=== PATIENT | female | born 1940 | race Caucasian/White ===

== ENCOUNTER 2021-01-21 08:25 | Outpatient (REF) | payer MEDICARE, OTHER, SELFPAY ==
[2021-01-21 09:18] LABS: Glucose Urine UA NEG (NEG); Leukocyte Esterase Urine NEG (NEG); Nitrite Urine NEG (NEG); PH 6.5 (5.0-8.0); Urine Blood NEG (NEG); Urine Ketones NEG (NEG); Urine Protein NEG (NEG-TRACE)
[2021-01-21 09:20] LABS: Appearance Urine CLEAR; Color Urine YELLOW
[2021-01-21 09:22] LABS: Basophils Percent Auto 0.6 % (0-2); Eosinophils Percent Auto 0.9 % (0-4); Hematocrit 41.3 % (37-47); Hemoglobin 13.6 g/dl (12.0-16.0); Imm Gran Abs Auto 0.04 X10*3/uL (0.00-0.03); Imm Gran Pct Auto 1.1 % (0.0-0.4); Lymphocytes Percent Auto 57.9 % (20-40); MANUAL DIFF FLAG SCAN; Mean Corpuscular HGB Conc 32.9 g/dl (31.0-35.0); Mean Corpuscular Hemoglobin 30.4 pg (27.0-33.0); Mean Corpuscular Volume 92.4 fL (80-98); Mean Platelet Volume 10.7 fL (9.4-12.3); Monocytes Absolute Auto 0.5 X10*3/uL (0.1-1.2); Monocytes Percent Auto 13.5 % (2-11); Neutrophils Absolute Auto 0.9 X10*3/uL (2.0-8.3); Platelet Count 128 X10*3/uL (160-400); Red Blood Count 4.47 X10*6/uL (4.20-5.50); Red Cell Distribution Width 13.7 % (11.0-16.0); SCAN SMEAR FLAG 1; White Blood Count 3.5 X10*3/uL (4.8-10.8)
[2021-01-21 09:46] LABS: Alanine Aminotransferase 12 U/L (0-31); Albumin Level 4.3 g/dL (3.5-5.0); Alkaline Phosphatase 41 U/L (39-117); Anion Gap 10 (12-20); Aspartate Amino Transferase 18 U/L (5-31); Bilirubin Total 0.5 mg/dL (0.0-1.0); Blood Urea Nitrogen 18 mg/dL (9-16); Calcium 9.7 mg/dL (8.4-10.2); Carbon Dioxide 29 mmol/L (22-29); Chloride 104 mmol/L (96-108); Cholesterol 165 mg/dL; Estimated Glomerular Filt Rate > 60; Glucose Fasting 79 mg/dL (60-99); HDL Cholesterol 68 mg/dL; LDL Cholesterol Calculated 88 mg/dl; Potassium 4.1 mmol/L (3.3-5.1); Sodium 139 mmol/L (135-145); Total Protein 6.6 g/dL (6.5-8.0); Triglycerides 45 mg/dL
[2021-01-21 10:08] LABS: Thyroid Stimulating Hormone 5.05 uIU/mL (0.32-4.0); Vitamin D 25-OH Total 39.5 ng/mL (>30)
[2021-01-21 10:25] LABS: SLIDE REVIEW VERIFIED
== END 2021-01-21 08:26 | disposition home or self-care (01) ==
LOC: HO.LAB 08:25
PROVIDERS: PCP Internal Medicine; Visit Provider Internal Medicine
DX: E03.9 Hypothyroidism, unspecified (principal); E78.00 Pure hypercholesterolemia, unspecified; K21.9 Gastro-esophageal reflux disease without esophagitis; E55.9 Vitamin D deficiency, unspecified; I10 Essential (primary) hypertension; R35.0 Frequency of micturition
CPT/HCPCS: 36415; 80053; 80061; 81003; 82306; 84443; 85025

== ENCOUNTER 2021-07-16 09:35 | Outpatient (REF) | payer MEDICARE, OTHER, SELFPAY ==
[2021-07-16 10:40] LABS: Basophils Percent Auto 0.6 % (0-2); Eosinophils Percent Auto 0.9 % (0-4); Hematocrit 42.9 % (37.0-47.0); Hemoglobin 13.8 g/dl (12.0-16.0); Imm Gran Abs Auto 0.03 X10*3/uL (0.00-0.03); Imm Gran Pct Auto 0.9 % (0.0-0.4); Lymphocytes Percent Auto 57.7 % (20-40); MANUAL DIFF FLAG SCAN; Mean Corpuscular HGB Conc 32.2 g/dl (31.0-35.0); Mean Corpuscular Hemoglobin 30.1 pg (27.0-33.0); Mean Corpuscular Volume 93.7 fL (80.0-98.0); Mean Platelet Volume 10.6 fL (9.4-12.3); Monocytes Absolute Auto 0.5 X10*3/uL (0.1-1.2); Monocytes Percent Auto 13.4 % (2-11); Neutrophils Absolute Auto 0.9 x10*3/uL (2.0-8.3); Neutrophils Percent Auto 26.5 % (45-73); Platelet Count 149 X10*3/uL (160-400); Red Blood Count 4.58 X10*6/uL (4.20-5.50); Red Cell Distribution Width 13.6 % (11.0-16.0); SCAN SMEAR FLAG 1; White Blood Count 3.4 X10*3/uL (4.8-10.8)
[2021-07-16 11:13] LABS: SLIDE REVIEW VERIFIED
[2021-07-16 12:02] LABS: Alanine Aminotransferase 9 U/L (0-31); Albumin Level 4.3 g/dL (3.5-5.0); Alkaline Phosphatase 41 U/L (39-117); Anion Gap 14 (12-20); Aspartate Amino Transferase 19 U/L (5-31); Bilirubin Total 0.7 mg/dL (0.0-1.0); Blood Urea Nitrogen 25 mg/dL (9-16); Calcium 10.2 mg/dL (8.4-10.2); Carbon Dioxide 30 mmol/L (22-29); Chloride 103 mmol/L (96-108); Cholesterol 195 mg/dL; Estimated Glomerular Filt Rate > 60; Glucose Fasting 81 mg/dL (60-99); HDL Cholesterol 70 mg/dL; LDL Cholesterol Calculated 111 mg/dl; Potassium 4.4 mmol/L (3.3-5.1); Sodium 143 mmol/L (135-145); Total Protein 6.9 g/dL (6.5-8.0); Triglycerides 73 mg/dL
[2021-07-16 12:11] LABS: Thyroid Stimulating Hormone 4.65 uIU/mL (0.32-4.0)
== END 2021-07-16 09:36 | disposition home or self-care (01) ==
LOC: HO.LAB 09:35
PROVIDERS: PCP Internal Medicine; Visit Provider Internal Medicine
DX: E03.9 Hypothyroidism, unspecified (principal); E78.00 Pure hypercholesterolemia, unspecified
CPT/HCPCS: 36415; 80053; 80061; 84443; 85025

== ENCOUNTER 2021-08-18 10:42 | Outpatient (REF) | payer MEDICARE, OTHER, SELFPAY ==
[2021-08-18 11:14] LABS: MANUAL DIFF FLAG NO
[2021-08-18 12:21] LABS: Basophils Percent Auto 0.3 % (0-2); Eosinophils Percent Auto 0.5 % (0-4); Hematocrit 40.6 % (37.0-47.0); Hemoglobin 13.7 g/dl (12.0-16.0); Imm Gran Abs Auto 0.04 X10*3/uL (0.00-0.03); Imm Gran Pct Auto 1.1 % (0.0-0.4); Lymphocytes Absolute Auto 1.9 X10*3/uL (1.2-4.9); Lymphocytes Percent Auto 51.5 % (20-40); Mean Corpuscular HGB Conc 33.7 g/dl (31.0-35.0); Mean Corpuscular Hemoglobin 31.8 pg (27.0-33.0); Mean Corpuscular Volume 94.2 fL (80.0-98.0); Mean Platelet Volume 10.8 fL (9.4-12.3); Monocytes Absolute Auto 0.7 X10*3/uL (0.1-1.2); Monocytes Percent Auto 18.3 % (2-11); Neutrophils Absolute Auto 1.1 x10*3/uL (2.0-8.3); Neutrophils Percent Auto 28.3 % (45-73); Platelet Count 137 X10*3/uL (160-400); Red Blood Count 4.31 X10*6/uL (4.20-5.50); Red Cell Distribution Width 13.6 % (11.0-16.0); White Blood Count 3.7 X10*3/uL (4.8-10.8)
[2021-08-18 12:45] LABS: Valproate 76.5 mcg/mL (50.0-100.0)
[2021-08-18 13:15] LABS: Folate > 20.0 ng/mL (> or = 4.0); Vitamin B12 252 pg/mL (200-900)
== END 2021-08-18 10:43 | disposition home or self-care (01) ==
LOC: HO.LAB 10:42
PROVIDERS: PCP Internal Medicine; Visit Provider Psychiatry & Neurology Psychiatry
DX: F31.9 Bipolar disorder, unspecified (principal); Z79.899 Other long term (current) drug therapy
CPT/HCPCS: 36415; 80164; 82607; 82746; 85025

== ENCOUNTER 2021-10-24 08:11 | Outpatient (REF) | payer MEDICARE, OTHER, SELFPAY ==
[2021-10-24 08:42] LABS: MANUAL DIFF FLAG NO
[2021-10-24 09:12] LABS: Basophils Percent Auto 0.3 % (0-2); Eosinophils Percent Auto 0.5 % (0-4); Hematocrit 40.4 % (37.0-47.0); Hemoglobin 13.2 g/dl (12.0-16.0); Imm Gran Abs Auto 0.02 X10*3/uL (0.00-0.03); Imm Gran Pct Auto 0.5 % (0.0-0.4); Lymphocytes Percent Auto 52.2 % (20-40); Mean Corpuscular HGB Conc 32.7 g/dl (31.0-35.0); Mean Corpuscular Volume 91.8 fL (80.0-98.0); Mean Platelet Volume 11.1 fL (9.4-12.3); Monocytes Absolute Auto 0.7 X10*3/uL (0.1-1.2); Monocytes Percent Auto 17.1 % (2-11); Neutrophils Absolute Auto 1.1 x10*3/uL (2.0-8.3); Neutrophils Percent Auto 29.4 % (45-73); Platelet Count 128 X10*3/uL (160-400); Red Cell Distribution Width 13.2 % (11.0-16.0); White Blood Count 3.8 X10*3/uL (4.8-10.8)
[2021-10-24 09:54] LABS: Thyroid Stimulating Hormone 0.33 uIU/mL (0.32-4.0); Vitamin D 25-OH Total 42.4 ng/mL (>30)
== END 2021-10-24 08:12 | disposition home or self-care (01) ==
LOC: HO.LAB 08:11
PROVIDERS: PCP Internal Medicine; Visit Provider Internal Medicine
DX: E03.9 Hypothyroidism, unspecified (principal); E78.00 Pure hypercholesterolemia, unspecified; E55.9 Vitamin D deficiency, unspecified; E66.09 Other obesity due to excess calories; F31.70 Bipolar disorder, currently in remission, most recent episode unspecified
CPT/HCPCS: 36415; 82306; 84443; 85025

== ENCOUNTER 2021-12-02 08:22 | Outpatient (REF) | payer MEDICARE, OTHER, SELFPAY ==
[2021-12-02 08:56] LABS: MANUAL DIFF FLAG NO
[2021-12-02 09:19] LABS: Basophils Percent Auto 0.2 % (0-2); Eosinophils Percent Auto 0.7 % (0-4); Hematocrit 41.5 % (37.0-47.0); Hemoglobin 13.9 g/dl (12.0-16.0); Imm Gran Abs Auto 0.02 X10*3/uL (0.00-0.03); Imm Gran Pct Auto 0.5 % (0.0-0.4); Lymphocytes Percent Auto 46.3 % (20-40); Mean Corpuscular HGB Conc 33.5 g/dl (31.0-35.0); Mean Corpuscular Hemoglobin 29.8 pg (27.0-33.0); Mean Corpuscular Volume 89.1 fL (80.0-98.0); Monocytes Absolute Auto 0.8 X10*3/uL (0.1-1.2); Monocytes Percent Auto 18.5 % (2-11); Neutrophils Absolute Auto 1.5 x10*3/uL (2.0-8.3); Neutrophils Percent Auto 33.8 % (45-73); Platelet Count 126 X10*3/uL (160-400); Red Blood Count 4.66 X10*6/uL (4.20-5.50); Red Cell Distribution Width 13.3 % (11.0-16.0); White Blood Count 4.4 X10*3/uL (4.8-10.8)
[2021-12-02 09:48] LABS: Valproate 76.5 mcg/mL (50.0-100.0)
[2021-12-02 10:15] LABS: Folate > 20.0 ng/mL (> or = 4.0); Vitamin B12 273 pg/mL (200-900)
== END 2021-12-02 08:23 | disposition home or self-care (01) ==
LOC: HO.LAB 08:22
PROVIDERS: PCP Internal Medicine; Visit Provider Psychiatry & Neurology Psychiatry
DX: F31.9 Bipolar disorder, unspecified (principal); Z79.899 Other long term (current) drug therapy
CPT/HCPCS: 36415; 80164; 82607; 82746; 85025

== ENCOUNTER 2021-12-22 09:56 | Outpatient (REF) | payer MEDICARE, OTHER, SELFPAY ==
--- NOTE | ~2021-12-22 | XR_ITS ---
EXAMINATION: XR CHEST CLINICAL INFORMATION: Rhinorrhea. COMPARISON: None TECHNIQUE: 2 views of the chest were obtained. FINDINGS: Normal appearance of the cardiomediastinal silhouette. Nonspecific interstitial thickening in the lower lobes. Mild blunting of the right costophrenic angle. No pneumothorax. No acute osseous abnormalities. XR/XR chest 2V IMPRESSION: Nonspecific interstitial thickening in the lower lungs, which could be associated with asthma, bronchitis, reactive airways disease or less likely atypical infections. Correlate clinically. Mild blunting of the right costophrenic angle could be associated with trace amount of pleural fluid or pleural thickening.
== END 2021-12-22 09:57 | disposition home or self-care (01) ==
LOC: HO.XRAY 09:56
PROVIDERS: PCP Internal Medicine; Visit Provider Internal Medicine
DX: J34.89 Other specified disorders of nose and nasal sinuses (principal)
CPT/HCPCS: 71046

== ENCOUNTER 2022-03-09 10:26 | Outpatient (REF) | payer MEDICARE, OTHER, SELFPAY ==
[2022-03-09 10:48] LABS: MANUAL DIFF FLAG NO
[2022-03-09 12:01] LABS: Basophils Percent Auto 0.3 % (0-2); Eosinophils Percent Auto 0.6 % (0-4); Hematocrit 40.4 % (37.0-47.0); Imm Gran Abs Auto 0.01 X10*3/uL (0.00-0.03); Imm Gran Pct Auto 0.3 % (0.0-0.4); Lymphocytes Absolute Auto 1.7 X10*3/uL (1.2-4.9); Lymphocytes Percent Auto 47.2 % (20-40); Mean Corpuscular HGB Conc 32.2 g/dl (31.0-35.0); Mean Corpuscular Volume 90.2 fL (80.0-98.0); Monocytes Absolute Auto 0.7 X10*3/uL (0.1-1.2); Monocytes Percent Auto 19.2 % (2-11); Neutrophils Absolute Auto 1.2 x10*3/uL (2.0-8.3); Neutrophils Percent Auto 32.4 % (45-73); Platelet Count 136 X10*3/uL (160-400); Red Blood Count 4.48 X10*6/uL (4.20-5.50); Red Cell Distribution Width 13.8 % (11.0-16.0); White Blood Count 3.5 X10*3/uL (4.8-10.8)
[2022-03-09 12:42] LABS: Alanine Aminotransferase 8 U/L (0-31); Albumin Level 4.2 g/dL (3.5-5.0); Alkaline Phosphatase 43 U/L (39-117); Anion Gap 15 (12-20); Aspartate Amino Transferase 18 U/L (5-31); Bilirubin Total 0.6 mg/dL (0.0-1.0); Blood Urea Nitrogen 21 mg/dL (9-16); Calcium 9.9 mg/dL (8.4-10.2); Carbon Dioxide 28 mmol/L (22-29); Chloride 104 mmol/L (96-108); Estimated Glomerular Filt Rate > 60; Glucose Fasting 82 mg/dL (60-99); Potassium 4.2 mmol/L (3.3-5.1); Sodium 143 mmol/L (135-145); Total Protein 6.6 g/dL (6.5-8.0)
[2022-03-09 12:47] LABS: Thyroid Stimulating Hormone 0.17 uIU/mL (0.32-4.0)
== END 2022-03-09 10:27 | disposition home or self-care (01) ==
LOC: HO.LAB 10:26
PROVIDERS: PCP Internal Medicine; Visit Provider Internal Medicine
DX: E03.9 Hypothyroidism, unspecified (principal); E78.00 Pure hypercholesterolemia, unspecified; F31.70 Bipolar disorder, currently in remission, most recent episode unspecified; E55.9 Vitamin D deficiency, unspecified
CPT/HCPCS: 36415; 80053; 84443; 85025

== ENCOUNTER → 2022-06-26 15:04 | Outpatient (BNVA) | payer MEDICARE, OTHER, SELFPAY | PROVIDERS: PCP Internal Medicine; Visit Provider Psychiatry & Neurology Psychiatry | DX: F31.70 Bipolar disorder, currently in remission, most recent episode unspecified (principal); G62.9 Polyneuropathy, unspecified; D72.819 Decreased white blood cell count, unspecified; E03.9 Hypothyroidism, unspecified; Z79.899 Other long term (current) drug therapy | CPT/HCPCS: 90833; 99212 ==

== ENCOUNTER 2022-11-30 10:20 | Outpatient (AMB) | payer MEDICARE, OTHER, SELFPAY ==
--- NOTE | 2022-11-30 10:51 | AM.OFFWIN_ITS ---
Intake Vital Signs 11/30/22 10:55 11/30/22 11:12 Height 5 ft 5 in BP 118/72 Blood Pressure Location Lt brachial Position Sitting Pulse 47 L 60 Pulse Source Pulse Oximeter Temp 96.5 F L Temp Source Temporal Artery Scan Pulse Oximetry (%) 97 Oxygen Delivery Method Room Air Intake Visit Reasons: EST/ear cleaning/rt arm pain Intake Note: Pt is here c/o having wax in her ears. Pt is suppose to wear hearing aids. Pt also states she has pain in her right arm. No falls or injuries noted. Patient Tobacco Use Status: Never used Tobacco Allergies gabapentin Allergy (Unknown, Verified 11/30/22 10:53) lumps on arms No Known Allergies Allergy (Unverified 11/30/22 10:53) Do you need a note to return to daycare/school/sports/work: No HPI HPI Comments History of Present Illness Details 1112 82 year old female presents w/ b/l muffled hearing was told to come in by her it network administrator due to cerrumen in her ear cannal, normally wears hearing aids however not in now. Patient also has been having right shoulder pain for the past few months, constant, atraumatic, worse w/ movment, lifting and overhead movments. Patient states progressivly worsening. Deneis CP, SOB,N/V, abd pain, COLEMAN, vision changes, dizziness, fevers, chills, numbeness, tingling Physical exam with limited range of motion secondary to pain to right shoulder. 2+ radial pulses equal bilateral. No wrist drop bilaterally. Capillary refill less than 2 seconds to bilateral upper extremity digits. Normal sensation distally. Discomfort with palpation to distal clavicle over insertion site For ligaments and tendons. Bilateral ears with cerumen impaction. Ears likely muscle tearing secondary to cerumen impaction. Unlikely sens orineural hearing loss, tumor. Right shoulder likely painful secondary to inflammatory arthritis versus tendinitis. Unlikely fracture, dislocation. Unlikely atypical presentation of ACS. Plan ear lavage, x-ray of right shoulder. Will give her an orthopedic For. Educated patient on diagnosis and treatment plan, answered all question, patient verbalizes understanding. At this time patient will be discharged home, advised to return with new or worsening symptoms. Educated on worrisome signs and symptoms and when to return. At this time I feel comfortable discharge home. 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 Hypothyroidism Peripheral neuropathy Social History Patient Tobacco Use Status: Never used Tobacco Review of Systems Const Details: Constitutional : No Weight loss, No Fever, No Chills, No Fatigue, No Malaise ENT/Mouth : No sore throat, No Rhinorrhea Eyes: No Eye Pain, No Swelling, No Redness, + muffled hearing Cardiovascular : No Chest Pain, No SOB, No Dyspnea on Exertion, No Orthopnea, No Edema, No Palpitations Respiratory : No Cough, No Sputum, No Wheezing Gastrointestinal : No Nausea, No Vomiting, No Diarrhea, No Constipation, No abdominal Pain, No Hematochezia, No Melena Genitourinary : No Dysuria, No Urinary Frequency, No Hematuria, Musculoskeletal : + joint pain, No Myalgias, No Joint Swelling Skin : No Skin Lesions, No rash Neuro : No Weakness, No Numbness, No Dizziness, No Headache Psych : No Anxiety/Panic, No Depression All other systems reviewed and are negative All systems reviewed & are unremarkable except as noted in HPI and below Physical Exam Vital Signs: Last Vital Signs Temp 6.5 F L 11/30/22 10:55 Pulse 47 L 11/30/22 10:55 BP 118/72 11/30/22 10:55 Pulse Ox 97 11/30/22 10:55 Oxygen Delivery Method Room Air 11/30/22 10:55 vss Appearance: Alert.? Oriented X3.? No acute distress.? Head: Normocephalic, atraumatic, no step-offs or deformities Eyes: Pupils equal, round and reactive to light.? ENT: Pharynx normal.?b/l ears w/ cerrumen impaction Neck: Normal inspection.? Neck supple.? CVS: Normal heart rate and rhythm.? Pulses normal.? Respiratory: No respiratory distress.? Breath sounds normal.? Abdomen: Soft and nontender.? Skin: Skin warm and dry.? Normal skin color.? Normal skin turgor.? Extremities: No lower extremity edema.? No calf ttp. 5/5 strength to bilateral upper and lower extremities + limited range of motion secondary to pain to right shoulder. 2+ radial pulses equal bilateral. No wrist drop bilaterally. Capillary refill less than 2 seconds to bilateral upper extremity digits. Normal sensation distally. Discomfort with palpation to distal clavicle over insertion site For ligaments and tendons. Neuro: Oriented X 3.? No motor deficit.? No sensory deficit. CN 2-12 intact Assessment & Plan Assessment & Plan (1) Cerumen impaction: Code(s): H61.20 - Impacted cerumen, unspecified ear (2) Right shoulder tendinitis: Code(s): M77.8 - Other enthesopathies, not elsewhere classified Plan Take your medications as prescribed. If you were prescribed antibiotics today, it is important that you take your medication to their entirety, do not skip any doses, do not finish them early. Follow-up with your primary care provider this week. Return to the emergency department with new or worsening symptoms. Such as fevers, chills, chest pain, shortness of breath, nausea, vomiting, dizziness, headache, vision changes, lethargy In case of emergency call 911 Coding Level of Care Code Est Pt Level 3 (86762) Diagnoses Cerumen impaction H61.20 Right shoulder tendinitis M77.8
[2022-11-30 10:55] VITALS: BP 118/72; PULSE 47; TEMP 35.8; O2SAT 97
[2022-11-30 11:12] VITALS: PULSE 60
== END 2022-11-30 11:52 | disposition home or self-care (01) ==
PROVIDERS: PCP Internal Medicine; Visit Provider Physician Assistant
DX: H61.23 Impacted cerumen, bilateral (principal); M77.8 Other enthesopathies, not elsewhere classified
CPT/HCPCS: 99213

== ENCOUNTER 2022-11-30 12:01 | Outpatient (REF) | payer MEDICARE, OTHER, SELFPAY ==
--- NOTE | ~2022-11-30 | XR_ITS ---
EXAMINATION: XR SHOULDER, RIGHT CLINICAL INFORMATION: Right shoulder pain. COMPARISON: None available. TECHNIQUE: Three views of the right shoulder. FINDINGS: There is no acute fracture or dislocation. Moderate right acromioclavicular degenerative joint changes are seen. The right glenohumeral joint is intact with the visualized right ribs are intact with the soft tissues are unremarkable. XR/XR shoulder RT min 2V IMPRESSION: Moderate right acromioclavicular degenerative joint changes. No overt acute abnormality.
== END 2022-11-30 12:02 | disposition home or self-care (01) ==
LOC: HO.HMGCX 12:01
PROVIDERS: PCP Internal Medicine; Visit Provider Physician Assistant
DX: M77.8 Other enthesopathies, not elsewhere classified (principal)
CPT/HCPCS: 73030

== ENCOUNTER 2022-12-18 08:36 | Outpatient (REF) | payer MEDICARE, OTHER, SELFPAY ==
[2022-12-18 09:01] LABS: MANUAL DIFF FLAG NO
[2022-12-18 10:16] LABS: Basophils Percent Auto 0.4 % (0-2); Eosinophils Percent Auto 0.4 % (0-4); Hematocrit 41.3 % (37.0-47.0); Hemoglobin 13.4 g/dl (12.0-16.0); Imm Gran Abs Auto 0.02 X10*3/uL (0.00-0.03); Imm Gran Pct Auto 0.4 % (0.0-0.4); Lymphocytes Absolute Auto 2.7 X10*3/uL (1.2-4.9); Lymphocytes Percent Auto 57.3 % (20-40); Mean Corpuscular HGB Conc 32.4 g/dl (31.0-35.0); Mean Corpuscular Hemoglobin 29.4 pg (27.0-33.0); Mean Corpuscular Volume 90.6 fL (80.0-98.0); Mean Platelet Volume 11.1 fL (9.4-12.3); Monocytes Absolute Auto 0.8 X10*3/uL (0.1-1.2); Monocytes Percent Auto 16.5 % (2-11); Neutrophils Absolute Auto 1.2 x10*3/uL (2.0-8.3); Platelet Count 142 X10*3/uL (160-400); Red Blood Count 4.56 X10*6/uL (4.20-5.50); Red Cell Distribution Width 13.6 % (11.0-16.0); White Blood Count 4.7 X10*3/uL (4.8-10.8)
[2022-12-18 11:00] LABS: Alanine Aminotransferase 10 U/L (0-31); Albumin Level 4.3 g/dL (3.5-5.0); Alkaline Phosphatase 40 U/L (39-117); Anion Gap 17 (12-20); Aspartate Amino Transferase 19 U/L (5-31); Bilirubin Total 0.6 mg/dL (0.0-1.0); Blood Urea Nitrogen 25 mg/dL (9-16); Calcium 10.1 mg/dL (8.4-10.2); Carbon Dioxide 24 mmol/L (22-29); Chloride 107 mmol/L (96-108); Cholesterol 169 mg/dL; Estimated Glomerular Filt Rate > 60; Glucose Fasting 77 mg/dL (60-99); HDL Cholesterol 62 mg/dL; LDL Cholesterol Calculated 92 mg/dl; Sodium 144 mmol/L (135-145); Total Protein 7.1 g/dL (6.5-8.0); Triglycerides 77 mg/dL
[2022-12-18 11:05] LABS: Thyroid Stimulating Hormone 3.78 uIU/mL (0.32-4.0); Vitamin D 25-OH Total 50.7 ng/mL (>30)
== END 2022-12-18 08:37 | disposition home or self-care (01) ==
LOC: HO.LAB 08:36
PROVIDERS: Absent Provider Internal Medicine; PCP Internal Medicine; Visit Provider Psychiatry & Neurology Psychiatry
DX: E78.00 Pure hypercholesterolemia, unspecified (principal); E03.9 Hypothyroidism, unspecified; E55.9 Vitamin D deficiency, unspecified; F31.70 Bipolar disorder, currently in remission, most recent episode unspecified; G62.9 Polyneuropathy, unspecified; Z79.899 Other long term (current) drug therapy
CPT/HCPCS: 36415; 80053; 80061; 82306; 84443; 85025; 90833; 99212

== ENCOUNTER 2022-12-18 20:59 | Outpatient (AMB) | payer MEDICARE, OTHER, SELFPAY ==
--- NOTE | 2022-12-18 11:53 | A.OFFPSYCH_ITS ---
Intake Intake Visit Reasons: Depression Allergies gabapentin Allergy (Unknown, Verified 11/30/22 10:53) lumps on arms No Known Allergies Allergy (Unverified 11/30/22 10:53) Medication List - Last Reconciled 12/18/22 by Marquise Eaton MD clonazepam 0.5 - 1 mg (0.5 - 1 x 1 mg) PO BEDTIME PRN divalproex 500 mg PO DAILY divalproex (Depakote) 250 mg PO DAILY levomefolate calcium 15 mg PO DAILY levothyroxine 0 mcg PO rosuvastatin 5 mg PO DAILY HPI- Psychiatric Chief Complaint: Depression HPI Narrative: Pts mood has been anxious dysphoric at times has had difficult time with shoulder and arm pain pt still driving ambulation with some difficulty sec to neuropathy goes out with gf niece does grocery shopping shoulder is getting better neuropathy clearly gradually worsening patient aware of fall risk but does not want to use any assisted devices Past Psychiatric History: History of bipolar disorder with past hospitalizations for [facility] Mental Status Exam Mental Status Exam Narrative: Mental Status Exam Narrative: Appearance: Casually dressed Behavior: Cooperative appropriate psychomotor: Balance difficulty and gait disturb Speech: Normal volume and prosody Thought proccess logical and goal-directed Thought content: Future oriented no self-harming thoughts some rumination regarding the future and issues related to dying And decrease in functioning with her Mood: Some melancholy Affect: Appropriate to mood full affect SI:denies HI:denies VH/AH:none Delusions: None Insight/judgment: Good insight and judgment except in regards to fall risk with neuropathy Memory/cog: Intact Assessment and Plan Assessment & Plan (1) Bipolar disorder in remission: Status: Acute Code(s): F31.70 - Bipolar disorder, currently in remission, most recent episode unspecified (2) Peripheral neuropathy: Status: Acute Code(s): G62.9 - Polyneuropathy, unspecified Plan Patient seen psychiatric follow-up. Depakote level ordered unfortunately was not completed by laboratory reordered continued Depakote had done well previously on clonazepam there is a risk of balance and fall problems which we did review Will use transitionally Medications: Refilled clonazepam administer 30 minutes before bedtime 0.5 - 1 mg (0.5 - 1 x 1 mg) PO BEDTIME PRN 30 tabs 2RF insomnia Orders: Orders Valproate 07/31/23 F31.70 - Bipolar disorder, currently in remission, most recent episode unspecified Counseling and coordination of Care Pt. Self Management counseling: Sleep hygiene and Cognitive restructuring Medication management counseling: Effectiveness, Side effects and Adherence Diagnosis and Prognosis Counseling: Accuracy of diagnosis and Adequacy of current interventions Details-Diagnosis/Prognosis counseling: Monitor for overmedication gait disturbance check Depakote level labs Details: I spent [35] minutes reviewing the record, seeing the patient and documenting in the medical record. Counseling provided to the patient/caregiver as outlined below. Addressed patient/caregiver concerns regarding current medication regime including effective adherence. Addressed patient/caregiver concerns regarding diagnosis and prognosis including accuracy of diagnosis, prognosis over time, impact of diagnosis. Addressed patient/caregiver concerns regarding impact of recent stressors. [facility] Medical History Bipolar disorder in remission Chronic leukopenia Hypothyroidism Peripheral neuropathy Social History Patient Tobacco Use Status: Never used Tobacco Social History: The patient is she is retired no children she is close with her does have friends and family Substance History: None Trauma History: None noted Coding Level of Care Code Est Pt Level 3 (24320) Therapy 30m w/E&M (71763) Diagnoses Bipolar disorder in remission F31.70 Peripheral neuropathy G62.9
== END 2022-12-18 21:00 | disposition home or self-care (01) ==
LOC: HO.HOP 20:59
PROVIDERS: PCP Internal Medicine; Visit Provider Psychiatry & Neurology Psychiatry
DX: F31.70 Bipolar disorder, currently in remission, most recent episode unspecified (principal); G62.9 Polyneuropathy, unspecified
CPT/HCPCS: 90833; 99213

== ENCOUNTER 2023-02-07 07:56 | Outpatient (AMB) | payer MEDICARE, OTHER, SELFPAY ==
--- NOTE | 2023-02-07 08:06 | MHC.OFFVIS ---
Intake Vital Signs 02/07/23 08:14 Height 5 ft 5 in Weight 200 lb BMI 33.3 Intake Visit Reasons: [employer]-Right shoulder pain Intake Note: Evie an 82 year old right hand dominant female who presents today as a new patient with complaints of right shoulder pain. Patient reports bilateral shoulder pain with her right arm being the worse. She presented to [facility] walk in clinic due to discomfort and pain, xrays were taken. Her pain has improved since her visit to walk in. States numbness and tingling left arm/hand, as well as right arm down to her 5th&4th digit. Finds some relief with voltarin gel. Denies injury. Hx of neuropathy in legs and feet. Allergies gabapentin Allergy (Unknown, Verified 02/07/23 08:21) lumps on arms No Known Allergies Allergy (Unverified 02/07/23 08:21) HPI [employer]-Right shoulder pain HPI Details 82-year-old right hand dominant female who presents to the office today for evaluation of right shoulder pain. She was seen at walk-in clinic for her pain and discomfort where x-rays were performed. She states she has bilateral shoulder pain which is worse in her right shoulder. Her pain is currently improved but she does c/o pain, numbness and tingling in her bilateral arms which radiates down to the 4th and 5th digits of right hand. Her pain is aggravated with cooking and cleaning activities. She also experiences wrist pain with reaching back. She denies any pain at night. She finds mild relief with voltaren gel. She denies sustaining any recent injury. She has a history of neuropathy in her legs and feet. [facility] Medical History (Updated 02/07/23 @ 08:38 by Milo Liu PA-C) Bipolar disorder in remission Peripheral neuropathy Hypothyroidism Chronic leukopenia Surgical History (Updated 02/07/23 @ 08:14 by JUAN Wooten) History of bilateral knee replacement Social History (Updated 02/07/23 @ 08:14 by JUAN Wooten) Patient Tobacco Use Status: Never used Tobacco Current occupational status: retired Review of Systems Const All systems reviewed & are unremarkable except as noted in HPI and below Physical Exam Vital Signs: BMI result Body Mass Index 33.3 Const General: cooperative, healthy appearing, comfortable, no acute distress, well developed and alert Orientation/consciousness: patient oriented x3 HEENT Head: Yes normal to inspection, Yes normocephalic and Yes atraumatic Eyes General: appearance normal, both eyes and all related structures Resp Effort & Inspection: normal respiratory effort and able to speak in complete sentences Cardio Rate: regular rate Peripheral pulses: Peripheral pulses 2+ throughout GI Palpation (GI): Soft to palpation Skin Lesions: no lesions Rashes: no rashes Neuro General: patient oriented x3 Extrem Other: Right shoulder normal to inspection. Tenderness over the bicipital groove and along the deltoid region of the shoulder. Forward flexion to 95, external rotation to 90, internal rotation to S1. 5/5 RTC strength. Positive Reyes. NVI. Results Reviewed Results Reviewed: xrays of the right shoulder obtained on 11/30/22 show ac joint oa Assessment & Plan Assessment & Plan (1) Osteoarthritis of acromioclavicular joint: Code(s): M19.019 - Primary osteoarthritis, unspecified shoulder Plan We discussed options which include PT, NSAIDs and injections. She will defer on physical therapy at this time therefore, she was given a handout of home exercises program in the office today. If symptoms persist, the patient will contact me for an injection, otherwise, PRN. Patient Instructions: Scribed for Milo Liu PA-C, by Marquis Cason electromedical service engineer, on 02/07/2023 at 8:00 AM EST. I, Milo Liu PA-C, have personally reviewed and agree with the information entered by the scribe. Coding Level of Care Code New Pt Level 3 (59433) Diagnoses Osteoarthritis of acromioclavicular joint M19.019
[2023-02-07 08:14] VITALS: BMI 33.3
== END 2023-02-07 09:00 | disposition home or self-care (01) ==
PROVIDERS: PCP Internal Medicine; Visit Provider Physician Assistant
DX: M19.019 Primary osteoarthritis, unspecified shoulder (principal)
CPT/HCPCS: 99203

== ENCOUNTER → 2023-02-07 07:56 | Outpatient (BNVA) | payer MEDICARE, OTHER, SELFPAY | PROVIDERS: PCP Internal Medicine; Visit Provider Physician Assistant ==

== ENCOUNTER 2023-03-26 13:38 | Outpatient (AMB) | payer MEDICARE, OTHER, SELFPAY ==
--- NOTE | 2023-03-26 14:06 | MHC.OFFVISPS ---
Intake Intake Visit Reasons: depression Allergies gabapentin Allergy (Unknown, Verified 04/10/23 14:00) lumps on arms Medication List - Last Reconciled 03/26/23 by Marquise Eaton MD cetirizine 10 mg PO DAILY clonazepam 0.5 - 1 mg (0.5 - 1 x 1 mg) PO BEDTIME PRN divalproex 500 mg PO DAILY divalproex (Depakote) 250 mg PO DAILY ergocalciferol (vitamin D2) 1,250 mcg PO QWEEK levomefolate calcium 15 mg PO DAILY levothyroxine 0 mcg PO pantoprazole 40 mg PO DAILY ramelteon (Rozerem) 8 mg PO BEDTIME rosuvastatin 5 mg PO DAILY HPI- Psychiatric Chief Complaint: depression HPI Narrative: Pt has generally been doing ok mood generally stable future oriented chronic stress due to neuropathy . Denies feelig overmedicated no manic or depressive sx stable on depakote depakote level ordered in november but not obtained to this pt Past Psychiatric History: History of bipolar disorder with past hospitalizations for [facility] Mental Status Exam Mental Status Exam Patient Appearance: Well Grooomed Patient Orientation: Person and Situation Level of Consciousness: Awake and Appropriate Patient Behavior: Appropriate Mood Description: Calm Affect Description: Calm and Constricted Ability to Follow Directions: Good Speech Pattern: Clear Hallucinations: None Delusions: Not Present Thought Process: Linear and Slowed Thinking Thought Content: positive for [place] and positive for Circumstantial Judgement: Good Judgement and Insight: some balance problems with neuropathy Assessment and Plan Assessment & Plan (1) Bipolar disorder in full remission: Status: Acute Code(s): F31.70 - Bipolar disorder, currently in remission, most recent episode unspecified (2) Peripheral neuropathy: Status: Acute Code(s): G62.9 - Polyneuropathy, unspecified Plan try rozerem for insomnia cont dep ck level also gets seen by pcp Medications: New ramelteon (Rozerem) 8 mg PO BEDTIME 30 tabs 2RF Counseling and coordination of Care Medication management counseling: Effectiveness and Side effects Diagnosis and Prognosis Counseling: Adequacy of current interventions Details: I spent [] minutes reviewing the record, seeing the patient and documenting in the medical record. Counseling provided to the patient/caregiver as outlined below. Addressed patient/caregiver concerns regarding current medication regime including effective adherence. Addressed patient/caregiver concerns regarding diagnosis and prognosis including accuracy of diagnosis, prognosis over time, impact of diagnosis. Addressed patient/caregiver concerns regarding impact of recent stressors. PFSH Medical History Bipolar disorder in full remission Thrombocytopenia Pancytopenia Bipolar disorder in remission Peripheral neuropathy Hypothyroidism Chronic leukopenia Surgical History History of bilateral knee replacement Family History Brother Stomach cancer Mother Stomach cancer Maternal Aunt Brain cancer Maternal Aunt Stomach cancer Esophageal cancer Maternal Grandfather Colon cancer Social History Household Members: Spouse Housing: Apartment Do you presently have visiting nurse or other home services: No Alcohol intake: former Comment: pt refuses alarms Patient Tobacco Use Status: Never used Tobacco Smoked in Last 30 Days: No Use of substances other than those prescribed or required for medical reasons: No Currently Displaying Signs/Symptoms of Drug Intoxication Withdrawal: No Advance Directives: Yes Advance Directives Information Provided: No Advance Directives on File: Yes (Updated advance directives with proxy) Advance Directives Date on File: 04/26/23 service: No Current occupational status: retired Social History: The patient is she is retired no children she is close with her does have friends and family Substance History: None Trauma History: None noted Coding Level of Care Code Est Pt Level 3 (32402) Diagnoses Bipolar disorder in full remission F31.70 Peripheral neuropathy G62.9
== END 2023-03-26 14:37 | disposition home or self-care (01) ==
LOC: HO.HOP 13:38
PROVIDERS: PCP Internal Medicine; Visit Provider Psychiatry & Neurology Psychiatry
DX: F31.70 Bipolar disorder, currently in remission, most recent episode unspecified (principal); G62.9 Polyneuropathy, unspecified
CPT/HCPCS: 99213

== ENCOUNTER → 2023-03-26 13:38 | Outpatient (BNVA) | payer MEDICARE, OTHER, SELFPAY | PROVIDERS: PCP Internal Medicine; Visit Provider Psychiatry & Neurology Psychiatry | DX: F31.70 Bipolar disorder, currently in remission, most recent episode unspecified (principal); G62.9 Polyneuropathy, unspecified | CPT/HCPCS: 99212 ==

== ENCOUNTER 2023-04-06 16:32 | Emergency (ER) | payer MEDICARE, OTHER, SELFPAY ==
[2023-04-06 16:46] VITALS: BP 123/60; PULSE 76; RESP 17; TEMP 36; O2SAT 99; BMI 33.4
--- NOTE | 2023-04-06 16:46 | ED_ITS ---
HPI - General Adult General Chief complaint: Upper Respiratory Symptoms Stated complaint: sent by , strep test was +, meds no improv. Time Seen by Provider: 04/06/23 18:45 Related Data Home Medications Medication Instructions Recorded Confirmed levothyroxine 112 mcg tablet 0 mcg PO 06/30/21 12/18/22 rosuvastatin 5 mg tablet 5 mg PO DAILY 06/30/21 12/18/22 cetirizine 10 mg tablet 10 mg PO DAILY 02/07/23 ergocalciferol (vitamin D2) 1,250 1,250 mcg PO QWEEK 02/07/23 mcg (50,000 unit) capsule pantoprazole 40 mg tablet,delayed 40 mg PO DAILY 02/07/23 release Previous Rx's Medication Instructions Recorded divalproex 500 mg tablet,delayed 500 mg PO DAILY #90 tabs 10/06/22 release levomefolate calcium 15 mg tablet 15 mg PO DAILY #90 tabs 10/06/22 divalproex 250 mg tablet,delayed 250 mg PO DAILY #90 tabs 11/14/22 release (Depakote) clonazepam 1 mg tablet 0.5 - 1 mg (0.5 - 1 x 1 mg) PO 02/16/23 BEDTIME PRN insomnia #30 tabs ramelteon 8 mg tablet (Rozerem) 8 mg PO BEDTIME #30 tabs 03/26/23 Allergies Allergy/AdvReac Type Severity Reaction Status Date / Time gabapentin Allergy Unknown lumps on Verified 04/06/23 19:22 arms No Known Allergies Allergy Verified 04/06/23 19:22 [facility] Past Medical History Medical History (Updated 02/07/23 @ 08:38 by Milo Liu PA-C) Bipolar disorder in remission Peripheral neuropathy Hypothyroidism Chronic leukopenia Surgical History (Updated 02/07/23 @ 08:14 by JUAN Wooten) History of bilateral knee replacement Social History Social History (Updated 02/07/23 @ 08:14 by JUAN Wooten) Patient Tobacco Use Status: Never used Tobacco Smoked in Last 30 Days: No Use of substances other than those prescribed or required for medical reasons: No Advance Directives: No Advance Directives Information Provided: No Current occupational status: retired Physical Exam ED Vital Signs: Vital Signs - 24 hr 04/06/23 16:46 04/06/23 19:04 04/06/23 19:05 Temperature 96.8 F 98.5 F Pulse Rate 76 68 Respiratory Rate 17 16 Blood Pressure 123/60 168/80 H Pulse Oximetry 99 93 93 Oxygen Delivery Method Room Air Room Air Room Air 04/06/23 19:26 Temperature 98.1 F Pulse Rate 62 Respiratory Rate 16 Blood Pressure 150/48 H Pulse Oximetry 97 Oxygen Delivery Method Room Air BMI result Body Mass Index 33.4 Course Course Course Narrative: This is an RME: Additional HPI, ROS, PE not included below will be deferred to primary provider. This is a [id number]-female presenting to the emergency department with complaints of ongoing sore throat x 1 month. Patient was started on azithromycin which she completed. She was then seen on March 31 where she was switched to amoxicillin 500 mg 3 times a day as she tested positive for strep throat. She has been taking this however symptoms have not improved. Posterior oropharynx is erythematous, with petechiae noted to the soft palate. Unable to visualize tonsils. No fevers or chills. Plan: labs, viral swabs, strep Medications Administered Generic Name Dose Route Start Last Admin Trade Name Freq PRN Reason Stop Dose Admin Sodium Chloride 1,000 mls @ 999 mls/hr 04/06/23 19:15 04/06/23 19:27 Ns IV 04/06/23 20:15 999 mls/hr .Q1H1M SALLY Administration Discontinued Medications Generic Name Dose Route Start Last Admin Trade Name Freq PRN Reason Stop Dose Admin Acetaminophen 975 mg 04/06/23 19:05 04/06/23 19:30 Acetaminophen 325 Mg Tablet PO 04/06/23 19:06 Not Given ONCE ONE Ketorolac Tromethamine 10 mg 04/06/23 19:05 04/06/23 19:30 Ketorolac Tromethamine 15 Mg/Ml Vial IVPUSH 04/06/23 19:06 10 mg ONCE ONE Administration Medical Decision Making Lab Data 04/06/23 17:01 04/06/23 17:01 Labs: Lab Results 04/06/23 Range/Units 17:01 WBC 2.3 L (4.8-10.8) X10*3/uL RBC 3.29 L D (4.20-5.50) X10*6/uL Hgb 10.7 L D (12.0-16.0) g/dl Hct 31.9 L D (37.0-47.0) % MCV 97.0 (80.0-98.0) fL MCH 32.5 (27.0-33.0) pg MCHC 33.5 (31.0-35.0) g/dl RDW 22.3 H (11.0-16.0) % Plt Count 41 L D (160-400) X10*3/uL MPV 12.2 (9.4-12.3) fL Immature Gran % (Auto) 0.4 (0.0-0.4) % Neut % (Auto) 55.6 (45-73) % Lymph % (Auto) 41.4 H (20-40) % [place] % (Auto) 1.7 L (2-11) % Eos % (Auto) 0.9 (0-4) % Baso % (Auto) 0.0 (0-2) % Lymph # (Auto) 1.0 L (1.2-4.9) X10*3/uL [place] # (Auto) 0.0 L (0.1-1.2) X10*3/uL Eos # (Auto) 0.0 (0.0-0.4) X10*3/uL Baso # (Auto) 0.0 (0.0-0.2) X10*3/uL Abs Immat Gran (auto) 0.01 (0.00-0.03) X10*3/uL Absolute Neuts (auto) 1.3 L (2.0-8.3) x10*3/uL Absolute Nucleated RBC 0.000 (0.0-0.012) X10*3/uL Nucleated RBC % (auto) 0.0 (0.0-0.2) /100WBC Smear Tech's Comments VERIFIED Sodium 142 (135-145) mmol/L Potassium 3.4 (3.3-5.1) mmol/L Chloride 105 (96-108) mmol/L Carbon Dioxide 29 (22-29) mmol/L Anion Gap 11 L (12-20) BUN 22 H (9-16) mg/dL Creatinine 0.75 (0.5-1.4) mg/dL Estim Creat Clear Calc 64.5 Estimated GFR > 60 Random Glucose 100 (60-115) mg/dL Calcium 9.5 (8.4-10.2) mg/dL Total Bilirubin 0.9 (0.0-1.0) mg/dL Direct Bilirubin 0.4 (0.0-0.5) mg/dL AST 45 H (5-31) U/L ALT 53 H (0-31) U/L Alkaline Phosphatase 53 (39-117) U/L C-Reactive Protein 1.25 H (< or = 0.50) mg/dL Total Protein 6.8 (6.5-8.0) g/dL Albumin 4.2 (3.5-5.0) g/dL Influenza Type A (PCR) NEGATIVE (Negative) Influenza Type B (PCR) NEGATIVE (Negative) RSV RNA Qual (PCR) NEGATIVE (Negative) SARS-CoV-2 RNA (RT-PCR) NEGATIVE (Negative) S. pyogenes GrpA ERIK Negative (Negative) Discharge Plan Discharge Prescriptions: No Action levomefolate calcium 15 mg tablet 15 mg PO DAILY Qty: 90 1RF divalproex 500 mg tablet,delayed release (DR/EC) 500 mg PO DAILY Qty: 90 1RF divalproex [Depakote] 250 mg tablet,delayed release (DR/EC) 250 mg PO DAILY Qty: 90 1RF clonazepam 1 mg tablet 0.5 - 1 mg PO BEDTIME PRN (Reason: insomnia) Qty: 30 2RF Rx Instructions: administer 30 minutes before bedtime levothyroxine 112 mcg tablet 0 mcg PO rosuvastatin 5 mg tablet 5 mg PO DAILY ergocalciferol (vitamin D2) 1,250 mcg (50,000 unit) capsule 1,250 mcg PO QWEEK pantoprazole 40 mg tablet,delayed release (DR/EC) 40 mg PO DAILY cetirizine 10 mg tablet 10 mg PO DAILY ramelteon [Rozerem] 8 mg tablet 8 mg PO BEDTIME Qty: 30 2RF
--- NOTE | 2023-04-06 16:54 | ECG_ITS ---
Test Reason : DIZZINESS Blood Pressure : / mmHG Vent. Rate : 071 BPM Atrial Rate : 071 BPM P-R Int : 136 ms QRS Dur : 084 ms QT Int : 402 ms P-R-T Axes : 044 001 -22 degrees QTc Int : 436 ms Sinus rhythm with Premature atrial complexes Nonspecific ST and T wave abnormality Low voltage QRS Abnormal ECG When compared with ECG of 11-APR-2005 08:22, Nonspecific T wave abnormality now evident in Lateral leads Referred By: Cortney Guzman Electronically Signed By:ELVER VICTOR MD
[2023-04-06 17:23] LABS: Eosinophils Percent Auto 0.9 % (0-4); Hematocrit 31.9 % (37.0-47.0); Hemoglobin 10.7 g/dl (12.0-16.0); Imm Gran Abs Auto 0.01 X10*3/uL (0.00-0.03); Imm Gran Pct Auto 0.4 % (0.0-0.4); Lymphocytes Percent Auto 41.4 % (20-40); MANUAL DIFF FLAG SCAN; Mean Corpuscular HGB Conc 33.5 g/dl (31.0-35.0); Mean Corpuscular Hemoglobin 32.5 pg (27.0-33.0); Mean Platelet Volume 12.2 fL (9.4-12.3); Monocytes Percent Auto 1.7 % (2-11); Neutrophils Absolute Auto 1.3 x10*3/uL (2.0-8.3); Neutrophils Percent Auto 55.6 % (45-73); Red Blood Count 3.29 X10*6/uL (4.20-5.50); Red Cell Distribution Width 22.3 % (11.0-16.0); SCAN SMEAR FLAG 1
[2023-04-06 17:30] LABS: IDNOW Serial# 08D9AD1C
[2023-04-06 17:31] LABS: Strep A Nucleic Acid Negative (Negative)
[2023-04-06 17:34] LABS: Platelet Count 41 X10*3/uL (160-400); White Blood Count 2.3 X10*3/uL (4.8-10.8)
[2023-04-06 17:42] LABS: Alanine Aminotransferase 53 U/L (0-31); Albumin Level 4.2 g/dL (3.5-5.0); Alkaline Phosphatase 53 U/L (39-117); Anion Gap 11 (12-20); Aspartate Amino Transferase 45 U/L (5-31); Bilirubin Direct 0.4 mg/dL (0.0-0.5); Bilirubin Total 0.9 mg/dL (0.0-1.0); Blood Urea Nitrogen 22 mg/dL (9-16); Calcium 9.5 mg/dL (8.4-10.2); Carbon Dioxide 29 mmol/L (22-29); Chloride 105 mmol/L (96-108); Creatinine Clr Calc Pharmacy 64.5; Estimated Glomerular Filt Rate > 60; Glucose Random 100 mg/dL (60-115); Potassium 3.4 mmol/L (3.3-5.1); Sodium 142 mmol/L (135-145); Total Protein 6.8 g/dL (6.5-8.0)
[2023-04-06 17:43] LABS: SLIDE REVIEW VERIFIED
[2023-04-06 18:16] LABS: Influenza A PCR NEGATIVE (Negative); Influenza B PCR NEGATIVE (Negative); Resp Syncy Virus RNA Qual PCR NEGATIVE (Negative); SARS COV2 PCR INHOUSE NEGATIVE (Negative)
[2023-04-06 19:04] VITALS: BP 168/80; PULSE 68; RESP 16; TEMP 36.9; O2SAT 93
[2023-04-06 19:05] VITALS: O2SAT 93
--- NOTE | 2023-04-06 19:07 | ED.GENADULT ---
HPI - General Adult General Chief complaint: Upper Respiratory Symptoms Stated complaint: sent by , strep test was +, meds no improv. Time Seen by Provider: 04/06/23 18:45 History of Present Illness HPI narrative: Patient is an 82-year-old woman who lives at home. She has had a sore throat for about 2 weeks. She says that she recently contacted her primary care doctor, Dr. Brandon, about 2 weeks ago. She was prescribed a course of azithromycin which she finished but did not feel better afterwards. Four days ago she went to an urgent care and says that she had new onset of rapid strep test. She was prescribed amoxicillin. She has been taking the amoxicillin for the last 4 days but does not feel she is getting any better. She has not had a fever. She has a lot of pain when she swallows. She feels the pain is slightly more on the left side and on the roof of her mouth. She says it is too painful to swallow anything other than Cream of Wheat and other soft things such as ice cream. She came to the emergency department because she feels she is taking so little by mouth and is still having such pain. He is not really have pain opening her mouth. No shortness of breath. No significant cough. Related Data Home Medications Medication Instructions Recorded Confirmed levothyroxine 112 mcg tablet 0 mcg PO 06/30/21 12/18/22 rosuvastatin 5 mg tablet 5 mg PO DAILY 06/30/21 12/18/22 cetirizine 10 mg tablet 10 mg PO DAILY 02/07/23 ergocalciferol (vitamin D2) 1,250 1,250 mcg PO QWEEK 02/07/23 mcg (50,000 unit) capsule pantoprazole 40 mg tablet,delayed 40 mg PO DAILY 02/07/23 release Previous Rx's Medication Instructions Recorded divalproex 500 mg tablet,delayed 500 mg PO DAILY #90 tabs 10/06/22 release levomefolate calcium 15 mg tablet 15 mg PO DAILY #90 tabs 10/06/22 divalproex 250 mg tablet,delayed 250 mg PO DAILY #90 tabs 11/14/22 release (Depakote) clonazepam 1 mg tablet 0.5 - 1 mg (0.5 - 1 x 1 mg) PO 02/16/23 BEDTIME PRN insomnia #30 tabs ramelteon 8 mg tablet (Rozerem) 8 mg PO BEDTIME #30 tabs 03/26/23 Allergies Allergy/AdvReac Type Severity Reaction Status Date / Time gabapentin Allergy Unknown lumps on Verified 04/06/23 19:22 arms No Known Allergies Allergy Verified 04/06/23 19:22 Review of Systems Review of Systems: Yes all other systems are reviewed and are negative [facility] Past Medical History Medical History (Updated 04/06/23 @ 21:18 by Melvin Montes MD) Bipolar disorder in remission Peripheral neuropathy Hypothyroidism Chronic leukopenia Surgical History (Updated 02/07/23 @ 08:14 by JUAN Wooten) History of bilateral knee replacement Social History Social History (Updated 02/07/23 @ 08:14 by JUAN Wooten) Patient Tobacco Use Status: Never used Tobacco Smoked in Last 30 Days: No Use of substances other than those prescribed or required for medical reasons: No Advance Directives: No Advance Directives Information Provided: No Current occupational status: retired Physical Exam ED Vital Signs: Vital Signs - 24 hr 04/06/23 16:46 04/06/23 19:04 04/06/23 19:05 Temperature 96.8 F 98.5 F Pulse Rate 76 68 Respiratory Rate 17 16 Blood Pressure 123/60 168/80 H Pulse Oximetry 99 93 93 Oxygen Delivery Method Room Air Room Air Room Air 04/06/23 19:26 04/06/23 21:20 Temperature 98.1 F 97.2 F Pulse Rate 62 99 Respiratory Rate 16 16 Blood Pressure 150/48 H 165/61 H Pulse Oximetry 97 98 Oxygen Delivery Method Room Air Room Air BMI result Body Mass Index 33.4 Const Other: The patient is awake and alert. She speaks quietly but clearly. No hot potato voice. She is handling her secretions. She does not seem short of breath. HENMT Other: The patient's oral exam is significant for significant erythematous injection of the left soft palate. This is not associated with any illness in the soft palate . This is an unusual erythema on the left soft palate which almost looks petechial. She does not seem to have any trismus. Eyes Other: Pupils are round equal, conjunctivae are clear Neck Other: No significant cervical adenopathy. No jugular digastric lymph node swelling. She is moving her neck easily. Resp Other: Lungs clear bilaterally. Cardio Other: Regular rate and rhythm no murmur Skin Other: No rash. Neuro Other: The patient is awake and alert. Speech is quiet but clear. Mental status is normal. Cranial nerves are grossly intact. She moves all 4 extremities symmetrically and has a nonfocal exam. Extrem Other: No peripheral edema. Medications Administered Discontinued Medications Generic Name Dose Route Start Last Admin Trade Name Nicolle PRN Reason Stop Dose Admin Acetaminophen 975 mg 04/06/23 19:05 04/06/23 19:30 Acetaminophen 325 Mg Tablet PO 04/06/23 19:06 Not Given ONCE ONE Dexamethasone Sodium Phosphate 8 mg 04/06/23 21:18 04/06/23 21:23 Dexamethasone Sod Phosphate 4 Mg/Ml Vial IVPUSH 04/06/23 21:19 8 mg ONCE ONE Administration Sodium Chloride 1,000 mls @ 999 mls/hr 04/06/23 19:15 04/06/23 20:45 Ns IV 04/06/23 20:15 Infused .Q1H1M SALLY Infusion Ketorolac Tromethamine 10 mg 04/06/23 19:05 04/06/23 19:30 Ketorolac Tromethamine 15 Mg/Ml Vial IVPUSH 04/06/23 19:06 10 mg ONCE ONE Administration Medical Decision Making Medical Decision Making [facility] Narrative: This with a sore throat of several days or possibly a couple of weeks duration. She was treated initially with a course of azithromycin without improvement and she is now on day 4 of amoxicillin. Reportedly she had a positive rapid strep at an urgent care 4 days ago but her rapid strep today is negative. On physical exam there is a lot of injection on the left soft palate. Unusual an almost looks petechial. However there is no fullness or swelling of the soft palate that I feel would be indicative of a peritonsillar abscess. She also has no trismus and she also does not have any significant cervical adenopathy, particularly she has no significant left jugulodigastric node swelling. She is tolerating her secretions well, she does not have a hot potato voice, and she is not short of breath . The patient's labs show a leukopenia, anemia, and thrombocytopenia. The differential on her white count shows a lymphocytosis with 41% lymphs. She is 55.6% neutrophils. The patient's CBC therefore suggested possible viral process. A Monospot is negative. Her viral swabs today are negative for influenza, COVID, and RSV. Her rapid strep today is negative. Patient was treated with a L of normal saline and a dose of ketorolac with some improvement in her symptoms. I do not see any indication for imaging of the neck. Suspect that this is largely a viral process at this point. She was given a dose of dexamethasone as a single dose here in the emergency room today. She apparently had a positive rapid strep at the urgent care 4 days ago she will be advised to continue her amoxicillin. Otherwise she should treat herself symptomatically with ibuprofen and acetaminophen and take a lot of fluids. Given her abnormal CBC she should follow-up with her PCP in the next week or 2. If her sore throat is significantly worse she should return to the emergency room. Lab Data 04/06/23 17:01 04/06/23 17:01 Labs: Lab Results 04/06/23 04/06/23 Range/Units 17:01 20:15 WBC 2.3 L (4.8-10.8) X10*3/uL RBC 3.29 L D (4.20-5.50) X10*6/uL Hgb 10.7 L D (12.0-16.0) g/dl Hct 31.9 L D (37.0-47.0) % MCV 97.0 (80.0-98.0) fL MCH 32.5 (27.0-33.0) pg MCHC 33.5 (31.0-35.0) g/dl RDW 22.3 H (11.0-16.0) % Plt Count 41 L D (160-400) X10*3/uL MPV 12.2 (9.4-12.3) fL Immature Gran % (Auto) 0.4 (0.0-0.4) % Neut % (Auto) 55.6 (45-73) % Lymph % (Auto) 41.4 H (20-40) % [place] % (Auto) 1.7 L (2-11) % Eos % (Auto) 0.9 (0-4) % Baso % (Auto) 0.0 (0-2) % Lymph # (Auto) 1.0 L (1.2-4.9) X10*3/uL [place] # (Auto) 0.0 L (0.1-1.2) X10*3/uL Eos # (Auto) 0.0 (0.0-0.4) X10*3/uL Baso # (Auto) 0.0 (0.0-0.2) X10*3/uL Abs Immat Gran (auto) 0.01 (0.00-0.03) X10*3/uL Absolute Neuts (auto) 1.3 L (2.0-8.3) x10*3/uL Absolute Nucleated RBC 0.000 (0.0-0.012) X10*3/uL Nucleated RBC % (auto) 0.0 (0.0-0.2) /100WBC Smear Tech's Comments VERIFIED Sodium 142 (135-145) mmol/L Potassium 3.4 (3.3-5.1) mmol/L Chloride 105 (96-108) mmol/L Carbon Dioxide 29 (22-29) mmol/L Anion Gap 11 L (12-20) BUN 22 H (9-16) mg/dL Creatinine 0.75 (0.5-1.4) mg/dL Estim Creat Clear Calc 64.5 Estimated GFR > 60 Random Glucose 100 (60-115) mg/dL Calcium 9.5 (8.4-10.2) mg/dL Total Bilirubin 0.9 (0.0-1.0) mg/dL Direct Bilirubin 0.4 (0.0-0.5) mg/dL AST 45 H (5-31) U/L ALT 53 H (0-31) U/L Alkaline Phosphatase 53 (39-117) U/L C-Reactive Protein 1.25 H (< or = 0.50) mg/dL Total Protein 6.8 (6.5-8.0) g/dL Albumin 4.2 (3.5-5.0) g/dL Monoscreen Negative (Negative) Influenza Type A (PCR) NEGATIVE (Negative) Influenza Type B (PCR) NEGATIVE (Negative) RSV RNA Qual (PCR) NEGATIVE (Negative) SARS-CoV-2 RNA (RT-PCR) NEGATIVE (Negative) S. pyogenes GrpA ERIK Negative (Negative) Discharge Plan Discharge Clinical Impression: Pharyngitis Patient Disposition: Home, Self-Care Additional Instructions: Your testing in the emergency room today is largely reassuring. Since who apparently tested positive for strep throat 4 days ago I would recommend finishing amoxicillin. However I think part of your sore throat problem might be some kind of a viral infection. You may use 400 mg of ibuprofen every 6 hours as needed for discomfort. I think it would also be reasonable for you to try using acetaminophen (Tylenol) again. I would try using this medication for discomfort and see if you develop any adverse effects but I think that would be very unlikely. Therefore continue your amoxicillin as prescribed and use ibuprofen and acetaminophen (Tylenol) as needed for discomfort. Do your best to drink lot of fluids. Some of your blood tests are abnormal today, particularly with regard to your complete blood count (CBC). I think this will need to be recheck by your regular doctor in the next week or two. Therefore please call Dr. Brandon on Sunday to arrange follow-up appointment for re-evaluation. If any point you are significantly worse please return to the emergency department. Prescriptions: No Action levomefolate calcium 15 mg tablet 15 mg PO DAILY Qty: 90 1RF divalproex 500 mg tablet,delayed release (DR/EC) 500 mg PO DAILY Qty: 90 1RF divalproex [Depakote] 250 mg tablet,delayed release (DR/EC) 250 mg PO DAILY Qty: 90 1RF clonazepam 1 mg tablet 0.5 - 1 mg PO BEDTIME PRN (Reason: insomnia) Qty: 30 2RF Rx Instructions: administer 30 minutes before bedtime levothyroxine 112 mcg tablet 0 mcg PO rosuvastatin 5 mg tablet 5 mg PO DAILY ergocalciferol (vitamin D2) 1,250 mcg (50,000 unit) capsule 1,250 mcg PO QWEEK pantoprazole 40 mg tablet,delayed release (DR/EC) 40 mg PO DAILY cetirizine 10 mg tablet 10 mg PO DAILY ramelteon [Rozerem] 8 mg tablet 8 mg PO BEDTIME Qty: 30 2RF Referrals: Gary Brandon DO [Primary Care Provider] - (Please call on Sunday)
[2023-04-06 19:18] LABS: C Reactive Protein 1.25 mg/dL (< or = 0.50)
[2023-04-06 19:26] VITALS: BP 150/48; PULSE 62; RESP 16; TEMP 36.7; O2SAT 97
[2023-04-06] MEDS: 0.9 % Sodium Chloride 1,000 ML 999 ML IV (19:27)
[2023-04-06] MEDS: Ketorolac Tromethamine 15 MG/ML VIAL 10 MG IVPUSH (19:30)
--- NOTE | 2023-04-06 19:35 | PC.NURSE ---
20gIV placed in the right AC w/o difficulty - medication administered per provider order. pt refused tylenol - states that it makes her feel jittery. provider aware.
--- NOTE | 2023-04-06 20:17 | PC.NURSE ---
tech bedside obtaining labs at this time.
--- NOTE | 2023-04-06 20:25 | PC.NURSE ---
pt verbalizing pain level decreased slightly to a 9/10 post medication administration. IV fluids still administering at this time. resting comfortably in no apparent distress w/ the lights dimmed at this time. pt awaiting lab results. respirations remain even and unlabored. call saldaña placed within reach.
[2023-04-06 20:42] LABS: Monotest Negative (Negative)
[2023-04-06 21:20] VITALS: BP 165/61; PULSE 99; RESP 16; TEMP 36.2; O2SAT 98
[2023-04-06] MEDS: dexAMETHasone sod phosphate 4 MG/ML VIAL 8 MG IVPUSH (21:23)
[2023-04-06 22:00] VITALS: BP 160/63; PULSE 56; RESP 16; TEMP 36.7; O2SAT 97
== END 2023-04-06 22:02 | disposition home or self-care (01) ==
PROVIDERS: Physician Assistant Medical; Emergency Provider Emergency Medicine; PCP Internal Medicine
DX: J02.9 Acute pharyngitis, unspecified (principal); R94.31 Abnormal electrocardiogram [ECG] [EKG]; Z20.822 Contact with and (suspected) exposure to COVID-19; Z20.828 Contact with and (suspected) exposure to other viral communicable diseases; Z79.899 Other long term (current) drug therapy
CPT/HCPCS: 0241U; 36415; 80048; 80076; 85025; 86140; 86308; 87651; 93005; 96361; 96374; 96375; 99284; 99285; J1100; J1885

== ENCOUNTER 2023-04-10 08:32 | Outpatient (REF) | payer MEDICARE, OTHER, SELFPAY ==
[2023-04-10 09:37] LABS: Basophils Percent Auto 0.5 % (0-2); Eosinophils Absolute Auto 0.1 X10*3/uL (0.0-0.4); Eosinophils Percent Auto 2.4 % (0-4); Hematocrit 28.3 % (37.0-47.0); Hemoglobin 9.7 g/dl (12.0-16.0); Imm Gran Abs Auto 0.01 X10*3/uL (0.00-0.03); Imm Gran Pct Auto 0.5 % (0.0-0.4); Lymphocytes Absolute Auto 1.1 X10*3/uL (1.2-4.9); Lymphocytes Percent Auto 53.3 % (20-40); MANUAL DIFF FLAG SCAN; Mean Corpuscular HGB Conc 34.3 g/dl (31.0-35.0); Mean Corpuscular Hemoglobin 33.3 pg (27.0-33.0); Mean Corpuscular Volume 97.3 fL (80.0-98.0); Mean Platelet Volume 12.3 fL (9.4-12.3); Monocytes Percent Auto 0.5 % (2-11); Neutrophils Absolute Auto 0.9 x10*3/uL (2.0-8.3); Neutrophils Percent Auto 42.8 % (45-73); Red Blood Count 2.91 X10*6/uL (4.20-5.50); Red Cell Distribution Width 22.2 % (11.0-16.0); SCAN SMEAR FLAG 1
[2023-04-10 09:38] LABS: Platelet Count 36 X10*3/uL (160-400); White Blood Count 2.1 X10*3/uL (4.8-10.8)
[2023-04-10 10:02] LABS: SLIDE REVIEW VERIFIED
[2023-04-10 10:04] LABS: Alanine Aminotransferase 92 U/L (0-31); Albumin Level 3.9 g/dL (3.5-5.0); Alkaline Phosphatase 46 U/L (39-117); Anion Gap 9 (12-20); Aspartate Amino Transferase 80 U/L (5-31); Bilirubin Total 1.1 mg/dL (0.0-1.0); Blood Urea Nitrogen 20 mg/dL (9-16); C Reactive Protein 1.68 mg/dL (< or = 0.50); Calcium 9.4 mg/dL (8.4-10.2); Carbon Dioxide 30 mmol/L (22-29); Chloride 106 mmol/L (96-108); Estimated Glomerular Filt Rate > 60; Glucose Random 87 mg/dL (60-115); Potassium 3.7 mmol/L (3.3-5.1); Sodium 141 mmol/L (135-145); Total Protein 6.1 g/dL (6.5-8.0)
[2023-04-10 10:26] LABS: Erythrocyte Sedimentation Rate 5 MM/HR (0-20)
== END 2023-04-10 08:33 | disposition home or self-care (01) ==
LOC: HO.LAB 08:32
PROVIDERS: PCP Internal Medicine; Visit Provider Internal Medicine
DX: Z13.89 Encounter for screening for other disorder (principal)
CPT/HCPCS: 36415; 80053; 85025; 85652; 86140

== ENCOUNTER 2023-04-10 13:18 | Inpatient (IN) | payer MEDICARE, OTHER, SELFPAY ==
--- NOTE | ~2023-04-10 | CT_ITS ---
EXAMINATION: CT ABDOMEN AND PELVIS WITH CONTRAST CLINICAL INFORMATION: Pancytopenia COMPARISON: None available. TECHNIQUE: Multidetector volumetric images were obtained from the superior aspect of the liver through the pubic symphysis following administration 85 mL of Omnipaque 350 intravenous contrast. Sagittal and coronal reformatted images were obtained on the technologist's workstation. Oral contrast: No This CT examination was performed using dose optimization techniques as appropriate, variously including the following: *Automated exposure control *Adjustment of mA and/or kV according to patient size (this includes techniques or standardized protocols for targeted exams where dose is matched to indication/reason for exam; i.e. extremities or head) *Use of iterative reconstruction technique DLP: 788 mGy-cm FINDINGS: LUNG BASES: Dependent bibasilar atelectasis. LIVER, GALLBLADDER, AND BILIARY TREE: The liver is normal in size, shape, and attenuation. A small focal region of hypoattenuation adjacent to the falciform ligament could be due to focal fatty infiltration or alterations in hepatic perfusion. No biliary ductal dilatation is present. The gallbladder is unremarkable. PANCREAS: Unremarkable. SPLEEN: Unremarkable. ADRENAL GLANDS: Unremarkable. KIDNEYS AND URETERS: Bilateral nephrograms are symmetric. No hydronephrosis or obstructing calculus identified. BLADDER: Unremarkable. GASTROINTESTINAL TRACT: Sigmoid colon diverticulosis. No evidence of bowel obstruction. There is mural prominence of the ascending and much of the transverse colon, though this is suboptimally assessed due to luminal collapse. The appendix is unremarkable. No free fluid or free air is seen. ABDOMINAL WALL: No significant hernia is appreciated. LYMPH NODES: Normal. VASCULAR: Scattered calcification along the aorta. Prominent veins in the left pelvis. PELVIC VISCERA: Small calcified fibroids are suspected. OSSEOUS STRUCTURES: Degenerative changes are noted in the spine. CT/CT abdomen pelvis w IV con IMPRESSION: 1. Though suboptimally assessed due to luminal collapse, there is mural prominence of the ascending and much of the transverse colon, concerning for colitis in the proper clinical setting. 2. Prominent veins in the left pelvis, which can be seen with pelvic venous insufficiency.
--- NOTE | 2023-04-10 13:59 | ED_ITS ---
HPI - General Adult General Chief complaint: General Medical Stated complaint: Abnormal labs sent by dr watkins Time Seen by Provider: 04/10/23 20:43 Source: patient Mode of arrival: ambulatory Limitations: no limitations History of Present Illness HPI narrative: Patient has history of bipolar disorder on Depakote for more than 20 years complaining of sore throat for last 10 days had outpatient strep test which was negative positive started on amoxicillin was seen here on 04/06 at that time strep was negative lab workup showed pancytopenia with drop in WBC gone from 4.7->>2.3 and platelet count decreased from 142 >>41 petechial elmore noticed on the soft palate of the patient at that time patient advised to continue amoxicillin repeat strep was negative patient did have black stool yesterday none today the abdominal pain comes here as patient is still having the throat pain feels like burning sensation no bruising patient non alcoholic Related Data Home Medications Medication Instructions Recorded Confirmed levothyroxine 112 mcg tablet 112 mcg PO 06/30/21 12/18/22 rosuvastatin 5 mg tablet 5 mg PO DAILY 06/30/21 04/11/23 cetirizine 10 mg tablet 10 mg PO DAILY 02/07/23 04/11/23 ergocalciferol (vitamin D2) 1,250 1,250 mcg PO QWEEK 02/07/23 04/11/23 mcg (50,000 unit) capsule pantoprazole 40 mg tablet,delayed 40 mg PO DAILY 02/07/23 04/11/23 release Previous Rx's Medication Instructions Recorded divalproex 500 mg tablet,delayed 500 mg PO DAILY #90 tabs 10/06/22 release levomefolate calcium 15 mg tablet 15 mg PO DAILY #90 tabs 10/06/22 divalproex 250 mg tablet,delayed 250 mg PO DAILY #90 tabs 11/14/22 release (Depakote) clonazepam 1 mg tablet 0.5 - 1 mg (0.5 - 1 x 1 mg) PO 02/16/23 BEDTIME PRN insomnia #30 tabs ramelteon 8 mg tablet (Rozerem) 8 mg PO BEDTIME #30 tabs 03/26/23 Allergies Allergy/AdvReac Type Severity Reaction Status Date / Time gabapentin Allergy Unknown lumps on Verified 04/10/23 14:00 arms Review of Systems 2 Review of Systems: Yes all other systems are reviewed and are negative PMFSH Past Medical History Medical History Bipolar disorder in remission Peripheral neuropathy Hypothyroidism Chronic leukopenia Surgical History History of bilateral knee replacement Social History Alcohol intake: never Patient Tobacco Use Status: Never used Tobacco Use of substances other than those prescribed or required for medical reasons: No Advance Directives: No Advance Directives Information Provided: No Current occupational status: retired Physical Exam ED Vital Signs: Vital Signs - 24 hr 04/10/23 14:00 04/10/23 20:19 04/10/23 23:42 Temperature 98 F 97.6 F 98.3 F Pulse Rate 68 62 56 Respiratory Rate 19 18 16 Blood Pressure 142/63 H 173/61 H 174/61 H Pulse Oximetry 98 98 97 Oxygen Delivery Method Room Air Room Air Room Air BMI result Body Mass Index 33.6 Appearance: Alert. Oriented X3. No acute distress. Eyes: PERRLA, No Nystagmus ENT: Pharynx normal. Oral Mucosa moist petechial elmore the soft palate no signs of infection tonsils not enlarged Neck: Normal inspection. Neck supple. CVS: Normal heart rate and rhythm. Pulses normal. Respiratory: No respiratory distress. Equal air entry bilateral, no wheezing/rales/rhonchi Abdomen: Soft and nontender. Bowel sounds are present, no mass palpable, no CVA tenderness no hepatosplenomegaly rectal; brown stool no fresh blood Skin: Skin warm and dry. Normal skin color. Normal skin turgor. Extremities: No lower extremity edema. No calf tenderness Neuro: Oriented X 3. No motor deficit. Course Course Course Narrative: This is an RME: Additional HPI, ROS, PE not included below will be deferred to primary provider. This is a [id number], with a history of hypothyroidism, presenting to the emergency department for evaluation of abnormal labs. Patient was seen here on April 06 for sore throat. She was advised to continue taking Tylenol and amoxicillin. Reports worsening sore throat, only able to eat cream of wheat. No vomiting. Patient does endorse dark colored stool this morning. Labs were performed this morning, leukopenia at 2.1, with a drop in H&H to 9.7/28.3. Medications Administered Discontinued Medications Generic Name Dose Route Start Last Admin Trade Name Nicolle PRN Reason Stop Dose Admin Sodium Chloride 1,000 mls @ 999 mls/hr 04/11/23 00:04 04/11/23 02:10 Ns IV 04/11/23 01:04 Infused .Q1H1M ONE Infusion Iohexol 85 ml 04/11/23 00:33 04/11/23 00:33 Iohexol 350 Mg/Ml 100 Ml Infus..Btl IV 04/11/23 00:34 85 ml ONCE ONE Administration Pantoprazole Sodium 80 mg 04/11/23 00:03 04/11/23 01:03 Pantoprazole Sodium 40 Mg/10 Ml Vial IVPUSH 04/11/23 00:04 80 mg ONCE ONE Administration Medical Decision Making Medical Decision Making [facility] Narrative: Patient with pancytopenia etiology not very patient also take Depakote which could be the cause for bone marrow suppression CT scan abdomen negative firs hepatosplenomegaly or any lymph node case discussed with Dr. Porter advised to follow with on hematology as patient has dramatic decrease in platelet count need inpatient investigation. Including bone marrow biopsy will stop Depakote for now patient does have guaiac test positive but stool was brown in color hemodynamically stable Differential Diagnosis Differential Diagnoses: The differential diagnosis associated with the presentation includes Admission/Observation Consideration of admission/observation: Escalation of care including admission/observation considered Consult Healthcare Provider Management of the patient was discussed with: Hospitalist Lab Data [facility] Lab Attestation statement: I reviewed the patient's lab results. 04/10/23 15:22 04/10/23 15:22 Labs: Lab Results 04/10/23 04/10/23 04/10/23 Range/Units 15:22 22:02 22:35 WBC 2.1 L (4.8-10.8) X10*3/uL RBC 2.95 L (4.20-5.50) X10*6/uL Hgb 9.6 L (12.0-16.0) g/dl Hct 28.7 L (37.0-47.0) % MCV 97.3 (80.0-98.0) fL MCH 32.5 (27.0-33.0) pg MCHC 33.4 (31.0-35.0) g/dl RDW 22.6 H (11.0-16.0) % Plt Count 33 L (160-400) X10*3/uL MPV 11.3 (9.4-12.3) fL Immature Gran % (Auto) 0.9 H (0.0-0.4) % Neut % (Auto) 53.7 (45-73) % Lymph % (Auto) 43.1 H (20-40) % [place] % (Auto) 0.9 L (2-11) % Eos % (Auto) 1.4 (0-4) % Baso % (Auto) 0.0 (0-2) % Lymph # (Auto) 0.9 L (1.2-4.9) X10*3/uL [place] # (Auto) 0.0 L (0.1-1.2) X10*3/uL Eos # (Auto) 0.0 (0.0-0.4) X10*3/uL Baso # (Auto) 0.0 (0.0-0.2) X10*3/uL Abs Immat Gran (auto) 0.02 (0.00-0.03) X10*3/uL Absolute Neuts (auto) 1.1 L (2.0-8.3) x10*3/uL Absolute Nucleated RBC 0.000 (0.0-0.012) X10*3/uL Nucleated RBC % (auto) 0.0 (0.0-0.2) /100WBC ESR 3 (0-20) MM/HR PT 12.0 (11.1-13.3) SEC INR 1.0 (0.9-1.1) APTT 31.2 (26.0-36.4) SEC Sodium 140 (135-145) mmol/L Potassium 3.8 (3.3-5.1) mmol/L Chloride 106 (96-108) mmol/L Carbon Dioxide 29 (22-29) mmol/L Anion Gap 9 L (12-20) BUN 22 H (9-16) mg/dL Creatinine 0.64 (0.5-1.4) mg/dL Estim Creat Clear Calc 75.7 Estimated GFR > 60 Random Glucose 95 (60-115) mg/dL Calcium 9.4 (8.4-10.2) mg/dL Total Bilirubin 1.0 (0.0-1.0) mg/dL Direct Bilirubin 0.5 (0.0-0.5) mg/dL AST 82 H (5-31) U/L ALT 92 H (0-31) U/L Alkaline Phosphatase 47 (39-117) U/L C-Reactive Protein 1.95 H (< or = 0.50) mg/dL Total Protein 6.2 L (6.5-8.0) g/dL Albumin 3.9 (3.5-5.0) g/dL Stool Occult Blood POSITIVE (NEGATIVE) Blood Type O Negative Antibody Screen NEGATIVE Independent Interpretation I performed an independent interpretation of an: CT Scan Radiology Impression Discussion of test interpretation with radiology: I have reviewed the radiologist's reading. Radiologist Impression: [place] [id number] CT Scan Report Signed Patient: Evie Garces MR#: [id number] : 1940 Acct:[id number] Age/Sex: 82 / F ADM Date: 04/11/23 Loc: [facility] [address]: Ann Mcmanus MD Ordering Physician: Thierry Medina MD Date of Service: 04/11/23 Procedure(s): CT abdomen pelvis w IV con Accession Number(s): [id number] cc: Gary Watkins DO; Thierry Medina MD~ EXAMINATION: CT ABDOMEN AND PELVIS WITH CONTRAST CLINICAL INFORMATION: Pancytopenia COMPARISON: None available. TECHNIQUE: Multidetector volumetric images were obtained from the superior aspect of the liver through the pubic symphysis following administration 85 mL of Omnipaque 350 intravenous contrast. Sagittal and coronal reformatted images were obtained on the technologist's workstation. Oral contrast: No This CT examination was performed using dose optimization techniques as appropriate, variously including the following: *Automated exposure control *Adjustment of mA and/or kV according to patient size (this includes techniques or standardized protocols for targeted exams where dose is matched to indication/reason for exam; i.e. extremities or head) *Use of iterative reconstruction technique DLP: 788 mGy-cm FINDINGS: LUNG BASES: Dependent bibasilar atelectasis. LIVER, GALLBLADDER, AND BILIARY TREE: The liver is normal in size, shape, and attenuation. A small focal region of hypoattenuation adjacent to the falciform ligament could be due to focal fatty infiltration or alterations in hepatic perfusion. No biliary ductal dilatation is present. The gallbladder is unremarkable. PANCREAS: Unremarkable. SPLEEN: Unremarkable. ADRENAL GLANDS: Unremarkable. KIDNEYS AND URETERS: Bilateral nephrograms are symmetric. No hydronephrosis or obstructing calculus identified. BLADDER: Unremarkable. GASTROINTESTINAL TRACT: Sigmoid colon diverticulosis. No evidence of bowel obstruction. There is mural prominence of the ascending and much of the transverse colon, though this is suboptimally assessed due to luminal collapse. The appendix is unremarkable. No free fluid or free air is seen. ABDOMINAL WALL: No significant hernia is appreciated. LYMPH NODES: Normal. VASCULAR: Scattered calcification along the aorta. Prominent veins in the left pelvis. PELVIC VISCERA: Small calcified fibroids are suspected. OSSEOUS STRUCTURES: Degenerative changes are noted in the spine. CT/CT abdomen pelvis w IV con IMPRESSION: 1. Though suboptimally assessed due to luminal collapse, there is mural prominence of the ascending and much of the transverse colon, concerning for colitis in the proper clinical setting. 2. Prominent veins in the left pelvis, which can be seen with pelvic venous insufficiency. Discharge Plan Discharge Clinical Impression: Pancytopenia, Thrombocytopenia Patient Disposition: Admitted As Inpatient
[2023-04-10 14:00] VITALS: BP 142/63; PULSE 68; RESP 19; TEMP 36.6; O2SAT 98; BMI 33.6
[2023-04-10 15:43] LABS: Eosinophils Percent Auto 1.4 % (0-4); Hematocrit 28.7 % (37.0-47.0); Hemoglobin 9.6 g/dl (12.0-16.0); Imm Gran Abs Auto 0.02 X10*3/uL (0.00-0.03); Imm Gran Pct Auto 0.9 % (0.0-0.4); Lymphocytes Absolute Auto 0.9 X10*3/uL (1.2-4.9); Lymphocytes Percent Auto 43.1 % (20-40); MANUAL DIFF FLAG SCAN; Mean Corpuscular HGB Conc 33.4 g/dl (31.0-35.0); Mean Corpuscular Hemoglobin 32.5 pg (27.0-33.0); Mean Corpuscular Volume 97.3 fL (80.0-98.0); Mean Platelet Volume 11.3 fL (9.4-12.3); Monocytes Percent Auto 0.9 % (2-11); Neutrophils Absolute Auto 1.1 x10*3/uL (2.0-8.3); Neutrophils Percent Auto 53.7 % (45-73); Platelet Count 33 X10*3/uL (160-400); Red Blood Count 2.95 X10*6/uL (4.20-5.50); Red Cell Distribution Width 22.6 % (11.0-16.0); SCAN SMEAR FLAG 1; White Blood Count 2.1 X10*3/uL (4.8-10.8)
[2023-04-10 15:44] LABS: Alanine Aminotransferase 92 U/L (0-31); Albumin Level 3.9 g/dL (3.5-5.0); Alkaline Phosphatase 47 U/L (39-117); Anion Gap 9 (12-20); Aspartate Amino Transferase 82 U/L (5-31); Bilirubin Direct 0.5 mg/dL (0.0-0.5); Blood Urea Nitrogen 22 mg/dL (9-16); C Reactive Protein 1.95 mg/dL (< or = 0.50); Calcium 9.4 mg/dL (8.4-10.2); Carbon Dioxide 29 mmol/L (22-29); Chloride 106 mmol/L (96-108); Creatinine Clr Calc Pharmacy 75.7; Estimated Glomerular Filt Rate > 60; Glucose Random 95 mg/dL (60-115); Potassium 3.8 mmol/L (3.3-5.1); Sodium 140 mmol/L (135-145); Total Protein 6.2 g/dL (6.5-8.0)
[2023-04-10 15:55] LABS: Partial Thromboplastin Time 31.2 SEC (26.0-36.4)
[2023-04-10 16:31] LABS: Erythrocyte Sedimentation Rate 3 MM/HR (0-20)
[2023-04-10 20:19] VITALS: BP 173/61; PULSE 62; RESP 18; TEMP 36.4; O2SAT 98
--- NOTE | 2023-04-10 20:30 | PC.NURSE ---
Pt ambulated with cane to room from W/R. Pt A&Ox3, reports 10/10 throat pain with no relief of Tylenol. Pt also reports decrease PO intake r/t pain and reports one episode of black stool today.
--- NOTE | 2023-04-10 20:53 | ED.GENADULT ---
HPI - General Adult General Chief complaint: General Medical Stated complaint: Abnormal labs sent by dr watkins Time Seen by Provider: 04/10/23 20:43 Related Data Home Medications Medication Instructions Recorded Confirmed levothyroxine 112 mcg tablet 112 mcg PO 06/30/21 12/18/22 rosuvastatin 5 mg tablet 5 mg PO DAILY 06/30/21 04/11/23 cetirizine 10 mg tablet 10 mg PO DAILY 02/07/23 04/11/23 ergocalciferol (vitamin D2) 1,250 1,250 mcg PO QWEEK 02/07/23 04/11/23 mcg (50,000 unit) capsule pantoprazole 40 mg tablet,delayed 40 mg PO DAILY 02/07/23 04/11/23 release Previous Rx's Medication Instructions Recorded divalproex 500 mg tablet,delayed 500 mg PO DAILY #90 tabs 10/06/22 release levomefolate calcium 15 mg tablet 15 mg PO DAILY #90 tabs 10/06/22 divalproex 250 mg tablet,delayed 250 mg PO DAILY #90 tabs 11/14/22 release (Depakote) clonazepam 1 mg tablet 0.5 - 1 mg (0.5 - 1 x 1 mg) PO 02/16/23 BEDTIME PRN insomnia #30 tabs ramelteon 8 mg tablet (Rozerem) 8 mg PO BEDTIME #30 tabs 03/26/23 Allergies Allergy/AdvReac Type Severity Reaction Status Date / Time gabapentin Allergy Unknown lumps on Verified 04/10/23 14:00 arms [facility] Past Medical History Medical History Bipolar disorder in remission Peripheral neuropathy Hypothyroidism Chronic leukopenia Surgical History History of bilateral knee replacement Social History Alcohol intake: never Patient Tobacco Use Status: Never used Tobacco Use of substances other than those prescribed or required for medical reasons: No Advance Directives: No Advance Directives Information Provided: No Current occupational status: retired Physical Exam ED Vital Signs: Vital Signs - 24 hr 04/10/23 14:00 04/10/23 20:19 04/10/23 23:42 Temperature 98 F 97.6 F 98.3 F Pulse Rate 68 62 56 Respiratory Rate 19 18 16 Blood Pressure 142/63 H 173/61 H 174/61 H Pulse Oximetry 98 98 97 Oxygen Delivery Method Room Air Room Air Room Air BMI result Body Mass Index 33.6 Medications Administered Discontinued Medications Generic Name Dose Route Start Last Admin Trade Name Freq PRN Reason Stop Dose Admin Sodium Chloride 1,000 mls @ 999 mls/hr 04/11/23 00:04 04/11/23 01:07 Ns IV 04/11/23 01:04 999 mls/hr .Q1H1M ONE Administration Iohexol 85 ml 04/11/23 00:33 04/11/23 00:33 Iohexol 350 Mg/Ml 100 Ml Infus..Btl IV 04/11/23 00:34 85 ml ONCE ONE Administration Pantoprazole Sodium 80 mg 04/11/23 00:03 04/11/23 01:03 Pantoprazole Sodium 40 Mg/10 Ml Vial IVPUSH 04/11/23 00:04 80 mg ONCE ONE Administration Medical Decision Making Lab Data 04/10/23 15:22 04/10/23 15:22 Labs: Lab Results 04/10/23 04/10/23 04/10/23 Range/Units 15:22 22:02 22:35 WBC 2.1 L (4.8-10.8) X10*3/uL RBC 2.95 L (4.20-5.50) X10*6/uL Hgb 9.6 L (12.0-16.0) g/dl Hct 28.7 L (37.0-47.0) % MCV 97.3 (80.0-98.0) fL MCH 32.5 (27.0-33.0) pg MCHC 33.4 (31.0-35.0) g/dl RDW 22.6 H (11.0-16.0) % Plt Count 33 L (160-400) X10*3/uL MPV 11.3 (9.4-12.3) fL Immature Gran % (Auto) 0.9 H (0.0-0.4) % Neut % (Auto) 53.7 (45-73) % Lymph % (Auto) 43.1 H (20-40) % [place] % (Auto) 0.9 L (2-11) % Eos % (Auto) 1.4 (0-4) % Baso % (Auto) 0.0 (0-2) % Lymph # (Auto) 0.9 L (1.2-4.9) X10*3/uL [place] # (Auto) 0.0 L (0.1-1.2) X10*3/uL Eos # (Auto) 0.0 (0.0-0.4) X10*3/uL Baso # (Auto) 0.0 (0.0-0.2) X10*3/uL Abs Immat Gran (auto) 0.02 (0.00-0.03) X10*3/uL Absolute Neuts (auto) 1.1 L (2.0-8.3) x10*3/uL Absolute Nucleated RBC 0.000 (0.0-0.012) X10*3/uL Nucleated RBC % (auto) 0.0 (0.0-0.2) /100WBC ESR 3 (0-20) MM/HR PT 12.0 (11.1-13.3) SEC INR 1.0 (0.9-1.1) APTT 31.2 (26.0-36.4) SEC Sodium 140 (135-145) mmol/L Potassium 3.8 (3.3-5.1) mmol/L Chloride 106 (96-108) mmol/L Carbon Dioxide 29 (22-29) mmol/L Anion Gap 9 L (12-20) BUN 22 H (9-16) mg/dL Creatinine 0.64 (0.5-1.4) mg/dL Estim Creat Clear Calc 75.7 Estimated GFR > 60 Random Glucose 95 (60-115) mg/dL Calcium 9.4 (8.4-10.2) mg/dL Total Bilirubin 1.0 (0.0-1.0) mg/dL Direct Bilirubin 0.5 (0.0-0.5) mg/dL AST 82 H (5-31) U/L ALT 92 H (0-31) U/L Alkaline Phosphatase 47 (39-117) U/L C-Reactive Protein 1.95 H (< or = 0.50) mg/dL Total Protein 6.2 L (6.5-8.0) g/dL Albumin 3.9 (3.5-5.0) g/dL Stool Occult Blood POSITIVE (NEGATIVE) Blood Type O Negative Antibody Screen NEGATIVE Discharge Plan Discharge Clinical Impression: Pancytopenia, Thrombocytopenia Patient Disposition: Admitted As Inpatient
[2023-04-10 22:46] LABS: OBS Int Ctl Valid YES; OBS1 POSITIVE (NEGATIVE)
[2023-04-10 23:42] VITALS: BP 174/61; PULSE 56; RESP 16; TEMP 36.8; O2SAT 97
--- NOTE | 2023-04-11 00:04 | P.HPHOSP_ITS ---
History of Present Illness Date of Service: 04/11/23 Chief Complaint: Dark colored stool This is a is a 82-year-old female with pertinent history of hypothyroidism, mood disorder, mixed hyperlipidemia who was sent to the emergency department for evaluation of abnormal labs. Patient states she got a call from her PCP saying that her blood counts were low and she was sent to the ER. Patient states she had 1 episode of dark stool on the day of presentation. No history of similar symptoms in the past. No abdominal pain, fever, chills. Pancytopenia was noted on blood work as per PCP and she was sent for further evaluation. No fever, chills, chest discomfort, palpitations, shortness of breath, abdominal pain, changes in urinary or bowel habits. In the emergency department, pancytopenia noted and stool occult blood positive. Oncology was consulted from the ER who requested admission. Review of Systems 2 Constitutional: Constitutional: Reports fatigue and Reports lethargy Cardiovascular: Cardiovascular: Reports no additional cardiovascular complaints Respiratory: Respiratory: Reports no additional respiratory complaints Gastrointestinal: Gastrointestinal: Reports melena Genitourinary: Genitourinary: Reports no additional female genitourinary complaints Endocrine: Endocrine: Reports fatigue [facility] Medical History Bipolar disorder in remission Peripheral neuropathy Hypothyroidism Chronic leukopenia Pertinent family history: No family history of early CAD Surgical History History of bilateral knee replacement Alcohol intake: never Patient Tobacco Use Status: Never used Tobacco Use of substances other than those prescribed or required for medical reasons: No Advance Directives: No Advance Directives Information Provided: No Current occupational status: retired Meds Allergies Allergy/AdvReac Type Severity Reaction Status Date / Time gabapentin Allergy Unknown lumps on Verified 04/10/23 14:00 arms Home Medications Medication Instructions Recorded Confirmed Last Taken Type levothyroxine 112 mcg tablet 112 mcg PO 06/30/21 12/18/22 Unknown History rosuvastatin 5 mg tablet 5 mg PO DAILY 06/30/21 04/11/23 Unknown History cetirizine 10 mg tablet 10 mg PO DAILY 02/07/23 04/11/23 Unknown History ergocalciferol (vitamin D2) 1,250 1,250 mcg PO QWEEK 02/07/23 04/11/23 Unknown History mcg (50,000 unit) capsule pantoprazole 40 mg tablet,delayed 40 mg PO DAILY 02/07/23 04/11/23 Unknown History release Physical Exam 2 Vital Signs and Narrative: Vital Signs: Last Vital Signs Temp 98.3 F 04/10/23 23:42 Pulse 56 04/10/23 23:42 Resp 16 04/10/23 23:42 BP 174/61 H 04/10/23 23:42 Pulse Ox 97 04/10/23 23:42 O2 Del Method Room Air 04/10/23 23:42 BMI result Body Mass Index 33.6 Results Labs 04/10/23 15:22 04/10/23 15:22 Labs: Laboratory Results - last 24 hr 04/10/23 04/10/23 04/10/23 15:22 22:02 22:35 MCV 97.3 MCH 32.5 MCHC 33.4 RDW 22.6 H Plt Count 33 L MPV 11.3 Immature Gran % (Auto) 0.9 H Neut % (Auto) 53.7 Lymph % (Auto) 43.1 H [place] % (Auto) 0.9 L Eos % (Auto) 1.4 Baso % (Auto) 0.0 Lymph # (Auto) 0.9 L [place] # (Auto) 0.0 L Eos # (Auto) 0.0 Baso # (Auto) 0.0 Abs Immat Gran (auto) 0.02 Absolute Neuts (auto) 1.1 L Absolute Nucleated RBC 0.000 Nucleated RBC % (auto) 0.0 ESR 3 PT 12.0 INR 1.0 APTT 31.2 Anion Gap 9 L Estim Creat Clear Calc 75.7 Estimated GFR > 60 Random Glucose 95 Calcium 9.4 Total Bilirubin 1.0 Direct Bilirubin 0.5 AST 82 H ALT 92 H Alkaline Phosphatase 47 C-Reactive Protein 1.95 H Total Protein 6.2 L Albumin 3.9 Stool Occult Blood POSITIVE Blood Type O Negative Antibody Screen NEGATIVE Assessment and Plan (1) Pancytopenia: Status: Acute (2) Positive occult stool blood test: Status: Acute Plan This is a is a 82-year-old female with pertinent history of hypothyroidism, mood disorder, mixed hyperlipidemia who was sent to the emergency department for evaluation of abnormal labs. #. Pancytopenia: Oncology was consulted from the ER, appreciate assistance. Hold Depakote. Obtaining B12, folate. No indication for platelet or PRBC transfusion, continue to monitor #. Dark stool: Stool occult positive in the ER. Administering IV Protonix and consulting Gastroenterology, appreciate assistance. Resuscitating with IV crystalloids #. Bipolar disorder: Holding Depakote as above. Consulting psych to optimize #. Hypothyroidism: On Synthroid. Obtaining TSH #. Mixed hyperlipidemia: On statin Med rec pending DVT prophylaxis: Mechanical Full code Quality Stroke Does the patient have a stroke diagnosis?: No VTE Prior VTE?: No VTE Risk Level:: Medical - moderate - high VTE Device Contraindication: Treatment Not Indicated VTE Drug Contraindication: N/A - Med Ordered
[2023-04-11] MEDS: iohexoL 350 MG/ML 100 ML INFUS..BTL 85 ML IV (00:33)
[2023-04-11] MEDS: Pantoprazole Sodium 40 MG/10 ML VIAL 80 MG IVPUSH (01:03)
[2023-04-11] MEDS: 0.9 % Sodium Chloride 1,000 ML 999 ML IV (01:07)
[2023-04-11 02:39] LABS: Thyroid Stimulating Hormone 1.96 uIU/mL (0.32-4.0)
--- NOTE | 2023-04-11 03:42 | PC.NURSE ---
Rn to Rn report given, Pt will be transported to room 487, pt aware of plan.
[2023-04-11 03:56] VITALS: BP 132/73; PULSE 68; RESP 20; TEMP 36.6; O2SAT 99
[2023-04-11 04:10] VITALS: BMI 34.2
[2023-04-11] MEDS: LORazepam 2 MG/ML VIAL 1 MG IVPUSH (04:36)
[2023-04-11 07:35] LABS: Hematocrit 25.7 % (37.0-47.0); Mean Corpuscular Hemoglobin 33.7 pg (27.0-33.0); Mean Corpuscular Volume 96.3 fL (80.0-98.0); Mean Platelet Volume 12.7 fL (9.4-12.3); Red Blood Count 2.67 X10*6/uL (4.20-5.50); Red Cell Distribution Width 22.4 % (11.0-16.0)
[2023-04-11 07:37] LABS: Platelet Count 30 X10*3/uL (160-400)
[2023-04-11 07:41] LABS: Anion Gap 9 (12-20); Blood Urea Nitrogen 17 mg/dL (9-16); Calcium 8.7 mg/dL (8.4-10.2); Carbon Dioxide 29 mmol/L (22-29); Chloride 108 mmol/L (96-108); Creatinine Clr Calc Pharmacy 81.5; Estimated Glomerular Filt Rate > 60; Glucose Random 91 mg/dL (60-115); Potassium 3.9 mmol/L (3.3-5.1); Sodium 142 mmol/L (135-145)
[2023-04-11 08:00] VITALS: BP 151/75; PULSE 67; RESP 19; TEMP 36.6; O2SAT 99
[2023-04-11 08:18] LABS: Folate 5.2 ng/mL (> or = 4.0); Vitamin B12 451 pg/mL (200-900)
--- NOTE | 2023-04-11 08:55 | PHA.MEDREC ---
Pharmacy Consult ? Medication Reconciliation Pharmacy has completed the medication reconciliation. Spoke to patient at bedside, she had a list of medications in wallet. Says she takes her depakote at bedtime and everything else in the morning. Stated she had an rx for ramelteon but had not picked it up yet, as she was advised not to use clonazepam and ramelteon together.
--- NOTE | 2023-04-11 09:19 | P.CNHO_ITS ---
Subjective - Subjective Chief complaint: Low blood counts Patient: new to practice Consult date: 04/11/23 Primary Care Provider: Gary Brandon DO Medical Summary: Diagnosis: Pancytopenia HPI - Consult Narrative Reason for consult: Pancytopenia Narrative: Evie Garces is a 82 year old female who has been admitted for worsening pancytopenia. The symptoms started a few weeks ago when she developed a sore throat. She was initially treated with azithromycin but when she did not get better she went to a walk-in which she was diagnosed with strep throat. She was started on amoxicillin which she took for a few days. She then called her PCP because she was still feeling weak, he did blood work and call back asking her to go to the emergency department for low counts. She also complained of dark colored stools recently, she was heme-positive. She says she has had a few upper endoscopies and colonoscopies. Her mother and brother of stomach cancer. Colon cancer also runs in her family. Before her symptoms of sore throat, she was doing well. No complaints such as progressive fatigue, loss of appetite or weight loss. She lives at home with her , she has active and independent of all ADLs/IADLs. Other than antibiotics, she did not use any new medications. She has been on Depakote for over 30 years. She thinks it may be because of bipolar disease. 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 How often do you have a drink containing alcohol?: a. Never AUDIT-C Alcohol total score: 0 Tobacco History: Patient Tobacco Use Status: Never used Tobacco Substance Use History: Use of substances other than those prescribed or required for medical reasons : No Domestic Abuse History: Have you been hit, kicked, punched, or otherwise hurt by someone within the past year? If so, by whom?: No Do you feel safe in your current relationship?: Yes Is there a partner from a previous relationship who is making you feel unsafe now?: No Are you made to feel afraid or neglected: No Advance Directives: Advance Directives: No Advance Directives Information Provided: No Homicidal Assessment: Do you have thoughts of harming others: None Do you have a plan to hurt others: No Plan Nutrition Assessment: Recently lost weight without trying: Yes How much weight loss: 2-13 pounds Eating poorly because of decreased appetite: Yes Nutrition screen score: 4 Nutrition Risks: Poor intake 0-25% >4 days Patient : No Occupation Assessmet: service: No Current occupational status: retired Home Medications and Allergies Current Medications: Current Medications Acetaminophen (Acetaminophen 325 Mg Tablet) 650 mg PO Q6H PRN PRN Reason: Pain, Mild (Pain Scale 1-3) Melatonin (Melatonin 3 Mg Tablet) 6 mg PO BEDTIME PRN PRN Reason: Insomnia Ondansetron HCl (Ondansetron Hcl 4 Mg/2 Ml Vial) 4 mg IVPUSH Q8H PRN PRN Reason: Nausea and Vomiting Sodium Chloride (0.9 % Sodium Chloride Flush 3 Ml Syringe) 3 ml IVFLUSH [facility] Medications Medication Instructions Recorded Confirmed Type levothyroxine 112 mcg tablet 112 mcg PO DAILY@0600 06/30/21 04/11/23 History rosuvastatin 5 mg tablet 5 mg PO DAILY 06/30/21 04/11/23 History cetirizine 10 mg tablet 10 mg PO DAILY 02/07/23 04/11/23 History ergocalciferol (vitamin D2) 1,250 1,250 mcg PO MO 02/07/23 04/11/23 History mcg (50,000 unit) capsule pantoprazole 40 mg tablet,delayed 40 mg PO DAILY 02/07/23 04/11/23 History release divalproex 250 mg tablet,delayed 250 mg PO BEDTIME 04/11/23 04/11/23 History release (Depakote) divalproex 500 mg tablet,delayed 500 mg PO BEDTIME 04/11/23 04/11/23 History release magnesium oxide 400 mg PO DAILY 04/11/23 04/11/23 History Allergies Allergy/AdvReac Type Severity Reaction Status Date / Time gabapentin Allergy Unknown lumps on Verified 04/10/23 14:00 arms Physical Exam Vital signs: Vital Signs Temp 97.8 F 04/11/23 08:00 Pulse 67 04/11/23 08:00 Resp 19 04/11/23 08:00 BP 151/75 H 04/11/23 08:00 Pulse Ox 99 04/11/23 08:00 O2 Del Method Room Air 04/11/23 08:00 Intake & Output 04/10/23 04/11/23 04/11/23 18:59 06:59 18:59 Intake Total 1000 / 1000 Balance 1000 / 1000 Intake: Intake, IV Amount 1000 / 1000 0.9 % Sodium Chloride 1,000 ml 1000 / 1000 @ 999 mls/hr IV .Q1H1M ONE Rx#: [id number] Other: Last Bowel Movement 04/10/23 Weight 91.626 kg 93.1 kg [place] Weight in Grams 84073 Weight 93.1 kg - Constitutional Present: no acute distress, average body habitus - Routine HEENT Exam Head: Present: normal inspection Eye: Present: conjunctivae pale, PERRL - Routine Neck Exam Present: supple. Absent: lymphadenopathy - Routine Respiratory Exam Present: CTAB. Absent: accessory muscle use - Routine Cardiovascular Exam Cardiovascular: Present: RRR, S1, S2 - Routine Abdominal Exam Present: soft - Routine Skin Exam Present: intact - Routine Neurological Exam Present: alert, oriented X3 Hem/Onc Consult Result - Labs CBC & Chem 7: 04/11/23 07:17 04/11/23 07:17 Labs: Short CBC 04/10/23 04/11/23 Range/Units 15:22 07:17 WBC 2.1 L 2.0 L (4.8-10.8) X10*3/uL Hgb 9.6 L 9.0 L (12.0-16.0) g/dl Hct 28.7 L 25.7 L (37.0-47.0) % Plt Count 33 L 30 L (160-400) X10*3/uL BMP 04/10/23 04/11/23 15:22 07:17 Sodium 140 142 Potassium 3.8 3.9 Chloride 106 108 Carbon Dioxide 29 29 BUN 22 H 17 H Creatinine 0.64 0.60 Calcium 9.4 8.7 D Liver Function 04/10/23 Range/Units 15:22 Total Bilirubin 1.0 (0.0-1.0) mg/dL Direct Bilirubin 0.5 (0.0-0.5) mg/dL AST 82 H (5-31) U/L ALT 92 H (0-31) U/L Alkaline Phosphatase 47 (39-117) U/L Albumin 3.9 (3.5-5.0) g/dL Assessment and Plan Patient Active problem list reviewed?: Yes (1) Pancytopenia Status: Acute Assessment and plan: This is a 82-year-old woman with acute worsening of chronic pancytopenia. She has had decreasing counts since 2020. Recently she was diagnosed with strep throat and received 2 courses of antibiotics. Azithromycin followed by amoxicillin after which she continued to feel tired although sore throat has resolved. Blood work shows pancytopenia with significant drop in platelet counts. No symptoms to suggest acute gastrointestinal blood losses. She was Hemoccult positive, her patient GI workup is being planned. She has normal vitamin B12 and folate levels, normal kidney functions. Her transaminases are mildly elevated, she has no coagulopathy. Further hematological workup, retic count, LDH and iron studies have been submitted. Depakote can cause thrombocytopenia/pancytopenia, however she has been on this for many years. This can also be associated with hepatotoxicity. If possible, continue to hold Depakote. Recent use of amoxicillin could also cause anemia and immune mediated thrombocytopenia. Post infectious pancytopenia is also possibility. She will need close follow-up upon discharge. I also discussed performing bone marrow aspiration/biopsy if necessary her counts do not improve. I thank you for this consultation. - Time Spent With Patient Time Spent with Patient (in minutes): 20
[2023-04-11] MEDS: 0.9 % Sodium Chloride Flush 3 ML SYRINGE IVFLUSH ×2 (09:45→16:26)
--- NOTE | 2023-04-11 09:55 | MHC.CM.PN ---
Milena 04/11/23 Pt lives with spouse, she does not have any home health services, she has not used [facility] or been to [facility] before. Her car is here, she drove herself to [facility]. to follow and assist with DC planning.
--- NOTE | 2023-04-11 09:59 | PM.EVENT ---
Event Note Date of Service: 04/11/23 Event Note: Seen and evaluated this morning Feels comfortable with no headache or bleeding PEnding Hematology , Psych and GI evaluation Restart Valproic acid follow CBC Time Spent With Patient Time: Total time managing care of this patient today ____ minutes.
[2023-04-11] MEDS: Levothyroxine Sodium 112 MCG TABLET PO (11:21)
[2023-04-11 11:41] VITALS: BP 149/59; PULSE 57; RESP 19; TEMP 36.6; O2SAT 99
--- NOTE | 2023-04-11 11:47 | CONS_ITS ---
DATE OF SERVICE: 04/11/2023 REFERRING PHYSICIAN: Ann Mcmanus MD REASON FOR CONSULTATION: Anemia and Hemoccult-positive stools. HISTORY OF PRESENT ILLNESS: The patient is a pleasant 82-year-old woman who was admitted to the hospital after presenting to the emergency room on the advice of her primary care provider because of pancytopenia. She has a history of having dark stools and in the emergency department, had rectal examination done, which is reviewed and is reported to show brown stool, but no fresh blood or melena. Hematocrit on admission was 28.7 and decreased slightly overnight to 25.7 this morning. Platelet count has been noted to be significantly low at 30, and she is currently being evaluated by Hematology. The patient denies any bright red blood per rectum. She has undergone previous endoscopy and colonoscopy. Her last colonoscopy was in 2015, showing sigmoid diverticulosis and internal hemorrhoids. She does have a prior history of colon polyps, upper endoscopy in 2009, showed a hiatal hernia and reflux. We reviewed this today. PAST MEDICAL HISTORY: 1. Bipolar disorder. 2. Peripheral neuropathy. 3. Hypothyroidism. 4. Leukopenia. 5. Colon polyps as above. CURRENT MEDICATIONS: Her current medications reviewed in the chart. ALLERGIES: GABAPENTIN. FAMILY HISTORY: This is reviewed with the patient and is noncontributory. SOCIAL HISTORY: There is no current substance abuse. REVIEW OF SYSTEMS: SKIN: No pruritus. HEENT: Negative. CARDIOPULMONARY: No shortness of breath or chest pain. GASTROINTESTINAL: As above. GENITOURINARY: Negative. NEUROPSYCHIATRIC: Negative. PHYSICAL EXAMINATION: GENERAL: Shows a pleasant female, lying comfortably in bed. VITAL SIGNS: Reviewed in the electronic medical record and are stable. SKIN: Anicteric. HEENT: Shows no scleral icterus. NECK: Without lymphadenopathy or thyromegaly. LUNGS: Clear. HEART: Shows a regular rate and rhythm. S1, S2. No murmur. ABDOMEN: Soft without focal masses or tenderness. Bowel sounds are present. No organomegaly is noted. EXTREMITIES: Without edema. LABORATORY DATA AND IMAGING STUDIES: Reviewed. IMPRESSION: Anemia with Hemoccult-positive stools. At this time, she appears stable with no active GI bleeding. Hematology evaluation is pending for her pancytopenia. I recommended she follow up as an outpatient for consideration of further evaluation of her anemia and Hemoccult-positive stools. Thanks for asking me to see her. I will follow her in the hospital as needed. MD GABRIELLA Griffin/CANDIDO / [phone]
[2023-04-11 13:41] LABS: Immature Retic Fraction 6.5 % (3.0-15.9); Reticulocytes Absolute 0.044 X10*6/uL (0.026-0.095)
[2023-04-11 13:42] LABS: Retic HGB Equivalent 42.9 pg (30.0-35.0); Reticulocyte Percent 1.6 % (0.5-1.8)
[2023-04-11 13:46] LABS: Iron 94 mcg/dL (30-160); Lactate Dehydrogenase 438 U/L (122-220); Percent Iron Saturation 52 % (15-50); Total Iron Binding Capacity 182 mcg/dL (228-428); Unsaturated Iron Binding 88 ug/dL
--- NOTE | 2023-04-11 13:48 | MHC.CM.PN ---
CM informed pt now inpatient status, IMM 04/11/23.
[2023-04-11 14:06] LABS: Ferritin 606 ng/mL (10-250)
[2023-04-11 15:48] VITALS: BP 139/71; PULSE 67; RESP 18; TEMP 36.3; O2SAT 95
[2023-04-11] MEDS: Mag&Al/Sim/Diphenhyd/Lidocaine 10 ML ORAL.SUSP PO ×2 (17:46→20:53)
[2023-04-11 19:39] VITALS: BP 158/83; PULSE 51; RESP 18; TEMP 36.3; O2SAT 98
[2023-04-11] MEDS: Acetaminophen 325 MG TABLET 650 MG PO (20:49)
[2023-04-12] VITALS (7 sets, daily range): BP systolic 134–178; BP diastolic 64–76; PULSE 47–69; RESP 18–20; TEMP 35.9–36.8; O2SAT 92–97
[2023-04-12] MEDS: 0.9 % Sodium Chloride Flush 3 ML SYRINGE IVFLUSH ×3 (00:04→16:27)
[2023-04-12] MEDS: Mag&Al/Sim/Diphenhyd/Lidocaine 10 ML ORAL.SUSP PO ×5 (00:52→21:12)
[2023-04-12] MEDS: clonazePAM 1 MG TABLET PO (00:52)
[2023-04-12] MEDS: Levothyroxine Sodium 112 MCG TABLET PO (05:59)
[2023-04-12 07:14] LABS: Anion Gap 10 (12-20); Blood Urea Nitrogen 10 mg/dL (9-16); Calcium 9.3 mg/dL (8.4-10.2); Carbon Dioxide 28 mmol/L (22-29); Chloride 107 mmol/L (96-108); Creatinine Clr Calc Pharmacy 78.9; Estimated Glomerular Filt Rate > 60; Glucose Random 80 mg/dL (60-115); Potassium 3.5 mmol/L (3.3-5.1); Sodium 141 mmol/L (135-145)
[2023-04-12 07:15] LABS: Hemoglobin 9.3 g/dl (12.0-16.0); Mean Corpuscular HGB Conc 34.4 g/dl (31.0-35.0); Mean Corpuscular Hemoglobin 33.1 pg (27.0-33.0); Mean Corpuscular Volume 96.1 fL (80.0-98.0); Mean Platelet Volume 12.2 fL (9.4-12.3); Red Blood Count 2.81 X10*6/uL (4.20-5.50); Red Cell Distribution Width 22.3 % (11.0-16.0)
[2023-04-12 07:19] LABS: Platelet Count 33 X10*3/uL (160-400); White Blood Count 2.2 X10*3/uL (4.8-10.8)
[2023-04-12] MEDS: Magnesium Oxide 400 MG TABLET PO (08:57)
[2023-04-12] MEDS: methylPREDNISolone Sod Succ 40 MG/ML VIAL IVPUSH (09:43)
--- NOTE | 2023-04-12 09:47 | HO.PM.IMPN ---
Subjective Subjective Date of Service: 04/12/23 Interval History: seen and evaluated feels weak and complains of sore mouth and throat no fever or chills no bleeding reported Review of Systems Review of Systems: Yes all other systems are reviewed and are negative Physical Exam Vital Signs: Vital Signs: Last Vital Signs Temp 97.3 F 04/12/23 07:30 Pulse 64 04/12/23 07:30 Resp 20 04/12/23 07:30 BP 150/70 H 04/12/23 07:30 Pulse Ox 97 04/12/23 07:30 O2 Del Method Room Air 04/12/23 07:30 BMI result Body Mass Index 34.2 Const: Other: Constitutional : Awake, interactive, not in distress Mouth: erythema on the mouth roof with no bleeding Neck : Normal inspection, Supple Cardiovascular : RRR, no JVP, no lower extremity edema Respiratory : good bilateral air entry, no crackles, wheezes or rhonchi Gastrointestinal: soft, lax, Normal bowel sounds, Non tender Skin : Warm, Dry Neurological : Alert & oriented x3, No focal deficit Objective Data Active Medications Acetaminophen (Acetaminophen 325 Mg Tablet) 650 mg PO Q6H PRN PRN Reason: Pain, Mild (Pain Scale 1-3) Last Admin: 04/11/23 20:49 Dose: 650 mg Documented By: DEMARCUS Clonazepam (Clonazepam 1 Mg Tablet) 1 mg PO BEDTIME [facility] Last Admin: 04/12/23 00:52 Dose: 1 mg Documented By: JOANIE Levothyroxine Sodium (Levothyroxine Sodium 112 Mcg Tablet) 112 mcg PO DAILY@0600 [facility] Last Admin: 04/12/23 05:59 Dose: 112 mcg Documented By: JOANIE Lidocaine/Diphenhydr/Alum/Mg/Simeth (Mag&Al/Sim/Diphenhyd/Lidocaine 10 Ml Oral.Susp) 10 ml PO Q4H PRN; Protocol PRN Reason: Mouth pain Last Admin: 04/12/23 06:01 Dose: 10 ml Documented By: JOANIE Magnesium Oxide (Magnesium Oxide 400 Mg Tablet) 400 mg PO DAILY [facility] Last Admin: 04/12/23 08:57 Dose: 400 mg Documented By: RAMEZ Melatonin (Melatonin 3 Mg Tablet) 6 mg PO BEDTIME PRN PRN Reason: Insomnia Ondansetron HCl (Ondansetron Hcl 4 Mg/2 Ml Vial) 4 mg IVPUSH Q8H PRN PRN Reason: Nausea and Vomiting Sodium Chloride (0.9 % Sodium Chloride Flush 3 Ml Syringe) 3 ml IVFLUSH QSHIFT [facility] Last Admin: 04/12/23 08:58 Dose: 3 ml Documented By: RAMEZ Labs 04/12/23 05:51 04/12/23 05:51 Labs: Laboratory Results - last 24 hr 04/11/23 04/12/23 07:17 05:51 MCV 96.1 MCH 33.1 H MCHC 34.4 RDW 22.3 H Plt Count 33 L MPV 12.2 Absolute Nucleated RBC 0.000 Nucleated RBC % (auto) 0.0 Absolute Retic 0.044 Percent Retic 1.6 Immature Retic Fraction 6.5 Retic Hgb Equivalent 42.9 H Anion Gap 10 L Estim Creat Clear Calc 78.9 Estimated GFR > 60 Random Glucose 80 Calcium 9.3 D Iron 94 TIBC 182 L % Saturation 52 H Unsat Iron Binding 88 Ferritin 606 H Lactate Dehydrogenase 438 H Assessment and Plan (1) Thrombocytopenia: Status: Acute (2) Positive occult stool blood test: Status: Acute (3) Pancytopenia: Status: Acute (4) Sore throat: Status: Acute Plan This is a is a 82-year-old female with pertinent history of hypothyroidism, mood disorder, mixed hyperlipidemia who was sent to the emergency department for evaluation of abnormal labs. # Pancytopenia Could be 2/2 infection or medications Hold Depakote. normal B12, folate. No indication for platelet or PRBC transfusion Hematology input appreciated # Sore throat reported Strep throat treated w Abx pending Parvo and CMV Magic mouthwash # Dark stool Stool occult positive in the ER Protonix Gastroenterology recommended outpatient follow up # Bipolar disorder Holding Depakote as above Consulting psych for alternatives # Hypothyroidism On Synthroid. Normal TSH # Mixed hyperlipidemia On statin DVT prophylaxis: Mechanical Full code The patient will need overnight stay pending repeat labs and clinical improvement with [employer] workflow consultant opinion Quality Stroke Does the patient have a stroke diagnosis?: No VTE Prior VTE?: No VTE Risk Level:: Medical - moderate - high VTE Device Contraindication: Treatment Not Indicated VTE Drug Contraindication: N/A - Med Ordered
[2023-04-12] MEDS: Acetaminophen 325 MG TABLET 650 MG PO (12:54)
--- NOTE | 2023-04-12 14:19 | P.CNPS_ITS ---
History of Present Illness Date of Service: t Chief Complaint: Dark colored stool Reason for Consult: Assessment of alternative to Depakote Requesting physician: Aubrey Leonardo Discussed with referring provider: Yes Sources of Information: patient interviewed, chart reviewed and crisis/core team assessment reviewed HPI Narrative: The patient is an 82-year-old female, , with a past history of bipolar disorder and other several medical comorbidities such as osteoarthrosis, hypothyroidism, chronic leukopenia, admitted from the emergency room due to thrombocytopenia. Apparently, the patient had been stable for several years on Depakote and according to the Hematology Service, most likely he has hematological problems or due to Chronic use of Depakote.. As per suggestion of Hematology Depakote has been stopped. The present consult is to discuss the possibility of other alternatives besides Depakote as a mood stabilizer. I review the chart and apparently in 2000 the patient had some manic symptoms and she was started on Zyprexa and Depakote. The interview the patient and apparently she had being fairly stable more than 30 years on Depakote. She cannot remember that she use I prepped in the past. During the interview, the patient denies manic symptoms such as racing thoughts, elated mood or increased energy. She looks mostly tired and dysphoric due to her medical problems. She adamantly denies psychotic symptoms and she was able to contract for safety in the facility. We discussed risks, benefits, side- effects and alternatives and she agreed to start a low dose of olanzapine as a mood stabilizer Past Psychiatric History: History of bipolar disorder with past hospitalizations for [facility] Medical Evaluation Reviewed: Yes [facility] Medical History Bipolar disorder in remission Peripheral neuropathy Hypothyroidism Chronic leukopenia Surgical History History of bilateral knee replacement Social History: The patient is she is retired no children she is close with her does have friends and family Trauma History: None noted Diagnostics Vital Signs (24Hr): Vital Signs - 24 hr 04/11/23 15:48 04/11/23 19:39 04/12/23 00:00 Temperature 97.4 F 97.3 F 97.7 F Pulse Rate 67 51 47 L Respiratory Rate 18 18 18 Blood Pressure 139/71 158/83 H 178/76 H Pulse Oximetry 95 98 97 Oxygen Delivery Method Room Air Room Air Room Air 04/12/23 03:51 04/12/23 07:30 04/12/23 11:15 Temperature 97.0 F 97.3 F 98.2 F Pulse Rate 50 64 68 Respiratory Rate 18 20 18 Blood Pressure 138/65 150/70 H 137/64 Pulse Oximetry 97 97 92 Oxygen Delivery Method Room Air Room Air Room Air BMI result Body Mass Index 34.2 Labs 04/12/23 05:51 04/12/23 05:51 Labs: Laboratory Results - last 48 hr 04/10/23 04/10/23 04/10/23 15:22 22:02 22:35 WBC 2.1 L RBC 2.95 L Hgb 9.6 L Hct 28.7 L MCV 97.3 MCH 32.5 MCHC 33.4 RDW 22.6 H Plt Count 33 L MPV 11.3 Immature Gran % (Auto) 0.9 H Neut % (Auto) 53.7 Lymph % (Auto) 43.1 H [place] % (Auto) 0.9 L Eos % (Auto) 1.4 Baso % (Auto) 0.0 Lymph # (Auto) 0.9 L [place] # (Auto) 0.0 L Eos # (Auto) 0.0 Baso # (Auto) 0.0 Abs Immat Gran (auto) 0.02 Absolute Neuts (auto) 1.1 L Absolute Nucleated RBC 0.000 Nucleated RBC % (auto) 0.0 ESR 3 Absolute Retic Percent Retic Immature Retic Fraction Retic Hgb Equivalent PT 12.0 INR 1.0 APTT 31.2 Sodium 140 Potassium 3.8 Chloride 106 Carbon Dioxide 29 Anion Gap 9 L BUN 22 H Creatinine 0.64 Estim Creat Clear Calc 75.7 Estimated GFR > 60 Random Glucose 95 Calcium 9.4 Iron TIBC % Saturation Unsat Iron Binding Ferritin Total Bilirubin 1.0 Direct Bilirubin 0.5 AST 82 H ALT 92 H Alkaline Phosphatase 47 Lactate Dehydrogenase C-Reactive Protein 1.95 H Total Protein 6.2 L Albumin 3.9 Vitamin B12 Folate TSH 1.96 Stool Occult Blood POSITIVE Blood Type O Negative Antibody Screen NEGATIVE 04/11/23 04/12/23 07:17 05:51 WBC 2.0 L 2.2 L RBC 2.67 L 2.81 L Hgb 9.0 L 9.3 L Hct 25.7 L 27.0 L MCV 96.3 96.1 MCH 33.7 H 33.1 H MCHC 35.0 34.4 RDW 22.4 H 22.3 H Plt Count 30 L 33 L MPV 12.7 H 12.2 Immature Gran % (Auto) Neut % (Auto) Lymph % (Auto) [place] % (Auto) Eos % (Auto) Baso % (Auto) Lymph # (Auto) [place] # (Auto) Eos # (Auto) Baso # (Auto) Abs Immat Gran (auto) Absolute Neuts (auto) Absolute Nucleated RBC 0.000 0.000 Nucleated RBC % (auto) 0.0 0.0 ESR Absolute Retic 0.044 Percent Retic 1.6 Immature Retic Fraction 6.5 Retic Hgb Equivalent 42.9 H PT INR APTT Sodium 142 141 Potassium 3.9 3.5 Chloride 108 107 Carbon Dioxide 29 28 Anion Gap 9 L 10 L BUN 17 H 10 Creatinine 0.60 0.62 Estim Creat Clear Calc 81.5 78.9 Estimated GFR > 60 > 60 Random Glucose 91 80 Calcium 8.7 D 9.3 D Iron 94 TIBC 182 L % Saturation 52 H Unsat Iron Binding 88 Ferritin 606 H Total Bilirubin Direct Bilirubin AST ALT Alkaline Phosphatase Lactate Dehydrogenase 438 H C-Reactive Protein Total Protein Albumin Vitamin B12 451 Folate 5.2 TSH Stool Occult Blood Blood Type Antibody Screen Imaging Radiology Impressions: ITS Impressions Abdomen/Pelvis CT 04/11/23 00:37 IMPRESSION: 1. Though suboptimally assessed due to luminal collapse, there is mural prominence of the ascending and much of the transverse colon, concerning for colitis in the proper clinical setting. 2. Prominent veins in the left pelvis, which can be seen with pelvic venous insufficiency. Mental Status Exam Mental Status Exam Patient Appearance: Well Grooomed Patient Orientation: Person and Situation Level of Consciousness: Awake and Appropriate Patient Behavior: Appropriate Mood Description: Calm Affect Description: Calm and Constricted Ability to Follow Directions: Good Speech Pattern: Clear Hallucinations: None Delusions: Not Present Thought Process: Linear and Slowed Thinking Thought Content: positive for Loco and positive for Circumstantial Judgement: Fair Medications Medications Current Medications Acetaminophen (Acetaminophen 325 Mg Tablet) 650 mg PO Q6H PRN PRN Reason: Pain, Mild (Pain Scale 1-3) Last Admin: 04/12/23 12:54 Dose: 650 mg Atorvastatin Calcium (Atorvastatin Calcium 20 Mg Tablet) 20 mg PO DAILY [facility] Clonazepam (Clonazepam 1 Mg Tablet) 1 mg PO BEDTIME [facility] Last Admin: 04/12/23 00:52 Dose: 1 mg Levothyroxine Sodium (Levothyroxine Sodium 112 Mcg Tablet) 112 mcg PO DAILY@0600 [facility] Last Admin: 04/12/23 05:59 Dose: 112 mcg Lidocaine/Diphenhydr/Alum/Mg/Simeth (Mag&Al/Sim/Diphenhyd/Lidocaine 10 Ml Oral.Susp) 10 ml PO Q4H PRN; Protocol PRN Reason: Mouth pain Last Admin: 04/12/23 12:38 Dose: 10 ml Magnesium Oxide (Magnesium Oxide 400 Mg Tablet) 400 mg PO DAILY [facility] Last Admin: 04/12/23 08:57 Dose: 400 mg Melatonin (Melatonin 3 Mg Tablet) 6 mg PO BEDTIME PRN PRN Reason: Insomnia Olanzapine (Olanzapine 2.5 Mg Tablet) 2.5 mg PO BEDTIME [facility] Omeprazole (Omeprazole 20 Mg Capsule.Dr) 20 mg PO BID@0630,1630 [facility] Ondansetron HCl (Ondansetron Hcl 4 Mg/2 Ml Vial) 4 mg IVPUSH Q8H PRN PRN Reason: Nausea and Vomiting Sodium Chloride (0.9 % Sodium Chloride Flush 3 Ml Syringe) 3 ml IVFLUSH QSHIFT [facility] Last Admin: 04/12/23 08:58 Dose: 3 ml Allergies Allergies Allergy/AdvReac Type Severity Reaction Status Date / Time gabapentin Allergy Unknown lumps on Verified 04/10/23 14:00 arms Assessment & Plan Assessment & Plan (1) Pancytopenia: Status: Acute Code(s): D61.818 - Other pancytopenia (2) Bipolar disorder in remission: Status: Acute Code(s): F31.70 - Bipolar disorder, currently in remission, most recent episode unspecified Plan the patient is an elderly female who was admitted for pancytopenia most likely used by Depakote. The patient carries a diagnosis of bipolar disorder and she had been stable for several years only on this medication. The present consult was asked from the medical team to discuss other alternatives for treatment of bipolar disorder. Plan 1. Discontinue Depakote. 2. We discussed at length risks, benefits, side-effects and alternatives and she agreed to start a low dose of Zyprexa as a mood stabilizer. Start Zyprexa 2.5 mg p.o. q.h.s. 3. At this moment the patient does not have manic symptoms she looks mostly dysphoric due to her several medical conditions within not recommend at this moment to start any antidepressants since it can trigger a manic episode. 4. Reassessment as demand Total time managing care of this patient today _30___ minutes. Patient educated on: diagnosis and therapeutic strategies Informed Consent: further education needed
[2023-04-12] MEDS: Omeprazole 20 MG CAPSULE.DR PO (16:27)
[2023-04-12] MEDS: OLANZapine 2.5 MG TABLET PO (21:07)
[2023-04-12] MEDS: Throat Lozenge, Medicated LOZENGE 1 LOZENGE MUCOUS MEM (21:07)
[2023-04-13] MEDS: clonazePAM 1 MG TABLET PO (00:13)
[2023-04-13 03:37] VITALS: BP 145/65; PULSE 55; RESP 20; TEMP 36.3; O2SAT 94
[2023-04-13] MEDS: Throat Lozenge, Medicated LOZENGE 1 LOZENGE MUCOUS MEM (05:59)
[2023-04-13] MEDS: Mag&Al/Sim/Diphenhyd/Lidocaine 10 ML ORAL.SUSP PO ×2 (05:59→12:09)
[2023-04-13] MEDS: Omeprazole 20 MG CAPSULE.DR PO (05:59)
[2023-04-13] MEDS: Levothyroxine Sodium 112 MCG TABLET PO (05:59)
[2023-04-13 07:34] LABS: Hematocrit 26.8 % (37.0-47.0); Mean Corpuscular HGB Conc 33.6 g/dl (31.0-35.0); Mean Corpuscular Hemoglobin 32.1 pg (27.0-33.0); Mean Corpuscular Volume 95.7 fL (80.0-98.0); Mean Platelet Volume 12.5 fL (9.4-12.3); Red Cell Distribution Width 22.1 % (11.0-16.0)
[2023-04-13 07:35] LABS: Platelet Count 47 X10*3/uL (160-400)
[2023-04-13 07:39] VITALS: BP 141/64; PULSE 55; RESP 20; TEMP 36.2; O2SAT 96
[2023-04-13] MEDS: Magnesium Oxide 400 MG TABLET PO (08:39)
[2023-04-13] MEDS: Atorvastatin Calcium 20 MG TABLET PO (08:39)
[2023-04-13] MEDS: 0.9 % Sodium Chloride Flush 3 ML SYRINGE IVFLUSH (08:40)
[2023-04-13] MEDS: Acetaminophen 325 MG TABLET 650 MG PO (08:44)
[2023-04-13 11:08] VITALS: BP 126/60; PULSE 61; RESP 20; TEMP 36.7; O2SAT 95
[2023-04-13 12:08] LABS: CMV DNA PCR Qn Source BLOOD; CMV DNA Qn PCR NOT DETECTED Log IU/mL (NOT DETECTED); CMV DNA Qn Real Time PCR NOT DETECTED (NOT DETECTED)
--- NOTE | 2023-04-13 13:13 | PM.DS ---
DS: Providers Provider Date of Service: 04/13/23 Date of admission: 04/11/23 11:56 Date of discharge: 04/13/23 Primary care physician: Gary Brandon DO Consults: 04/11/23 00:04 Consult to Gastroenterology Routine Consulting Provider: Huan Medina Reason for consultation: GI bleed 04/11/23 02:00 Consult to Hematology / Oncology Routine Consulting Provider: Lashon Alarcon Reason for consultation: Pancytopenia 04/11/23 02:02 Consult to Psychiatry Routine Consulting Provider: Psych Covering Reason for consultation: Bipolar disorder DS: Diagnosis Discharge Diagnosis (1) Pancytopenia: Status: Acute (2) Bipolar disorder in remission: Status: Acute DS: Summary Hospital Course Hospital Course: 82-year-old female with pertinent history of hypothyroidism, mood disorder, mixed hyperlipidemia who was sent to the emergency department for evaluation of abnormal labs. Patient states she got a call from her PCP saying that her blood counts were low and she was sent to the ER. Patient states she had 1 episode of dark stool on the day of presentation. No history of similar symptoms in the past. No abdominal pain, fever, chills. Pancytopenia was noted on blood work as per PCP and she was sent for further evaluation. No fever, chills, chest discomfort, palpitations, shortness of breath, abdominal pain, changes in urinary or bowel habits. Hospital [facility] Patient was admitted to telemetry and seen in consultation by Hematology who recommended outpatient follow-up along with psychiatric consultation for alternate days to Depakote as Hematology felt this was a chronic condition related to valproic acid use. She was seen in consultation by Psychiatry and Zyprexa was recommended. Depakote was DC at psychiatrist request and Zyprexa was started. Patient was given oral dosing and tolerated without issue. At this time she is wishing to be DC and is medically acceptable for same. She will be discharged on Zyprexa 2.5 mg at and can follow-up with PCP. She will need outpatient follow-up with Hematology and ongoing follow-up with Psychiatry. Time Attestation Discharge coordination time: Greater than 30 minutes Quality: Safe Use of Opioids Does Pt have an Active Cancer Diagnosis on the Problem List?: No Quality: Stroke Does the patient have a stroke diagnosis?: No Physical Exam Vital Signs: Vital Signs: Last Vital Signs Temp 98.0 F 04/13/23 11:08 Pulse 61 04/13/23 11:08 Resp 20 04/13/23 11:08 BP 126/60 04/13/23 11:08 Pulse Ox 95 04/13/23 11:08 O2 Del Method Room Air 04/13/23 11:08 BMI result Body Mass Index 34.2 Const: Other: Awake alert no acute distress Resp: Other: Clear to auscultation bilaterally no rales rhonchi or wheezes Cardio: Other: No S4; positive S1-S2; no S3 murmurs rubs or gallops GI: Other: Soft nontender nondistended normoactive bowel sounds Neuro: Other: Cranial nerves 2-12 grossly intact as tested. Motor is 5/5 all extremities. Sensation is intact. Cognition is appropriate. Gait is steady Extrem: Other: No edema bilaterally DS: Data Data Completed and Pending Labs on day of discharge: Laboratory Results - last 24 hr 04/11/23 04/13/23 10:32 07:15 WBC 4.0 L RBC 2.80 L Hgb 9.0 L Hct 26.8 L MCV 95.7 MCH 32.1 MCHC 33.6 RDW 22.1 H Plt Count 47 L D MPV 12.5 H Absolute Nucleated RBC 0.040 H Nucleated RBC % (auto) 1.0 H CMV Specimen Source BLOOD CMV Qnt PCR IU/mL NOT DETECTED CMV Qnt PCR log IU/mL NOT DETECTED Discharge Plan Discharge Anticipated Discharge Date/Time: 04/13/23 13:05 Patient Disposition: Home, Self-Care Discharge Diagnosis: Pancytopenia Referrals: Gary Brandon DO [Primary Care Provider] - 1 Week Discharge Medications: New olanzapine 2.5 mg Tablet 2.5 mg PO BEDTIME Qty: 30 0RF Mag&Al/Sim/Diphenhyd/Lidocaine [Magic Mouthwash] 10 ml PO Q4H PRN (Reason: Oral burning) Qty: 180 0RF Continued levomefolate calcium 15 mg tablet 15 mg PO DAILY Qty: 90 1RF clonazepam 1 mg tablet 0.5 - 1 mg PO BEDTIME PRN (Reason: insomnia) Qty: 30 2RF Rx Instructions: administer 30 minutes before bedtime magnesium oxide 400 mg magnesium Tablet 400 mg PO DAILY levothyroxine 112 mcg tablet 112 mcg PO DAILY@0600 rosuvastatin 5 mg tablet 5 mg PO DAILY ergocalciferol (vitamin D2) 1,250 mcg (50,000 unit) capsule 1,250 mcg PO MO pantoprazole 40 mg tablet,delayed release (DR/EC) 40 mg PO DAILY cetirizine 10 mg tablet 10 mg PO DAILY Discontinued divalproex [Depakote] 250 mg tablet,delayed release (DR/EC) 250 mg PO BEDTIME divalproex 500 mg tablet,delayed release (DR/EC) 500 mg PO BEDTIME Discharge Orders: Discharge Order (Routine); Ordered 04/13/23 Ordered By: Sky Nuno Diet: Advance to usual diet Activity on Discharge: As tolerated Stand Alone Forms: Patient Portal Discharge page Care Plan Goals: Your Depakote has been stopped. You had been seen by Psychiatry who has recommended Zyprexa 2.5 mg at bedtime. Health Concerns: You have also been seen in consultation by Hematology. They recommend outpatient follow-up at [facility]. Clear PCPs office and they will arrange follow-up visit Plan of Treatment: Resume all your pre-hospital medications except for changes as above Assessment: See discharge summary Patient Instructions: Strep Throat (DC), Pancytopenia (DC)
--- NOTE | 2023-04-13 13:26 | MHC.CM.PN ---
Pt has been medically cleared for DC, she will go home via private tranport, no services needed.
--- NOTE | 2023-04-15 18:57 | P.CNPS_ITS ---
History of Present Illness Date of Service: 04/11/2023 Chief Complaint: Dark colored stool Reason for Consult: 82-year-old female admitted status post upper respiratory symptoms times weeks with noted pancytopenia Requesting physician: Aubrey Leonardo Discussed with referring provider: Yes Sources of Information: patient interviewed and chart reviewed Additional Sources of Information: Case reviewed with hospitalist service and with Hematology Dr. Alarcon HPI Narrative: The patient is an 82-year-old the 5th female with a long history of bipolar disorder stable on Depakote 7 drip 50 mg and clonazepam generally a 0.5 mg at bedtime. Patient had recently had a couple of months of sinus and upper respiratory symptoms and had been treated with 2 different courses of antibiotics was recently diagnosed with strep throat. CBC completed was noted to have marked thrombocytopenia 30,000 leukopenia 2.1 1000 and anemia. Last labs did not show any significant abnormality. The patient has not had any significant cycling for extended period of time she has been dealing with her who is 89 patient herself is dealing with chronic peripheral neuropathy of on certain etiology that has caused significant balance gait difficulty. The patient has had manic episodes in the past has not been psychiatrically hospitalized for number of years. She has been stable on Depakote for 25-30 years without difficulty Patient now presents with pancytopenia of uncertain etiology. Could be related to recent infection or response to 1 of the 2 antibiotics she just took. Obviously bone marrow suppression can be a side effect of Depakote why it should be presenting after 2530 years would not be clear.. Past Psychiatric History: History of bipolar disorder with past hospitalizations for river Medical Evaluation Reviewed: Yes Personal & Social History: Patient retired this with her good relationship. Both have become somewhat limited in their functioning and travel abilities. Patient does not have children [facility] Medical History (Updated 04/15/23 @ 19:18 by Marquise Eaton MD) Bipolar disorder in full remission Thrombocytopenia Pancytopenia Bipolar disorder in remission Peripheral neuropathy Hypothyroidism Chronic leukopenia Surgical History (Updated 04/11/23 @ 09:20 by Lashon Alarcon MD) History of bilateral knee replacement Social History: The patient is she is retired no children she is close with her does have friends and family Trauma History: None noted Diagnostics Vital Signs (24Hr): BMI result Body Mass Index 34.2 Labs 04/13/23 07:15 04/12/23 05:51 Imaging Radiology Impressions: ITS Impressions Abdomen/Pelvis CT 04/11/23 00:37 IMPRESSION: 1. Though suboptimally assessed due to luminal collapse, there is mural prominence of the ascending and much of the transverse colon, concerning for colitis in the proper clinical setting. 2. Prominent veins in the left pelvis, which can be seen with pelvic venous insufficiency. Mental Status Exam Mental Status Exam Patient Appearance: Well Grooomed Patient Orientation: Person and Situation Level of Consciousness: Awake and Appropriate Patient Behavior: Appropriate Mood Description: Calm Affect Description: Calm and Constricted Ability to Follow Directions: Good Speech Pattern: Clear Hallucinations: None Delusions: Not Present Thought Process: Linear and Slowed Thinking Thought Content: positive for [place] and positive for Circumstantial Judgement: Good Medications Allergies Allergies Allergy/AdvReac Type Severity Reaction Status Date / Time gabapentin Allergy Unknown lumps on Verified 04/10/23 14:00 arms Assessment & Plan Assessment & Plan (1) Peripheral neuropathy: Status: Acute Code(s): G62.9 - Polyneuropathy, unspecified (2) Bipolar disorder in full remission: Status: Acute Code(s): F31.70 - Bipolar disorder, currently in remission, most recent episode unspecified Plan The the patient has a history of bipolar disorder type 1 last episode manic not for many years. The patient has been quite stable patient currently with Depakote on hold would use Klonopin at bedtime will start Risperdal or olanzapine if needed on a temporary basis. 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 Patient educated on: medication risk/benefits and medical condition Informed Consent: understands
[2023-04-16 15:33] LABS: Parvovirus B19 IgG 7.03; Parvovirus B19 IgM <0.9
== END 2023-04-13 14:23 | disposition home or self-care (01) | DRG 810 ==
LOC: HO.ED 20:43 → HO.EDOVER 04-11 00:09 → HO.IMC 04-11 01:57
PROVIDERS: Internal Medicine; Physician Assistant Medical; Student in an Organized Health Care Education/Training Program; Admitting Provider Student in an Organized Health Care Education/Training Program; Emergency Provider Internal Medicine; PCP Internal Medicine; Visit Provider Hospitalist
DX: D61.818 Other pancytopenia (principal); F31.9 Bipolar disorder, unspecified; E03.9 Hypothyroidism, unspecified; E78.2 Mixed hyperlipidemia; Z79.899 Other long term (current) drug therapy
CPT/HCPCS: 36415; 74177; 80048; 80053; 80076; 82272; 82607; 82728; 82746; 83540; 83615; 84443; 85025; 85027; 85045; 85610; 85652; 85730; 86140; 86747; 86850; 86900; 86901; 87497; 99222; 99285; C9113; J2060; J2920; Q9967

== ENCOUNTER → 2023-04-11 00:03 | Outpatient (BNV) | payer MEDICARE, OTHER, SELFPAY | PROVIDERS: Admitting Provider Student in an Organized Health Care Education/Training Program; Emergency Provider Internal Medicine; PCP Internal Medicine; Visit Provider Student in an Organized Health Care Education/Training Program | DX: D61.818 Other pancytopenia (principal); D69.6 Thrombocytopenia, unspecified; R19.5 Other fecal abnormalities; J02.9 Acute pharyngitis, unspecified; F31.70 Bipolar disorder, currently in remission, most recent episode unspecified | CPT/HCPCS: 99222; 99232; 99239; 99499 ==

== ENCOUNTER → 2023-04-11 11:56 | Outpatient (BNV) | payer MEDICARE, OTHER, SELFPAY | PROVIDERS: Admitting Provider Student in an Organized Health Care Education/Training Program; Emergency Provider Internal Medicine; PCP Internal Medicine; Visit Provider Psychiatry & Neurology Psychiatry | DX: F31.70 Bipolar disorder, currently in remission, most recent episode unspecified (principal); G62.9 Polyneuropathy, unspecified | CPT/HCPCS: 99232 ==

== ENCOUNTER → 2023-04-11 11:56 | Outpatient (BNV) | payer MEDICARE, OTHER, SELFPAY | PROVIDERS: Admitting Provider Student in an Organized Health Care Education/Training Program; Emergency Provider Internal Medicine; PCP Internal Medicine; Visit Provider Internal Medicine | DX: D61.818 Other pancytopenia (principal) | CPT/HCPCS: 99222 ==

== ENCOUNTER → 2023-04-11 11:56 | Outpatient (BNV) | payer MEDICARE, OTHER, SELFPAY | PROVIDERS: Admitting Provider Student in an Organized Health Care Education/Training Program; Emergency Provider Internal Medicine; PCP Internal Medicine; Visit Provider Psychiatry & Neurology Psychiatry | DX: F31.70 Bipolar disorder, currently in remission, most recent episode unspecified (principal); D61.818 Other pancytopenia | CPT/HCPCS: 99222 ==

== ENCOUNTER → 2023-04-18 15:09 | Outpatient (BNV) | payer MEDICARE, OTHER, SELFPAY | PROVIDERS: PCP Internal Medicine; Visit Provider Internal Medicine | DX: D72.819 Decreased white blood cell count, unspecified (principal) | CPT/HCPCS: 99213; 99214 ==

== ENCOUNTER 2023-04-26 06:02 | Inpatient (IN) | payer MEDICARE, OTHER, SELFPAY ==
[2023-04-26] VITALS (12 sets, daily range): BP systolic 117–154; BP diastolic 46–90; PULSE 68–98; RESP 15–20; TEMP 36.1–37.1; O2SAT 93–99; BMI 39.3; BMI 36.9
--- NOTE | ~2023-04-26 | CT_ITS ---
EXAMINATION: CT HEAD WITHOUT CONTRAST CLINICAL INFORMATION: Status post fall. COMPARISON: MRI brain 06/04/2017 TECHNIQUE: Contiguous axial imaging was performed from the skull base to vertex without intravenous administration of contrast. This CT examination was performed using dose optimization techniques as appropriate, variously including the following: *Automated exposure control *Adjustment of mA and/or kV according to patient size (this includes techniques or standardized protocols for targeted exams where dose is matched to indication/reason for exam; i.e. extremities or head) *Use of iterative reconstruction technique DLP: 675 mGy-cm FINDINGS: There is no evidence of acute intracranial hemorrhage or large territorial infarction. No mass effect or midline shift is seen. No extra-axial fluid collections are identified. No hydrocephalus. Proportional prominence of the ventricles and sulcal spaces is consistent with moderate volume loss. Patchy periventricular and deep white matter hypoattenuation is consistent with mild small vessel ischemic changes. The calvarium is intact. The mastoid air cells and visualized portions of the paranasal sinuses are well aerated. CT/CT head/brain wo IV con IMPRESSION: No acute intracranial pathology.
--- NOTE | ~2023-04-26 | CT_ITS ---
Pancytopenia PROCEDURES: 1. Limited preprocedure CT of the pelvis. Permanent images saved in PACS. 2. 11 g bone marrow core biopsy of the right posterior iliac spine 3. 11 g bone marrow aspirate of the right posterior iliac spine CLINICIANS: Angelito Haque PA-C Preprocedural imaging reviewed with Dr. Bellamy MEDICATIONS: -Versed 1 mg, Fentanyl 50 mcg, and lidocaine 1% 10 mL SQ -Antibiotics: None -For additional details, please see nursing flowsheet. COMPLICATIONS: None ESTIMATED BLOOD LOSS: < 5 ml CONTRAST: None SPECIMENS: 11 g core placed in formalin. Bone marrow aspirate placed in EDTA and sodium heparin tubes MODERATE SEDATION TIME: 21 min PROCEDURE NOTE: The procedure, risks, benefits, and alternatives were carefully explained to the patient and written informed consent was obtained. The patient was placed prone on the CT table. A timeout was performed. A limited CT of the pelvis was performed to localize posterior iliac spine and choose appropriate needle entry and trajectory. The patient was prepped and draped in usual sterile fashion. The skin, subcutaneous tissues, and periosteum were anesthetized with lidocaine. Under CT guidance, an 11-gauge bone marrow biopsy needle was advanced into the posterior iliac spine, with the tip positioned slightly cephalad. An 11-gauge core biopsy of the bone marrow was performed and was placed in formalin. Next, the 11-gauge bone marrow biopsy needle was then advanced into the posterior iliac spine, or CT guidance, with the tip positioned slightly caudal. A bone marrow aspirate was performed. The specimen was placed in the provided EDTA and sodium heparin tubes. The needle was removed. A dry dressing was applied and secured with Tegaderm. There were no immediate complications. The patient was stable after the procedure and was transferred to the post anesthesia care unit. The procedure was done under moderate sedation with a dedicated nurse for monitoring of vital signs. CT/CT biopsy aspirate bone marrow Impression: CT-guided bone marrow biopsy and aspirate This procedure was performed by Angelito Haque PA-C and supervised by Dr. Bellamy.
--- NOTE | ~2023-04-26 | XR_ITS ---
EXAMINATION: XR CHEST CLINICAL INFORMATION: Lower extremity edema. COMPARISON: 12/22/2021 TECHNIQUE: Frontal view of the chest was obtained. FINDINGS: The lungs are moderately expanded. There is left basilar atelectasis. No focal consolidation. No significant pleural effusion. Cardiac silhouette is unchanged. XR/XR chest 1V IMPRESSION: Left basilar atelectasis.
--- NOTE | ~2023-04-26 | US_ITS ---
EXAMINATION: US VENOUS ULTRASOUND WITH DOPPLER LOWER EXTREMITY, LEFT CLINICAL INFORMATION: Left lower extremity pain. COMPARISON: None available. TECHNIQUE: Ultrasound of the deep veins is performed from the hip to the calf with compression sonography and color and pulse Doppler assessment. Spectral analysis with color-flow imaging is performed. FINDINGS: There is normal venous compression and respiratory variation and augmented flow. The visualized common femoral vein, superficial femoral vein, profunda femoral vein, popliteal vein, and the trifurcation region shows no evidence of deep venous thrombosis. If the patient's symptoms persist, followup ultrasound in 5 days 7 days might be of value to exclude proximal propagation from a non-visualized calf vein. Incidental note is made of a fluid collection seen anterior to the right hip measuring 4.7 x 2.4 x 4.1 cm possibly related to the joint. US/US venous duplex LE IMPRESSION: No DVT demonstrated in the left lower extremity. Possible right hip joint effusion.
--- NOTE | 2023-04-26 06:28 | ECG_ITS ---
Test Reason : FALL Blood Pressure : / mmHG Vent. Rate : 082 BPM Atrial Rate : 082 BPM P-R Int : 146 ms QRS Dur : 088 ms QT Int : 380 ms P-R-T Axes : 013 006 015 degrees QTc Int : 443 ms Normal sinus rhythm Nonspecific T wave abnormality Abnormal ECG When compared with ECG of 06-APR-2023 16:54, Premature atrial complexes are no longer Present Referred By: Generic ED Physician Electronically Signed By:GITA GODDARD
--- NOTE | 2023-04-26 06:41 | ED_ITS ---
HPI - Fall General Chief Complaint: Fall Stated Complaint: fall Time Seen by Provider: 04/26/23 06:40 Source: patient Mode of arrival: ambulatory Limitations: no limitations History of Present Illness HPI Narrative: This is an 82-year-old female history of pancytopenia bipolar disorder, hypothyroidism, presenting to the emergency department status post fall out of bed this morning, patient reports she went to get out of bed lost her footing due to some left lower extremity discomfort she has been having, fell to the ground without head strike, loss of consciousness, not on blood thinners. She reports that her left lower extremity has had some blistering and she has been wrapping it got was therefore she feels as though the gauze may have contributed to the fall, denies preceding symptoms to fall such as chest pain, shortness of breath, nausea, vomiting, dizziness, headache, vision changes. Denies those symptoms at present. Patient does mention that her left lower extremity has been much more swollen than her right worsening over the past few days. Not on blood thinners Related Data Home Medications Medication Instructions Recorded Confirmed levothyroxine 112 mcg tablet 112 mcg PO DAILY@0600 06/30/21 04/18/23 rosuvastatin 5 mg tablet 5 mg PO DAILY 06/30/21 04/18/23 cetirizine 10 mg tablet 10 mg PO DAILY 02/07/23 04/18/23 ergocalciferol (vitamin D2) 1,250 1,250 mcg PO MO 02/07/23 04/18/23 mcg (50,000 unit) capsule pantoprazole 40 mg tablet,delayed 40 mg PO DAILY 02/07/23 04/18/23 release magnesium oxide 400 mg PO DAILY 04/11/23 04/18/23 Previous Rx's Medication Instructions Recorded levomefolate calcium 15 mg tablet 15 mg PO DAILY #90 tabs 10/06/22 clonazepam 1 mg tablet 0.5 - 1 mg (0.5 - 1 x 1 mg) PO 02/16/23 BEDTIME PRN insomnia #30 tabs Mag&Al/Sim/Diphenhyd/Lidocaine 10 ml PO Q4H PRN Oral burning #180 04/13/23 [Magic Mouthwash] mL olanzapine 2.5 mg tablet 2.5 mg PO BEDTIME #30 tabs 04/13/23 Allergies Allergy/AdvReac Type Severity Reaction Status Date / Time gabapentin Allergy Unknown lumps on Verified 04/10/23 14:00 arms Review of Systems 2 Review of Systems: Constitutional : No Weight loss, No Fever, No Chills, No Fatigue, No Malaise ENT/Mouth : No sore throat, No Rhinorrhea Eyes: No Eye Pain, No Swelling, No Redness Cardiovascular : No Chest Pain, No SOB, No Dyspnea on Exertion, No Orthopnea, + Edema, No Palpitations Respiratory : No Cough, No Sputum, No Wheezing Gastrointestinal : No Nausea, No Vomiting, No Diarrhea, No Constipation, No abdominal Pain, No Hematochezia, No Melena Genitourinary : No Dysuria, No Urinary Frequency, No Hematuria, Musculoskeletal : No joint pain, No Myalgias, No Joint Swelling Skin : No Skin Lesions, No rash Neuro : No Weakness, No Numbness, No Dizziness, No Headache Psych : No Anxiety/Panic, No Depression All other systems reviewed and are negative Yes all other systems are reviewed and are negative PMFSH Past Medical History Attestation statement: The following information was validated with the patient. Source: old records reviewed and nursing notes reviewed Medical History Bipolar disorder in full remission Thrombocytopenia Pancytopenia Bipolar disorder in remission Peripheral neuropathy Hypothyroidism Chronic leukopenia Surgical History History of bilateral knee replacement Family History Family History Brother Stomach cancer Mother Stomach cancer Maternal Aunt Brain cancer Maternal Aunt Stomach cancer Esophageal cancer Maternal Grandfather Colon cancer Social History Social History Household Members: Spouse Housing: Apartment Do you presently have visiting nurse or other home services: No Alcohol intake: former Comment: pt refuses alarms Patient Tobacco Use Status: Never used Tobacco Smoked in Last 30 Days: No Use of substances other than those prescribed or required for medical reasons: No Advance Directives: Yes Advance Directives Information Provided: No Advance Directives on File: No service: No Current occupational status: retired Physical Exam 2 Vital Signs: Vital Signs: Last Vital Signs Temp 98.0 F 12/07/23 06:21 Pulse 90 04/26/23 06:21 Resp 16 04/26/23 06:21 BP 127/58 L 04/26/23 06:21 Pulse Ox 96 04/26/23 06:21 O2 Del Method Room Air 04/26/23 06:21 BMI result Body Mass Index 39.3 vss Appearance: Alert.? Oriented X3.? No acute distress.? Head: Normocephalic, atraumatic, no step-offs or deformities Eyes: Pupils equal, round and reactive to light.? ENT: Pharynx normal.? Neck: Normal inspection.? Neck supple.? CVS: Normal heart rate and rhythm.? Pulses normal.? Respiratory: No respiratory distress.? Breath sounds normal.? Abdomen: Soft and nontender.? Skin: Skin warm and dry.? Normal skin color.? Normal skin turgor.? Extremities: + 2+ LLE edema non pitting on left and RLE w/ 1+ non pitting edema.? No calf ttp. + large blister to right heel. Global weakness. Neuro: Oriented X 3.? No motor deficit.? No sensory deficit. CN 2-12 intact Course Reevaluation(s) Reevaluation #1: Patient is noted to have anemia at baseline however worsening will obtain an OBS to rule out lower GI bleed. Chronic thrombocytopenia noted/ pancytopenia ? myloproliferative d/o ? bone marrow issue. Potassium 3.2 will give oral repletion. NO other electrolyte abnormalities requiring intervention. Patient's total bilirubin elevated at 1.7 however no abdominal pain or tenderness to palpation will have her follow-up with her PCP for this. UA, obs, chest x-ray, CT pending Time: 08:12 Reevaluation #2: OBS negative. UA without infection. X-ray of chest with left basilar atelectasis. Ultrasound venous duplex with no DVT in the left lower extremity possible right hip joint effusion. Head CT no acute intracranial pathology. Time: 09:26 Reevaluation #3: Troponin negative, EKG nonischemic, normal BNP. Time: 09:30 Additional Reevaluation(s): Discuss this case with hematology/oncology Dr. Acosta who recommends hospital admission for observation, 1 unit of packed red blood cells and repeat labs. At this time will order 1 unit of packed red blood cells I did obtain written and verbal consent from this patient. [id number] Hospitalist aware of admission at this time. Medications Administered Discontinued Medications Generic Name Dose Route Start Last Admin Trade Name Donnellq PRN Reason Stop Dose Admin Potassium Chloride 20 meq 04/26/23 08:00 04/26/23 08:49 Potassium Chloride Er 20 Meq Tab.Er.Prt PO 04/26/23 08:01 20 meq ONCE ONE Administration Medical Decision Making Medical Decision Making [facility] Narrative: 702 82 yo f presents w/ fall this am no head strike or loc. Fell because her L foot doesnt feel right + 2+ LLE edema non pitting on left and RLE w/ 1+ non pitting edema.? No calf ttp. + large blister to right heel. Global weakness. History and physical exam concerning for likely slip and fall all/mechanical fall. Unlikely ACS, pulmonary embolism, vertigo, syncope causing small. Will look into lower extremity swelling as this appears to be the reason as to why patient fell will rule out CHF, DVT as left lower extremity is much more swollen than right palpable pulses present unlikely arterial occlusion, neurovascular compromise. Plan labs, imaging. Differential Diagnosis Differential Diagnoses: The differential diagnosis associated with the presentation includes History and physical exam concerning for likely slip and fall all/mechanical fall. Unlikely ACS, pulmonary embolism, vertigo, syncope causing small. Will look into lower extremity swelling as this appears to be the reason as to why patient fell will rule out CHF, DVT as left lower extremity is much more swollen than right palpable pulses present unlikely arterial occlusion, neurovascular compromise. Admission/Observation Consideration of admission/observation: Escalation of care including admission/observation considered Consult Healthcare Provider Management of the patient was discussed with: [employer] Distribution System Operator (Dave ) Lab Data [facility] Lab Attestation statement: I reviewed the patient's lab results. 04/26/23 06:43 04/26/23 07:25 Labs: Lab Results 04/26/23 04/26/23 04/26/23 Range/Units 06:43 07:25 09:03 WBC 1.7 L (4.8-10.8) X10*3/uL RBC 2.16 L D (4.20-5.50) X10*6/uL Hgb 7.5 L D (12.0-16.0) g/dl Hct 21.7 L D (37.0-47.0) % MCV 100.5 H (80.0-98.0) fL MCH 34.7 H (27.0-33.0) pg MCHC 34.6 (31.0-35.0) g/dl RDW 21.6 H (11.0-16.0) % Plt Count 58 L D (160-400) X10*3/uL MPV 11.0 (9.4-12.3) fL Immature Gran % (Auto) 1.1 H (0.0-0.4) % Neut % (Auto) 66.8 (45-73) % Lymph % (Auto) 29.3 (20-40) % [place] % (Auto) 1.7 L (2-11) % Eos % (Auto) 1.1 (0-4) % Baso % (Auto) 0.0 (0-2) % Lymph # (Auto) 0.5 L (1.2-4.9) X10*3/uL [place] # (Auto) 0.0 L (0.1-1.2) X10*3/uL Eos # (Auto) 0.0 (0.0-0.4) X10*3/uL Baso # (Auto) 0.0 (0.0-0.2) X10*3/uL Abs Immat Gran (auto) 0.02 (0.00-0.03) X10*3/uL Absolute Neuts (auto) 1.2 L (2.0-8.3) x10*3/uL Absolute Nucleated RBC 0.000 (0.0-0.012) X10*3/uL Nucleated RBC % (auto) 0.0 (0.0-0.2) /100WBC Smear Tech's Comments VERIFIED PT 14.2 H (11.1-13.3) SEC INR 1.2 H (0.9-1.1) Sodium 139 140 (135-145) mmol/L Potassium 3.2 L 3.2 L (3.3-5.1) mmol/L Chloride 107 106 (96-108) mmol/L Carbon Dioxide 24 26 (22-29) mmol/L Anion Gap 11 L 11 L (12-20) BUN 23 H 24 H (9-16) mg/dL Creatinine 0.70 0.69 (0.5-1.4) mg/dL Estim Creat Clear Calc 64.9 65.9 Estimated GFR > 60 > 60 Random Glucose 128 H 124 H (60-115) mg/dL Calcium 9.1 9.0 (8.4-10.2) mg/dL Magnesium 2.2 (1.6-2.6) mg/dL Total Bilirubin 1.7 H (0.0-1.0) mg/dL AST 26 (5-31) U/L ALT 22 (0-31) U/L Alkaline Phosphatase 54 (39-117) U/L Troponin I High Sens 4.0 (<3.5-17.0) ng/L B-Natriuretic Peptide 33 (<100) pg/mL Total Protein 5.8 L (6.5-8.0) g/dL Albumin 3.4 L (3.5-5.0) g/dL Urine Color Urine Appearance Urine pH (5.0-9.0) Ur Specific [place] (1.005-1.025) Urine Protein (Neg-Trace) mg/dL Urine Glucose (UA) (Negative) mg/dL Urine Ketones (Negative) mg/dL Urine Blood (Negative) Urine Nitrite (Negative) Ur Leukocyte Esterase (Negative) Urine RBC (0-2) /HPF Urine WBC (0-5) /HPF Ur Squamous Epith Cells (0-2) /HPF Urine Bacteria (None Seen) Hyaline Casts (0-2) /LPF Stool Occult Blood NEGATIVE (NEGATIVE) 04/26/23 Range/Units 09:06 WBC (4.8-10.8) X10*3/uL RBC (4.20-5.50) X10*6/uL Hgb (12.0-16.0) g/dl Hct (37.0-47.0) % MCV (80.0-98.0) fL MCH (27.0-33.0) pg MCHC (31.0-35.0) g/dl RDW (11.0-16.0) % Plt Count (160-400) X10*3/uL MPV (9.4-12.3) fL Immature Gran % (Auto) (0.0-0.4) % Neut % (Auto) (45-73) % Lymph % (Auto) (20-40) % [place] % (Auto) (2-11) % Eos % (Auto) (0-4) % Baso % (Auto) (0-2) % Lymph # (Auto) (1.2-4.9) X10*3/uL [place] # (Auto) (0.1-1.2) X10*3/uL Eos # (Auto) (0.0-0.4) X10*3/uL Baso # (Auto) (0.0-0.2) X10*3/uL Abs Immat Gran (auto) (0.00-0.03) X10*3/uL Absolute Neuts (auto) (2.0-8.3) x10*3/uL Absolute Nucleated RBC (0.0-0.012) X10*3/uL Nucleated RBC % (auto) (0.0-0.2) /100WBC Smear Tech's Comments PT (11.1-13.3) SEC INR (0.9-1.1) Sodium (135-145) mmol/L Potassium (3.3-5.1) mmol/L Chloride (96-108) mmol/L Carbon Dioxide (22-29) mmol/L Anion Gap (12-20) BUN (9-16) mg/dL Creatinine (0.5-1.4) mg/dL Estim Creat Clear Calc Estimated GFR Random Glucose (60-115) mg/dL Calcium (8.4-10.2) mg/dL Magnesium (1.6-2.6) mg/dL Total Bilirubin (0.0-1.0) mg/dL AST (5-31) U/L ALT (0-31) U/L Alkaline Phosphatase (39-117) U/L Troponin I High Sens (<3.5-17.0) ng/L B-Natriuretic Peptide (<100) pg/mL Total Protein (6.5-8.0) g/dL Albumin (3.5-5.0) g/dL Urine Color Dark Yellow Urine Appearance Clear Urine pH 6.0 (5.0-9.0) Ur Specific [place] 1.020 (1.005-1.025) Urine Protein Negative (Neg-Trace) mg/dL Urine Glucose (UA) Negative (Negative) mg/dL Urine Ketones Negative (Negative) mg/dL Urine Blood Negative (Negative) Urine Nitrite Negative (Negative) Ur Leukocyte Esterase Small (1+) H (Negative) Urine RBC 0-2 (0-2) /HPF Urine WBC 0-5 (0-5) /HPF Ur Squamous Epith Cells 0-2 (0-2) /HPF Urine Bacteria None Seen (None Seen) Hyaline Casts 0-2 (0-2) /LPF Stool Occult Blood (NEGATIVE) Independent Interpretation I performed an independent interpretation of an: EKG (non ischemic ), Plain X- Ray ( XR/XR chest 1V IMPRESSION: Left basilar atelectasis.), Ultrasound (US/US venous duplex LE LT IMPRESSION: No DVT demonstrated in the left lower extremity. Possible right hip joint effusion.) and CT Scan (CT/CT head/brain wo IV con IMPRESSION: No acute intracranial pathology.) Radiology Impression Discussion of test interpretation with radiology: I have reviewed the radiologist's reading. Critical Care Time Critical Care Time Critical Care Time: Yes Total Critical Care Time: 45 Attestation: I attest to this time spent taking care of the patient, obtaining history, physical, reviewing labs, imaging, speaking to my attending, speaking to specialist. Discharge Plan Discharge Clinical Impression: Fall, Anemia, macrocytic, Hyperbilirubinemia, Hypokalemia, Lymphedema of leg Patient Disposition: Admitted As Inpatient Prescriptions: No Action levomefolate calcium 15 mg tablet 15 mg PO DAILY Qty: 90 1RF clonazepam 1 mg tablet 0.5 - 1 mg PO BEDTIME PRN (Reason: insomnia) Qty: 30 2RF Rx Instructions: administer 30 minutes before bedtime magnesium oxide 400 mg magnesium Tablet 400 mg PO DAILY olanzapine 2.5 mg Tablet 2.5 mg PO BEDTIME Qty: 30 0RF Mag&Al/Sim/Diphenhyd/Lidocaine [Magic Mouthwash] 10 ml PO Q4H PRN (Reason: Oral burning) Qty: 180 0RF levothyroxine 112 mcg tablet 112 mcg PO DAILY@0600 rosuvastatin 5 mg tablet 5 mg PO DAILY ergocalciferol (vitamin D2) 1,250 mcg (50,000 unit) capsule 1,250 mcg PO MO pantoprazole 40 mg tablet,delayed release (DR/EC) 40 mg PO DAILY cetirizine 10 mg tablet 10 mg PO DAILY
[2023-04-26 06:55] LABS: Eosinophils Percent Auto 1.1 % (0-4); Hematocrit 21.7 % (37.0-47.0); Hemoglobin 7.5 g/dl (12.0-16.0); Imm Gran Abs Auto 0.02 X10*3/uL (0.00-0.03); Imm Gran Pct Auto 1.1 % (0.0-0.4); Lymphocytes Absolute Auto 0.5 X10*3/uL (1.2-4.9); Lymphocytes Percent Auto 29.3 % (20-40); MANUAL DIFF FLAG SCAN; Mean Corpuscular HGB Conc 34.6 g/dl (31.0-35.0); Mean Corpuscular Hemoglobin 34.7 pg (27.0-33.0); Mean Corpuscular Volume 100.5 fL (80.0-98.0); Monocytes Percent Auto 1.7 % (2-11); Neutrophils Absolute Auto 1.2 x10*3/uL (2.0-8.3); Neutrophils Percent Auto 66.8 % (45-73); Red Blood Count 2.16 X10*6/uL (4.20-5.50); Red Cell Distribution Width 21.6 % (11.0-16.0); SCAN SMEAR FLAG 1
[2023-04-26 07:00] LABS: Anion Gap 11 (12-20); Blood Urea Nitrogen 23 mg/dL (9-16); Calcium 9.1 mg/dL (8.4-10.2); Carbon Dioxide 24 mmol/L (22-29); Chloride 107 mmol/L (96-108); Creatinine Clr Calc Pharmacy 64.9; Estimated Glomerular Filt Rate > 60; Glucose Random 128 mg/dL (60-115); Potassium 3.2 mmol/L (3.3-5.1); Sodium 139 mmol/L (135-145)
[2023-04-26 07:19] LABS: Platelet Count 58 X10*3/uL (160-400); White Blood Count 1.7 X10*3/uL (4.8-10.8)
[2023-04-26 07:44] LABS: INTERNATIONAL NORM RATIO 1.2 (0.9-1.1); Prothrombin Time 14.2 SEC (11.1-13.3)
[2023-04-26 07:47] LABS: Alanine Aminotransferase 22 U/L (0-31); Albumin Level 3.4 g/dL (3.5-5.0); Alkaline Phosphatase 54 U/L (39-117); Anion Gap 11 (12-20); Aspartate Amino Transferase 26 U/L (5-31); Bilirubin Total 1.7 mg/dL (0.0-1.0); Blood Urea Nitrogen 24 mg/dL (9-16); Carbon Dioxide 26 mmol/L (22-29); Chloride 106 mmol/L (96-108); Creatinine Clr Calc Pharmacy 65.9; Estimated Glomerular Filt Rate > 60; Glucose Random 124 mg/dL (60-115); Magnesium 2.2 mg/dL (1.6-2.6); Potassium 3.2 mmol/L (3.3-5.1); Sodium 140 mmol/L (135-145); Total Protein 5.8 g/dL (6.5-8.0)
[2023-04-26 07:56] LABS: SLIDE REVIEW VERIFIED
[2023-04-26 07:57] LABS: B Type Natriuretic Peptide 33 pg/mL (<100)
--- NOTE | 2023-04-26 08:43 | PC.NURSE ---
updated on current condition
[2023-04-26] MEDS: Potassium Chloride ER 20 MEQ TAB.ER.PRT PO (08:49)
[2023-04-26 09:13] LABS: Appearance Urine Clear; Color Urine Dark Yellow; Glucose Urine UA Negative (Negative); Leukocyte Esterase Urine Small (1+) (Negative); Nitrite Urine Negative (Negative); UMIC TRIGGER UACC YES; Urine Blood Negative (Negative); Urine Ketones Negative (Negative); Urine Protein Negative (Neg-Trace)
[2023-04-26 09:14] LABS: OBS Int Ctl Valid YES; OBS1 NEGATIVE (NEGATIVE)
[2023-04-26 09:19] LABS: Bacteria Urine None Seen (None Seen); Hyaline Casts Urine 0-2 /LPF (0-2); RBC Urine 0-2 /HPF (0-2); Squamous Epithelial Cell Urine 0-2 /HPF (0-2); UACC Culture Trigger YES; WBC Urine 0-5 /HPF (0-5)
--- NOTE | 2023-04-26 12:43 | P.HPHOSP_ITS ---
History of Present Illness Date of Service: 04/26/23 Attending physician on admission: Carrington Sawyer Chief Complaint: Fatigue, fall at home Pt is an 82-year-old female with a PMH significant for? hypothyroidism, mood disorder, mixed hyperlipidemia, and hx of pancytopenia who presents to the ED after fall out of bed earlier this morning. Patient was recently admitted to the hospital on 04/10-04/13 for pancytopenia, Patient's stool was positive for occult blood during that admission and patient was seen by GI, however no active GI bleed was found. Pancytopenia ultimately was thought to be chronic and attributed to valproic acid use. Patient was switched from Depakote to Zyprexa. Since discharge patient states she has continued to feel fatigued, increase the past few days. Patient also notes she developed large blisters on her left heel and foot. Spoke to her PCP who suggested soaking them in warm water. Patient states they burst yesterday, draining clear fluid. Patient states she has not been able to ambulate very well due to fatigue and left foot pain secondary to her blisters. This morning when patient woke she attempted to get out of bed but could not stand and slid off the side of bed landing on her buttocks. Denies LOC, head strike, lightheadedness, or dizziness. Patient call to her who also was unsuccessful in being able to get her up off the floor so EMS was called. Patient also notes that while on the stretcher her neighbor commented that her legs looked much more swollen the past few days. Denies melena, hematochezia. No fever, chills, nausea, vomiting, diarrhea. Denies chest pain/pressure, palpitations. No shortness of breath. In the ED pt with slightly soft BP of 127/58, otherwise with stable vitals. Labs were significant for pancytopenia of WBC 1.7, H&H 7.5/21.7, platelets 58, slightly low potassium 3.2, BUN 24, bilirubin 1.7. BNP 33. UA negative for UTI. Stool negative for occult blood. CXR showed left basilar atelectasis without focal consolidation or pleural effusion. CT?of head negative for acute intracranial pathology. Venous Doppler of left lower extremity negative for DVT but did show possible right hip joint effusion. EKG demonstrated normal sinus rhythm without evidence of significant ST elevations or depressions. ED contacted Dr. Acosta in hematology/oncology, who recommended hospital observation, transfusion of 1 unit PRBCs, and repeat labs. Pt was treated with potassium chloride, IVF, and transfused 1 unit of PRBCs. Pt will be admitted to the hospital under observation for treatment further evaluation of pancytopenia. Review of Systems 2 Review of Systems: Increased fatigue Slip/fall out of bed Large blisters on left foot/ankle Denies LOC, head strike Denies hematochezia, melena No increased shortness of breath No chest pain/pressure, palpitations [facility] Medical History Bipolar disorder in full remission Thrombocytopenia Pancytopenia Bipolar disorder in remission Peripheral neuropathy Hypothyroidism Chronic leukopenia Family History Brother Stomach cancer Mother Stomach cancer Maternal Aunt Brain cancer Maternal Aunt Stomach cancer Esophageal cancer Maternal Grandfather Colon cancer Surgical History History of bilateral knee replacement Social History Household Members: Spouse Housing: Apartment Do you presently have visiting nurse or other home services: No Alcohol intake: former Comment: pt refuses alarms Patient Tobacco Use Status: Never used Tobacco Smoked in Last 30 Days: No Use of substances other than those prescribed or required for medical reasons: No Advance Directives: Yes Advance Directives Information Provided: No Advance Directives on File: No service: No Current occupational status: retired Meds Allergies Allergy/AdvReac Type Severity Reaction Status Date / Time gabapentin Allergy Unknown lumps on Verified 04/10/23 14:00 arms Active Medications: Current Medications Sodium Chloride (Ns) 100 mls @ 100 mls/hr IV ONCE ONE Stop: 04/26/23 13:07 Home Medications Medication Instructions Recorded Confirmed Last Taken Type levothyroxine 112 mcg tablet 112 mcg PO DAILY@0600 06/30/21 04/26/23 Unknown History rosuvastatin 5 mg tablet 5 mg PO DAILY 06/30/21 04/26/23 Unknown History cetirizine 10 mg tablet 10 mg PO DAILY 02/07/23 04/26/23 Unknown History ergocalciferol (vitamin D2) 1,250 1,250 mcg PO MO 02/07/23 04/26/23 Unknown History mcg (50,000 unit) capsule pantoprazole 40 mg tablet,delayed 40 mg PO DAILY 02/07/23 04/26/23 Unknown History release Mag&Al/Sim/Diphenhyd/Lidocaine 10 ml PO Q4H Oral burning 04/26/23 04/26/23 Unknown History [Magic Mouthwash] Methylfolate 15 mg PO DAILY 04/26/23 04/26/23 Unknown History clonazepam 1 mg tablet 1 mg PO BEDTIME PRN insomnia 04/26/23 04/26/23 Unknown History Physical Exam 2 Vital Signs and Narrative: Vital Signs: Last Vital Signs Temp 98.0 F 04/26/23 06:21 Pulse 90 04/26/23 06:21 Resp 16 04/26/23 06:21 BP 127/58 L 04/26/23 06:21 Pulse Ox 96 04/26/23 06:21 O2 Del Method Room Air 04/26/23 06:21 BMI result Body Mass Index 39.3 Constitutional: Alert, in no acute distress. Mental Status: Oriented to person, place and time. Eyes: Pupils are equal, round, and reactive to light. Ear, Nose, and Throat: Oropharynx clear, mucous membranes moist. Ears and nose without deformities. Trachea midline. Respiratory: Clear to auscultation bilaterally. No wheezing, rales, or rhonchi. Cardiovascular: S1, S2 regular. No murmurs, rubs, or gallops. Gastrointestinal: Abdomen soft, non-tender, non-distended. Normal bowel sounds. Neurologic: Cranial nerves II-XII are grossly intact bilaterally. No focal neurological deficits. Moves all extremities spontaneously. Skin: Warm, dry. Musculoskeletal: No cyanosis or clubbing. Extremities: 1+ pitting right leg edema, 2+ left leg pitting edema. Bullae on left heel and ankle as pictured below. Psychiatric: Normal mood and affect. Results Labs 04/26/23 06:43 04/26/23 07:25 Labs: Laboratory Results - last 24 hr 04/26/23 04/26/23 04/26/23 06:43 07:25 09:03 MCV 100.5 H MCH 34.7 H MCHC 34.6 RDW 21.6 H Plt Count 58 L D MPV 11.0 Immature Gran % (Auto) 1.1 H Neut % (Auto) 66.8 Lymph % (Auto) 29.3 [place] % (Auto) 1.7 L Eos % (Auto) 1.1 Baso % (Auto) 0.0 Lymph # (Auto) 0.5 L [place] # (Auto) 0.0 L Eos # (Auto) 0.0 Baso # (Auto) 0.0 Abs Immat Gran (auto) 0.02 Absolute Neuts (auto) 1.2 L Absolute Nucleated RBC 0.000 Nucleated RBC % (auto) 0.0 Smear Tech's Comments VERIFIED PT 14.2 H INR 1.2 H Anion Gap 11 L 11 L Estim Creat Clear Calc 64.9 65.9 Estimated GFR > 60 > 60 Random Glucose 128 H 124 H Calcium 9.1 9.0 Magnesium 2.2 Total Bilirubin 1.7 H AST 26 ALT 22 Alkaline Phosphatase 54 B-Natriuretic Peptide 33 Total Protein 5.8 L Albumin 3.4 L Urine Color Urine Appearance Urine pH Ur Specific [place] Urine Protein Urine Glucose (UA) Urine Ketones Urine Blood Urine Nitrite Ur Leukocyte Esterase Urine RBC Urine WBC Ur Squamous Epith Cells Urine Bacteria Hyaline Casts Stool Occult Blood NEGATIVE 04/26/23 09:06 MCV MCH MCHC RDW Plt Count MPV Immature Gran % (Auto) Neut % (Auto) Lymph % (Auto) [place] % (Auto) Eos % (Auto) Baso % (Auto) Lymph # (Auto) [place] # (Auto) Eos # (Auto) Baso # (Auto) Abs Immat Gran (auto) Absolute Neuts (auto) Absolute Nucleated RBC Nucleated RBC % (auto) Smear Tech's Comments PT INR Anion Gap Estim Creat Clear Calc Estimated GFR Random Glucose Calcium Magnesium Total Bilirubin AST ALT Alkaline Phosphatase B-Natriuretic Peptide Total Protein Albumin Urine Color Dark Yellow Urine Appearance Clear Urine pH 6.0 Ur Specific [place] 1.020 Urine Protein Negative Urine Glucose (UA) Negative Urine Ketones Negative Urine Blood Negative Urine Nitrite Negative Ur Leukocyte Esterase Small (1+) H Urine RBC 0-2 Urine WBC 0-5 Ur Squamous Epith Cells 0-2 Urine Bacteria None Seen Hyaline Casts 0-2 Stool Occult Blood Imaging Radiologist's Impressions: Impressions Head CT 04/26/23 08:00 IMPRESSION: No acute intracranial pathology. Venous Duplex 04/26/23 08:00 IMPRESSION: No DVT demonstrated in the left lower extremity. Possible right hip joint effusion. Chest X-Ray 04/26/23 08:28 IMPRESSION: Left basilar atelectasis. Assessment and Plan (1) Pancytopenia: Status: Acute Plan Pt is an 82-year-old female with a PMH significant for? hypothyroidism, mood disorder, mixed hyperlipidemia, and hx of pancytopenia who presents to the ED after fall out of bed earlier this morning. Patient was recently admitted to the hospital on 04/10-04/13 for pancytopenia, Patient's stool was positive for occult blood during that admission and patient was seen by GI, however no active GI bleed was found. Pancytopenia ultimately was thought to be chronic and attributed to valproic acid use. Pt will be admitted to the hospital under observation for treatment further evaluation of pancytopenia. Pancytopenia Wbc's 1.7, H&H 7.5/21.7, platelets 58 Unclear etiology: Myeloproliferative disorder vs continued bone marrow disorder from valproic acid Patient transfused 1 unit PRBCs in ED Heme Onc consult Follow CBC Fall out of bed/difficulty ambulating Imaging negative for acute intracranial abnormality PT consult Left foot and ankle bulae No indication of infection at this time Wound care consult Hypokalemia Potassium 3.2 Pt given potassium chloride in ED Follow BMP Sore throat Magic mouthwash Lower leg edema Patient states she has always had large legs, but neighbor states they had increased in the past few days Doppler negative for DVT BNP WNL at 33 Encourage ambulation, elevate feet while in bed Bipolar disorder Continue olanzapine Hypothyroidism Continue levothyroxine HLD Continue statin Full Code Attending:?Dr. Sawyer DVT Prophylaxis: Pneumatic boots d/t anemia, recent hx of melena Patient will be admitted to the hospital under observation for treatment and further evaluation of pancytopenia. Quality Stroke Does the patient have a stroke diagnosis?: No VTE Prior VTE?: No VTE Risk Level:: Medical - moderate - high VTE Device Contraindication: N/A - Device Ordered VTE Drug Contraindication: Treatment Not Indicated
--- NOTE | 2023-04-26 13:32 | PHA.MEDREC ---
Pharmacy Consult ? Medication Reconciliation Pharmacy has completed the medication reconciliation. Patient has list of medications. Reports last admission depakote was change to zyprexa 2.5 mg. Patient also reports her levothyroxine was change to 1 tablet every day (no long 2 tabs on sunday). Bella Gastelum, PharmD
[2023-04-26] MEDS: Mag&Al/Sim/Diphenhyd/Lidocaine 10 ML ORAL.SUSP PO ×2 (16:47→23:19)
[2023-04-26] MEDS: Acetaminophen 325 MG TABLET 650 MG PO (16:47)
[2023-04-26] MEDS: Melatonin 3 MG TABLET 6 MG PO (23:19)
[2023-04-26] MEDS: 0.9 % Sodium Chloride Flush 3 ML SYRINGE IVFLUSH (23:20)
[2023-04-26] MEDS: oxyCODONE HCl Immed Release 5 MG TABLET PO (23:52)
[2023-04-27] VITALS (7 sets, daily range): BP systolic 114–146; BP diastolic 56–65; PULSE 81–91; RESP 16–18; TEMP 36.2–37.6; O2SAT 95–98
[2023-04-27] MEDS: oxyCODONE HCl Immed Release 5 MG TABLET PO ×2 (01:42→06:22)
[2023-04-27] MEDS: Mag&Al/Sim/Diphenhyd/Lidocaine 10 ML ORAL.SUSP PO ×5 (06:23→23:26)
[2023-04-27 07:38] LABS: Hematocrit 25.5 % (37.0-47.0); Hemoglobin 8.6 g/dl (12.0-16.0); Mean Corpuscular HGB Conc 33.7 g/dl (31.0-35.0); Mean Corpuscular Hemoglobin 33.5 pg (27.0-33.0); Mean Corpuscular Volume 99.2 fL (80.0-98.0); Mean Platelet Volume 11.9 fL (9.4-12.3); Red Blood Count 2.57 X10*6/uL (4.20-5.50); Red Cell Distribution Width 20.4 % (11.0-16.0)
[2023-04-27 07:39] LABS: Platelet Count 39 X10*3/uL (160-400); White Blood Count 1.7 X10*3/uL (4.8-10.8)
[2023-04-27 07:54] LABS: Anion Gap 11 (12-20); Blood Urea Nitrogen 25 mg/dL (9-16); Calcium 8.7 mg/dL (8.4-10.2); Carbon Dioxide 26 mmol/L (22-29); Chloride 108 mmol/L (96-108); Creatinine Clr Calc Pharmacy 82.8; Estimated Glomerular Filt Rate > 60; Glucose Random 107 mg/dL (60-115); Potassium 3.6 mmol/L (3.3-5.1); Sodium 141 mmol/L (135-145)
[2023-04-27] MEDS: 0.9 % Sodium Chloride Flush 3 ML SYRINGE IVFLUSH ×3 (08:23→20:53)
--- NOTE | 2023-04-27 09:04 | P.CNHO_ITS ---
Subjective - Subjective Chief complaint: left heel and hand ulcers Patient: new to practice Consult date: 04/27/23 Primary Care Provider: Gary Brandon DO Medical Summary: Diagnosis: Pancytopenia/anemia HPI - Consult Narrative Reason for consult: Pancytopenia Narrative: Evie Garces is a 82 year old female with past medical history significant for hypothyroidism, mood disorder and recent admission for pancytopenia who is now readmitted for fatigue and her recent fall at home. She also complains of swelling in both legs with ulceration over the left heel/ankle as well as left hand. She continues to have burning sensation in her throat and is difficult to swallow. She has had decreasing counts since 2020. Recently she was diagnosed with strep throat and received 2 courses of antibiotics. Azithromycin followed by amoxicillin after which she continued to feel tired although sore throat has resolved. Possible etiologies for worsening cytopenia was felt to be infection, antibiotic use and possible ongoing use of Depakote. She was taken off Depakote during hospitalization. Blood work showed pancytopenia with significant drop in platelet counts. No symptoms to suggest acute gastrointestinal blood losses. She was Hemoccult positive, her patient GI workup is being planned. She has normal vitamin B12 and folate levels, normal kidney functions. Her transaminases are mildly elevated, no coagulopathy. LDH was mildly elevated at 438 U/L, but was coming down. She states that she developed two small sores over her left ankle a few days ago and now it has increased significantly in size. She denies fever or chills but is very tired and not able to move around. She was started on Zyprexa a few days ago. She was seen as follow-up in Hematology Clinic week ago, that time blood counts were better with improvement in platelets to above 100 K and hemoglobin above 9 gram/dL. Review of Systems - Constitutional Reports as per HPI, Reports fatigue, Reports lack of energy, Reports malaise, Reports poor appetite - Cardiovascular Reports no additional cardiovascular complaints - Respiratory Reports no additional respiratory complaints - Gastrointestinal Reports no additional gastrointestinal complaints [facility] Medical History: Medical History (Last Reviewed 04/27/23 @ 07:45 by Myesha Lewis, AMY) Bipolar disorder in full remission Bipolar disorder in remission Chronic leukopenia Hypothyroidism Pancytopenia Peripheral neuropathy Thrombocytopenia Family History: Family History (Last Reviewed 04/26/23 @ 14:44 by NUBIA Gardner) Brother Stomach cancer Mother Stomach cancer Maternal Aunt Brain cancer Maternal Aunt Stomach cancer Esophageal cancer Maternal Grandfather Colon cancer Surgical History: Surgical History (Last Reviewed 04/27/23 @ 07:45 by Myesha Lewis PT) History of bilateral knee replacement Social History: Social History (Last Reviewed 04/26/23 @ 14:44 by NUBIA Gardner) Living Situation History: Household Members: Spouse Housing: Apartment Do you presently have visiting nurse or other home services: No Alcohol History Details: Currently Displaying Signs/Symptoms of Alcohol Withdrawal: No Tobacco History: Patient Tobacco Use Status: Never used Tobacco Smoked in Last 30 Days: No Substance Use History: Use of substances other than those prescribed or required for medical reasons : No Currently Displaying Signs/Symptoms of Drug Intoxication Withdrawal: No Advance Directives: Advance Directives: Yes Advance Directives Information Provided: No Advance Directives on File: Yes Advance Directives on File comment: Updated advance directives with proxy Advance Directives Date on File: 04/26/23 Occupation Assessmet: service: No Current occupational status: retired Home Medications and Allergies Current Medications: Current Medications Acetaminophen (Acetaminophen 325 Mg Tablet) 650 mg PO Q6H PRN PRN Reason: Pain, Mild (Pain Scale 1-3) Last Admin: 04/26/23 16:47 Dose: 650 mg Benzonatate (Benzonatate 100 Mg Capsule) 100 mg PO TID PRN PRN Reason: Cough Docusate Sodium (Docusate Sodium 100 Mg Capsule) 100 mg PO DAILY PRN PRN Reason: Constipation Lidocaine/Diphenhydr/Alum/Mg/Simeth (Mag&Al/Sim/Diphenhyd/Lidocaine 10 Ml Oral.Susp) 10 ml PO Q6H PRN; Protocol PRN Reason: Sore Throat Last Admin: 04/27/23 06:23 Dose: 10 ml Melatonin (Melatonin 3 Mg Tablet) 6 mg PO BEDTIME PRN PRN Reason: Insomnia Last Admin: 04/26/23 23:19 Dose: 6 mg Ondansetron HCl (Ondansetron Hcl 4 Mg/2 Ml Vial) 4 mg IVPUSH Q8H PRN PRN Reason: Nausea and Vomiting Oxycodone HCl (Oxycodone Hcl Immed Release 5 Mg Tablet) 5 mg PO Q4H PRN PRN Reason: Pain, Severe (Pain Scale 7-10) Last Admin: 04/27/23 06:22 Dose: 5 mg Sodium Chloride (0.9 % Sodium Chloride Flush 3 Ml Syringe) 3 ml [facility]USH [facility] Last Admin: 04/27/23 08:23 Dose: 3 ml Home Medications Medication Instructions Recorded Confirmed Type levothyroxine 112 mcg tablet 112 mcg PO DAILY@0600 06/30/21 04/26/23 History rosuvastatin 5 mg tablet 5 mg PO DAILY 06/30/21 04/26/23 History cetirizine 10 mg tablet 10 mg PO DAILY 02/07/23 04/26/23 History ergocalciferol (vitamin D2) 1,250 1,250 mcg PO MO 02/07/23 04/26/23 History mcg (50,000 unit) capsule pantoprazole 40 mg tablet,delayed 40 mg PO DAILY 02/07/23 04/26/23 History release Mag&Al/Sim/Diphenhyd/Lidocaine 10 ml PO Q4H Oral burning 04/26/23 04/26/23 History [Magic Mouthwash] Methylfolate 15 mg PO DAILY 04/26/23 04/26/23 History clonazepam 1 mg tablet 1 mg PO BEDTIME PRN insomnia 04/26/23 04/26/23 History Allergies Allergy/AdvReac Type Severity Reaction Status Date / Time gabapentin Allergy Unknown lumps on Verified 04/10/23 14:00 arms Physical Exam Vital signs: Vital Signs Temp 99.6 F 04/27/23 07:16 Pulse 91 04/27/23 07:44 Resp 18 04/27/23 07:16 BP 114/56 L 04/27/23 07:44 Pulse Ox 97 04/27/23 07:44 O2 Del Method Room Air 04/27/23 07:16 Intake & Output 04/26/23 04/27/23 04/27/23 18:59 06:59 18:59 Intake Total 500 / 1420 920 / 1420 Balance 500 / 1420 920 / 1420 Intake: Intake, Oral Amount 920 / 920 Intake (Blood Product) Amount 350 / 350 Red Blood Cells (E0382) Unit 350 / 350 [id number] Intake, Other Amount 50 / 50 Red Blood Cells (E0382) Unit 50 / 50 [id number] Intake, IV Amount 100 / 100 0.9 % Sodium Chloride 100 ml @ 100 / 100 100 mls/hr IV ONCE ONE Rx#: [id number] Other: Number of Unmeasured Voids 1 Number of Bowel Movements 0 Urine Bedside Commode Urine Color Yellow Weight 88.6 kg [place] Weight in Grams 00424 Weight 88.6 kg - Constitutional Present: mild distress, obese - Routine HEENT Exam Eye: Present: EOMI, conjunctivae pale - Routine Neck Exam Absent: lymphadenopathy - Routine Respiratory Exam Present: CTAB. Absent: accessory muscle use - Routine Cardiovascular Exam Cardiovascular: Present: S1, S2 - Routine Extremities Exam Comments: Area of erythema over the left ankle with open wound, similar involvement over her left wrist and dorsum of thumb. - Routine Skin Exam Present: erythema, lesions - Routine Neurological Exam Present: alert, oriented X3 - Routine Psychiatric Exam Present: anxious Hem/Onc Consult Result - Labs CBC & Chem 7: 04/27/23 06:02 04/27/23 06:02 Labs: Short CBC 04/27/23 Range/Units 06:02 WBC 1.7 L (4.8-10.8) X10*3/uL Hgb 8.6 L (12.0-16.0) g/dl Hct 25.5 L (37.0-47.0) % Plt Count 39 L D (160-400) X10*3/uL BMP 04/27/23 06:02 Sodium 141 Potassium 3.6 Chloride 108 Carbon Dioxide 26 BUN 25 H Creatinine 0.53 Calcium 8.7 Urine 04/26/23 Range/Units 09:06 Urine Color Dark Yellow Urine Appearance Clear Urine pH 6.0 (5.0-9.0) Ur Specific [place] 1.020 (1.005-1.025) Urine Protein Negative (Neg-Trace) mg/dL Urine Glucose (UA) Negative (Negative) mg/dL Assessment and Plan Patient Active problem list reviewed?: Yes (1) Pancytopenia Status: Acute Assessment and plan: 1. This is a 82-year-old woman with acute worsening of chronic pancytopenia. Hematological workup showed mild reticulocytopenia without hematinic deficiencies. Serum immunofixation showed no monoclonal protein. No renal or liver dysfunction, no evidence of hemolysis. She has persistent erythema of posterior pharynx, did not respond to multiple rounds of antibiotics. She has now developed redness and ulceration over her left ankle and wrist, unclear etiology. She has also worsening pancytopenia. Recently performed CT abdomen/pelvis does not show hepatosplenomegaly. There is no lymphadenopathy. Further evaluation with bone marrow aspiration/biopsy has been recommended. Underlying primary bone marrow disorder such as myelodysplastic syndrome, leukemia is a possibility. Id input regarding persistent erythema of pharynx. She may have to be started on antifungal therapy. Monitor daily CBC. Transfuse if hemoglobin drops below 8 gram/dL. I will follow, thank you for the consultation. - Time Spent With Patient Time Spent with Patient (in minutes): 20
[2023-04-27 09:19] LABS: Lactate Dehydrogenase 301 U/L (122-220)
[2023-04-27] MEDS: Levothyroxine Sodium 112 MCG TABLET PO (11:26)
--- NOTE | 2023-04-27 12:35 | MHC.CM.PN ---
pt lives w/ has own ride home she is independent and drives does not expect to need services when dcd
--- NOTE | 2023-04-27 14:12 | HO.WOUND ---
Wound Consult: Initial 82yr old female admitted to [facility] on 04/27/23 11:28? - See progress notes and H&P for detailed history. Current work up for Etiology and diagnosis by providers. Wound consult placed for Left ankle wound - multiple similar lesions in various stages of wound bed - See photo. Wounds are not consistent with pressure not moisture. Given there presentation they are suggestive of systemic problem - I will make topical recommendations for Alginate to the open wounds for moisture management but etiology workup should continue and or follow up with dermatology outpt if findings do not explain wound development. Mouth sores notes to bilateral mucosa inside of cheeks. Mouth Right hand Right Wrist Right Foot Left hand Left medial ankle Left Lateral ankle Left posterior ankle Left Hand, Left ankle, Right wrist, thumb, and foot Etiology: Unknown Etiology Wound Bed: various stages or wound appearance - some are moist, dry and serous filled bulla to left ankle Drainage / Odor: dried and serous Edges: ? irregular Francheska wound: ? red tender to touch erythema around each wound, no fluctance aside from bulla no induration Pain: painful to touch and assessment Goals of Treatment: ? Defer to providers - topical treatment can consisit of Alginate to control drainage and antimicrobial properties. Recommendations: 1. Turn and Reposition every 2 hours and as needed for patient comfort. 2. Off Load all bony prominences with use of pillows and heel boots if needed.? Apply Preventative foams where needed. ? 3. Monitor for incontinence and moisture control, use barrier creams when needed for prevention and treatment. 4. Provide adequate and supplemental nutrition. 5. Left ankle, Right Thumb and Left hand - Gently cleanse wound beds with NS moist gauze, pat dry. Apply skin prep t o periwound, cover wound bed with Aliginate AG, cover with dry pad and wrap. Change daily. 6. Right arm, Right wrist, right foot - Gently cleanse wound beds with NS moist gauze, pat dry. Apply skin prep t o periwound, cover wound bed with dry pad and wrap. Change everyother day. Re-consult wound care Nurse for wound deterioration or wound changes.
[2023-04-27 14:18] LABS: C Reactive Protein 17.74 mg/dL (< or = 0.50)
[2023-04-27 14:33] LABS: Erythrocyte Sedimentation Rate 18 MM/HR (0-20)
--- NOTE | 2023-04-27 15:24 | HO.PM.IMPN ---
Subjective Subjective Date of Service: 04/27/23 Interval History: seen and examined this morning follow up for pancytopenia, sore through, skin wounds still reporting sore throat, generalized weakness no fever, chills, abdominal pain Review of Systems Review of Systems: Yes all other systems are reviewed and are negative Constitutional Constitutional: Denies chills and Denies fever(s) Cardiovascular Cardiovascular: Denies chest pain and Denies dyspnea Respiratory Respiratory: Denies dyspnea Gastrointestinal Gastrointestinal: Denies abdominal pain Physical Exam Vital Signs: Vital Signs: Last Vital Signs Temp 98.9 F 04/27/23 11:39 Pulse 82 04/27/23 11:39 Resp 18 04/27/23 11:39 BP 131/61 04/27/23 11:39 Pulse Ox 98 04/27/23 11:39 O2 Del Method Room Air 04/27/23 11:39 BMI result Body Mass Index 36.9 Const: General: cooperative, comfortable, alert and awake Nutritional Appearance: overweight Orientation/consciousness: patient oriented x3 Resp: Effort & Inspection: normal respiratory effort, able to speak in complete sentences, no respiratory distress and no use of accessory muscles Cardio: Rate: regular rate GI: Inspection: No distended Palpation (GI): Soft to palpation and nontender Skin: Other: multiple skin lesions right hand, wrist, and foot; left ankle with clear fluid filled bullae; hafd hand - see wound care nursing documentation for pictures Neuro: General: patient oriented x3, moves all extremities and CN's II-XI intact bilaterally Extrem: Other: b/l nonpitting leg edema Objective Data Active Medications Acetaminophen (Acetaminophen 325 Mg Tablet) 650 mg PO Q6H PRN PRN Reason: Pain, Mild (Pain Scale 1-3) Last Admin: 04/26/23 16:47 Dose: 650 mg Documented By: CARLY Benzonatate (Benzonatate 100 Mg Capsule) 100 mg PO TID PRN PRN Reason: Cough Clonazepam (Clonazepam 1 Mg Tablet) 1 mg PO BEDTIME PRN PRN Reason: insomnia Docusate Sodium (Docusate Sodium 100 Mg Capsule) 100 mg PO DAILY PRN PRN Reason: Constipation Levothyroxine Sodium (Levothyroxine Sodium 112 Mcg Tablet) 112 mcg PO DAILY@0600 SALLY Last Admin: 04/27/23 11:26 Dose: 112 mcg Documented By: CARLY Lidocaine/Diphenhydr/Alum/Mg/Simeth (Mag&Al/Sim/Diphenhyd/Lidocaine 10 Ml Oral.Susp) 10 ml PO Q2H PRN; Protocol PRN Reason: Sore Throat Last Admin: 04/27/23 14:15 Dose: 10 ml Documented By: CARLY Melatonin (Melatonin 3 Mg Tablet) 6 mg PO BEDTIME PRN PRN Reason: Insomnia Last Admin: 04/26/23 23:19 Dose: 6 mg Documented By: CATRINA Olanzapine (Olanzapine 2.5 Mg Tablet) 2.5 mg PO BEDTIME SALLY Omeprazole (Omeprazole 20 Mg Capsule.Dr) 20 mg PO DAILY@0630 [facility] Ondansetron HCl (Ondansetron Hcl 4 Mg/2 Ml Vial) 4 mg IVPUSH Q8H PRN PRN Reason: Nausea and Vomiting Oxycodone HCl (Oxycodone Hcl Immed Release 5 Mg Tablet) 5 mg PO Q4H PRN PRN Reason: Pain, Severe (Pain Scale 7-10) Last Admin: 04/27/23 06:22 Dose: 5 mg Documented By: CATRINA Sodium Chloride (0.9 % Sodium Chloride Flush 3 Ml Syringe) [facility] Last Admin: 04/27/23 08:23 Dose: 3 ml Documented By: CARLY Labs 04/27/23 06:02 04/27/23 06:02 Labs: Laboratory Results - last 24 hr 04/26/23 04/27/23 04/27/23 12:28 06:02 13:48 MCV 99.2 H MCH 33.5 H MCHC 33.7 RDW 20.4 H Plt Count 39 L D MPV 11.9 Absolute Nucleated RBC 0.000 Nucleated RBC % (auto) 0.0 ESR 18 Anion Gap 11 L Estim Creat Clear Calc 82.8 Estimated GFR > 60 Random Glucose 107 Calcium 8.7 Lactate Dehydrogenase 301 H C-Reactive Protein 17.74 H Crossmatch See Detail Microbiology Microbiology Results: Microbiology 04/26/23 Unknown Urine Culture - Final Urine clean catch - Urine raines top Assessment and Plan (1) Pancytopenia: Status: Acute Plan Pt is an 82-year-old female with a PMH significant for? hypothyroidism, mood disorder, mixed hyperlipidemia, and hx of pancytopenia who presents to the ED after fall out of bed earlier this morning. Patient was recently admitted to the hospital on 04/10-04/13 for pancytopenia, Patient's stool was positive for occult blood during that admission and patient was seen by GI, however no active GI bleed was found. Pancytopenia ultimately was thought to be chronic and attributed to valproic acid use. Pt will be admitted to the hospital under observation for treatment further evaluation of pancytopenia. Pancytopenia, acute on chronic thought to be med related on last admit but after stopping depakote, levels have decreased further seen by hematology - plan for bone marrow biopsy on Sunday to for MDS, leukemia etc; NPO Sunday night s/p 1 unit PRBCs in ED with improvement in H/H Follow CBC Skin wounds No indication of infection at this time unclear cause, work up in progress ID consult pending vaculitis work up pending Wound care consult Hypokalemia resolved with replacement Sore throat Magic mouthwash Lower leg edema Doppler negative for DVT BNP WNL at 33 Encourage ambulation, elevate feet while in bed Fall out of bed/difficulty ambulating PT rec STR Bipolar disorder Continue olanzapine Hypothyroidism Continue levothyroxine HLD hold statin statin Full Code Attending:?Dr. Sawyer DVT Prophylaxis: Pneumatic boots d/t anemia Patient will be admitted to the hospital under observation for treatment and further evaluation of pancytopenia. Quality Stroke Does the patient have a stroke diagnosis?: No VTE Prior VTE?: No VTE Risk Level:: Medical - moderate - high VTE Device Contraindication: N/A - Device Ordered VTE Drug Contraindication: Treatment Not Indicated
--- NOTE | 2023-04-27 15:48 | W.PM.IDCN ---
History of Present Illness Data of Consult Service Date: 04/27/23 Requesting physician: Tahira Montgomery Primary Care Provider: DO LAURA Galindo Reason for consult: pancytopenia,skin lesions She presents with sore throat and blistering skin lesions over body for last month. She felt weak as well. She had sore throat two months ago and found to have strep throat. She was give Amoxicillin for five days. She has had bright red throat since. She has odynophagia. She was also found to have thrombocytopenia and her Depakote was switched to ?Olanzapine. After this she developed sores on legs and hands with burning. CXR shows left base atelectasis. Review of Systems Review of Systems: Yes all other systems are reviewed and are negative Constitutional: Constitutional: Reports lethargy PMFSH Past Medical History Medical History Bipolar disorder in full remission Thrombocytopenia Pancytopenia Bipolar disorder in remission Peripheral neuropathy Hypothyroidism Chronic leukopenia Family History Family History Brother Stomach cancer Mother Stomach cancer Maternal Aunt Brain cancer Maternal Aunt Stomach cancer Esophageal cancer Maternal Grandfather Colon cancer Family history: reviewed and not pertinent Surgical History Surgical History History of bilateral knee replacement Social History Social History Household Members: Spouse Housing: Apartment Do you presently have visiting nurse or other home services: No Alcohol intake: former Comment: pt refuses alarms Patient Tobacco Use Status: Never used Tobacco Smoked in Last 30 Days: No Use of substances other than those prescribed or required for medical reasons: No Currently Displaying Signs/Symptoms of Drug Intoxication Withdrawal: No Advance Directives: Yes Advance Directives Information Provided: No Advance Directives on File: Yes (Updated advance directives with proxy) Advance Directives Date on File: 04/26/23 service: No Current occupational status: retired Meds Allergies Allergy/AdvReac Type Severity Reaction Status Date / Time gabapentin Allergy Unknown lumps on Verified 04/10/23 14:00 arms Active Medications: Current Medications Acetaminophen (Acetaminophen 325 Mg Tablet) 650 mg PO Q6H PRN PRN Reason: Pain, Mild (Pain Scale 1-3) Last Admin: 04/26/23 16:47 Dose: 650 mg Benzonatate (Benzonatate 100 Mg Capsule) 100 mg PO TID PRN PRN Reason: Cough Clonazepam (Clonazepam 1 Mg Tablet) 1 mg PO BEDTIME PRN PRN Reason: insomnia Docusate Sodium (Docusate Sodium 100 Mg Capsule) 100 mg PO DAILY PRN PRN Reason: Constipation Levothyroxine Sodium (Levothyroxine Sodium 112 Mcg Tablet) 112 mcg PO DAILY@0600 [facility] Last Admin: 04/27/23 11:26 Dose: 112 mcg Lidocaine/Diphenhydr/Alum/Mg/Simeth (Mag&Al/Sim/Diphenhyd/Lidocaine 10 Ml Oral.Susp) 10 ml PO Q2H PRN; Protocol PRN Reason: Sore Throat Last Admin: 04/27/23 14:15 Dose: 10 ml Melatonin (Melatonin 3 Mg Tablet) 6 mg PO BEDTIME PRN PRN Reason: Insomnia Last Admin: 04/26/23 23:19 Dose: 6 mg Olanzapine (Olanzapine 2.5 Mg Tablet) 2.5 mg PO BEDTIME SALLY Omeprazole (Omeprazole 20 Mg Capsule.Dr) 20 mg PO DAILY@0630 [facility] Ondansetron HCl (Ondansetron Hcl 4 Mg/2 Ml Vial) 4 mg IVPUSH Q8H PRN PRN Reason: Nausea and Vomiting Oxycodone HCl (Oxycodone Hcl Immed Release 5 Mg Tablet) 5 mg PO Q4H PRN PRN Reason: Pain, Severe (Pain Scale 7-10) Last Admin: 04/27/23 06:22 Dose: 5 mg Sodium Chloride (0.9 % Sodium Chloride Flush 3 Ml Syringe) [facility] Last Admin: 04/27/23 08:23 Dose: 3 ml Home Medications Medication Instructions Recorded Confirmed Last Taken Type levothyroxine 112 mcg tablet 112 mcg PO DAILY@0600 06/30/21 04/26/23 Unknown History rosuvastatin 5 mg tablet 5 mg PO DAILY 06/30/21 04/26/23 Unknown History cetirizine 10 mg tablet 10 mg PO DAILY 02/07/23 04/26/23 Unknown History ergocalciferol (vitamin D2) 1,250 1,250 mcg PO MO 02/07/23 04/26/23 Unknown History mcg (50,000 unit) capsule pantoprazole 40 mg tablet,delayed 40 mg PO DAILY 02/07/23 04/26/23 Unknown History release Mag&Al/Sim/Diphenhyd/Lidocaine 10 ml PO Q4H Oral burning 04/26/23 04/26/23 Unknown History [Magic Mouthwash] Methylfolate 15 mg PO DAILY 04/26/23 04/26/23 Unknown History clonazepam 1 mg tablet 1 mg PO BEDTIME PRN insomnia 04/26/23 04/26/23 Unknown History Physical Exam Vital Signs: Vital Signs: Last Vital Signs Temp 98.9 F 04/27/23 11:39 Pulse 82 04/27/23 11:39 Resp 18 04/27/23 11:39 BP 131/61 04/27/23 11:39 Pulse Ox 98 04/27/23 11:39 O2 Del Method Room Air 04/27/23 11:39 BMI result Body Mass Index 36.9 Const: General: cooperative HEENT: Head: Yes normal to inspection Face and sinus: Yes normal facial exam Mouth: Normal oral and palatal mucosa present (bright red oral mucosa) Teeth and gingiva: dentition normal Eyes: General: appearance normal, both eyes and all related structures Pupils: Equal, round and reactive pupils present Resp: Effort & Inspection: normal respiratory effort Cardio: Rate: regular rate Rhythm: regular rhythm GI: Palpation (GI): Soft to palpation and nontender : General: Yes no CVA tenderness Back/Spine/Pelvis: Back: no CVA tenderness Skin: Other: blistering bilateral wrists and left leg,with redness Neuro: General: moves all extremities Cranial nerves: Yes Equal, round and reactive pupils present Extrem: General: Yes normal to inspection Psych: Appearance: grossly normal Results Labs 04/27/23 06:02 04/27/23 06:02 Labs: Short CBC 04/27/23 Range/Units 06:02 WBC 1.7 L (4.8-10.8) X10*3/uL Hgb 8.6 L (12.0-16.0) g/dl Hct 25.5 L (37.0-47.0) % Plt Count 39 L D (160-400) X10*3/uL BMP 04/27/23 06:02 Sodium 141 Potassium 3.6 Chloride 108 Carbon Dioxide 26 BUN 25 H Creatinine 0.53 Calcium 8.7 Microbiology Microbiology Results: Microbiology 04/26/23 Unknown Urine clean catch - Urine raines top Urine Culture - Final Assessment and Plan (1) Pancytopenia: Status: Acute She may have medication related pancytopenia with Depakote or a viral induced syndrome or vasculitis. She doesnt seem to have cellulitis or pneumonia (2) Bipolar disorder in full remission: Status: Acute Plan Would hold antibiotics Diflucan 100 mg daily possible esophagitis for 14 days Hematology evaluation cytopenias Hold new mood stabilizer and switch to new one. Symptomatic measures for rash Blood cultures if not done.
[2023-04-27] MEDS: Fluconazole 100 MG TABLET PO (17:15)
[2023-04-27] MEDS: OLANZapine 2.5 MG TABLET PO (20:53)
[2023-04-27] MEDS: Melatonin 3 MG TABLET 6 MG PO (22:09)
[2023-04-28 04:00] VITALS: BP 129/60; PULSE 86; RESP 18; TEMP 36.5; O2SAT 96
[2023-04-28 04:31] LABS: HIV AB/AG Nonreactive (Nonreactive); HIV Num 1 0.04 S/CO (0.00-0.99)
--- NOTE | 2023-04-28 05:44 | PC.NURSE ---
0400 wound dressing to left heel was loose, wound care done. Wound dressing applied. wound care to left hand also done.
[2023-04-28 05:49] LABS: Eosinophils Absolute Auto 0.1 X10*3/uL (0.0-0.4); Eosinophils Percent Auto 2.7 % (0-4); Hematocrit 25.4 % (37.0-47.0); Hemoglobin 8.9 g/dl (12.0-16.0); Imm Gran Abs Auto 0.02 X10*3/uL (0.00-0.03); Imm Gran Pct Auto 1.1 % (0.0-0.4); Lymphocytes Percent Auto 52.5 % (20-40); MANUAL DIFF FLAG SCAN; Mean Corpuscular Hemoglobin 34.2 pg (27.0-33.0); Mean Corpuscular Volume 97.7 fL (80.0-98.0); Monocytes Absolute Auto 0.1 X10*3/uL (0.1-1.2); Monocytes Percent Auto 2.7 % (2-11); Neutrophils Absolute Auto 0.8 x10*3/uL (2.0-8.3); Platelet Count 24 X10*3/uL (160-400); Red Cell Distribution Width 19.9 % (11.0-16.0); SCAN SMEAR FLAG 1; White Blood Count 1.8 X10*3/uL (4.8-10.8)
[2023-04-28] MEDS: Omeprazole 20 MG CAPSULE.DR PO (06:04)
[2023-04-28] MEDS: Levothyroxine Sodium 112 MCG TABLET PO (06:04)
[2023-04-28 07:39] LABS: SLIDE REVIEW VERIFIED
[2023-04-28 08:00] VITALS: BP 121/56; PULSE 90; RESP 14; TEMP 37.2; O2SAT 96
[2023-04-28] MEDS: 0.9 % Sodium Chloride Flush 3 ML SYRINGE IVFLUSH ×3 (08:16→20:02)
[2023-04-28] MEDS: Fluconazole 100 MG TABLET PO (08:16)
[2023-04-28] MEDS: Mag&Al/Sim/Diphenhyd/Lidocaine 10 ML ORAL.SUSP PO ×5 (08:16→23:51)
--- NOTE | 2023-04-28 09:33 | P.PNIM_ITS ---
Subjective Subjective Date of Service: 04/28/23 Interval History: seen and examined this morning follow up for pancytopenia, sore through, skin wounds still reporting sore throat, generalized weakness no fever, chills, abdominal pain Review of Systems Review of Systems: Yes all other systems are reviewed and are negative Constitutional Constitutional: Denies chills and Denies fever(s) Cardiovascular Cardiovascular: Denies chest pain and Denies dyspnea Respiratory Respiratory: Denies dyspnea Gastrointestinal Gastrointestinal: Denies abdominal pain Physical Exam 2 Vital Signs: Vital Signs: Last Vital Signs Temp 98.9 F 04/28/23 08:00 Pulse 90 04/28/23 08:00 Resp 14 04/28/23 08:00 BP 121/56 L 04/28/23 08:00 Pulse Ox 96 04/28/23 08:00 O2 Del Method Room Air 04/28/23 08:00 BMI result Body Mass Index 36.9 Appearing in no acute distress lung sounds are clear to auscultation heart regular rate rhythm, clear S1, S2 positive bowel sounds, abdomen is soft, nontender neuro patient is alert x3, no focal deficits Objective Data Active Medications Acetaminophen (Acetaminophen 325 Mg Tablet) 650 mg PO Q6H PRN PRN Reason: Pain, Mild (Pain Scale 1-3) Last Admin: 04/26/23 16:47 Dose: 650 mg Documented By: CARLY Benzonatate (Benzonatate 100 Mg Capsule) 100 mg PO TID PRN PRN Reason: Cough Clonazepam (Clonazepam 1 Mg Tablet) 1 mg PO BEDTIME PRN PRN Reason: insomnia Docusate Sodium (Docusate Sodium 100 Mg Capsule) 100 mg PO DAILY PRN PRN Reason: Constipation Fluconazole (Fluconazole 100 Mg Tablet) 100 mg PO DAILY [facility] Stop: 05/06/23 09:01 Last Admin: 04/28/23 08:16 Dose: 100 mg Documented By: JOSEF Levothyroxine Sodium (Levothyroxine Sodium 112 Mcg Tablet) 112 mcg PO DAILY@0600 [facility] Last Admin: 04/28/23 06:04 Dose: 112 mcg Documented By: JOSE Lidocaine/Diphenhydr/Alum/Mg/Simeth (Mag&Al/Sim/Diphenhyd/Lidocaine 10 Ml Oral.Susp) 10 ml PO Q2H PRN; Protocol PRN Reason: Sore Throat Last Admin: 04/28/23 08:16 Dose: 10 ml Documented By: JOSEF Melatonin (Melatonin 3 Mg Tablet) 6 mg PO BEDTIME PRN PRN Reason: Insomnia Last Admin: 04/27/23 22:09 Dose: 6 mg Documented By: JOSE Olanzapine (Olanzapine 2.5 Mg Tablet) 2.5 mg PO BEDTIME [facility] Last Admin: 04/27/23 20:53 Dose: 2.5 mg Documented By: JOSE Omeprazole (Omeprazole 20 Mg Capsule.Dr) 20 mg PO DAILY@0630 [facility] Last Admin: 04/28/23 06:04 Dose: 20 mg Documented By: JOSE Ondansetron HCl (Ondansetron Hcl 4 Mg/2 Ml Vial) 4 mg IVPUSH Q8H PRN PRN Reason: Nausea and Vomiting Oxycodone HCl (Oxycodone Hcl Immed Release 5 Mg Tablet) 5 mg PO Q4H PRN PRN Reason: Pain, Severe (Pain Scale 7-10) Last Admin: 04/27/23 06:22 Dose: 5 mg Documented By: CATRINA Sodium Chloride (0.9 % Sodium Chloride Flush 3 Ml Syringe) [facility] Last Admin: 04/28/23 08:16 Dose: 3 ml Documented By: JOSEF Labs 04/28/23 05:10 04/27/23 06:02 Labs: Laboratory Results - last 24 hr 04/27/23 04/27/23 04/28/23 13:48 20:20 05:10 MCV 97.7 MCH 34.2 H MCHC 35.0 RDW 19.9 H Plt Count 24 L D MPV TNP Immature Gran % (Auto) 1.1 H Neut % (Auto) 41.0 L Lymph % (Auto) 52.5 H [place] % (Auto) 2.7 Eos % (Auto) 2.7 Baso % (Auto) 0.0 Lymph # (Auto) 1.0 L [place] # (Auto) 0.1 Eos # (Auto) 0.1 Baso # (Auto) 0.0 Abs Immat Gran (auto) 0.02 Absolute Neuts (auto) 0.8 L Absolute Nucleated RBC 0.000 Nucleated RBC % (auto) 0.0 Smear Tech's Comments VERIFIED ESR 18 C-Reactive Protein 17.74 H HIV 1&2 Ab/P24 Ag 4thGn Nonreactive Microbiology Microbiology Results: Microbiology 04/26/23 Unknown Urine Culture - Final Urine clean catch - Urine raines top Assessment and Plan (1) Pancytopenia: Status: Acute Plan Pt is an 82-year-old female with a PMH significant for? hypothyroidism, mood disorder, mixed hyperlipidemia, and hx of pancytopenia who presents to the ED after fall out of bed earlier this morning. Patient was recently admitted to the hospital on 04/10-04/13 for pancytopenia, Patient's stool was positive for occult blood during that admission and patient was seen by GI, however no active GI bleed was found. Pancytopenia ultimately was thought to be chronic and attributed to valproic acid use. Pt will be admitted to the hospital under observation for treatment further evaluation of pancytopenia. Pancytopenia, acute on chronic thought to be med related on last admit but after stopping depakote, levels have decreased further seen by hematology - plan for bone marrow biopsy on Sunday to for MDS, leukemia etc; NPO Sunday night s/p 1 unit PRBCs in ED with improvement in H/H Follow CBC Skin wounds No indication of infection at this time unclear cause, work up in progress ID consult pending vaculitis work up pending Wound care consult Hypokalemia resolved with replacement Sore throat Magic mouthwash Lower leg edema Doppler negative for DVT BNP WNL at 33 Encourage ambulation, elevate feet while in bed Fall out of bed/difficulty ambulating PT rec STR Bipolar disorder Continue olanzapine Hypothyroidism Continue levothyroxine HLD hold statin statin Full Code Attending:?Dr. Sung DVT Prophylaxis: Pneumatic boots d/t anemia The complexity of the patient's conditions, the need for multiple investigations, ongoing monitoring, and specialized care from various consultants make the hospital the appropriate setting for managing these issues effectively.The bone marrow biopsy will likely provide more clarity regarding the pancytopenia, and the consults should help in addressing the other ongoing concerns. Quality Stroke Does the patient have a stroke diagnosis?: No VTE Prior VTE?: No VTE Risk Level:: Medical - moderate - high VTE Device Contraindication: N/A - Device Ordered VTE Drug Contraindication: Treatment Not Indicated
[2023-04-28 16:00] VITALS: BP 118/63; PULSE 87; RESP 16; TEMP 36.4; O2SAT 95
--- NOTE | 2023-04-28 19:31 | PC.NURSE ---
Assumed care of patient 19:15. On reviewing ID consult note from yesterday 04/27, recs were made to hold new mood stabilizer and switch to new. Patient scheduled to receive zyprexa this evening. These findings were discussed with covering Dr. Good. Written orders were received to hold zyprexa and instead give prn klonopin and melatonin this evening. 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
[2023-04-28 19:43] VITALS: BP 109/51; PULSE 89; RESP 18; TEMP 36.3; O2SAT 97
[2023-04-28] MEDS: Acetaminophen 325 MG TABLET 650 MG PO (20:02)
[2023-04-28] MEDS: clonazePAM 1 MG TABLET PO (20:02)
[2023-04-28 21:02] VITALS: RESP 18
[2023-04-28 23:46] VITALS: BP 109/52; PULSE 77; RESP 18; TEMP 36.9; O2SAT 96
[2023-04-28] MEDS: Melatonin 3 MG TABLET 6 MG PO (23:51)
--- NOTE | 2023-04-28 23:56 | PC.NURSE ---
Patient refused offered melatonin in the evening, states she likes to take it later. See shift assessment and emar for full details. Handoff report given 23:15 to oncoming RN.
[2023-04-29] VITALS (7 sets, daily range): BP systolic 113–133; BP diastolic 54–62; PULSE 50–83; RESP 12–16; TEMP 36.2–36.8; O2SAT 93–96
[2023-04-29 05:43] LABS: Basophils Percent Auto 0.5 % (0-2); Eosinophils Absolute Auto 0.1 X10*3/uL (0.0-0.4); Hematocrit 23.5 % (37.0-47.0); Imm Gran Abs Auto 0.02 X10*3/uL (0.00-0.03); Lymphocytes Absolute Auto 1.1 X10*3/uL (1.2-4.9); Lymphocytes Percent Auto 53.8 % (20-40); MANUAL DIFF FLAG SCAN; Mean Corpuscular Hemoglobin 33.9 pg (27.0-33.0); Mean Corpuscular Volume 99.6 fL (80.0-98.0); Mean Platelet Volume 12.5 fL (9.4-12.3); Monocytes Absolute Auto 0.1 X10*3/uL (0.1-1.2); Monocytes Percent Auto 6.1 % (2-11); Neutrophils Absolute Auto 0.7 x10*3/uL (2.0-8.3); Neutrophils Percent Auto 35.6 % (45-73); Red Blood Count 2.36 X10*6/uL (4.20-5.50); Red Cell Distribution Width 19.9 % (11.0-16.0); SCAN SMEAR FLAG 1
[2023-04-29 05:47] LABS: Platelet Count 15 X10*3/uL (160-400)
[2023-04-29 05:58] LABS: Anion Gap 14 (12-20); Blood Urea Nitrogen 14 mg/dL (9-16); Calcium 8.8 mg/dL (8.4-10.2); Carbon Dioxide 26 mmol/L (22-29); Chloride 103 mmol/L (96-108); Estimated Glomerular Filt Rate > 60; Glucose Random 92 mg/dL (60-115); Potassium 3.2 mmol/L (3.3-5.1); Sodium 140 mmol/L (135-145)
[2023-04-29 06:02] LABS: SLIDE REVIEW VERIFIED
[2023-04-29] MEDS: Omeprazole 20 MG CAPSULE.DR PO (06:06)
[2023-04-29] MEDS: Levothyroxine Sodium 112 MCG TABLET PO (06:06)
[2023-04-29 07:55] LABS: Fibrinogen 612 MG/DL (259-690); INTERNATIONAL NORM RATIO 1.1 (0.9-1.1); Prothrombin Time 12.8 SEC (11.1-13.3)
[2023-04-29 07:57] LABS: D Dimer High Sensitivity 865 NG/ML
[2023-04-29] MEDS: Mag&Al/Sim/Diphenhyd/Lidocaine 10 ML ORAL.SUSP PO (07:59)
[2023-04-29] MEDS: Fluconazole 100 MG TABLET PO (07:59)
[2023-04-29] MEDS: 0.9 % Sodium Chloride Flush 3 ML SYRINGE IVFLUSH ×3 (07:59→21:16)
[2023-04-29] MEDS: Potassium Chloride ER 20 MEQ TAB.ER.PRT 40 MEQ PO (07:59)
--- NOTE | 2023-04-29 08:56 | P.PNHO-ONC_ITS ---
Medical Summary - Medical Summary Date of Service: 04/29/23 Chief complaint: Throat pain, weakness Primary Care Provider: Gary Brandon DO Medical Summary: Diagnosis: Pancytopenia/anemia Past medical history significant for hypothyroidism, mood disorder and recurrent admission for pancytopenia, ulceration over the left heel/ankle as well as left hand. She has had decreasing counts since 2020. Recently she was diagnosed with strep throat and received 2 courses of antibiotics. Azithromycin followed by amoxicillin after which she continued to feel tired although sore throat has resolved. Possible etiologies for worsening cytopenia was felt to be infection, antibiotic use and possible ongoing use of Depakote. She was taken off Depakote during hospitalization. Blood work showed pancytopenia with significant drop in platelet counts. No symptoms to suggest acute gastrointestinal blood losses. She was Hemoccult positive, her patient GI workup is being planned. She has normal vitamin B12 and folate levels, normal kidney functions. Her transaminases are mildly elevated, no coagulopathy. LDH was mildly elevated at 438 U/L. Interval History Interval history: She continues to feel pain in her throat. No fever or chills. Headache, chest pain, cough or shortness of breath. She reports generalized weakness. 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 Bipolar disorder in remission Chronic leukopenia Hypothyroidism Pancytopenia Peripheral neuropathy Thrombocytopenia Family History: Family History (Last Reviewed 04/27/23 @ 15:53 by Oneyda Shafer MD) Brother Stomach cancer Mother Stomach cancer Maternal Aunt Brain cancer Maternal Aunt Stomach cancer Esophageal cancer Maternal Grandfather Colon cancer Family history: reviewed and not pertinent Surgical History: Surgical History (Last Reviewed 04/27/23 @ 15:53 by Oneyda Shafer MD) History of bilateral knee replacement Social History: Social History (Last Reviewed 04/27/23 @ 15:53 by Oneyda Shafer MD) Living Situation History: Household Members: Spouse Housing: Apartment Do you presently have visiting nurse or other home services: No Alcohol History Details: Currently Displaying Signs/Symptoms of Alcohol Withdrawal: No Tobacco History: Patient Tobacco Use Status: Never used Tobacco Smoked in Last 30 Days: No Substance Use History: Use of substances other than those prescribed or required for medical reasons : No Currently Displaying Signs/Symptoms of Drug Intoxication Withdrawal: No Advance Directives: Advance Directives: Yes Advance Directives Information Provided: No Advance Directives on File: Yes Advance Directives on File comment: Updated advance directives with proxy Advance Directives Date on File: 04/26/23 Occupation Assessmet: service: No Current occupational status: retired Home Medications and Allergies Current Medications: Current Medications Acetaminophen (Acetaminophen 325 Mg Tablet) 650 mg PO Q6H PRN PRN Reason: Pain, Mild (Pain Scale 1-3) Last Admin: 04/28/23 20:02 Dose: 650 mg Benzocaine (Throat Lozenge, Medicated Lozenge) 1 lozenge MUCOUS MEM Q2H PRN PRN Reason: Sore Throat Benzocaine (Benzocaine 20 % Oral Gel 9 Gm Tube) 1 appl MUCOUS MEM QID [facility]; Protocol Benzonatate (Benzonatate 100 Mg Capsule) 100 mg PO TID PRN PRN Reason: Cough Clonazepam (Clonazepam 1 Mg Tablet) 1 mg PO BEDTIME PRN PRN Reason: insomnia Last Admin: 04/28/23 20:02 Dose: 1 mg Docusate Sodium (Docusate Sodium 100 Mg Capsule) 100 mg PO DAILY PRN PRN Reason: Constipation Fluconazole (Fluconazole 100 Mg Tablet) 100 mg PO DAILY [facility] Stop: 05/06/23 09:01 Last Admin: 04/29/23 07:59 Dose: 100 mg Levothyroxine Sodium (Levothyroxine Sodium 112 Mcg Tablet) 112 mcg PO DAILY@0600 [facility] Last Admin: 04/29/23 06:06 Dose: 112 mcg Lidocaine/Diphenhydr/Alum/Mg/Simeth (Mag&Al/Sim/Diphenhyd/Lidocaine 10 Ml Oral.Susp) 10 ml PO Q2H PRN; Protocol PRN Reason: Sore Throat Last Admin: 04/29/23 07:59 Dose: 10 ml Melatonin (Melatonin 3 Mg Tablet) 6 mg PO BEDTIME PRN PRN Reason: Insomnia Last Admin: 04/28/23 23:51 Dose: 6 mg Olanzapine (Olanzapine 2.5 Mg Tablet) 2.5 mg PO BEDTIME [facility] Last Admin: 04/28/23 19:31 Dose: Not Given Omeprazole (Omeprazole 20 Mg Capsule.Dr) 20 mg PO DAILY@0630 [facility] Last Admin: 04/29/23 06:06 Dose: 20 mg Ondansetron HCl (Ondansetron Hcl 4 Mg/2 Ml Vial) 4 mg IVPUSH Q8H PRN PRN Reason: Nausea and Vomiting Oxycodone HCl (Oxycodone Hcl Immed Release 5 Mg Tablet) 5 mg PO Q4H PRN PRN Reason: Pain, Severe (Pain Scale 7-10) Last Admin: 04/27/23 06:22 Dose: 5 mg Sodium Chloride (0.9 % Sodium Chloride Flush 3 Ml Syringe) 3 ml IVFLUSH [facility] Last Admin: 04/29/23 07:59 Dose: 3 ml Home Medications Medication Instructions Recorded Confirmed Type levothyroxine 112 mcg tablet 112 mcg PO DAILY@0600 06/30/21 04/26/23 History rosuvastatin 5 mg tablet 5 mg PO DAILY 06/30/21 04/26/23 History cetirizine 10 mg tablet 10 mg PO DAILY 02/07/23 04/26/23 History ergocalciferol (vitamin D2) 1,250 1,250 mcg PO MO 02/07/23 04/26/23 History mcg (50,000 unit) capsule pantoprazole 40 mg tablet,delayed 40 mg PO DAILY 02/07/23 04/26/23 History release Mag&Al/Sim/Diphenhyd/Lidocaine 10 ml PO Q4H Oral burning 04/26/23 04/26/23 History [Magic Mouthwash] Methylfolate 15 mg PO DAILY 04/26/23 04/26/23 History clonazepam 1 mg tablet 1 mg PO BEDTIME PRN insomnia 04/26/23 04/26/23 History Allergies Allergy/AdvReac Type Severity Reaction Status Date / Time gabapentin Allergy Unknown lumps on Verified 04/10/23 14:00 arms Exam Vital signs: Vital Signs Temp 97.3 F 04/29/23 07:53 Pulse 77 04/29/23 07:53 Resp 16 04/29/23 07:53 BP 127/62 04/29/23 07:53 Pulse Ox 93 04/29/23 07:53 O2 Del Method Room Air 04/29/23 07:53 Intake & Output 04/28/23 04/29/23 04/29/23 18:59 06:59 18:59 Intake Total 400 / 940 540 / 940 Output Total 400 / 400 Balance 400 / 540 140 / 540 Urine Output (Average ml/kg/hr) 0.38 Intake: Intake, Oral Amount 400 / 940 540 / 940 Output: Output, Urine Amount 400 / 400 Other: Breakfast % Eaten 25% Lunch % Eaten 25% Number of Incontinent Voids 2 Number of Bowel Movements 1 Urine purewick Urine Color Skylar Yellow Last Bowel Movement 04/28/23 Stool Bathroom Stool Amount Large Stool Color Brown Stool Consistency Formed Weight 88.6 kg BMI result Body Mass Index 36.9 - Constitutional Present: mild distress, obese - Routine Respiratory Exam Present: CTAB. Absent: accessory muscle use - Routine Cardiovascular Exam Cardiovascular: Present: S1, S2 - Routine Skin Exam Present: erythema, lesions - Routine Neurological Exam Present: alert, oriented X3 Data - Labs CBC & Chem 7: 04/29/23 16:02 04/30/23 05:47 Labs: Laboratory Last Values WBC 2.0 X10*3/uL (4.8-10.8) L 04/29/23 05:20 RBC 2.36 X10*6/uL (4.20-5.50) L 04/29/23 05:20 Hgb 8.0 g/dl (12.0-16.0) L 04/29/23 05:20 Hct 23.5 % (37.0-47.0) L 04/29/23 05:20 MCV 99.6 fL (80.0-98.0) H 04/29/23 05:20 MCH 33.9 pg (27.0-33.0) H 04/29/23 05:20 MCHC 34.0 g/dl (31.0-35.0) 04/29/23 05:20 RDW 19.9 % (11.0-16.0) H 04/29/23 05:20 Plt Count 15 X10*3/uL (160-400) L* 04/29/23 05:20 MPV 12.5 fL (9.4-12.3) H 04/29/23 05:20 Immature Gran % (Auto) 1.0 % (0.0-0.4) H 04/29/23 05:20 Neut % (Auto) 35.6 % (45-73) L 04/29/23 05:20 Lymph % (Auto) 53.8 % (20-40) H 04/29/23 05:20 [place] % (Auto) 6.1 % (2-11) 04/29/23 05:20 Eos % (Auto) 3.0 % (0-4) 04/29/23 05:20 Baso % (Auto) 0.5 % (0-2) 04/29/23 05:20 Lymph # (Auto) 1.1 X10*3/uL (1.2-4.9) L 04/29/23 05:20 [place] # (Auto) 0.1 X10*3/uL (0.1-1.2) 04/29/23 05:20 Eos # (Auto) 0.1 X10*3/uL (0.0-0.4) 04/29/23 05:20 Baso # (Auto) 0.0 X10*3/uL (0.0-0.2) 04/29/23 05:20 Abs Immat Gran (auto) 0.02 X10*3/uL (0.00-0.03) 04/29/23 05:20 Absolute Neuts (auto) 0.7 x10*3/uL (2.0-8.3) L 04/29/23 05:20 Absolute Nucleated RBC 0.000 X10*3/uL (0.0-0.012) 04/29/23 05:20 Nucleated RBC % (auto) 0.0 /100WBC (0.0-0.2) 04/29/23 05:20 Smear Tech's Comments VERIFIED 04/29/23 05:20 ESR 18 MM/HR (0-20) 04/27/23 13:48 PT 12.8 SEC (11.1-13.3) 04/29/23 07:29 INR 1.1 (0.9-1.1) 04/29/23 07:29 Fibrinogen 612 MG/DL (259-690) 04/29/23 07:29 D-Dimer High Sensitivty 865 NG/ML 04/29/23 07:29 Sodium 140 mmol/L (135-145) 04/29/23 05:20 Potassium 3.2 mmol/L (3.3-5.1) L 04/29/23 05:20 Chloride 103 mmol/L (96-108) 04/29/23 05:20 Carbon Dioxide 26 mmol/L (22-29) 04/29/23 05:20 Anion Gap 14 (12-20) 04/29/23 05:20 BUN 14 mg/dL (9-16) 04/29/23 05:20 Creatinine 0.51 mg/dL (0.5-1.4) 04/29/23 05:20 Estim Creat Clear Calc 86.0 04/29/23 05:20 Estimated GFR > 60 04/29/23 05:20 Random Glucose 92 mg/dL (60-115) 04/29/23 05:20 Calcium 8.8 mg/dL (8.4-10.2) 04/29/23 05:20 Magnesium 2.2 mg/dL (1.6-2.6) 04/26/23 07:25 Total Bilirubin 1.7 mg/dL (0.0-1.0) H 04/26/23 07:25 AST 26 U/L (5-31) 04/26/23 07:25 ALT 22 U/L (0-31) 04/26/23 07:25 Alkaline Phosphatase 54 U/L (39-117) 04/26/23 07:25 Lactate Dehydrogenase 301 U/L (122-220) H 04/27/23 06:02 Troponin I High Sens 4.0 ng/L (<3.5-17.0) 04/26/23 07:25 C-Reactive Protein 17.74 mg/dL (< or = 0.50) H 04/27/23 13:48 B-Natriuretic Peptide 33 pg/mL (<100) 04/26/23 07:25 Total Protein 5.8 g/dL (6.5-8.0) L 04/26/23 07:25 Albumin 3.4 g/dL (3.5-5.0) L 04/26/23 07:25 Urine Color Dark Yellow 04/26/23 09:06 Urine Appearance Clear 04/26/23 09:06 Urine pH 6.0 (5.0-9.0) 04/26/23 09:06 Ur Specific [place] 1.020 (1.005-1.025) 04/26/23 09:06 Urine Protein Negative mg/dL (Neg-Trace) 04/26/23 09:06 Urine Glucose (UA) Negative mg/dL (Negative) 04/26/23 09:06 Urine Ketones Negative mg/dL (Negative) 04/26/23 09:06 Urine Blood Negative (Negative) 04/26/23 09:06 Urine Nitrite Negative (Negative) 04/26/23 09:06 Ur Leukocyte Esterase Small (1+) (Negative) H 04/26/23 09:06 Urine RBC 0-2 /HPF (0-2) 04/26/23 09:06 Urine WBC 0-5 /HPF (0-5) 04/26/23 09:06 Ur Squamous Epith Cells 0-2 /HPF (0-2) 04/26/23 09:06 Urine Bacteria None Seen (None Seen) 04/26/23 09:06 Hyaline Casts 0-2 /LPF (0-2) 04/26/23 09:06 Stool Occult Blood NEGATIVE (NEGATIVE) 04/26/23 09:03 HIV 1&2 Ab/P24 Ag 4thGn Nonreactive (Nonreactive) 04/27/23 20:20 Blood Type O Negative 04/26/23 12:28 Antibody Screen NEGATIVE 04/26/23 12:28 Crossmatch See Detail 04/26/23 12:28 - Imaging Radiologist's impression: ITS Impressions Head CT 04/26/23 08:00 IMPRESSION: No acute intracranial pathology. Venous Duplex 04/26/23 08:00 IMPRESSION: No DVT demonstrated in the left lower extremity. Possible right hip joint effusion. Chest X-Ray 04/26/23 08:28 IMPRESSION: Left basilar atelectasis. Assessment and Plan Patient Active problem list reviewed?: Yes (1) Pancytopenia Status: Acute Assessment and plan: 1. This is a 82-year-old woman with acute worsening of chronic pancytopenia. Hematological workup showed mild reticulocytopenia without hematinic deficiencies. Serum immunofixation showed no monoclonal protein. No renal or liver dysfunction, no evidence of hemolysis. She has persistent erythema of posterior pharynx, did not respond to multiple rounds of antibiotics. She has now developed redness and ulceration over her left ankle and wrist, unclear etiology. She has also worsening pancytopenia. Recently performed CT abdomen/pelvis does not show hepatosplenomegaly. There is no lymphadenopathy. Further evaluation with bone marrow aspiration/biopsy has been recommended. Underlying primary bone marrow disorder such as myelodysplastic syndrome, leukemia is a possibility. Recommend platelet transfusion for counts below 20 K. Bone marrow biopsy has been scheduled for 04/30/2023. - Time Spent With Patient Time Spent with Patient (in minutes): 10
--- NOTE | 2023-04-29 09:32 | P.PNIM_ITS ---
Subjective Subjective Date of Service: 04/29/23 Interval History: follow up for pancytopenia, sore through, skin wounds still reporting sore throat, generalized weakness no fever, chills, abdominal pain Review of Systems Review of Systems: Yes all other systems are reviewed and are negative Constitutional Constitutional: Denies chills and Denies fever(s) Cardiovascular Cardiovascular: Denies chest pain and Denies dyspnea Respiratory Respiratory: Denies dyspnea Gastrointestinal Gastrointestinal: Denies abdominal pain Physical Exam 2 Vital Signs: Vital Signs: Last Vital Signs Temp 97.3 F 04/29/23 07:53 Pulse 77 04/29/23 07:53 Resp 16 04/29/23 07:53 BP 127/62 04/29/23 07:53 Pulse Ox 93 04/29/23 07:53 O2 Del Method Room Air 04/29/23 07:53 BMI result Body Mass Index 36.9 Appearing in no acute distress lung sounds are clear to auscultation heart regular rate rhythm, clear S1, S2 positive bowel sounds, abdomen is soft, nontender neuro patient is alert x3, no focal deficits Objective Data Active Medications Acetaminophen (Acetaminophen 325 Mg Tablet) 650 mg PO Q6H PRN PRN Reason: Pain, Mild (Pain Scale 1-3) Last Admin: 04/28/23 20:02 Dose: 650 mg Documented By: MALGORZATA Benzocaine (Throat Lozenge, Medicated Lozenge) 1 lozenge MUCOUS MEM Q2H PRN PRN Reason: Sore Throat Benzocaine (Benzocaine 20 % Oral Gel 9 Gm Tube) 1 appl MUCOUS MEM QID [facility]; Protocol Benzonatate (Benzonatate 100 Mg Capsule) 100 mg PO TID PRN PRN Reason: Cough Clonazepam (Clonazepam 1 Mg Tablet) 1 mg PO BEDTIME PRN PRN Reason: insomnia Last Admin: 04/28/23 20:02 Dose: 1 mg Documented By: MALGORZATA Docusate Sodium (Docusate Sodium 100 Mg Capsule) 100 mg PO DAILY PRN PRN Reason: Constipation Fluconazole (Fluconazole 100 Mg Tablet) 100 mg PO DAILY COUNT INCLUDES [facility] Stop: 05/06/23 09:01 Last Admin: 04/29/23 07:59 Dose: 100 mg Documented By: JOSEF Sodium Chloride (Ns) 100 mls @ 100 mls/hr IV ONCE ONE Stop: 04/29/23 10:15 Levothyroxine Sodium (Levothyroxine Sodium 112 Mcg Tablet) 112 mcg PO DAILY@0600 [facility]CLUD[facility] Last Admin: 04/29/23 06:06 Dose: 112 mcg Documented By: LUIS Lidocaine/Diphenhydr/Alum/Mg/Simeth (Mag&Al/Sim/Diphenhyd/Lidocaine 10 Ml Oral.Susp) 10 ml PO Q2H PRN; Protocol PRN Reason: Sore Throat Last Admin: 04/29/23 07:59 Dose: 10 ml Documented By: JOSEF Melatonin (Melatonin 3 Mg Tablet) 6 mg PO BEDTIME PRN PRN Reason: Insomnia Last Admin: 04/28/23 23:51 Dose: 6 mg Documented By: LUIS Olanzapine (Olanzapine 2.5 Mg Tablet) 2.5 mg PO BEDTIME COUNT [facility]CLUDES [facility] Last Admin: 04/28/23 19:31 Dose: Not Given Documented By: MALGORZATA Non-Admin Reason: Physician Held Med Omeprazole (Omeprazole 20 Mg Capsule.Dr) 20 mg PO DAILY@0630 [facility]CLUD[facility] Last Admin: 04/29/23 06:06 Dose: 20 mg Documented By: LUIS Ondansetron HCl (Ondansetron Hcl 4 Mg/2 Ml Vial) 4 mg IVPUSH Q8H PRN PRN Reason: Nausea and Vomiting Oxycodone HCl (Oxycodone Hcl Immed Release 5 Mg Tablet) 5 mg PO Q4H PRN PRN Reason: Pain, Severe (Pain Scale 7-10) Last Admin: 04/27/23 06:22 Dose: 5 mg Documented By: CATRINA Sodium Chloride (0.9 % Sodium Chloride Flush 3 Ml Syringe) 3 ml IVFLUSH QSHIFT COUNT INCLUDES THE [facility] Last Admin: 04/29/23 07:59 Dose: 3 ml Documented By: JOSEF Labs 04/29/23 05:20 04/29/23 05:20 Labs: Laboratory Results - last 24 hr 04/29/23 04/29/23 05:20 07:29 MCV 99.6 H MCH 33.9 H MCHC 34.0 RDW 19.9 H Plt Count 15 L* MPV 12.5 H Immature Gran % (Auto) 1.0 H Neut % (Auto) 35.6 L Lymph % (Auto) 53.8 H [place] % (Auto) 6.1 Eos % (Auto) 3.0 Baso % (Auto) 0.5 Lymph # (Auto) 1.1 L [place] # (Auto) 0.1 Eos # (Auto) 0.1 Baso # (Auto) 0.0 Abs Immat Gran (auto) 0.02 Absolute Neuts (auto) 0.7 L Absolute Nucleated RBC 0.000 Nucleated RBC % (auto) 0.0 Smear Tech's Comments VERIFIED PT 12.8 INR 1.1 Fibrinogen 612 D-Dimer High Sensitivty 865 Anion Gap 14 Estim Creat Clear Calc 86.0 Estimated GFR > 60 Random Glucose 92 Calcium 8.8 Assessment and Plan (1) Pancytopenia: Status: Acute Plan Pt is an 82-year-old female with a PMH significant for? hypothyroidism, mood disorder, mixed hyperlipidemia, and hx of pancytopenia who presents to the ED after fall out of bed earlier this morning. Patient was recently admitted to the hospital on 04/10-04/13 for pancytopenia, Patient's stool was positive for occult blood during that admission and patient was seen by GI, however no active GI bleed was found. Pancytopenia ultimately was thought to be chronic and attributed to valproic acid use. Pt will be admitted to the hospital under observation for treatment further evaluation of pancytopenia. Pancytopenia, acute on chronic thought to be med related on last admit but after stopping depakote, levels have decreased further seen by hematology - plan for bone marrow biopsy on Sunday to for MDS, leukemia etc; NPO Sunday night s/p 1 unit PRBCs in ED with improvement in H/H Hx of parovirus, IGG pos, IGM neg PLT down to 15 today, will tx one unit PLT Sore throat check throat cx, monospot Magic mouthwash Q2h prn, cepacol, anbusol for mouth sores Skin wounds No indication of infection at this time unclear cause, work up in progress ID consult pending vaculitis work up pending Wound care consult Hypokalemia resolved with replacement Lower leg edema Doppler negative for DVT BNP WNL at 33 Encourage ambulation, elevate feet while in bed Fall out of bed/difficulty ambulating PT rec STR Bipolar disorder Continue olanzapine Hypothyroidism Continue levothyroxine HLD hold statin statin Full Code Attending:?Dr. Sung DVT Prophylaxis: Pneumatic boots d/t anemia The complexity of the patient's conditions, the need for multiple investigations, ongoing monitoring, and specialized care from various consultants make the hospital the appropriate setting for managing these issues effectively.The bone marrow biopsy will likely provide more clarity regarding the pancytopenia, and the consults should help in addressing the other ongoing concerns. Quality Stroke Does the patient have a stroke diagnosis?: No VTE Prior VTE?: No VTE Risk Level:: Medical - moderate - high VTE Device Contraindication: N/A - Device Ordered VTE Drug Contraindication: Treatment Not Indicated
[2023-04-29 09:43] LABS: Vitamin B12 735 pg/mL (200-900)
[2023-04-29 10:06] LABS: Monotest Negative (Negative)
[2023-04-29] MEDS: Benzocaine 20 % Oral Gel 9 GM TUBE 1 APPL MUCOUS MEM ×4 (11:07→21:48)
[2023-04-29 16:10] LABS: Hematocrit 24.3 % (37.0-47.0); Hemoglobin 8.3 g/dl (12.0-16.0); Imm Gran Abs Auto 0.03 X10*3/uL (0.00-0.03); Imm Gran Pct Auto 1.1 % (0.0-0.4); MANUAL DIFF FLAG SCAN; Mean Corpuscular HGB Conc 34.2 g/dl (31.0-35.0); Mean Corpuscular Hemoglobin 34.2 pg (27.0-33.0); Monocytes Absolute Auto 0.2 X10*3/uL (0.1-1.2); PLT CLUMP 1; Red Blood Count 2.43 X10*6/uL (4.20-5.50); SCAN SMEAR FLAG 1
[2023-04-29 16:11] LABS: Eosinophils Absolute Auto 0.1 X10*3/uL (0.0-0.4); Eosinophils Percent Auto 2.9 % (0-4); Lymphocytes Absolute Auto 0.9 X10*3/uL (1.2-4.9); Lymphocytes Percent Auto 33.1 % (20-40); Monocytes Percent Auto 8.8 % (2-11); NRBC Pct Auto 0.7 /100WBC (0.0-0.2); Neutrophils Absolute Auto 1.5 x10*3/uL (2.0-8.3); Neutrophils Percent Auto 54.1 % (45-73); Red Cell Distribution Width 20.1 % (11.0-16.0)
[2023-04-29 16:27] LABS: White Blood Count 2.7 X10*3/uL (4.8-10.8)
[2023-04-29 16:28] LABS: Platelet Count 21 X10*3/uL (160-400); SLIDE REVIEW VERIFIED
[2023-04-29] MEDS: Docusate Sodium 100 MG CAPSULE PO (21:14)
[2023-04-29] MEDS: oxyCODONE HCl Immed Release 5 MG TABLET PO (21:15)
[2023-04-29] MEDS: Throat Lozenge, Medicated LOZENGE 1 LOZENGE MUCOUS MEM (21:15)
[2023-04-29] MEDS: Melatonin 3 MG TABLET 6 MG PO (21:49)
[2023-04-29] MEDS: clonazePAM 1 MG TABLET PO (21:49)
[2023-04-30] VITALS (9 sets, daily range): BP systolic 107–155; BP diastolic 46–70; PULSE 69–89; RESP 13–20; TEMP 36.3–37.2; O2SAT 96–100
[2023-04-30 07:03] LABS: Hematocrit 24.7 % (37.0-47.0); Hemoglobin 8.4 g/dl (12.0-16.0); Mean Corpuscular Hemoglobin 34.3 pg (27.0-33.0); Mean Corpuscular Volume 100.8 fL (80.0-98.0); Mean Platelet Volume 11.8 fL (9.4-12.3); Red Blood Count 2.45 X10*6/uL (4.20-5.50); Red Cell Distribution Width 20.1 % (11.0-16.0)
[2023-04-30 07:22] LABS: Anion Gap 11 (12-20); Blood Urea Nitrogen 14 mg/dL (9-16); Carbon Dioxide 27 mmol/L (22-29); Chloride 104 mmol/L (96-108); Creatinine Clr Calc Pharmacy 79.8; Estimated Glomerular Filt Rate > 60; Glucose Random 88 mg/dL (60-115); Potassium 3.9 mmol/L (3.3-5.1); Sodium 138 mmol/L (135-145)
[2023-04-30] MEDS: 0.9 % Sodium Chloride Flush 3 ML SYRINGE IVFLUSH ×2 (07:45→17:29)
[2023-04-30] MEDS: Benzocaine 20 % Oral Gel 9 GM TUBE 1 APPL MUCOUS MEM ×2 (07:47→21:56)
[2023-04-30 08:08] LABS: Platelet Count 18 X10*3/uL (160-400)
--- NOTE | 2023-04-30 08:38 | P.PNIM_ITS ---
Subjective Subjective Date of Service: 04/30/23 Interval History: follow up for pancytopenia, sore through, skin wounds still reporting sore throat, generalized weakness no fever, chills, abdominal pain Review of Systems Review of Systems: Yes all other systems are reviewed and are negative Constitutional Constitutional: Denies chills and Denies fever(s) Cardiovascular Cardiovascular: Denies chest pain and Denies dyspnea Respiratory Respiratory: Denies dyspnea Gastrointestinal Gastrointestinal: Denies abdominal pain Physical Exam 2 Vital Signs: Vital Signs: Last Vital Signs Temp 98.8 F 04/30/23 07:17 Pulse 71 04/30/23 07:17 Resp 18 04/30/23 07:17 BP 115/58 L 04/30/23 07:17 Pulse Ox 96 04/30/23 07:17 O2 Del Method Room Air 04/30/23 07:17 BMI result Body Mass Index 36.9 Appearing in no acute distress lung sounds are clear to auscultation heart regular rate rhythm, clear S1, S2 positive bowel sounds, abdomen is soft, nontender neuro patient is alert x3, no focal deficits Objective Data Active Medications Acetaminophen (Acetaminophen 325 Mg Tablet) 650 mg PO Q6H PRN PRN Reason: Pain, Mild (Pain Scale 1-3) Last Admin: 04/28/23 20:02 Dose: 650 mg Documented By: MALGORZATA Benzocaine (Throat Lozenge, Medicated Lozenge) 1 lozenge MUCOUS MEM Q2H PRN PRN Reason: Sore Throat Last Admin: 04/29/23 21:15 Dose: 1 lozenge Documented By: GET Benzocaine (Benzocaine 20 % Oral Gel 9 Gm Tube) 1 appl MUCOUS MEM QID SALLY; Protocol Last Admin: 04/30/23 07:47 Dose: 1 appl Documented By: CLAIRE Benzonatate (Benzonatate 100 Mg Capsule) 100 mg PO TID PRN PRN Reason: Cough Clonazepam (Clonazepam 1 Mg Tablet) 1 mg PO BEDTIME PRN PRN Reason: insomnia Last Admin: 04/29/23 21:49 Dose: 1 mg Documented By: GET Docusate Sodium (Docusate Sodium 100 Mg Capsule) 100 mg PO DAILY PRN PRN Reason: Constipation Last Admin: 04/29/23 21:14 Dose: 100 mg Documented By: GET Fluconazole (Fluconazole 100 Mg Tablet) 100 mg PO DAILY [facility] Stop: 05/06/23 09:01 Last Admin: 04/29/23 07:59 Dose: 100 mg Documented By: JOSEF Levothyroxine Sodium (Levothyroxine Sodium 112 Mcg Tablet) 112 mcg PO DAILY@0600 [facility] Last Admin: 04/30/23 05:51 Dose: Not Given Documented By: MOLLY Non-Admin Reason: Patient Refused Lidocaine/Diphenhydr/Alum/Mg/Simeth (Mag&Al/Sim/Diphenhyd/Lidocaine 10 Ml Oral.Susp) 10 ml PO Q2H PRN; Protocol PRN Reason: Sore Throat Last Admin: 04/29/23 07:59 Dose: 10 ml Documented By: JOSEF Melatonin (Melatonin 3 Mg Tablet) 6 mg PO BEDTIME PRN PRN Reason: Insomnia Last Admin: 04/29/23 21:49 Dose: 6 mg Documented By: GET Olanzapine (Olanzapine 2.5 Mg Tablet) 2.5 mg PO BEDTIME [facility] Last Admin: 04/29/23 21:14 Dose: Not Given Documented By: GET Non-Admin Reason: Physician Held Med Omeprazole (Omeprazole 20 Mg Capsule.Dr) 20 mg PO DAILY@0630 [facility] Last Admin: 04/30/23 05:51 Dose: Not Given Documented By: MOLLY Non-Admin Reason: Patient Refused Ondansetron HCl (Ondansetron Hcl 4 Mg/2 Ml Vial) 4 mg IVPUSH Q8H PRN PRN Reason: Nausea and Vomiting Oxycodone HCl (Oxycodone Hcl Immed Release 5 Mg Tablet) 5 mg PO Q4H PRN PRN Reason: Pain, Severe (Pain Scale 7-10) Last Admin: 04/29/23 21:15 Dose: 5 mg Documented By: GET Sodium Chloride (0.9 % Sodium Chloride Flush 3 Ml Syringe) 3 ml IVFLUSH QSHIFT [facility] Last Admin: 04/30/23 07:45 Dose: 3 ml Documented By: CLAIRE Labs 04/30/23 05:47 04/30/23 05:47 Labs: Laboratory Results - last 24 hr 04/26/23 04/29/23 04/29/23 12:28 08:39 16:02 MCV 100.0 H MCH 34.2 H MCHC 34.2 RDW 20.1 H Plt Count 21 L D MPV 13.0 H Immature Gran % (Auto) 1.1 H Neut % (Auto) 54.1 Lymph % (Auto) 33.1 [place] % (Auto) 8.8 Eos % (Auto) 2.9 Baso % (Auto) 0.0 Lymph # (Auto) 0.9 L [place] # (Auto) 0.2 Eos # (Auto) 0.1 Baso # (Auto) 0.0 Abs Immat Gran (auto) 0.03 Absolute Neuts (auto) 1.5 L Absolute Nucleated RBC 0.020 H Nucleated RBC % (auto) 0.7 H Smear Tech's Comments VERIFIED Anion Gap Estim Creat Clear Calc Estimated GFR Random Glucose Calcium Vitamin B12 735 Folate 4.0 Monoscreen Negative Blood Type O Negative Antibody Screen NEGATIVE Crossmatch See Detail 04/30/23 05:47 MCV 100.8 H MCH 34.3 H MCHC 34.0 RDW 20.1 H Plt Count 18 L* MPV 11.8 Immature Gran % (Auto) Neut % (Auto) Lymph % (Auto) [place] % (Auto) Eos % (Auto) Baso % (Auto) Lymph # (Auto) [place] # (Auto) Eos # (Auto) Baso # (Auto) Abs Immat Gran (auto) Absolute Neuts (auto) Absolute Nucleated RBC 0.000 Nucleated RBC % (auto) 0.0 Smear Tech's Comments Anion Gap 11 L Estim Creat Clear Calc 79.8 Estimated GFR > 60 Random Glucose 88 Calcium 9.0 Vitamin B12 Folate Monoscreen Blood Type Antibody Screen Crossmatch Microbiology Microbiology Results: Microbiology 04/28/23 07:46 Blood Culture - Preliminary Blood - Venous No growth after 24 hours. 04/28/23 07:46 Blood Culture - Preliminary Blood - Venous No growth after 24 hours. Assessment and Plan (1) Pancytopenia: Status: Acute Plan Pt is an 82-year-old female with a PMH significant for? hypothyroidism, mood disorder, mixed hyperlipidemia, and hx of pancytopenia who presents to the ED after fall out of bed earlier this morning. Patient was recently admitted to the hospital on 04/10-04/13 for pancytopenia, Patient's stool was positive for occult blood during that admission and patient was seen by GI, however no active GI bleed was found. Pancytopenia ultimately was thought to be chronic and attributed to valproic acid use. Pt will be admitted to the hospital under observation for treatment further evaluation of pancytopenia. Pancytopenia, acute on chronic thought to be med related on last admit but after stopping depakote, levels have decreased further s/p 1 unit PRBCs in ED with improvement in H/H Hx of parovirus, IGG pos, IGM neg s/p plt tx for count of 15, went up to 21 but back down to 18, will order another unit of PLT seen by hematology>plan for bone marrow biopsy today Sore throat with odynophagia throat cx pending monospot negative Magic mouthwash Q2h prn, cepacol, anbusol for mouth sores continue diflucan for 14 days for possible esophagitis blood cx negative Skin wounds No indication of infection at this time unclear cause, work up in progress ID consult pending vaculitis work up pending Wound care consult Hypokalemia resolved with replacement Lower leg edema Doppler negative for DVT BNP WNL at 33 Encourage ambulation, elevate feet while in bed Fall out of bed/difficulty ambulating PT rec STR Bipolar disorder Continue olanzapine Hypothyroidism Continue levothyroxine HLD hold statin statin Full Code Attending:?Dr. Sawyer DVT Prophylaxis: Pneumatic boots d/t anemia The complexity of the patient's conditions, the need for multiple investigations, ongoing monitoring, and specialized care from various consultants make the hospital the appropriate setting for managing these issues effectively.The bone marrow biopsy will likely provide more clarity regarding the pancytopenia, and the consults should help in addressing the other ongoing concerns. Quality Stroke Does the patient have a stroke diagnosis?: No VTE Prior VTE?: No VTE Risk Level:: Medical - moderate - high VTE Device Contraindication: N/A - Device Ordered VTE Drug Contraindication: Treatment Not Indicated
--- NOTE | 2023-04-30 09:09 | P.CDIM_ITS ---
PROVIDER RESPONSE TEXT: To clarify, the appropriate diagnosis supported by the clinical indicators: Obesity Due to excess calories QUERY TEXT: PHYSICIAN'S DOCUMENTATION REQUEST Date of Query: 04/30/2023 08:04 AM EST Patient Name: Evie Garces Admit Date: 04/27/2023 Dear Paola Calloway, A review of the medical record indicates additional documentation may be needed. Please review below and update the documentation accordingly. Clinical Indicators: Nursing notes Height and Weight: BMI 36.9 5ft 1in 88.6kg Class II obese If possible, please provide an associated diagnosis related to the abnormal BMI, such as: Overweight Obesity Due to excess calories Obesity Drug induced Obesity Due to other cause Specify the other cause Severe or Morbid Obesity With alveolar hypoventilation Severe or Morbid Obesity Without alveolar hypoventilation Other (explain) Clinically unable to determine (explain) Thank you, [place], CCS, CDIS Use of terms such as suspected, likely, concern for, or probable (associated with a specific diagnosi s that is being evaluated, monitored, or treated as if it exists) are acceptable and can be coded in the inpatient se tting, when documented at the time of discharge. Please use your independent medical judgment in providing your response. THIS QUERY IS PART OF THE PERMANENT MEDICAL RECORD
--- NOTE | 2023-04-30 13:02 | HO.WOUND ---
Wound Consult: Follow up 82yr old female admitted to [facility] on 04/27/23 11:28? - See progress notes and H&P for detailed history. Current work up for Etiology and diagnosis by providers - pending Biopsy today. Chart review reveals significant lab abnormalities including, Platelets of 39 and WBC 1.7 - see chart for details. Direct message from Provider with request to assess wounds and progression. Wounds assessed - wound beds remain relatively the same - however Periwounds appear to resemble vasculitis - Topical treatment will remain the same - Alginate for moisture management and Etiology workup will aid in topical treatment decisions. Will reach out to Outpatient Wound Care Providers, Karma Pierre and Dr. Kim Moore for topical guidance. No new topical recommendations at this time. From 04/27/23 - Wound consult placed for Left ankle wound - multiple similar lesions in various stages of wound bed. Wounds are not consistent with pressure nor moisture. Given there presentation they are suggestive of systemic problem - I will make topical recommendations for Alginate to the open wounds for moisture management but etiology workup should continue and or follow up with dermatology outpt if findings do not explain wound development. Mouth sores notes to bilateral mucosa inside of cheeks. Right Foot 04/27/23 Right Foot todays assessment 04/30/23 Left hand 04/27/23 Left hand todays assessment 04/30/23 Left medial ankle Left Lateral ankle Left Medial Ankle Todays assessment 04/30/23 Left Foot Todays assessment 04/30/23 Left Hand, Left ankle, Right wrist, thumb, and foot Etiology: Unknown Etiology Wound Bed: various stages or wound appearance - some are moist some remain dry Drainage / Odor: dried and serous Edges: ? irregular Franc[place]ka wound: ? red tender - consider vasculitis - Tender to touch around each wound, no fluctance no induration Pain: painful to touch and assessment Goals of Treatment: ? Defer to providers - topical treatment can consist of Alginate to control drainage and antimicrobial properties. Will ask Outpt Wound Providers to assess. Recommendations: 1. Turn and Reposition every 2 hours and as needed for patient comfort. 2. Off Load all bony prominences with use of pillows and heel boots if needed.? Apply Preventative foams where needed. ? 3. Monitor for incontinence and moisture control, use barrier creams when needed for prevention and treatment. 4. Provide adequate and supplemental nutrition. 5. Left ankle, Right Thumb and Left hand - Gently cleanse wound beds with NS moist gauze, pat dry. Apply skin prep to periwound, cover wound bed with Aliginate AG, cover with dry pad and wrap. Change daily. 6. Right arm, Right wrist, right foot - Gently cleanse wound beds with NS moist gauze, pat dry. Apply skin prep t o periwound, cover wound bed with dry pad and wrap. Change everyother day. Re-consult wound care Nurse for wound deterioration or wound changes.
[2023-04-30 14:44] LABS: Bone Marrow SEE SEPARATE REPORT
--- NOTE | 2023-04-30 15:48 | MHC.CM.PN ---
per rounds no dc date at this time plan remains home no servies
[2023-04-30] MEDS: Mag&Al/Sim/Diphenhyd/Lidocaine 10 ML ORAL.SUSP PO (17:28)
[2023-04-30] MEDS: Acetaminophen 325 MG TABLET 650 MG PO (18:03)
[2023-04-30] MEDS: oxyCODONE HCl Immed Release 5 MG TABLET PO ×2 (18:04→21:56)
[2023-04-30] MEDS: clonazePAM 1 MG TABLET PO (21:56)
[2023-04-30] MEDS: OLANZapine 2.5 MG TABLET PO (21:56)
[2023-04-30 23:53] LABS: A. Phagocytphilium DNA,RT-PCR NOT DETECTED (NOT DETECTED); Babesia Microti DNA, RT-PCR NOT DETECTED (NOT DETECTED); Borrelia Miyamotoi,DNA RT-PCR NOT DETECTED (NOT DETECTED); E.Chaffeensis DNA RT-PCR NOT DETECTED (NOT DETECTED); Lyme(Borrelia ssp)DNA RT-PCR NOT DETECTED (NOT DETECTED)
[2023-05-01] VITALS: BP 132/60; PULSE 82; RESP 18; TEMP 36.4; O2SAT 94
[2023-05-01] MEDS: 0.9 % Sodium Chloride Flush 3 ML SYRINGE IVFLUSH ×4 (00:21→22:14)
[2023-05-01] MEDS: Omeprazole 20 MG CAPSULE.DR PO (06:26)
[2023-05-01] MEDS: Levothyroxine Sodium 112 MCG TABLET PO (06:26)
[2023-05-01 06:47] LABS: Hematocrit 26.1 % (37.0-47.0); Hemoglobin 8.7 g/dl (12.0-16.0); Mean Corpuscular HGB Conc 33.3 g/dl (31.0-35.0); Mean Corpuscular Hemoglobin 33.9 pg (27.0-33.0); Mean Corpuscular Volume 101.6 fL (80.0-98.0); Mean Platelet Volume 9.5 fL (9.4-12.3); Red Blood Count 2.57 X10*6/uL (4.20-5.50); Red Cell Distribution Width 20.4 % (11.0-16.0); White Blood Count 3.6 X10*3/uL (4.8-10.8)
[2023-05-01 06:49] LABS: Platelet Count 35 X10*3/uL (160-400)
[2023-05-01 07:22] VITALS: BP 137/63; PULSE 87; RESP 18; TEMP 36.9; O2SAT 96
[2023-05-01] MEDS: Acetaminophen 325 MG TABLET 650 MG PO (08:33)
[2023-05-01] MEDS: Fluconazole 100 MG TABLET PO (08:33)
[2023-05-01] MEDS: Mag&Al/Sim/Diphenhyd/Lidocaine 10 ML ORAL.SUSP PO ×3 (08:34→23:34)
[2023-05-01] MEDS: Lidocaine 4 % Patch ADH..PATCH 1 PATCH TRANSDERMA (08:34)
[2023-05-01] MEDS: oxyCODONE HCl Immed Release 5 MG TABLET PO ×2 (08:44→20:03)
[2023-05-01 08:58] VITALS: BP 137/63; PULSE 87; O2SAT 96
--- NOTE | 2023-05-01 09:55 | PM.HEMONCPN ---
Medical Summary - Medical Summary Date of Service: 05/01/23 Chief complaint: Throat pain, weakness Primary Care Provider: Gary Brandon DO Medical Summary: Diagnosis: Pancytopenia/anemia Past medical history significant for hypothyroidism, mood disorder and recurrent admission for pancytopenia, ulceration over the left heel/ankle as well as left hand. She has had decreasing counts since 2020. Recently she was diagnosed with strep throat and received 2 courses of antibiotics. Azithromycin followed by amoxicillin after which she continued to feel tired although sore throat has resolved. Possible etiologies for worsening cytopenia was felt to be infection, antibiotic use and possible ongoing use of Depakote. She was taken off Depakote during hospitalization. Blood work showed pancytopenia with significant drop in platelet counts. No symptoms to suggest acute gastrointestinal blood losses. She was Hemoccult positive, her patient GI workup is being planned. She has normal vitamin B12 and folate levels, normal kidney functions. Her transaminases are mildly elevated, no coagulopathy. LDH was mildly elevated at 438 U/L. Interval History Interval history: She continues to feel pain in her throat. No fever or chills. Headache, chest pain, cough or shortness of breath. She reports generalized weakness. She had bone marrow biopsy yesterday, she does not have any pain or swelling at the surgical site. [facility] Medical History: Medical History (Last Reviewed 04/27/23 @ 15:53 by Oneyda Shafer MD) Bipolar disorder in full remission Bipolar disorder in remission Chronic leukopenia Hypothyroidism Pancytopenia Peripheral neuropathy Thrombocytopenia Family History: Family History (Last Reviewed 04/27/23 @ 15:53 by Oneyda Shafer MD) Brother Stomach cancer Mother Stomach cancer Maternal Aunt Brain cancer Maternal Aunt Stomach cancer Esophageal cancer Maternal Grandfather Colon cancer Family history: reviewed and not pertinent Surgical History: Surgical History (Last Reviewed 04/27/23 @ 15:53 by Oneyda Shafer MD) History of bilateral knee replacement Social History: Social History (Last Reviewed 04/27/23 @ 15:53 by Oneyda Shafer MD) Living Situation History: Household Members: Spouse Housing: Apartment Do you presently have visiting nurse or other home services: No Alcohol History Details: Currently Displaying Signs/Symptoms of Alcohol Withdrawal: No Tobacco History: Patient Tobacco Use Status: Never used Tobacco Smoked in Last 30 Days: No Substance Use History: Use of substances other than those prescribed or required for medical reasons: No Currently Displaying Signs/Symptoms of Drug Intoxication Withdrawal: No Advance Directives: Advance Directives: Yes Advance Directives Information Provided: No Advance Directives on File: Yes Advance Directives on File comment: Updated advance directives with proxy Advance Directives Date on File: 04/26/23 Occupation Assessmet: service: No Current occupational status: retired Home Medications and Allergies Current Medications: Current Medications Acetaminophen (Acetaminophen 325 Mg Tablet) 650 mg PO Q6H PRN PRN Reason: Pain, Mild (Pain Scale 1-3) Last Admin: 05/01/23 08:33 Dose: 650 mg Benzocaine (Throat Lozenge, Medicated Lozenge) 1 lozenge MUCOUS MEM Q2H PRN PRN Reason: Sore Throat Last Admin: 04/29/23 21:15 Dose: 1 lozenge Benzocaine (Benzocaine 20 % Oral Gel 9 Gm Tube) 1 appl MUCOUS MEM QID [facility]; Protocol Last Admin: 05/01/23 09:05 Dose: Not Given Benzonatate (Benzonatate 100 Mg Capsule) 100 mg PO TID PRN PRN Reason: Cough Clonazepam (Clonazepam 1 Mg Tablet) 1 mg PO BEDTIME PRN PRN Reason: insomnia Last Admin: 04/30/23 21:56 Dose: 1 mg Docusate Sodium (Docusate Sodium 100 Mg Capsule) 100 mg PO DAILY PRN PRN Reason: Constipation Last Admin: 04/29/23 21:14 Dose: 100 mg Fluconazole (Fluconazole 100 Mg Tablet) 100 mg PO DAILY [facility] Stop: 05/06/23 09:01 Last Admin: 05/01/23 08:33 Dose: 100 mg Doxycycline Hyclate 100 mg/ (Sodium Chloride) 250 mls @ 166.67 mls/hr IV Q12H [facility] Levothyroxine Sodium (Levothyroxine Sodium 112 Mcg Tablet) 112 mcg PO DAILY@0600 [facility] Last Admin: 05/01/23 06:26 Dose: 112 mcg Lidocaine (Lidocaine 4 % Patch Adh..Patch) 1 patch TRANSDERMA DAILY [facility]; Protocol Last Admin: 05/01/23 08:34 Dose: 1 patch Lidocaine/Diphenhydr/Alum/Mg/Simeth (Mag&Al/Sim/Diphenhyd/Lidocaine 10 Ml Oral.Susp) 10 ml PO Q2H PRN; Protocol PRN Reason: Sore Throat Last Admin: 05/01/23 08:34 Dose: 10 ml Melatonin (Melatonin 3 Mg Tablet) 6 mg PO BEDTIME PRN PRN Reason: Insomnia Last Admin: 04/29/23 21:49 Dose: 6 mg Olanzapine (Olanzapine 2.5 Mg Tablet) 2.5 mg PO BEDTIME [facility] Last Admin: 04/30/23 21:56 Dose: 2.5 mg Omeprazole (Omeprazole 20 Mg Capsule.Dr) 20 mg PO DAILY@0630 [facility] Last Admin: 05/01/23 06:26 Dose: 20 mg Ondansetron HCl (Ondansetron Hcl 4 Mg/2 Ml Vial) 4 mg IVPUSH Q8H PRN PRN Reason: Nausea and Vomiting Oxycodone HCl (Oxycodone Hcl Immed Release 5 Mg Tablet) 5 mg PO Q4H PRN PRN Reason: Pain, Severe (Pain Scale 7-10) Last Admin: 05/01/23 08:44 Dose: 5 mg Sodium Chloride (0.9 % Sodium Chloride Flush 3 Ml Syringe) 3 ml IVFLUSH [facility] Last Admin: 05/01/23 08:35 Dose: 3 ml Home Medications Medication Instructions Recorded Confirmed Type levothyroxine 112 mcg tablet 112 mcg PO DAILY@0600 06/30/21 04/26/23 History rosuvastatin 5 mg tablet 5 mg PO DAILY 06/30/21 04/26/23 History cetirizine 10 mg tablet 10 mg PO DAILY 02/07/23 04/26/23 History ergocalciferol (vitamin D2) 1,250 1,250 mcg PO MO 02/07/23 04/26/23 History mcg (50,000 unit) capsule pantoprazole 40 mg tablet,delayed 40 mg PO DAILY 02/07/23 04/26/23 History release Mag&Al/Sim/Diphenhyd/Lidocaine 10 ml PO Q4H Oral burning 04/26/23 04/26/23 History [Magic Mouthwash] Methylfolate 15 mg PO DAILY 04/26/23 04/26/23 History clonazepam 1 mg tablet 1 mg PO BEDTIME PRN insomnia 04/26/23 04/26/23 History Allergies Allergy/AdvReac Type Severity Reaction Status Date / Time gabapentin Allergy Unknown lumps on Verified 04/10/23 14:00 arms Exam Vital signs: Vital Signs Temp 98.5 F 05/01/23 07:22 Pulse 87 05/01/23 08:58 Resp 18 05/01/23 07:22 BP 137/63 05/01/23 08:58 Pulse Ox 96 05/01/23 08:58 O2 Del Method Room Air 05/01/23 07:22 Intake & Output 04/30/23 05/01/23 05/01/23 18:59 06:59 18:59 Intake Total 355 / 355 Output Total 200 / 200 Balance 155 / 155 Urine Output (Average ml/kg/hr) 0.19 Intake: Intake (Blood Product) Amount 255 / 255 Plt Aph Pas Pathreduced(E8342) 255 / 255 Unit [id number] Intake, IV Amount 100 / 100 0.9 % Sodium Chloride 100 ml @ 100 / 100 100 mls/hr IV ONCE ONE Rx#: [id number] Output: Output, Urine Amount (Catheter) 200 / 200 purewick 200 / 200 Other: NPO Yes Number of Incontinent Voids 1 Urine purewic Urine Color Tea Weight 88.6 kg BMI result Body Mass Index 36.9 - Constitutional Present: mild distress, obese - Routine Respiratory Exam Present: CTAB. Absent: accessory muscle use - Routine Cardiovascular Exam Cardiovascular: Present: S1, S2 - Routine Skin Exam Present: erythema, lesions - Routine Neurological Exam Present: alert, oriented X3 Data - Labs CBC & Chem 7: 05/01/23 05:40 04/30/23 05:47 - Imaging Radiologist's impression: ITS Impressions Head CT 04/26/23 08:00 IMPRESSION: No acute intracranial pathology. Venous Duplex 04/26/23 08:00 IMPRESSION: No DVT demonstrated in the left lower extremity. Possible right hip joint effusion. Chest X-Ray 04/26/23 08:28 IMPRESSION: Left basilar atelectasis. Bone Marrow Biopsy w/ CT 04/30/23 14:20 Impression: CT-guided bone marrow biopsy and aspirate This procedure was performed by Angelito Haque PA-C and supervised by Dr. Bellamy. Assessment and Plan Patient Active problem list reviewed?: Yes (1) Pancytopenia Status: Acute Assessment and plan: 1. This is a 82-year-old woman with acute worsening of chronic pancytopenia. Hematological workup showed mild reticulocytopenia without hematinic deficiencies. Serum immunofixation showed no monoclonal protein. No renal or liver dysfunction, no evidence of hemolysis. She has persistent erythema of posterior pharynx, did not respond to multiple rounds of antibiotics. She has now developed redness and ulceration over her left ankle and wrist, unclear etiology. She has also worsening pancytopenia. Recently performed CT abdomen/pelvis does not show hepatosplenomegaly. There is no lymphadenopathy. She has required platelet transfusion for counts below 20,000. She underwent CT guided Bone marrow biopsy on 04/30/2023. Preliminary evaluation of the aspirate shows erythroid hyperplasia but no evidence of acute leukemia or primary bone marrow process. Biopsy and final diagnosis on bone marrow is pending. I recommend further workup for causes of peripheral destruction such as infectious and autoimmune disorders. Thanks, will follow. - Time Spent With Patient Time Spent with Patient (in minutes): 15
[2023-05-01 11:10] LABS: Rheumatoid Factor < 13.0 IU/mL (<15.0)
[2023-05-01] MEDS: Doxycycline Hyclate 100 MG in 0.9 % Sodium Chloride 250 ML 166.67 MG IV (11:30)
--- NOTE | 2023-05-01 12:15 | P.CONWO_ITS ---
History of Present Illness Data of Consult Service Date: 05/01/23 Requesting physician: Paola Calloway Primary Care Provider: DO LAURA Galindo Reason for consult: skin ulcerations of ankles and hands 82-year-old female with pancytopenia, recent pharyngitis and completion of antibiotics, sent to the hospital after PCP discovered abnormal labs. This is superimposed upon bipolar disorder, hypothyroidism, hypercholesterolemia history. Chart review shows recent discontinuation of Depakote though this long-standing medication might not be ultimately responsible for thrombocytopenia, pancytopenia. She was recently switched to Zyprexa. 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 Bone marrow biopsy was carried out yesterday in consideration of MDS. Elevated LDH, low concern for hemolysis per hemonocology notes. Antecedent events include a fall, fatigue and blisters on the ankles. She has required platelet transfusion as part of this hospitalization. 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 She is on Diflucan for esophagitis associated with mouth lesions. Mouth pain is improving. She denies pain in the ankles though reports that these blisters were painful at the onset. No fever today. Unable to eat well due to mouth sores, likes magic mouthwash for this problem. She sees Dr. Nuno for polyneuropathy but is unable to describe details. Has had EMG in the past. No reported history of chronic skin conditions. Review of Systems 2 Constitutional: Constitutional: Reports fatigue, Reports lethargy and Reports poor appetite ENT: Reports dry mouth, Reports mouth lesions and Reports mouth pain Cardiovascular: Comments: no belly rash Gastrointestinal: Comments: nausea Integumentary/Breasts: Skin/Breast: Reports other Comments: blisters Endocrine: Endocrine: Reports fatigue Hematologic/Lymphatic: Hematologic/Lymphatic: Reports easy bruising PMFSH Medical History Bipolar disorder in full remission Thrombocytopenia Pancytopenia Bipolar disorder in remission Peripheral neuropathy Hypothyroidism Chronic leukopenia Family History Brother Stomach cancer Mother Stomach cancer Maternal Aunt Brain cancer Maternal Aunt Stomach cancer Esophageal cancer Maternal Grandfather Colon cancer Surgical History History of bilateral knee replacement Social History Household Members: Spouse Housing: Apartment Do you presently have visiting nurse or other home services: No Alcohol intake: former Comment: pt refuses alarms Patient Tobacco Use Status: Never used Tobacco Smoked in Last 30 Days: No Use of substances other than those prescribed or required for medical reasons: No Currently Displaying Signs/Symptoms of Drug Intoxication Withdrawal: No Advance Directives: Yes Advance Directives Information Provided: No Advance Directives on File: Yes (Updated advance directives with proxy) Advance Directives Date on File: 04/26/23 service: No Current occupational status: retired Meds Allergies Allergy/AdvReac Type Severity Reaction Status Date / Time gabapentin Allergy Unknown lumps on Verified 04/10/23 14:00 arms Active Medications: Current Medications Acetaminophen (Acetaminophen 325 Mg Tablet) 650 mg PO Q6H PRN PRN Reason: Pain, Mild (Pain Scale 1-3) Last Admin: 05/01/23 08:33 Dose: 650 mg Benzocaine (Throat Lozenge, Medicated Lozenge) 1 lozenge MUCOUS MEM Q2H PRN PRN Reason: Sore Throat Last Admin: 04/29/23 21:15 Dose: 1 lozenge Benzocaine (Benzocaine 20 % Oral Gel 9 Gm Tube) 1 appl MUCOUS MEM QID [facility]; Protocol Last Admin: 05/01/23 09:05 Dose: Not Given Benzonatate (Benzonatate 100 Mg Capsule) 100 mg PO TID PRN PRN Reason: Cough Clonazepam (Clonazepam 1 Mg Tablet) 1 mg PO BEDTIME PRN PRN Reason: insomnia Last Admin: 04/30/23 21:56 Dose: 1 mg Docusate Sodium (Docusate Sodium 100 Mg Capsule) 100 mg PO DAILY PRN PRN Reason: Constipation Last Admin: 04/29/23 21:14 Dose: 100 mg Fluconazole (Fluconazole 100 Mg Tablet) 100 mg PO DAILY SALLY Stop: 05/06/23 09:01 Last Admin: 05/01/23 08:33 Dose: 100 mg Doxycycline Hyclate 100 mg/ (Sodium Chloride) 250 mls @ 166.67 mls/hr IV Q12H [facility] Last Admin: 05/01/23 11:30 Dose: 166.67 mls/hr Levothyroxine Sodium (Levothyroxine Sodium 112 Mcg Tablet) 112 mcg PO DAILY@0600 [facility] Last Admin: 05/01/23 06:26 Dose: 112 mcg Lidocaine (Lidocaine 4 % Patch Adh..Patch) 1 patch TRANSDERMA DAILY [facility]; Protocol Last Admin: 05/01/23 08:34 Dose: 1 patch Lidocaine/Diphenhydr/Alum/Mg/Simeth (Mag&Al/Sim/Diphenhyd/Lidocaine 10 Ml Oral.Susp) 10 ml PO Q2H PRN; Protocol PRN Reason: Sore Throat Last Admin: 05/01/23 08:34 Dose: 10 ml Melatonin (Melatonin 3 Mg Tablet) 6 mg PO BEDTIME PRN PRN Reason: Insomnia Last Admin: 04/29/23 21:49 Dose: 6 mg Olanzapine (Olanzapine 2.5 Mg Tablet) 2.5 mg PO BEDTIME [facility] Last Admin: 04/30/23 21:56 Dose: 2.5 mg Omeprazole (Omeprazole 20 Mg Capsule.Dr) 20 mg PO DAILY@0630 [facility] Last Admin: 05/01/23 06:26 Dose: 20 mg Ondansetron HCl (Ondansetron Hcl 4 Mg/2 Ml Vial) 4 mg IVPUSH Q8H PRN PRN Reason: Nausea and Vomiting Oxycodone HCl (Oxycodone Hcl Immed Release 5 Mg Tablet) 5 mg PO Q4H PRN PRN Reason: Pain, Severe (Pain Scale 7-10) Last Admin: 05/01/23 08:44 Dose: 5 mg Sodium Chloride (0.9 % Sodium Chloride Flush 3 Ml Syringe) [facility] Admin: 05/01/23 08:35 Dose: 3 ml Home Medications Medication Instructions Recorded Confirmed Last Taken Type levothyroxine 112 mcg tablet 112 mcg PO DAILY@0600 06/30/21 04/26/23 Unknown History rosuvastatin 5 mg tablet 5 mg PO DAILY 06/30/21 04/26/23 Unknown History cetirizine 10 mg tablet 10 mg PO DAILY 02/07/23 04/26/23 Unknown History ergocalciferol (vitamin D2) 1,250 1,250 mcg PO MO 02/07/23 04/26/23 Unknown History mcg (50,000 unit) capsule pantoprazole 40 mg tablet,delayed 40 mg PO DAILY 02/07/23 04/26/23 Unknown History release Mag&Al/Sim/Diphenhyd/Lidocaine 10 ml PO Q4H Oral burning 04/26/23 04/26/23 Unknown History [Magic Mouthwash] Methylfolate 15 mg PO DAILY 04/26/23 04/26/23 Unknown History clonazepam 1 mg tablet 1 mg PO BEDTIME PRN insomnia 04/26/23 04/26/23 Unknown History Physical Exam 2 Vital Signs and Narrative: Vital Signs: Last Vital Signs Temp 98.5 F 05/01/23 07:22 Pulse 87 05/01/23 08:58 Resp 18 05/01/23 07:22 BP 137/63 05/01/23 08:58 Pulse Ox 96 05/01/23 08:58 O2 Del Method Room Air 05/01/23 07:22 BMI result Body Mass Index 36.9 Photographs are reviewed from [facility] documentation. Comparatively, there is significant improvement in skin integrity particularly of the ankles and feet. The largest blistering bullae are now collapsed in dried out. The alginate a top these draining areas has helped preserve skin integrity. Capillary the damage from thrombocytopenia is also resolving and there is less hyperemia of the periwound on all blistering areas of the feet. The plantar soles are spared. The dorsalis pedis pulses are palpable. The left dorsal hand area is improving, less eschar, less hyperemia. Ulcerations within the buccal mucosa appeared to be improving but erythematous appearance of the posterior pharynx is persisting. Gingival hyperemia might support MDS. No norma xerostomia to support SJS/TEN. Not seeing evidence of classic leukemia cutis on abdomen or extremities nor isolated lesions with violaceous borders of classic vasculitis disease. No hemosiderin staining or circumferential leg edema to suggest chronic venous insufficiency. No telangiectasia or obvious large vessel varicosities. Const: General: cooperative, no acute distress and awake Results Labs 05/01/23 05:40 04/30/23 05:47 Labs: Laboratory Results - last 24 hr 04/27/23 04/30/23 05/01/23 20:20 14:57 05:40 MCV 101.6 H MCH 33.9 H MCHC 33.3 RDW 20.4 H Plt Count 35 L D MPV 9.5 Absolute Nucleated RBC 0.000 Nucleated RBC % (auto) 0.0 Rheumatoid Factor A.phagocytophil DNA PCR NOT DETECTED Babesia microti DNA PCR NOT DETECTED Borrelia sp DNA (PCR) NOT DETECTED Borrelia miyamotoi (PCR) NOT DETECTED E.chaffeensis DNA (PCR) NOT DETECTED Tick-borne Disease PCR SEE NOTE Blood Type O Negative Antibody Screen NEGATIVE 05/01/23 09:10 MCV MCH MCHC RDW Plt Count MPV Absolute Nucleated RBC Nucleated RBC % (auto) Rheumatoid Factor < 13.0 A.phagocytophil DNA PCR Babesia microti DNA PCR Borrelia sp DNA (PCR) Borrelia miyamotoi (PCR) E.chaffeensis DNA (PCR) Tick-borne Disease PCR Blood Type Antibody Screen Imaging Radiologist's Impressions: Impressions Bone Marrow Biopsy w/ CT 04/30/23 14:20 Impression: CT-guided bone marrow biopsy and aspirate This procedure was performed by Angelito Haque PA-C and supervised by Dr. Bellamy. Assessment and Plan (1) Pancytopenia: Status: Acute Plan 82-year-old female with mucosal and dermatologic picture matching nonspecific MDS pattern. Await results of bone marrow biopsy. Adverse reaction to Zyprexa probably less likely but not impossible. Agree with topical approach for wounds to include drainage management of bullae which are now resolving. Consider application of topical zinc oxide to closed dermal areas of resolving capillary destruction with purpuric appearance to reduce epithelial flaking. Application of topical zinc oxide to areas of hyperemia with intact skin may also help with inflammatory appearance. Wounds do not appear to be infected. As blisters progress to full and intact epithelium, a more protective in topical approach with barrier cream might be helpful so long as drainage is scant. Definitive diagnosis and treatment is best plan for long-term management of wounds. 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 Thank you for allowing us to participate in this care plan.
[2023-05-01] MEDS: Lidocaine HCl 1 % 20 ML VIAL SUBCUT (14:20)
--- NOTE | 2023-05-01 14:21 | HO.PM.IMPN ---
Subjective Subjective Date of Service: 05/01/23 Interval History: follow up for pancytopenia, sore through, skin wounds still reporting sore throat, generalized weakness no fever, chills, abdominal pain Review of Systems Review of Systems: Yes all other systems are reviewed and are negative Constitutional Constitutional: Denies chills and Denies fever(s) Cardiovascular Cardiovascular: Denies chest pain and Denies dyspnea Respiratory Respiratory: Denies dyspnea Gastrointestinal Gastrointestinal: Denies abdominal pain Physical Exam Vital Signs: Vital Signs: Last Vital Signs Temp 98.5 F 05/01/23 07:22 Pulse 87 05/01/23 08:58 Resp 18 05/01/23 07:22 BP 137/63 05/01/23 08:58 Pulse Ox 96 05/01/23 08:58 O2 Del Method Room Air 05/01/23 07:22 BMI result Body Mass Index 36.9 Appearing in no acute distress lung sounds are clear to auscultation heart regular rate rhythm, clear S1, S2 positive bowel sounds, abdomen is soft, nontender neuro patient is alert x3, no focal deficits erythema to throat and mucous membranes Objective Data Active Medications Acetaminophen (Acetaminophen 325 Mg Tablet) 650 mg PO Q6H PRN PRN Reason: Pain, Mild (Pain Scale 1-3) Last Admin: 05/01/23 08:33 Dose: 650 mg Documented By: CARLY Benzocaine (Throat Lozenge, Medicated Lozenge) 1 lozenge MUCOUS MEM Q2H PRN PRN Reason: Sore Throat Last Admin: 04/29/23 21:15 Dose: 1 lozenge Documented By: GET Benzocaine (Benzocaine 20 % Oral Gel 9 Gm Tube) 1 appl MUCOUS MEM QID [facility]; Protocol Last Admin: 05/01/23 13:10 Dose: Not Given Documented By: CARLY Non-Admin Reason: Patient Refused Benzonatate (Benzonatate 100 Mg Capsule) 100 mg PO TID PRN PRN Reason: Cough Clonazepam (Clonazepam 1 Mg Tablet) 1 mg PO BEDTIME PRN PRN Reason: insomnia Last Admin: 04/30/23 21:56 Dose: 1 mg Documented By: CATRINA Docusate Sodium (Docusate Sodium 100 Mg Capsule) 100 mg PO DAILY PRN PRN Reason: Constipation Last Admin: 04/29/23 21:14 Dose: 100 mg Documented By: GET Fluconazole (Fluconazole 100 Mg Tablet) 100 mg PO DAILY [facility] Stop: 05/06/23 09:01 Last Admin: 05/01/23 08:33 Dose: 100 mg Documented By: CARLY Doxycycline Hyclate 100 mg/ (Sodium Chloride) 250 mls @ 166.67 mls/hr IV Q12H [facility] Last Infusion: 05/01/23 13:10 Dose: Infused Documented By: CARLY Levothyroxine Sodium (Levothyroxine Sodium 112 Mcg Tablet) 112 mcg PO DAILY@0600 [facility] Last Admin: 05/01/23 06:26 Dose: 112 mcg Documented By: MOLLY Lidocaine (Lidocaine 4 % Patch Adh..Patch) 1 patch TRANSDERMA DAILY [facility]; Protocol Last Admin: 05/01/23 08:34 Dose: 1 patch Documented By: CARLY Lidocaine/Diphenhydr/Alum/Mg/Simeth (Mag&Al/Sim/Diphenhyd/Lidocaine 10 Ml Oral.Susp) 10 ml PO Q2H PRN; Protocol PRN Reason: Sore Throat Last Admin: 05/01/23 08:34 Dose: 10 ml Documented By: CARLY Melatonin (Melatonin 3 Mg Tablet) 6 mg PO BEDTIME PRN PRN Reason: Insomnia Last Admin: 04/29/23 21:49 Dose: 6 mg Documented By: GTE Olanzapine (Olanzapine 2.5 Mg Tablet) 2.5 mg PO BEDTIME [facility] Last Admin: 04/30/23 21:56 Dose: 2.5 mg Documented By: CATRINA Omeprazole (Omeprazole 20 Mg Capsule.) 20 mg PO DAILY@0630 [facility] Last Admin: 05/01/23 06:26 Dose: 20 mg Documented By: MOLLY Ondansetron HCl (Ondansetron Hcl 4 Mg/2 Ml Vial) 4 mg IVPUSH Q8H PRN PRN Reason: Nausea and Vomiting Oxycodone HCl (Oxycodone Hcl Immed Release 5 Mg Tablet) 5 mg PO Q4H PRN PRN Reason: Pain, Severe (Pain Scale 7-10) Last Admin: 05/01/23 08:44 Dose: 5 mg Documented By: CARLY Sodium Chloride (0.9 % Sodium Chloride Flush 3 Ml Syringe) 3 ml IVFLUSH QSHIFT [facility] Last Admin: 05/01/23 08:35 Dose: 3 ml Documented By: CARLY Labs 05/01/23 05:40 04/30/23 05:47 Labs: Laboratory Results - last 24 hr 04/27/23 04/30/23 05/01/23 20:20 14:57 05:40 MCV 101.6 H MCH 33.9 H MCHC 33.3 RDW 20.4 H Plt Count 35 L D MPV 9.5 Absolute Nucleated RBC 0.000 Nucleated RBC % (auto) 0.0 Rheumatoid Factor A.phagocytophil DNA PCR NOT DETECTED Babesia microti DNA PCR NOT DETECTED Borrelia sp DNA (PCR) NOT DETECTED Borrelia miyamotoi (PCR) NOT DETECTED E.chaffeensis DNA (PCR) NOT DETECTED Tick-borne Disease PCR SEE NOTE Blood Type O Negative Antibody Screen NEGATIVE 05/01/23 09:10 MCV MCH MCHC RDW Plt Count MPV Absolute Nucleated RBC Nucleated RBC % (auto) Rheumatoid Factor < 13.0 A.phagocytophil DNA PCR Babesia microti DNA PCR Borrelia sp DNA (PCR) Borrelia miyamotoi (PCR) E.chaffeensis DNA (PCR) Tick-borne Disease PCR Blood Type Antibody Screen Microbiology Microbiology Results: Microbiology 04/29/23 Unknown Throat Culture - Final Throat No Group A Beta-hemolytic Streptococci isolated. 04/28/23 07:46 Blood Culture - Preliminary Blood - Venous No growth after 48 hours. 04/28/23 07:46 Blood Culture - Preliminary Blood - Venous No growth after 48 hours. Assessment and Plan (1) Pancytopenia: Status: Acute Plan Pt is an 82-year-old female with a PMH significant for? hypothyroidism, mood disorder, mixed hyperlipidemia, and hx of pancytopenia who presents to the ED after fall out of bed earlier this morning. Patient was recently admitted to the hospital on 04/10-04/13 for pancytopenia, Patient's stool was positive for occult blood during that admission and patient was seen by GI, however no active GI bleed was found. Pancytopenia ultimately was thought to be chronic and attributed to valproic acid use. Pt will be admitted to the hospital under observation for treatment further evaluation of pancytopenia. Pancytopenia, acute on chronic thought to be med related on last admit but after stopping depakote, levels have decreased further s/p 1 unit PRBCs in ED with improvement in H/H Hx of parovirus, IGG pos, IGM neg s/p plt tx x 2, tx for PLT <20 seen by hematology>Bone marrow biopsy results pending Sore throat with odynophagia throat cx negative monospot negative Magic mouthwash Q2h prn, cepacol continue diflucan for 14 days for possible esophagitis blood cx negative Skin wounds multiple dif dx. drug related: SJS, bullous pemphigoid (started doxycycline 100mg BID empirically) vs vasculitis No indication of infection at this time Wound care consult>may try topic zinc oxide to help with inflammatory appearance, not appearing infected. Gen surg consult for punch biopsy ID> discussed case, stop abx, start steroid prednisone 40mg daily Hypokalemia resolved with replacement Lower leg edema Doppler negative for DVT BNP WNL at 33 Encourage ambulation, elevate feet while in bed Fall out of bed/difficulty ambulating PT rec STR Bipolar disorder Continue olanzapine Hypothyroidism Continue levothyroxine HLD hold statin statin Full Code Attending:?Dr. Sawyer DVT Prophylaxis: Pneumatic boots d/t anemia The complexity of the patient's conditions, the need for multiple investigations, ongoing monitoring, and specialized care from various consultants make the hospital the appropriate setting for managing these issues effectively.The bone marrow biopsy will likely provide more clarity regarding the pancytopenia, and the consults should help in addressing the other ongoing concerns. Quality Stroke Does the patient have a stroke diagnosis?: No VTE Prior VTE?: No VTE Risk Level:: Medical - moderate - high VTE Device Contraindication: N/A - Device Ordered VTE Drug Contraindication: Treatment Not Indicated
--- NOTE | 2023-05-01 14:36 | PM.CNGS ---
History of Present Illness Consult details Consult date: 05/01/23 Narrative: 82F referred for a punch biopsy of the ankle, She was admitted 5 days ago to the hospital after a fall at home. She was noted to be pancytopenic, and this was deemed to be secondary to intake of valproic acid. She did have a macular rash on both ankles, left more than the right, with large blister. In view of this macular rash, she was referred to punch biopsy. She denies any trauma to these areas. She says she has developed blisters on other parts of her body including the hands as well. Review of Systems Constitutional: Constitutional: Denies chills and Denies fever(s) Cardiovascular: Cardiovascular: Denies chest pain, Denies dyspnea and Reports dyspnea on exertion Respiratory: Respiratory: Denies cough, Denies dyspnea and Reports dyspnea on exertion Gastrointestinal: Gastrointestinal: Denies hematochezia and Denies change in bowel habits Genitourinary: Genitourinary: Denies hematuria Musculoskeletal: Musculoskeletal: Denies back pain, Reports myalgias and Denies limited range of motion Neurologic: Denies focal weakness and Denies convulsions Psychiatric: Psychiatric: Reports depression and Reports mood swings PMFSH Past Medical History Medical History (Updated 05/01/23 @ 14:45 by Lul Salgado MD) Macular rash Bipolar disorder in full remission Thrombocytopenia Pancytopenia Bipolar disorder in remission Peripheral neuropathy Hypothyroidism Chronic leukopenia Family History Family History Brother Stomach cancer Mother Stomach cancer Maternal Aunt Brain cancer Maternal Aunt Stomach cancer Esophageal cancer Maternal Grandfather Colon cancer Family history: reviewed and not pertinent Surgical History Surgical History History of bilateral knee replacement Social History Social History Household Members: Spouse Housing: Apartment Do you presently have visiting nurse or other home services: No Alcohol intake: former Comment: pt refuses alarms Patient Tobacco Use Status: Never used Tobacco Smoked in Last 30 Days: No Use of substances other than those prescribed or required for medical reasons: No Currently Displaying Signs/Symptoms of Drug Intoxication Withdrawal: No Advance Directives: Yes Advance Directives Information Provided: No Advance Directives on File: Yes (Updated advance directives with proxy) Advance Directives Date on File: 04/26/23 service: No Current occupational status: retired Meds Allergies Allergy/AdvReac Type Severity Reaction Status Date / Time gabapentin Allergy Unknown lumps on Verified 04/10/23 14:00 arms Active Medications: Current Medications Acetaminophen (Acetaminophen 325 Mg Tablet) 650 mg PO Q6H PRN PRN Reason: Pain, Mild (Pain Scale 1-3) Last Admin: 05/01/23 08:33 Dose: 650 mg Benzocaine (Throat Lozenge, Medicated Lozenge) 1 lozenge MUCOUS MEM Q2H PRN PRN Reason: Sore Throat Last Admin: 04/29/23 21:15 Dose: 1 lozenge Benzocaine (Benzocaine 20 % Oral Gel 9 Gm Tube) 1 appl MUCOUS MEM QID [facility]; Protocol Last Admin: 05/01/23 13:10 Dose: Not Given Benzonatate (Benzonatate 100 Mg Capsule) 100 mg PO TID PRN PRN Reason: Cough Clonazepam (Clonazepam 1 Mg Tablet) 1 mg PO BEDTIME PRN PRN Reason: insomnia Last Admin: 04/30/23 21:56 Dose: 1 mg Docusate Sodium (Docusate Sodium 100 Mg Capsule) 100 mg PO DAILY PRN PRN Reason: Constipation Last Admin: 04/29/23 21:14 Dose: 100 mg Fluconazole (Fluconazole 100 Mg Tablet) 100 mg PO DAILY [facility] Stop: 05/06/23 09:01 Last Admin: 05/01/23 08:33 Dose: 100 mg Doxycycline Hyclate 100 mg/ (Sodium Chloride) 250 mls @ 166.67 mls/hr IV Q12H [facility] Last Infusion: 05/01/23 13:10 Dose: Infused Levothyroxine Sodium (Levothyroxine Sodium 112 Mcg Tablet) 112 mcg PO DAILY@0600 [facility] Last Admin: 05/01/23 06:26 Dose: 112 mcg Lidocaine (Lidocaine 4 % Patch Adh..Patch) 1 patch TRANSDERMA DAILY [facility]; Protocol Last Admin: 05/01/23 08:34 Dose: 1 patch Lidocaine/Diphenhydr/Alum/Mg/Simeth (Mag&Al/Sim/Diphenhyd/Lidocaine 10 Ml Oral.Susp) 10 ml PO Q2H PRN; Protocol PRN Reason: Sore Throat Last Admin: 05/01/23 08:34 Dose: 10 ml Melatonin (Melatonin 3 Mg Tablet) 6 mg PO BEDTIME PRN PRN Reason: Insomnia Last Admin: 04/29/23 21:49 Dose: 6 mg Olanzapine (Olanzapine 2.5 Mg Tablet) 2.5 mg PO BEDTIME [facility] Last Admin: 04/30/23 21:56 Dose: 2.5 mg Omeprazole (Omeprazole 20 Mg Capsule.Dr) 20 mg PO DAILY@0630 [facility] Last Admin: 05/01/23 06:26 Dose: 20 mg Ondansetron HCl (Ondansetron Hcl 4 Mg/2 Ml Vial) 4 mg IVPUSH Q8H PRN PRN Reason: Nausea and Vomiting Oxycodone HCl (Oxycodone Hcl Immed Release 5 Mg Tablet) 5 mg PO Q4H PRN PRN Reason: Pain, Severe (Pain Scale 7-10) Last Admin: 05/01/23 08:44 Dose: 5 mg Sodium Chloride (0.9 % Sodium Chloride Flush 3 Ml Syringe) 3 ml IVFLUSH QSHIFT [facility] Last Admin: 05/01/23 08:35 Dose: 3 ml Home Medications Medication Instructions Recorded Confirmed Last Taken Type levothyroxine 112 mcg tablet 112 mcg PO DAILY@0600 06/30/21 04/26/23 Unknown History rosuvastatin 5 mg tablet 5 mg PO DAILY 06/30/21 04/26/23 Unknown History cetirizine 10 mg tablet 10 mg PO DAILY 02/07/23 04/26/23 Unknown History ergocalciferol (vitamin D2) 1,250 1,250 mcg PO MO 02/07/23 04/26/23 Unknown History mcg (50,000 unit) capsule pantoprazole 40 mg tablet,delayed 40 mg PO DAILY 02/07/23 04/26/23 Unknown History release Mag&Al/Sim/Diphenhyd/Lidocaine 10 ml PO Q4H Oral burning 04/26/23 04/26/23 Unknown History [Magic Mouthwash] Methylfolate 15 mg PO DAILY 04/26/23 04/26/23 Unknown History clonazepam 1 mg tablet 1 mg PO BEDTIME PRN insomnia 04/26/23 04/26/23 Unknown History Physical Exam Vital Signs: Vital Signs: Last Vital Signs Temp 98.5 F 05/01/23 07:22 Pulse 87 05/01/23 08:58 Resp 18 05/01/23 07:22 BP 137/63 05/01/23 08:58 Pulse Ox 96 05/01/23 08:58 O2 Del Method Room Air 05/01/23 07:22 BMI result Body Mass Index 36.9 Const: General: comfortable and no acute distress Orientation/consciousness: patient oriented x3 Resp: Effort & Inspection: normal respiratory effort Cardio: Rhythm: regular rhythm GI: Palpation (GI): Soft to palpation Skin: Other: macular rash on both ankles, more on left, with blistering; similar blisters, much smaller seen on her hands Neuro: General: patient oriented x3 Extrem: Right upper extremity: edema Results Labs 05/03/23 05:17 05/03/23 05:17 Labs: Abnormal lab results 05/01/23 Range/Units 05:40 WBC 3.6 L (4.8-10.8) X10*3/uL RBC 2.57 L (4.20-5.50) X10*6/uL Hgb 8.7 L (12.0-16.0) g/dl Hct 26.1 L (37.0-47.0) % MCV 101.6 H (80.0-98.0) fL MCH 33.9 H (27.0-33.0) pg RDW 20.4 H (11.0-16.0) % Plt Count 35 L D (160-400) X10*3/uL Short CBC 05/01/23 Range/Units 05:40 WBC 3.6 L (4.8-10.8) X10*3/uL Hgb 8.7 L (12.0-16.0) g/dl Hct 26.1 L (37.0-47.0) % Plt Count 35 L D (160-400) X10*3/uL Urine 04/26/23 Range/Units 09:06 Urine Color Dark Yellow Urine Appearance Clear Urine pH 6.0 (5.0-9.0) Ur Specific [place] 1.020 (1.005-1.025) Urine Protein Negative (Neg-Trace) mg/dL Urine Glucose (UA) Negative (Negative) mg/dL All other labs normal. Assessment and Plan (1) Macular rash: Status: Acute 82F with pancytopenia with a macular rash and blister of her ankles. I was consulted to do a skin biopsy. I explained to the patient the technique of this procedure. I reviewed the risks, benefits and alternatives. Punch biopsy was done at bedside of the area of rash on the medial aspect of the left ankle. She tolerated the procedure well. Dressings may be done daily starting tomorrow with dry gauze. I have sent the specimen to pathology. I will see her for a wound check while she is in the hospital. Procedures Date of Service Date of Service: 05/03/23
--- NOTE | 2023-05-01 14:48 | PM.EVENT ---
Event Note Date of Service: 05/01/23 Event Note: PUNCH BIOPSY of skin of left ankle done at bedside The area of the medial aspect of the left ankle with the rash was prepped and draped. Lidocaine 1% was used for local anesthesia. I used the Punch biopsy to excise skin and subcutaneous tissue. This was sent as specimen in formalin. I appled dressings and re-wrapped the ankle and foot with a Kerlx roll. She tolerated the procedure well. Time Spent With Patient Time: Total time managing care of this patient today ____ minutes.
[2023-05-01 16:00] VITALS: BP 118/70; PULSE 73; RESP 18; TEMP 37; O2SAT 98
[2023-05-01] MEDS: predniSONE 20 MG TABLET 40 MG PO (17:13)
[2023-05-01] MEDS: OLANZapine 2.5 MG TABLET PO (20:03)
[2023-05-01] MEDS: Melatonin 3 MG TABLET 6 MG PO (23:34)
[2023-05-01 23:37] VITALS: BP 144/71; PULSE 71; RESP 17; TEMP 36.2; O2SAT 94
[2023-05-02 04:04] VITALS: BP 145/77; PULSE 82; RESP 17; TEMP 36.1; O2SAT 96
[2023-05-02] MEDS: Mag&Al/Sim/Diphenhyd/Lidocaine 10 ML ORAL.SUSP PO ×6 (04:16→23:47)
[2023-05-02] MEDS: Levothyroxine Sodium 112 MCG TABLET PO (05:37)
[2023-05-02] MEDS: Acetaminophen 325 MG TABLET 650 MG PO ×2 (05:37→12:31)
[2023-05-02 06:52] LABS: Hematocrit 26.5 % (37.0-47.0); Hemoglobin 8.9 g/dl (12.0-16.0); Mean Corpuscular HGB Conc 33.6 g/dl (31.0-35.0); Mean Corpuscular Hemoglobin 34.1 pg (27.0-33.0); Mean Corpuscular Volume 101.5 fL (80.0-98.0); Mean Platelet Volume 12.2 fL (9.4-12.3); Red Blood Count 2.61 X10*6/uL (4.20-5.50); Red Cell Distribution Width 20.5 % (11.0-16.0)
[2023-05-02 06:53] LABS: Platelet Count 43 X10*3/uL (160-400); White Blood Count 2.5 X10*3/uL (4.8-10.8)
[2023-05-02 07:07] LABS: Anion Gap 10 (12-20); Blood Urea Nitrogen 12 mg/dL (9-16); Calcium 9.5 mg/dL (8.4-10.2); Carbon Dioxide 27 mmol/L (22-29); Chloride 103 mmol/L (96-108); Creatinine Clr Calc Pharmacy 78.4; Estimated Glomerular Filt Rate > 60; Glucose Random 131 mg/dL (60-115); Sodium 136 mmol/L (135-145)
[2023-05-02 07:39] LABS: Glucose, Whole Blood 120 mg/dL (60-115)
[2023-05-02 07:43] VITALS: BP 156/71; PULSE 71; RESP 16; TEMP 37.2; O2SAT 95
[2023-05-02] MEDS: 0.9 % Sodium Chloride Flush 3 ML SYRINGE IVFLUSH ×3 (07:43→21:01)
[2023-05-02] MEDS: Fluconazole 100 MG TABLET PO (08:47)
[2023-05-02] MEDS: predniSONE 20 MG TABLET 40 MG PO (08:47)
[2023-05-02] MEDS: Famotidine/PF 20 MG/2 ML VIAL IVPUSH (08:48)
[2023-05-02] MEDS: Lidocaine 4 % Patch ADH..PATCH 1 PATCH TRANSDERMA (08:49)
--- NOTE | 2023-05-02 08:52 | PM.EVENT ---
Event Note Date of Service: 05/02/23 Event Note: Dressings on the biopsy site on the left ankle done at bedside Entire ankle wrapped with Ketan roll in view of the open blister Continue wound care Await results of path report Time Spent With Patient Time: Total time managing care of this patient today ____ minutes.
--- NOTE | 2023-05-02 10:56 | P.PNIM_ITS ---
Subjective Subjective Date of Service: 05/02/23 Interval History: States centrally no improvement with steroids. No acute issues overnight Review of Systems Denies chest pain Denies shortness of breath Denies nausea vomiting diarrhea Denies fever chills Physical Exam 2 Vital Signs: Vital Signs: Last Vital Signs Temp 98.9 F 05/02/23 07:43 Pulse 71 05/02/23 07:43 Resp 16 05/02/23 07:43 BP 156/71 H 05/02/23 07:43 Pulse Ox 95 05/02/23 07:43 O2 Del Method Room Air 05/02/23 07:43 BMI result Body Mass Index 36.9 Const: Other: Awake alert no acute distress Resp: Other: Clear to auscultation bilaterally no rales rhonchi or wheezes Cardio: Other: No S4; positive S1-S2; no S3 murmurs rubs or gallops GI: Other: Soft nontender nondistended normoactive bowel sounds Skin: Other: See photos previous notes Extrem: Other: No edema bilaterally Objective Data Active Medications Acetaminophen (Acetaminophen 325 Mg Tablet) 650 mg PO Q6H PRN PRN Reason: Pain, Mild (Pain Scale 1-3) Last Admin: 05/02/23 05:37 Dose: 650 mg Documented By: RAYA Benzocaine (Throat Lozenge, Medicated Lozenge) 1 lozenge MUCOUS MEM Q2H PRN PRN Reason: Sore Throat Last Admin: 04/29/23 21:15 Dose: 1 lozenge Documented By: GET Benzocaine (Benzocaine 20 % Oral Gel 9 Gm Tube) 1 appl MUCOUS MEM QID [facility]; Protocol Last Admin: 05/02/23 08:48 Dose: Not Given Documented By: CUAUHTEMOC Non-Admin Reason: Patient Refused Benzonatate (Benzonatate 100 Mg Capsule) 100 mg PO TID PRN PRN Reason: Cough Docusate Sodium (Docusate Sodium 100 Mg Capsule) 100 mg PO DAILY PRN PRN Reason: Constipation Last Admin: 04/29/23 21:14 Dose: 100 mg Documented By: GET Famotidine (Famotidine/Pf 20 Mg/2 Ml Vial) 20 mg IVPUSH DAILY [facility] Last Admin: 05/02/23 08:48 Dose: 20 mg Documented By: CUAUHTEMOC Fluconazole (Fluconazole 100 Mg Tablet) 100 mg PO DAILY [facility] Stop: 05/06/23 09:01 Last Admin: 05/02/23 08:47 Dose: 100 mg Documented By: CUAUHTEMOC Levothyroxine Sodium (Levothyroxine Sodium 112 Mcg Tablet) 112 mcg PO DAILY@0600 [facility] Last Admin: 05/02/23 05:37 Dose: 112 mcg Documented By: RAYA Lidocaine (Lidocaine 4 % Patch Adh..Patch) 1 patch TRANSDERMA DAILY [facility]; Protocol Last Admin: 05/02/23 08:49 Dose: 1 patch Documented By: CUAUHTEMOC Lidocaine/Diphenhydr/Alum/Mg/Simeth (Mag&Al/Sim/Diphenhyd/Lidocaine 10 Ml Oral.Susp) 10 ml PO Q2H PRN; Protocol PRN Reason: Sore Throat Last Admin: 05/02/23 08:47 Dose: 10 ml Documented By: CUAUHTEMOC Melatonin (Melatonin 3 Mg Tablet) 6 mg PO BEDTIME PRN PRN Reason: Insomnia Last Admin: 05/01/23 23:34 Dose: 6 mg Documented By: RAYA Olanzapine (Olanzapine 2.5 Mg Tablet) 2.5 mg PO BEDTIME [facility] Last Admin: 05/01/23 20:03 Dose: 2.5 mg Documented By: RAYA Ondansetron HCl (Ondansetron Hcl 4 Mg/2 Ml Vial) 4 mg IVPUSH Q8H PRN PRN Reason: Nausea and Vomiting Prednisone (Prednisone 20 Mg Tablet) 40 mg PO DAILY [facility] Last Admin: 05/02/23 08:47 Dose: 40 mg Documented By: CUAUHTEMOC Sodium Chloride (0.9 % Sodium Chloride Flush 3 Ml Syringe) 3 ml IVFLUSH QSHIFT [facility] Last Admin: 05/02/23 07:43 Dose: 3 ml Documented By: CUAUHTEMOC Labs 05/02/23 05:58 05/02/23 05:58 Labs: Laboratory Results - last 24 hr 05/01/23 05/02/23 05/02/23 09:10 05:58 07:30 MCV 101.5 H MCH 34.1 H MCHC 33.6 RDW 20.5 H Plt Count 43 L MPV 12.2 Absolute Nucleated RBC 0.000 Nucleated RBC % (auto) 0.0 Anion Gap 10 L Estim Creat Clear Calc 78.4 Estimated GFR > 60 POC Glucose 120 H Random Glucose 131 H Calcium 9.5 Rheumatoid Factor < 13.0 Microbiology Microbiology Results: Microbiology 04/29/23 Unknown Throat Culture - Final Throat No Group A Beta-hemolytic Streptococci isolated. Assessment and Plan (1) Bipolar disorder in full remission: Status: Acute (2) Lymphedema of leg: Status: Acute Plan Pt is an 82-year-old female with a PMH significant for? hypothyroidism, mood disorder, mixed hyperlipidemia, and hx of pancytopenia who presents to the ED after fall out of bed earlier this morning. Patient was recently admitted to the hospital on 04/10-04/13 for pancytopenia, Patient's stool was positive for occult blood during that admission and patient was seen by GI, however no active GI bleed was found. Pancytopenia ultimately was thought to be chronic and attributed to valproic acid use. 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 -follow clinically 2.Odynophagia -throat cx/monospot negative -Magic mouthwash Q2h prn, cepacol -continue diflucan(11/01)... possible esophagitis 3.Skin wounds -punch biopsy pending -continue steroids at current dosing -further plans based on forthcoming data 4.Hypokalemia -resolved with replacement -follow renals/divalents 5.Bipolar disorder -olanzapine as ordered Hypothyroidism Continue levothyroxine Full Code Pneumatic boots d/t anemia The complexity of the patient's conditions, the need for multiple investigations, ongoing monitoring, and specialized care from various consultants make the hospital the appropriate setting for managing these issues effectively.The bone marrow biopsy will likely provide more clarity regarding the pancytopenia, and the consults should help in addressing the other ongoing concerns. Quality Stroke Does the patient have a stroke diagnosis?: No VTE Prior VTE?: No VTE Risk Level:: Medical - moderate - high VTE Device Contraindication: N/A - Device Ordered VTE Drug Contraindication: Treatment Not Indicated
--- NOTE | 2023-05-02 13:13 | MHC.CM.PN ---
EMR REVIEWED AND PER MD ROUNDS, PT IS NOT MEDICALLY CLEARED FOR DC (AWAITING BIOPSY RESULTS) P.T. CONTINUES TO REC STR BUT PT IS ADAMANTLY REFUSING TO GO. SHE IS AGREEABLE TO [facility] SERVICES AND WOULD LIKE [facility] HER FIRST CHOICE. REFERRAL SENT. PT GIVES PERMISSION TO SPEAK WITH HER HCP BRISEYDA. CM INFORMED HCP OF HER REFUSAL TO GO TO STR AND HE STATES HE IS AWARE. CM WILL CONTINUE TO FOLLOW FOR ANY CHANGE IN DC PLAN/NEEDS.
[2023-05-02] MEDS: oxyCODONE HCl Immed Release 5 MG TABLET PO (15:24)
[2023-05-02] MEDS: Docusate Sodium 100 MG CAPSULE PO (15:24)
[2023-05-02 15:35] VITALS: BP 130/58; PULSE 83; RESP 18; TEMP 36.9; O2SAT 97
[2023-05-02] MEDS: OLANZapine 2.5 MG TABLET PO (21:01)
[2023-05-02] MEDS: Melatonin 3 MG TABLET 6 MG PO (23:47)
[2023-05-03] VITALS: BP 138/62; PULSE 74; RESP 18; TEMP 36.2; O2SAT 98
[2023-05-03] MEDS: Levothyroxine Sodium 112 MCG TABLET PO (05:17)
[2023-05-03] MEDS: Mag&Al/Sim/Diphenhyd/Lidocaine 10 ML ORAL.SUSP PO ×3 (05:17→16:54)
[2023-05-03] MEDS: Throat Lozenge, Medicated LOZENGE 1 LOZENGE MUCOUS MEM ×2 (05:44→17:50)
[2023-05-03 06:30] LABS: Hematocrit 27.3 % (37.0-47.0); Hemoglobin 9.4 g/dl (12.0-16.0); Mean Corpuscular HGB Conc 34.4 g/dl (31.0-35.0); Mean Corpuscular Hemoglobin 34.8 pg (27.0-33.0); Mean Corpuscular Volume 101.1 fL (80.0-98.0); Platelet Count 119 X10*3/uL (160-400); Red Cell Distribution Width 21.2 % (11.0-16.0); White Blood Count 5.2 X10*3/uL (4.8-10.8)
[2023-05-03 06:40] LABS: Anion Gap 14 (12-20); Blood Urea Nitrogen 18 mg/dL (9-16); Calcium 9.6 mg/dL (8.4-10.2); Carbon Dioxide 24 mmol/L (22-29); Chloride 104 mmol/L (96-108); Creatinine Clr Calc Pharmacy 74.4; Estimated Glomerular Filt Rate > 60; Glucose Random 108 mg/dL (60-115); Sodium 138 mmol/L (135-145)
[2023-05-03 07:00] VITALS: BP 141/65; PULSE 76; RESP 20; TEMP 36.4; O2SAT 97
--- NOTE | 2023-05-03 08:45 | P.PNGS_ITS ---
Subjective Subjective Date of Service: 05/03/23 Interval history: Denies new complaints She has she was able to walk on her foot yesterday with a cane Physical Exam 2 Vital Signs: Vital Signs: Last Vital Signs Temp 97.6 F 05/03/23 07:00 Pulse 76 05/03/23 07:00 Resp 20 05/03/23 07:00 BP 141/65 H 05/03/23 07:00 Pulse Ox 97 05/03/23 07:00 O2 Del Method Room Air 05/03/23 07:00 BMI result Body Mass Index 36.9 Const: General: comfortable and no acute distress O rientation/consciousness: patient oriented x3 Resp: Effort & Inspection: normal respiratory effort GI: Palpation (GI): Soft to palpation and not firm Neuro: General: patient oriented x3 Extrem: Other: Ulcer/skin breakdown on the left ankle medially, clean; smaller area laterally also seen; biopsy site clean and dry Small ulcer/blister on the hand on the right side, clean Objective Data Active Medications Acetaminophen (Acetaminophen 325 Mg Tablet) 650 mg PO Q6H PRN PRN Reason: Pain, Mild (Pain Scale 1-3) Last Admin: 05/02/23 12:31 Dose: 650 mg Documented By: CUAUHTEMOC Benzocaine (Throat Lozenge, Medicated Lozenge) 1 lozenge MUCOUS MEM Q2H PRN PRN Reason: Sore Throat Last Admin: 05/03/23 05:44 Dose: 1 lozenge Documented By: RAYA Benzocaine (Benzocaine 20 % Oral Gel 9 Gm Tube) 1 appl MUCOUS MEM QID [facility]; Protocol Last Admin: 05/02/23 21:03 Dose: Not Given Documented By: RAYA Non-Admin Reason: Patient Refused Benzonatate (Benzonatate 100 Mg Capsule) 100 mg PO TID PRN PRN Reason: Cough Docusate Sodium (Docusate Sodium 100 Mg Capsule) 100 mg PO DAILY PRN PRN Reason: Constipation Last Admin: 05/02/23 15:24 Dose: 100 mg Documented By: CUAUHTEMOC Famotidine (Famotidine/Pf 20 Mg/2 Ml Vial) 20 mg IVPUSH DAILY [facility] Last Admin: 05/02/23 08:48 Dose: 20 mg Documented By: CUAUHTEMOC Fluconazole (Fluconazole 100 Mg Tablet) 100 mg PO DAILY [facility] Stop: 05/06/23 09:01 Last Admin: 05/02/23 08:47 Dose: 100 mg Documented By: CUAUHTEMOC Levothyroxine Sodium (Levothyroxine Sodium 112 Mcg Tablet) 112 mcg PO DAILY@0600 [facility] Last Admin: 05/03/23 05:17 Dose: 112 mcg Documented By: RAYA Lidocaine (Lidocaine 4 % Patch Adh..Patch) 1 patch TRANSDERMA DAILY [facility]; Protocol Last Admin: 05/02/23 08:49 Dose: 1 patch Documented By: CUAUHTEMOC Lidocaine/Diphenhydr/Alum/Mg/Simeth (Mag&Al/Sim/Diphenhyd/Lidocaine 10 Ml Oral.Susp) 10 ml PO Q2H PRN; Protocol PRN Reason: Sore Throat Last Admin: 05/03/23 05:17 Dose: 10 ml Documented By: RAYA Melatonin (Melatonin 3 Mg Tablet) 6 mg PO BEDTIME PRN PRN Reason: Insomnia Last Admin: 05/02/23 23:47 Dose: 6 mg Documented By: RAYA Olanzapine (Olanzapine 2.5 Mg Tablet) 2.5 mg PO BEDTIME [facility] Last Admin: 05/02/23 21:01 Dose: 2.5 mg Documented By: RAYA Ondansetron HCl (Ondansetron Hcl 4 Mg/2 Ml Vial) 4 mg IVPUSH Q8H PRN PRN Reason: Nausea and Vomiting Oxycodone HCl (Oxycodone Hcl Immed Release 5 Mg Tablet) 5 mg PO Q4H PRN PRN Reason: Pain, Moderate(Pain Scale 4-6) Last Admin: 05/02/23 15:24 Dose: 5 mg Documented By: CUAUHTEMOC Prednisone (Prednisone 20 Mg Tablet) 40 mg PO DAILY [facility] Last Admin: 05/02/23 08:47 Dose: 40 mg Documented By: CUAUHTEMOC Sodium Chloride (0.9 % Sodium Chloride Flush 3 Ml Syringe) [facility] Last Admin: 05/02/23 21:01 Dose: 3 ml Documented By: RAYA Labs 05/03/23 05:17 05/03/23 05:17 Labs: Laboratory Results - last 24 hr 04/30/23 05/03/23 14:00 05:17 MCV 101.1 H MCH 34.8 H MCHC 34.4 RDW 21.2 H Plt Count 119 L D MPV 13.0 H Absolute Nucleated RBC 0.000 Nucleated RBC % (auto) 0.0 Anion Gap 14 Estim Creat Clear Calc 74.4 Estimated GFR > 60 Random Glucose 108 Calcium 9.6 Leuk/Lym Interpretation See Note Procedures Date of Service Date of Service: 05/03/23 Progress Note: A&P Assessment and plan (1) Macular rash: Status: Acute Assessment and Plan: Also with open wound as described above on the ankle as well as the right hand Dressings changed - non adherent dressings placed on the ankle Follow-up on biopsy Continue wound care - recommendations as per the wound care nurse Kathi Time Spent With Patient Time: Total time managing care of this patient today ____ minutes. Quality Stroke Does the patient have a stroke diagnosis?: No VTE Prior VTE?: No VTE Risk Level:: Medical - moderate - high VTE Device Contraindication: N/A - Device Ordered VTE Drug Contraindication: Treatment Not Indicated
[2023-05-03] MEDS: Lidocaine 4 % Patch ADH..PATCH 1 PATCH TRANSDERMA (08:46)
[2023-05-03] MEDS: 0.9 % Sodium Chloride Flush 3 ML SYRINGE IVFLUSH ×2 (08:46→16:55)
[2023-05-03] MEDS: predniSONE 20 MG TABLET 40 MG PO (08:47)
[2023-05-03] MEDS: Fluconazole 100 MG TABLET PO (08:47)
[2023-05-03] MEDS: oxyCODONE HCl Immed Release 5 MG TABLET PO (08:47)
[2023-05-03] MEDS: Famotidine/PF 20 MG/2 ML VIAL IVPUSH (08:48)
[2023-05-03 11:18] LABS: Glucose, Whole Blood 131 mg/dL (60-115)
[2023-05-03 11:23] LABS: Complement C3 146 mg/dL
--- NOTE | 2023-05-03 11:30 | HO.WOUND ---
Wound Consult: Follow up 82yr old female admitted to [facility] on 04/27/23 11:28? - See progress notes and H&P for detailed history. Current work up for Etiology and diagnosis by providers - pending Biopsy today. Chart review reveals significant lab abnormalities including, Platelets of 39 and WBC 1.7 - see chart for details. Direct message from Provider with request to assess wounds and progression. Wounds assessed - wound beds remain relatively the same - however Periwounds appear to resemble vasculitis - Topical treatment will remain the same - Alginate for moisture management and Etiology workup will aid in topical treatment decisions. Will reach out to Outpatient Wound Care Providers, Karma Pierre and Dr. Kim Moore for topical guidance. No new topical recommendations at this time. From 04/27/23 - Wound consult placed for Left ankle wound - multiple similar lesions in various stages of wound bed. Wounds are not consistent with pressure nor moisture. Given there presentation they are suggestive of systemic problem - I will make topical recommendations for Alginate to the open wounds for moisture management but etiology workup should continue and or follow up with dermatology outpt if findings do not explain wound development. Mouth sores notes to bilateral mucosa inside of cheeks. 05/03/23 - Right Wrist resolving / resurfaced Right Foot 04/27/23 Right Foot todays assessment 05/03/23 Left hand 04/30/23 Left Hand Todays Assessment 05/03/23 Left medial ankle 04/27/23 05/03/23 05/03/23 05/03/23 Left Hand, Left ankle, Right wrist, thumb, and foot Etiology: Unknown Etiology - Wounds resolving and improving Wound Bed: various stages or wound appearance - some are moist some remain dry Drainage / Odor: dried and serous Edges: ? irregular [place] wound: ? red nontender periwound no fluctance no induration Goals of Treatment: ? Defer to providers - topical treatment can consist of single layer xeroform for moist wound healing No topical interventions needed for Right wrist, Right Ankle at this time - resurfaced wound beds. Recommendations: 1. Turn and Reposition every 2 hours and as needed for patient comfort. 2. Off Load all bony prominences with use of pillows and heel boots if needed.? Apply Preventative foams where needed. ? 3. Monitor for incontinence and moisture control, use barrier creams when needed for prevention and treatment. 4. Provide adequate and supplemental nutrition. 5. Left ankle, Right Thumb and Left hand - Gently cleanse wound beds with NS moist gauze, pat dry. Apply skin prep to periwound, cover wound bed with single layer xeroform, cover with dry pad and wrap. Change daily. Re-consult wound care Nurse for wound deterioration or wound changes.
[2023-05-03 13:03] LABS: Myeloperoxidase Antibody <1.0 AI; Proteinase 3 PR3 Antibodies <1.0 AI
[2023-05-03 13:27] VITALS: BP 141/65; PULSE 76; O2SAT 97
--- NOTE | 2023-05-03 15:04 | MHC.CM.PN ---
PT CONTINUES TO DECLINE STR BUT WORKED WITH P.T. TODAY AND IS DOING EXCEPTIONALLY BETTER THAN HER LAST SESSION. HOME WITH P.T. SERVICES MAY BE APPROPRIATE ON DC. CM WILL CONTINUE TO FOLLOW FOR ANY CHANGES IN PLAN.
[2023-05-03 15:38] VITALS: BP 127/61; PULSE 74; RESP 20; TEMP 36.6; O2SAT 95
--- NOTE | 2023-05-03 17:15 | P.PNIM_ITS ---
Subjective Subjective Date of Service: 05/03/23 Interval History: seen and examined this morning follow up for pancytopenia, wounds no overnight events still with mouth pain Review of Systems Review of Systems: Yes all other systems are reviewed and are negative Constitutional Constitutional: Denies chills and Denies fever(s) Cardiovascular Cardiovascular: Denies chest pain, Denies palpitations and Denies dyspnea Respiratory Respiratory: Denies cough and Denies dyspnea Gastrointestinal Gastrointestinal: Denies abdominal pain Endocrine Endocrine: Denies palpitations Physical Exam 2 Vital Signs: Vital Signs: Last Vital Signs Temp 98 F 05/03/23 15:38 Pulse 74 05/03/23 15:38 Resp 20 05/03/23 15:38 BP 127/61 05/03/23 15:38 Pulse Ox 95 05/03/23 15:38 O2 Del Method Room Air 05/03/23 15:38 BMI result Body Mass Index 36.9 Const: General: cooperative, comfortable, no acute distress, alert and awake Nutritional Appearance: overweight Orientation/consciousness: patient oriented x3 Resp: Effort & Inspection: normal respiratory effort, able to speak in complete sentences, no respiratory distress and no use of accessory muscles Cardio: Rate: regular rate GI: Inspection: No distended Palpation (GI): Soft to palpation Skin: Other: left foot, left hand dressing c/d/i Neuro: General: patient oriented x3, moves all extremities and CN's II-XI intact bilaterally Objective Data Active Medications Acetaminophen (Acetaminophen 325 Mg Tablet) 650 mg PO Q6H PRN PRN Reason: Pain, Mild (Pain Scale 1-3) Last Admin: 05/02/23 12:31 Dose: 650 mg Documented By: CUAUHTEMOC Benzocaine (Throat Lozenge, Medicated Lozenge) 1 lozenge MUCOUS MEM Q2H PRN PRN Reason: Sore Throat Last Admin: 05/03/23 05:44 Dose: 1 lozenge Documented By: RAYA Benzocaine (Benzocaine 20 % Oral Gel 9 Gm Tube) 1 appl MUCOUS MEM QID [facility]; Protocol Last Admin: 05/03/23 16:54 Dose: Not Given Documented By: JOSEF Non-Admin Reason: Patient Refused Benzonatate (Benzonatate 100 Mg Capsule) 100 mg PO TID PRN PRN Reason: Cough Docusate Sodium (Docusate Sodium 100 Mg Capsule) 100 mg PO DAILY PRN PRN Reason: Constipation Last Admin: 05/02/23 15:24 Dose: 100 mg Documented By: CUAUHTEMOC Famotidine (Famotidine/Pf 20 Mg/2 Ml Vial) 20 mg IVPUSH DAILY [facility] Last Admin: 05/03/23 08:48 Dose: 20 mg Documented By: JOSEF Fluconazole (Fluconazole 100 Mg Tablet) 100 mg PO DAILY [facility] Stop: 05/06/23 09:01 Last Admin: 05/03/23 08:47 Dose: 100 mg Documented By: JOSEF Levothyroxine Sodium (Levothyroxine Sodium 112 Mcg Tablet) 112 mcg PO DAILY@0600 [facility] Last Admin: 05/03/23 05:17 Dose: 112 mcg Documented By: RAYA Lidocaine (Lidocaine 4 % Patch Adh..Patch) 1 patch TRANSDERMA DAILY [facility]; Protocol Last Admin: 05/03/23 08:46 Dose: 1 patch Documented By: JOSEF Lidocaine/Diphenhydr/Alum/Mg/Simeth (Mag&Al/Sim/Diphenhyd/Lidocaine 10 Ml Oral.Susp) 10 ml PO Q2H PRN; Protocol PRN Reason: Sore Throat Last Admin: 05/03/23 16:54 Dose: 10 ml Documented By: JOSEF Melatonin (Melatonin 3 Mg Tablet) 6 mg PO BEDTIME PRN PRN Reason: Insomnia Last Admin: 05/02/23 23:47 Dose: 6 mg Documented By: RAYA Olanzapine (Olanzapine 2.5 Mg Tablet) 2.5 mg PO BEDTIME [facility] Last Admin: 05/02/23 21:01 Dose: 2.5 mg Documented By: RAYA Ondansetron HCl (Ondansetron Hcl 4 Mg/2 Ml Vial) 4 mg IVPUSH Q8H PRN PRN Reason: Nausea and Vomiting Oxycodone HCl (Oxycodone Hcl Immed Release 5 Mg Tablet) 5 mg PO Q4H PRN PRN Reason: Pain, Moderate(Pain Scale 4-6) Last Admin: 05/03/23 08:47 Dose: 5 mg Documented By: JOSEF Prednisone (Prednisone 20 Mg Tablet) 40 mg PO DAILY [facility] Last Admin: 05/03/23 08:47 Dose: 40 mg Documented By: JOSEF Sodium Chloride (0.9 % Sodium Chloride Flush 3 Ml Syringe) 3 ml IVFLUSH QSHIFT [facility] Last Admin: 05/03/23 16:55 Dose: 3 ml Documented By: JOSEF Labs 05/03/23 05:17 05/03/23 05:17 Labs: Laboratory Results - last 24 hr 04/27/23 05/01/23 05/03/23 13:48 09:10 05:17 MCV 101.1 H MCH 34.8 H MCHC 34.4 RDW 21.2 H Plt Count 119 L D MPV 13.0 H Absolute Nucleated RBC 0.000 Nucleated RBC % (auto) 0.0 Anion Gap 14 Estim Creat Clear Calc 74.4 Estimated GFR > 60 POC Glucose Random Glucose 108 Calcium 9.6 Proteinase 3 (PR3) Ab <1.0 Myeloperoxidase Ab <1.0 Complement C3 146 Complement C4 22 05/03/23 11:05 MCV MCH MCHC RDW Plt Count MPV Absolute Nucleated RBC Nucleated RBC % (auto) Anion Gap Estim Creat Clear Calc Estimated GFR POC Glucose 131 H Random Glucose Calcium Proteinase 3 (PR3) Ab Myeloperoxidase Ab Complement C3 Complement C4 Microbiology Microbiology Results: Microbiology 04/28/23 07:46 Blood Culture - Final Blood - Venous No growth after 5 days. 04/28/23 07:46 Blood Culture - Final Blood - Venous No growth after 5 days. Assessment and Plan (1) Macular rash: Status: Acute (2) Pancytopenia: Status: Acute Plan Pt is an 82-year-old female with a PMH significant for? hypothyroidism, mood disorder, mixed hyperlipidemia, and hx of pancytopenia who presents to the ED after fall out of bed earlier this morning. Patient was recently admitted to the hospital on 04/10-04/13 for pancytopenia, Patient's stool was positive for occult blood during that admission and patient was seen by GI, however no active GI bleed was found. Pancytopenia ultimately was thought to be chronic and attributed to valproic acid use. 1.Pancytopenia(acute/chronic) thought to be med related on last admit but after stopping depakote, levels have decreased further s/p 1 unit PRBCs in ED with improvement in H/H; s/p plt tx x 2 numbers improving bone marrow..evaluation of the aspirate shows erythroid hyperplasia but no evidence of acute leukemia or primary bone marrow process 2.Odynophagia -throat cx/monospot negative -Magic mouthwash Q2h prn, cepacol -continue diflucan(11/01)... possible esophagitis 3.Skin wounds multiple dif dx. drug related: bullous pemphigoid vs vasculitis No indication of infection at this time Wound care consult>may try topic zinc oxide to help with inflammatory appearance, not appearing infected Gen surg consult for punch biopsy ID> discussed case, stop abx, start steroid prednisone 40mg daily -punch biopsy pending -continue steroids at current dosing compliment, RF WNL, JAYRO pending 4.Hypokalemia -resolved with replacement 5.Bipolar disorder -olanzapine as ordered Hypothyroidism Continue levothyroxine Full Code Pneumatic boots d/t anemia attending - dr. bernstein dispo- home with PT The complexity of the patient's conditions, the need for multiple investigations, ongoing monitoring, and specialized care from various consultants make the hospital the appropriate setting for managing these issues effectively.The bone marrow biopsy will likely provide more clarity regarding the pancytopenia, and the consults should help in addressing the other ongoing concerns. Quality Stroke Does the patient have a stroke diagnosis?: No VTE Prior VTE?: No VTE Risk Level:: Medical - moderate - high VTE Device Contraindication: N/A - Device Ordered VTE Drug Contraindication: Treatment Not Indicated
[2023-05-03] MEDS: OLANZapine 2.5 MG TABLET PO (20:27)
[2023-05-03 23:29] VITALS: BP 120/62; PULSE 70; RESP 19; TEMP 36.5; O2SAT 95
[2023-05-04] MEDS: Mag&Al/Sim/Diphenhyd/Lidocaine 10 ML ORAL.SUSP PO ×2 (00:20→12:02)
[2023-05-04] MEDS: Melatonin 3 MG TABLET 6 MG PO (00:20)
[2023-05-04] MEDS: 0.9 % Sodium Chloride Flush 3 ML SYRINGE IVFLUSH ×2 (00:22→08:29)
[2023-05-04] MEDS: Levothyroxine Sodium 112 MCG TABLET PO (05:59)
[2023-05-04 06:51] LABS: Hematocrit 27.1 % (37.0-47.0); Hemoglobin 8.9 g/dl (12.0-16.0); Mean Corpuscular HGB Conc 32.8 g/dl (31.0-35.0); Mean Corpuscular Hemoglobin 33.8 pg (27.0-33.0); Mean Platelet Volume 11.5 fL (9.4-12.3); Platelet Count 196 X10*3/uL (160-400); Red Blood Count 2.63 X10*6/uL (4.20-5.50); Red Cell Distribution Width 21.3 % (11.0-16.0); White Blood Count 4.9 X10*3/uL (4.8-10.8)
[2023-05-04 07:40] VITALS: BP 158/74; PULSE 67; RESP 18; TEMP 36.4; O2SAT 95
[2023-05-04 08:23] LABS: Anti Nuclear Antibody Screen NEGATIVE (NEGATIVE)
[2023-05-04] MEDS: predniSONE 20 MG TABLET 40 MG PO (08:29)
[2023-05-04] MEDS: Famotidine/PF 20 MG/2 ML VIAL IVPUSH (08:29)
[2023-05-04] MEDS: Fluconazole 100 MG TABLET PO (08:29)
[2023-05-04] MEDS: Lidocaine 4 % Patch ADH..PATCH 1 PATCH TRANSDERMA (08:29)
--- NOTE | 2023-05-04 10:38 | PM.HEMONCPN ---
Medical Summary - Medical Summary Date of Service: 05/04/23 Chief complaint: Throat pain Primary Care Provider: Gary Brandon DO Medical Summary: Diagnosis: Pancytopenia/anemia Past medical history significant for hypothyroidism, mood disorder and recurrent admission for pancytopenia, ulceration over the left heel/ankle as well as left hand. She has had decreasing counts since 2020. Recently she was diagnosed with strep throat and received 2 courses of antibiotics. Azithromycin followed by amoxicillin after which she continued to feel tired although sore throat has resolved. Possible etiologies for worsening cytopenia was felt to be infection, antibiotic use and possible ongoing use of Depakote. She was taken off Depakote during hospitalization. Blood work showed pancytopenia with significant drop in platelet counts. No symptoms to suggest acute gastrointestinal blood losses. She was Hemoccult positive, her patient GI workup is being planned. She has normal vitamin B12 and folate levels, normal kidney functions. Her transaminases are mildly elevated, no coagulopathy. LDH was mildly elevated at 438 U/L. Interval History Interval history: She continues to feel pain in her throat. No fever or chills. Headache, chest pain, cough or shortness of breath. She is feeling better overall. Review of Systems - Neurologic Denies focal weakness, Denies convulsions PMFSH Medical History: Medical History (Last Updated 05/01/23 @ 14:45 by Lul Salgado MD) Bipolar disorder in full remission Bipolar disorder in remission Chronic leukopenia Hypothyroidism Macular rash Pancytopenia Peripheral neuropathy Thrombocytopenia Family History: Family History (Last Reviewed 05/01/23 @ 14:43 by Lul Salgado MD) Brother Stomach cancer Mother Stomach cancer Maternal Aunt Brain cancer Maternal Aunt Stomach cancer Esophageal cancer Maternal Grandfather Colon cancer Family history: reviewed and not pertinent Surgical History: Surgical History (Last Reviewed 05/01/23 @ 14:43 by Lul Salgado MD) History of bilateral knee replacement Social History: Social History (Last Reviewed 05/01/23 @ 14:43 by Lul Salgado MD) Living Situation History: Household Members: Spouse Housing: Apartment Do you presently have visiting nurse or other home services: No Alcohol History Details: Currently Displaying Signs/Symptoms of Alcohol Withdrawal: No Tobacco History: Patient Tobacco Use Status: Never used Tobacco Smoked in Last 30 Days: No Substance Use History: Use of substances other than those prescribed or required for medical reasons: No Currently Displaying Signs/Symptoms of Drug Intoxication Withdrawal: No Advance Directives: Advance Directives: Yes Advance Directives Information Provided: No Advance Directives on File: Yes Advance Directives on File comment: Updated advance directives with proxy Advance Directives Date on File: 04/26/23 Occupation Assessmet: service: No Current occupational status: retired Home Medications and Allergies Current Medications: Current Medications Acetaminophen (Acetaminophen 325 Mg Tablet) 650 mg PO Q6H PRN PRN Reason: Pain, Mild (Pain Scale 1-3) Last Admin: 05/02/23 12:31 Dose: 650 mg Benzocaine (Throat Lozenge, Medicated Lozenge) 1 lozenge MUCOUS MEM Q2H PRN PRN Reason: Sore Throat Last Admin: 05/03/23 17:50 Dose: 1 lozenge Benzocaine (Benzocaine 20 % Oral Gel 9 Gm Tube) 1 appl MUCOUS MEM QID [facility]; Protocol Last Admin: 05/04/23 08:29 Dose: Not Given Benzonatate (Benzonatate 100 Mg Capsule) 100 mg PO TID PRN PRN Reason: Cough Docusate Sodium (Docusate Sodium 100 Mg Capsule) 100 mg PO DAILY PRN PRN Reason: Constipation Last Admin: 05/02/23 15:24 Dose: 100 mg Famotidine (Famotidine/Pf 20 Mg/2 Ml Vial) 20 mg IVPUSH DAILY [facility] Last Admin: 05/04/23 08:29 Dose: 20 mg Fluconazole (Fluconazole 100 Mg Tablet) 100 mg PO DAILY [facility] Stop: 05/06/23 09:01 Last Admin: 05/04/23 08:29 Dose: 100 mg Levothyroxine Sodium (Levothyroxine Sodium 112 Mcg Tablet) 112 mcg PO DAILY@0600 [facility] Last Admin: 05/04/23 05:59 Dose: 112 mcg Lidocaine (Lidocaine 4 % Patch Adh..Patch) 1 patch TRANSDERMA DAILY [facility]; Protocol Last Admin: 05/04/23 08:29 Dose: 1 patch Lidocaine/Diphenhydr/Alum/Mg/Simeth (Mag&Al/Sim/Diphenhyd/Lidocaine 10 Ml Oral.Susp) 10 ml PO Q2H PRN; Protocol PRN Reason: Sore Throat Last Admin: 05/04/23 00:20 Dose: 10 ml Melatonin (Melatonin 3 Mg Tablet) 6 mg PO BEDTIME PRN PRN Reason: Insomnia Last Admin: 05/04/23 00:20 Dose: 6 mg Olanzapine (Olanzapine 2.5 Mg Tablet) 2.5 mg PO BEDTIME [facility] Last Admin: 05/03/23 20:27 Dose: 2.5 mg Ondansetron HCl (Ondansetron Hcl 4 Mg/2 Ml Vial) 4 mg IVPUSH Q8H PRN PRN Reason: Nausea and Vomiting Oxycodone HCl (Oxycodone Hcl Immed Release 5 Mg Tablet) 5 mg PO Q4H PRN PRN Reason: Pain, Moderate(Pain Scale 4-6) Last Admin: 05/03/23 08:47 Dose: 5 mg Prednisone (Prednisone 20 Mg Tablet) 40 mg PO DAILY [facility] Last Admin: 05/04/23 08:29 Dose: 40 mg Sodium Chloride (0.9 % Sodium Chloride Flush 3 Ml Syringe) 3 ml IVFLUSH QSHIFT [facility] Last Admin: 05/04/23 08:29 Dose: 3 ml Home Medications Medication Instructions Recorded Confirmed Type levothyroxine 112 mcg tablet 112 mcg PO DAILY@0600 06/30/21 04/26/23 History rosuvastatin 5 mg tablet 5 mg PO DAILY 06/30/21 04/26/23 History cetirizine 10 mg tablet 10 mg PO DAILY 02/07/23 04/26/23 History ergocalciferol (vitamin D2) 1,250 1,250 mcg PO MO 02/07/23 04/26/23 History mcg (50,000 unit) capsule pantoprazole 40 mg tablet,delayed 40 mg PO DAILY 02/07/23 04/26/23 History release Mag&Al/Sim/Diphenhyd/Lidocaine 10 ml PO Q4H Oral burning 04/26/23 04/26/23 History [Magic Mouthwash] Methylfolate 15 mg PO DAILY 04/26/23 04/26/23 History clonazepam 1 mg tablet 1 mg PO BEDTIME PRN insomnia 04/26/23 04/26/23 History Allergies Allergy/AdvReac Type Severity Reaction Status Date / Time gabapentin Allergy Unknown lumps on Verified 04/10/23 14:00 arms Exam Vital signs: Vital Signs Temp 97.5 F 05/04/23 07:40 Pulse 67 05/04/23 07:40 Resp 18 05/04/23 07:40 BP 158/74 H 05/04/23 07:40 Pulse Ox 95 05/04/23 07:40 O2 Del Method Room Air 05/04/23 07:40 Intake & Output 05/03/23 05/04/23 05/04/23 18:59 06:59 18:59 Intake Total 480 / 840 360 / 840 Balance 480 / 840 360 / 840 Intake: Intake, Oral Amount 480 / 840 360 / 840 Other: Breakfast % Eaten 50% Lunch % Eaten 75% Number of Incontinent Voids 1 Number of Unmeasured Voids 2 2 Urine Bathroom Bathroom Weight 88.6 kg BMI result Body Mass Index 36.9 - Constitutional Present: mild distress, obese - Routine Respiratory Exam Present: CTAB. Absent: accessory muscle use - Routine Cardiovascular Exam Cardiovascular: Present: S1, S2 - Routine Skin Exam Present: erythema, lesions - Routine Neurological Exam Present: alert, oriented X3 Data - Labs CBC & Chem 7: 05/04/23 05:40 05/03/23 05:17 - Imaging Radiologist's impression: ITS Impressions Head CT 04/26/23 08:00 IMPRESSION: No acute intracranial pathology. Venous Duplex 04/26/23 08:00 IMPRESSION: No DVT demonstrated in the left lower extremity. Possible right hip joint effusion. Chest X-Ray 04/26/23 08:28 IMPRESSION: Left basilar atelectasis. Bone Marrow Biopsy w/ CT 04/30/23 14:20 Impression: CT-guided bone marrow biopsy and aspirate This procedure was performed by Angelito Haque PA-C and supervised by Dr. Bellamy. Assessment and Plan Patient Active problem list reviewed?: Yes (1) Pancytopenia Status: Acute Assessment and plan: 1. This is a 82-year-old woman with acute worsening of chronic pancytopenia. Hematological workup showed mild reticulocytopenia without hematinic deficiencies. Serum immunofixation showed no monoclonal protein. No renal or liver dysfunction, no evidence of hemolysis. She has persistent erythema of posterior pharynx, did not respond to multiple rounds of antibiotics. She has now developed redness and ulceration over her left ankle and wrist, unclear etiology. She has also worsening pancytopenia. Recently performed CT abdomen/pelvis does not show hepatosplenomegaly. There is no lymphadenopathy. She has required platelet transfusion for counts below 20,000. She underwent CT guided Bone marrow biopsy on 04/30/2023. Pathology revealed hypercellular erythroid dominant marrow with mild megaloblastoid erythroid maturation. Increased iron stores, no infiltrative process seen. Flow cytometry was negative. Cytogenetics is pending. As per pathologist, differential diagnosis includes MDS, nutritional deficiency, drug toxin effect and infection. Apart from recent use of antibiotics before her admission to hospital, Depakote was switched to Zyprexa. Since she was stable on Depakote for many years, consider switching her back to Depakote. Not sure if Zyprexa is causing these skin lesions. She responded to prednisone, both leukopenia and thrombocytopenia have resolved. She is on prednisone 40 mg once daily, continue this for now. She will be gradually tapered from next week. I suggest follow-up with rheumatology as well. Follow-up next week in the office upon discharge. - Time Spent With Patient Time Spent with Patient (in minutes): 15
[2023-05-04] MEDS: Throat Lozenge, Medicated LOZENGE 1 LOZENGE MUCOUS MEM (10:48)
--- NOTE | 2023-05-04 12:03 | PM.DS ---
DS: Providers Provider Date of Service: 05/04/23 Date of admission: 04/27/23 11:28 Date of discharge: 05/04/23 Primary care physician: Gary Brandon DO Consults: 04/26/23 14:18 Consult to Hematology / Oncology Routine Consulting Provider: Pk Acosta Reason for consultation: Worsening pancytopenia, Depakote dc's 2 weeks ago 04/26/23 14:21 Consult to Wound Care Routine Reason for consultation: Large, partially popped bullae on left foot/heel 04/27/23 10:54 Consult to Infectious Diseases Routine Consulting Provider: [facility] [place] Infectious Disease Reason for consultation: skin lesions, sore throat; pancytopenia ?infectious process Has provider been notified: No 05/01/23 11:30 Consult to General Surgery Routine Consulting Provider: [facility] [place] General Surgeons Reason for consultation: punch biopsy, skin, ankle Attending physician on discharge: Carrington Sawyer Discharging clinician: Tahira Montgomery DS: Diagnosis Discharge Diagnosis (1) Pancytopenia: Status: Acute DS: Summary Hospital Course Hospital Course: From H&P on day of admission Pt is an 82-year-old female with a PMH significant for? hypothyroidism, mood disorder, mixed hyperlipidemia, and hx of pancytopenia who presents to the ED after fall out of bed earlier this morning. Patient was recently admitted to the hospital on 04/10-04/13 for pancytopenia, Patient's stool was positive for occult blood during that admission and patient was seen by GI, however no active GI bleed was found. Pancytopenia ultimately was thought to be chronic and attributed to valproic acid use. Patient was switched from Depakote to Zyprexa. Since discharge patient states she has continued to feel fatigued, increase the past few days. Patient also notes she developed large blisters on her left heel and foot. Spoke to her PCP who suggested soaking them in warm water. Patient states they burst yesterday, draining clear fluid. Patient states she has not been able to ambulate very well due to fatigue and left foot pain secondary to her blisters. This morning when patient woke she attempted to get out of bed but could not stand and slid off the side of bed landing on her buttocks. Denies LOC, head strike, lightheadedness, or dizziness. Patient call to her who also was unsuccessful in being able to get her up off the floor so EMS was called. Patient also notes that while on the stretcher her neighbor commented that her legs looked much more swollen the past few days. Denies melena, hematochezia. No fever, chills, nausea, vomiting, diarrhea. Denies chest pain/pressure, palpitations. No shortness of breath. In the ED pt with slightly soft BP of 127/58, otherwise with stable vitals. Labs were significant for pancytopenia of WBC 1.7, H&H 7.5/21.7, platelets 58, slightly low potassium 3.2, BUN 24, bilirubin 1.7. BNP 33. UA negative for UTI. Stool negative for occult blood. CXR showed left basilar atelectasis without focal consolidation or pleural effusion. CT?of head negative for acute intracranial pathology. Venous Doppler of left lower extremity negative for DVT but did show possible right hip joint effusion. EKG demonstrated normal sinus rhythm without evidence of significant ST elevations or depressions. ED contacted Dr. Acosta in hematology/oncology, who recommended hospital observation, transfusion of 1 unit PRBCs, and repeat labs. Pt was treated with potassium chloride, IVF, and transfused 1 unit of PRBCs. Pt will be admitted to the hospital under observation for treatment further evaluation of pancytopenia. Pancytopenia (acute on chronic) thought to be med related on last admit but after stopping depakote levels have decreased further. s/p 1 unit PRBCs in ED with improvement in H/H; s/p plt tx x 2. 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 She was started on prednisone and her numbers have improved with platelets up to 196. Thought to be related to autoimmune process, but JAYRO screen, RF and complement levels all WNL. Possible medication related as previously thought, per hematology recommend to change back to depakote from zyprexa as patient has skin involvement as well. Discussed with psychiatry plan to resume depakote 250 tomorrow and then increase by 250 until back up to 750 and then discuss with psychiatrist as outpatient. Patient says she has plenty left at home and doesn't need a prescription. Will send with prednisone taper with plan for close follow up with rheumatology and hematology. Omeprazole until completed course of steroids. Odynophagia throat culture and monospot negative. she was treated symptomatically with magic mouthwash and cepacol. She was also startedon diflucan for possible esophagitis Skin wounds multiple dif dx. drug related: bullous pemphigoid vs med related vs autoimmune mediated No indication of infection at this time Wound care consult>may try topic zinc oxide to help with inflammatory appearance, not appearing infected. Gen surgury was consulted for punch biopsy, the results of which are pending at this time. She was seen by ID who didn't think there was an infectious process and recommended to start steroids.Will be discharged home with VNA services for dressing changes. Overall wounds improving and no evidence of infection. consider outpatient dermatology evaluation if not improvement. home with vna for assistance with dressing changes. VNA will likely start on sunday, patient will be sent home with supplies for dressing changes and will have family assistance to assist with changes. Time Attestation Discharge coordination time: Greater than 30 minutes Quality: Safe Use of Opioids Does Pt have an Active Cancer Diagnosis on the Problem List?: No Quality: Stroke Does the patient have a stroke diagnosis?: No Physical Exam Vital Signs: Vital Signs: Last Vital Signs Temp 97.5 F 05/04/23 07:40 Pulse 67 05/04/23 07:40 Resp 18 05/04/23 07:40 BP 158/74 H 05/04/23 07:40 Pulse Ox 95 05/04/23 07:40 O2 Del Method Room Air 05/04/23 07:40 BMI result Body Mass Index 36.9 Const: General: cooperative, comfortable, no acute distress, alert and awake Nutritional Appearance: average body habitus Orientation/consciousness: patient oriented x3 Resp: Effort & Inspection: normal respiratory effort, able to speak in complete sentences, no respiratory distress and no use of accessory muscles Cardio: Rate: regular rate GI: Inspection: No distended Palpation (GI): Soft to palpation and nontender Skin: Other: right right ankle left ankle left ankle lateral view Neuro: General: patient oriented x3, moves all extremities and CN's II-XI intact bilaterally DS: Data Data Completed and Pending Completed studies during hospitalization [Text1]: Pending at discharge 04/30/23 14:13 Surgical Path [Surgical] [PTH] Routine Pending studies at discharge: Pending at discharge 05/01/23 14:13 Surgical Path [Surgical] [PTH] Routine Labs on day of discharge: Laboratory Results - last 24 hr 04/27/23 05/01/23 05/04/23 13:48 09:10 05:40 WBC 4.9 RBC 2.63 L Hgb 8.9 L Hct 27.1 L MCV 103.0 H MCH 33.8 H MCHC 32.8 RDW 21.3 H Plt Count 196 D MPV 11.5 Absolute Nucleated RBC 0.000 Nucleated RBC % (auto) 0.0 JAYRO Screen NEGATIVE Proteinase 3 (PR3) Ab <1.0 Myeloperoxidase Ab <1.0 Discharge Plan Discharge Anticipated Discharge Date/Time: 05/04/23 13:39 Patient Disposition: Home Health Service Discharge Diagnosis: pancytopenia skin rash Referrals: [facility] [Outside] - 3-5 Days (HOME CARE SERVICES FOR HALFWAY AND PHYSICAL THERAPY VISITS- A NURSE WILL CALL YOU TO SET UP FIRST VISIT.) Lashon Alarcon MD [Physician] - 1 Week Gary Brandon DO [Primary Care Provider] - 1 Week Benito Bojorquez MD [Physician] - 1 Week Discharge Medications: New fluconazole 100 mg Tablet 100 mg PO DAILY 3 Days Qty: 3 0RF prednisone 10 mg tablet See Taper PO DAILY Qty: 24 0RF Taper: Prednisone 30 mg daily for 4 Days and 0 Hour 20 mg daily for 4 Days and 0 Hour 10 mg daily for 4 Days and 0 Hour omeprazole 20 mg capsule,delayed release(DR/EC) 20 mg PO DAILY 14 Days Qty: 14 0RF Continued Methylfolate capsule 15 mg PO DAILY clonazepam 1 mg tablet 1 mg PO BEDTIME PRN (Reason: insomnia) Rx Instructions: administer 30 minutes before bedtime levothyroxine 112 mcg tablet 112 mcg PO DAILY@0600 rosuvastatin 5 mg tablet 5 mg PO DAILY ergocalciferol (vitamin D2) 1,250 mcg (50,000 unit) capsule 1,250 mcg PO MO pantoprazole 40 mg tablet,delayed release (DR/EC) 40 mg PO DAILY Held cetirizine 10 mg tablet 10 mg PO DAILY Hold Instructions: hold until follow up with pcp Discontinued Mag&Al/Sim/Diphenhyd/Lidocaine [Magic Mouthwash] 10 ml PO Q4H olanzapine 2.5 mg Tablet 2.5 mg PO BEDTIME Qty: 30 0RF Discharge Orders: Discharge Order (Routine); Ordered 12/15/23 Ordered By: Tahira Montgomery Activity on Discharge: As tolerated Stand Alone Forms: Patient Portal Discharge page Care Plan Goals: see below Health Concerns: pancytopenia skin wounds Plan of Treatment: take prednisone as prescribed - take omeprazole while taking steroids schedule follow up appointment with hematology, Dr. Alarcon for next week as well as rheumatology stop taking zyprexa resume taking depakote- take 250 starting tomorrow, 500 mg the next day and then 750 the day after and moving forward can use cepacol for throat pain and complete diflucan. if no improvement may need ENT evaluation [facility] with [facility] results of punch biopsy are pending at the time of discharge - if not improvement in skin wouunds may need dermatology evaluation Assessment: see discharge summary
--- NOTE | 2023-05-04 13:41 | W.MHC.F2F ---
Service Date Service Date: 05/04/23 Encounter Date of encounter: 05/04/23 Encounter: needs halfway for dressing changes Reasons for Services Signs and symptoms assessed: needs halfway for assistance with dressing changes. Reason for halfway: wound care (Left ankle, Right Thumb and Left hand - Gently cleanse wound beds with NS moist gauze, pat dry. Apply skin prep to periwound, cover wound bed with single layer xeroform, cover with dry pad and wrap. Change daily) MD Overseeing Care: Gary Brandon Homebound: Leaving the home is medically contraindicated at this time without the asist of a device and/or another person due th the listed conditions above and below. Reason homebound: weakness related to hospital stay Certification: Based on the above findings, I certify that this patient is confined to the home and needs intermittent halfway care, physical therapy and/or speech therapy, or continues to need occupational therapy. The patient is under my care, and I have initiated the establishment of the plan of care. The patient will be followed by a physician who will periodically review the plan of care. Time Spent With Patient Time: Total time managing care of this patient today ____ minutes.
--- NOTE | 2023-05-04 14:17 | MHC.CM.PN ---
DP: PT HAS BEEN MEDICALLY CLEARED FOR DC HOME WITH NEW [facility] SERVICES. FAMILY WILL TRANSPORT PT HOME. HCP BRISEYDA NOTIFIED, PER PT'S REQUEST, OF TODAY'S DC. [facility] UPDATED.
== END 2023-05-04 15:09 | disposition home health service (06) | DRG 810 ==
LOC: HO.ED 12:59 → HO.EDOVER 14:23 → HO.S3 15:01
PROVIDERS: Hospitalist; Internal Medicine; Nurse Practitioner Acute Care; Pathology Anatomic Pathology & Clinical Pathology; Physician Assistant; Student in an Organized Health Care Education/Training Program; Admitting Provider Student in an Organized Health Care Education/Training Program; Emergency Provider Emergency Medicine Emergency Medical Services; PCP Internal Medicine; Visit Provider Physician Assistant Medical
PROC: 07DR3ZX Extraction of Iliac Bone Marrow, Percutaneous Approach, Diagnostic (ICD-10-PCS; CPT 38221; principal; 2023-04-30 13:00)
DX: D61.811 Other drug-induced pancytopenia (principal); L27.1 Localized skin eruption due to drugs and medicaments taken internally; F31.9 Bipolar disorder, unspecified; R13.10 Dysphagia, unspecified; T43.595A Adverse effect of other antipsychotics and neuroleptics, initial encounter; E66.09 Other obesity due to excess calories; Z68.36 Body mass index [BMI] 36.0-36.9, adult; E87.6 Hypokalemia; E03.9 Hypothyroidism, unspecified; E78.2 Mixed hyperlipidemia; Z79.890 Hormone replacement therapy; Z79.899 Other long term (current) drug therapy
CPT/HCPCS: 36415; 38222; 70450; 71045; 80048; 80053; 81001; 82272; 82607; 82746; 82947; 83615; 83735; 83880; 84484; 85025; 85027; 85379; 85384; 85610; 85652; 86021; 86038; 86140; 86160; 86308; 86431; 86850; 86900; 86901; 86923; 87040; 87070; 87086; 87389; 87468; 87469; 87478; 87484; 87798; 88184; 88185; 88237; 88264; 88304; 88305; 88311; 88312; 88313; 88374; 90686; 93005; 93971; 97116; 97162; 97530; 99152; 99221; 99285; P9016; P9073

== ENCOUNTER → 2023-04-26 06:28 | Outpatient (BNV) | payer MEDICARE, OTHER, SELFPAY | PROVIDERS: Admitting Provider Student in an Organized Health Care Education/Training Program; Emergency Provider Emergency Medicine Emergency Medical Services; PCP Internal Medicine; Visit Provider Internal Medicine | DX: R94.31 Abnormal electrocardiogram [ECG] [EKG] (principal) | CPT/HCPCS: 93010 ==

== ENCOUNTER → 2023-04-26 14:10 | Outpatient (BNV) | payer MEDICARE, OTHER, SELFPAY | PROVIDERS: Admitting Provider Student in an Organized Health Care Education/Training Program; Emergency Provider Emergency Medicine Emergency Medical Services; PCP Internal Medicine; Visit Provider Student in an Organized Health Care Education/Training Program | DX: D61.818 Other pancytopenia (principal) | CPT/HCPCS: 99222; 99232; 99233; 99239; G0180 ==

== ENCOUNTER 2023-04-27 11:28 | Outpatient (BNV) | payer MEDICARE, OTHER, SELFPAY | END 2023-04-30 13:29 | PROVIDERS: Admitting Provider Student in an Organized Health Care Education/Training Program; Emergency Provider Emergency Medicine Emergency Medical Services; PCP Internal Medicine; Visit Provider Student in an Organized Health Care Education/Training Program | DX: D61.818 Other pancytopenia (principal) | CPT/HCPCS: 38222; 77012 ==

== ENCOUNTER → 2023-04-27 11:28 | Outpatient (BNV) | payer MEDICARE, OTHER, SELFPAY | PROVIDERS: Admitting Provider Student in an Organized Health Care Education/Training Program; Emergency Provider Emergency Medicine Emergency Medical Services; PCP Internal Medicine; Visit Provider Internal Medicine | DX: D61.818 Other pancytopenia (principal); F31.70 Bipolar disorder, currently in remission, most recent episode unspecified | CPT/HCPCS: 99222 ==

== ENCOUNTER → 2023-04-27 11:28 | Outpatient (BNV) | payer MEDICARE, OTHER, SELFPAY | PROVIDERS: Admitting Provider Student in an Organized Health Care Education/Training Program; Emergency Provider Emergency Medicine Emergency Medical Services; PCP Internal Medicine; Visit Provider Internal Medicine | DX: D61.818 Other pancytopenia (principal) | CPT/HCPCS: 99222; 99231 ==

== ENCOUNTER → 2023-04-27 11:28 | Outpatient (BNV) | payer MEDICARE, OTHER, SELFPAY | PROVIDERS: Admitting Provider Student in an Organized Health Care Education/Training Program; Emergency Provider Emergency Medicine Emergency Medical Services; PCP Internal Medicine; Visit Provider Surgery | DX: R21 Rash and other nonspecific skin eruption (principal) | CPT/HCPCS: 11104; 99222; 99231; 99499 ==

== ENCOUNTER 2023-05-23 09:35 | Outpatient (REF) | payer MEDICARE, OTHER, SELFPAY | END 2023-05-23 09:36 | disposition home or self-care (01) | LOC: HO.XRAY 09:35 | PROVIDERS: PCP Internal Medicine; Visit Provider Otolaryngology | DX: R13.10 Dysphagia, unspecified (principal) | CPT/HCPCS: 74221 ==

== ENCOUNTER → 2023-05-23 09:38 | Outpatient (BNV) | payer MEDICARE, OTHER, SELFPAY | PROVIDERS: PCP Internal Medicine; Visit Provider Radiology Diagnostic Radiology | DX: R10.13 Epigastric pain (principal) | CPT/HCPCS: 74221 ==

== ENCOUNTER 2023-06-06 13:42 | Inpatient (IN) | payer MEDICARE, OTHER, SELFPAY ==
--- NOTE | ~2023-06-06 | US_ITS ---
EXAMINATION: US VENOUS ULTRASOUND WITH DOPPLER LOWER EXTREMITY, BILATERAL CLINICAL INFORMATION: Pain and swelling COMPARISON: Lower extremity DVT ultrasound 04/26/2023 TECHNIQUE: Ultrasound of the deep veins is performed from the hip to the calf with compression sonography and color and pulse Doppler assessment. Spectral analysis with color-flow imaging is performed. Technically limited exam. FINDINGS: RIGHT: There is normal venous compression and respiratory variation and augmented flow. The visualized common femoral vein, superficial femoral vein, profunda femoral vein, popliteal vein, and the trifurcation region shows no evidence of deep venous thrombosis. There is no significant popliteal fossa cyst. Mild subcutaneous edema. LEFT: There is normal venous compression and respiratory variation and augmented flow. The visualized common femoral vein, superficial femoral vein, profunda femoral vein, popliteal vein, and the trifurcation region shows no evidence of deep venous thrombosis. There is no significant popliteal fossa cyst. Mild subcutaneous edema. If the patient's symptoms persist, followup ultrasound in 5 days 7 days might be of value to exclude proximal propagation from a non-visualized calf vein. US/US venous duplex LE BI IMPRESSION: No DVT demonstrated in the bilateral lower extremities. Mild subcutaneous edema bilaterally.
[2023-06-06 13:58] VITALS: BP 111/60; BP 99/59; PULSE 70; PULSE 88; RESP 16; TEMP 36; O2SAT 100; O2SAT 96; BMI 31.0
--- NOTE | 2023-06-06 13:58 | ED_ITS ---
HPI - Extremity Problem General Chief complaint: Extremity Injury, Lower Stated complaint: LEG BLISSTERS/EDEMA Time Seen by Provider: 06/06/23 13:49 Source: patient and old records reviewed Mode of arrival: EMS Limitations: other (poor historian) History of Present Illness HPI Narrative: 82 yo female with PMH of mood disoder, HLD, hypothyroidism, pancytopenia, skin wounds of lower extremity ID felt not infected but recommended they start steroids. Path from punch biopsy showed possible resolving eczematous dermatitis, urticaria or drug reaction. She comes in today with c/o now increased redness to both legs she denies fevers, chills. VNA saw legs and advised she come to the ED. She is also due to Dr. Ronquillo for oral lesions - she denies vaginal lesions or rectal lesions MD Complaint: extremity pain and extremity swelling Onset (ago): day(s) (redness worsening upon waking this AM) Pain Consistency: constant Location: left, right and lower extremity Quality: aching and constant Relieving factors: rest Exacerbating factors: palpation Associated symptoms: denies other symptoms Context: other (hx of similar episode - had punch biopsy of note was never able to follow up with dermatology) Related Data Home Medications Medication Instructions Recorded Confirmed levothyroxine 112 mcg tablet 112 mcg PO DAILY@0600 06/30/21 05/16/23 cetirizine 10 mg tablet 10 mg PO DAILY 02/07/23 05/16/23 ergocalciferol (vitamin D2) 1,250 1,250 mcg PO MO 02/07/23 05/16/23 mcg (50,000 unit) capsule pantoprazole 40 mg tablet,delayed 40 mg PO DAILY 02/07/23 05/16/23 release Methylfolate 15 mg PO DAILY 04/26/23 05/16/23 clonazepam 1 mg tablet 1 mg PO BEDTIME PRN insomnia 04/26/23 05/16/23 Previous Rx's Medication Instructions Recorded fluconazole 100 mg tablet 100 mg PO DAILY 3 days #3 tabs 05/04/23 omeprazole 20 mg capsule,delayed 20 mg PO DAILY 14 days #14 caps 05/04/23 release prednisone 10 mg tablet See Taper PO DAILY #24 tabs 05/04/23 valproic acid 250 mg capsule 250 - 500 mg (1 - 2 x 250 mg) PO 05/09/23 DIRECTED #60 caps Allergies Allergy/AdvReac Type Severity Reaction Status Date / Time olanzapine Allergy Intermediate Blister Verified 05/16/23 09:30 gabapentin Allergy Unknown lumps on Verified 05/16/23 09:26 arms Review of Systems 2 Review of Systems: Constitutional : No Fever, No Chills ENT/Mouth : No sore throat, No Rhinorrhea Eyes: No Eye Pain, No Swelling, No Redness Cardiovascular : No Chest Pain, No SOB Respiratory : No Cough, No Sputum Gastrointestinal : No Nausea, No Vomiting, No Diarrhea, No abdominal Pain Genitourinary : No Dysuria, No Hematuria Musculoskeletal : No joint pain, No Myalgias, No Joint Swelling Skin : pos Skin Lesions, positive skin rash Neuro : No Weakness, No Numbness, No Headache Psych : No Anxiety, No Depression Heme/Lymph: No Bruising, No Bleeding,No Lymphadenopathy Endocrine : No Polyuria, No Polydipsia All other systems reviewed and are negative [facility] Past Medical History Attestation statement: The following information was validated with the patient. Source: old records reviewed Onset Date is defined in the Problem List Problems that require an onset date and time if occurred within 24 hrs of arrival to the ED Aortic Dissection and Rupture; Neurologic impairment; Cardiopulmonary Arrest; Endotracheal Intubation; Insertion or Replacement of Mechanical Circulatory Assist Device Medical History Macular rash Bipolar disorder in full remission Thrombocytopenia Pancytopenia Bipolar disorder in remission Peripheral neuropathy Hypothyroidism Chronic leukopenia Surgical History History of bilateral knee replacement Family History Family History Brother Stomach cancer Mother Stomach cancer Maternal Aunt Brain cancer Maternal Aunt Stomach cancer Esophageal cancer Maternal Grandfather Colon cancer Social History Social History Household Members: Spouse Housing: Apartment Do you presently have visiting nurse or other home services: No Alcohol intake: former Comment: pt refuses alarms Patient Tobacco Use Status: Never used Tobacco Advance Directives: No Advance Directives Information Provided: Yes Advance Directives Date on File: 04/26/23 service: No Current occupational status: retired Physical Exam 2 Vital Signs: Vital Signs: Last Vital Signs Temp 96.8 F 06/06/23 13:58 Pulse 88 06/06/23 13:58 Resp 16 06/06/23 13:58 BP 111/60 06/06/23 13:58 Pulse Ox 100 06/06/23 13:58 O2 Del Method Room Air 06/06/23 13:58 BMI result Body Mass Index 31.0 Appearance: Alert. Oriented X3. No acute distress. Eyes: Pupils equal, round and reactive to light. ENT: Pharynx has reddened mucosal inflammation Neck: Normal inspection. Neck supple. CVS: Normal heart rate and rhythm. Pulses normal. Respiratory: No respiratory distress. Breath sounds normal. Abdomen: Soft and nontender. Groin//Rectum: has bullae and vesicles with erythema noted as well in the rectum and vaginal/groin area Skin: Skin warm and dry. Normal skin color. Normal skin turgor. Extremities: 1+ pitting bilateral lower extremity edema warm to touch on entire leg and wheeping bright red areas with ttp no crepitus felt, weeping blisters noted clear fluid see pictures below Neuro: Oriented X 3. No motor deficit. No sensory deficit. Course Course Course Narrative: WBC count low and drop in platelets Medical Decision Making Medical Decision Making [facility] Narrative: 82 yo female with PMH of mood disoder, HLD, hypothyroidism, pancytopenia, skin wounds of lower extremity ID felt not infected but recommended they start steroids now here with increase in erythema from 05/01 the legs are much more erythematous the biopsy noted eczematous dermatitis vs drug reaction. The legs are red but hx of same and responded to steroids. At this time will obtain labs, US to rule out DVT and start on empiric steroids. She has lesions in mouth, rectum and genital area but states she was not aware of the lesions in her genital region despite pain. Differential Diagnosis Differential Diagnoses: The differential diagnosis associated with the presentation includes dermatitis, skin reaction, nonspecific eruption Admission/Observation Consideration of admission/observation: Escalation of care including admission/observation considered admit for IV steroids, assessments and repeat care Consult Healthcare Provider Management of the patient was discussed with: Hospitalist (will admit) Lab Data [facility] Lab Attestation statement: I reviewed the patient's lab results. 06/06/23 14:35 06/06/23 14:35 Labs: Lab Results 06/06/23 Range/Units 14:35 WBC 1.7 L (4.8-10.8) X10*3/uL RBC 2.66 L (4.20-5.50) X10*6/uL Hgb 9.7 L (12.0-16.0) g/dl Hct 28.2 L (37.0-47.0) % MCV 106.0 H (80.0-98.0) fL MCH 36.5 H (27.0-33.0) pg MCHC 34.4 (31.0-35.0) g/dl RDW 21.3 H (11.0-16.0) % Plt Count 50 L D (160-400) X10*3/uL MPV 12.7 H (9.4-12.3) fL Immature Gran % (Auto) 1.2 H (0.0-0.4) % Neut % (Auto) 77.7 H (45-73) % Lymph % (Auto) 19.3 L (20-40) % Swain % (Auto) 0.6 L (2-11) % Eos % (Auto) 0.6 (0-4) % Baso % (Auto) 0.6 (0-2) % Lymph # (Auto) 0.3 L (1.2-4.9) X10*3/uL Swain # (Auto) 0.0 L (0.1-1.2) X10*3/uL Eos # (Auto) 0.0 (0.0-0.4) X10*3/uL Baso # (Auto) 0.0 (0.0-0.2) X10*3/uL Abs Immat Gran (auto) 0.02 (0.00-0.03) X10*3/uL Absolute Neuts (auto) 1.3 L (2.0-8.3) x10*3/uL Absolute Nucleated RBC 0.000 (0.0-0.012) X10*3/uL Nucleated RBC % (auto) 0.0 (0.0-0.2) /100WBC Smear Tech's Comments VERIFIED Sodium 133 L (135-145) mmol/L Potassium 4.3 (3.3-5.1) mmol/L Chloride 97 (96-108) mmol/L Carbon Dioxide 25 (22-29) mmol/L Anion Gap 15 (12-20) BUN 48 H (9-16) mg/dL Creatinine 1.26 (0.5-1.4) mg/dL Estim Creat Clear Calc 36.9 Estimated GFR 41 Random Glucose 123 H (60-115) mg/dL Lactic Acid 1.3 (0.5-2.0) mmol/L Calcium 9.8 (8.4-10.2) mg/dL Magnesium 2.7 H (1.6-2.6) mg/dL Total Bilirubin 1.1 H (0.0-1.0) mg/dL Direct Bilirubin 0.6 H (0.0-0.5) mg/dL AST 28 (5-31) U/L ALT 27 (0-31) U/L Alkaline Phosphatase 65 (39-117) U/L C-Reactive Protein 22.91 H (< or = 0.50) mg/dL B-Natriuretic Peptide 20 (<100) pg/mL Total Protein 6.2 L (6.5-8.0) g/dL Albumin 3.6 (3.5-5.0) g/dL Independent Interpretation I performed an independent interpretation of an: Ultrasound Radiology Impression Discussion of test interpretation with radiology: I have reviewed the radiologist's reading. Independent Historian Clinical information obtained from an independent historian. History obtained from or confirmed by: EMS External Record Review External record reviewed: Inpatient record Discharge Plan Discharge Clinical Impression: Pancytopenia, Blistering rash Patient Disposition: Admitted As Inpatient Prescriptions: No Action valproic acid 250 mg capsule 250 - 500 mg PO DIRECTED Qty: 60 2RF Rx Instructions: 1 capsule at bedtime x 2 nites then 2 capsules bedtime Methylfolate capsule 15 mg PO DAILY clonazepam 1 mg tablet 1 mg PO BEDTIME PRN (Reason: insomnia) Rx Instructions: administer 30 minutes before bedtime fluconazole 100 mg Tablet 100 mg PO DAILY 3 Days Qty: 3 0RF prednisone 10 mg tablet See Taper PO DAILY Qty: 24 0RF Taper: Prednisone 30 mg daily for 4 Days and 0 Hour 20 mg daily for 4 Days and 0 Hour 10 mg daily for 4 Days and 0 Hour omeprazole 20 mg capsule,delayed release(DR/EC) 20 mg PO DAILY 14 Days Qty: 14 0RF levothyroxine 112 mcg tablet 112 mcg PO DAILY@0600 ergocalciferol (vitamin D2) 1,250 mcg (50,000 unit) capsule 1,250 mcg PO MO pantoprazole 40 mg tablet,delayed release (DR/EC) 40 mg PO DAILY cetirizine 10 mg tablet 10 mg PO DAILY Hold Instructions: hold until follow up with pcp
[2023-06-06 14:43] LABS: Basophils Percent Auto 0.6 % (0-2); Eosinophils Percent Auto 0.6 % (0-4); Hematocrit 28.2 % (37.0-47.0); Hemoglobin 9.7 g/dl (12.0-16.0); Imm Gran Abs Auto 0.02 X10*3/uL (0.00-0.03); Imm Gran Pct Auto 1.2 % (0.0-0.4); Lymphocytes Absolute Auto 0.3 X10*3/uL (1.2-4.9); Lymphocytes Percent Auto 19.3 % (20-40); MANUAL DIFF FLAG SCAN; Mean Corpuscular HGB Conc 34.4 g/dl (31.0-35.0); Mean Corpuscular Hemoglobin 36.5 pg (27.0-33.0); Mean Platelet Volume 12.7 fL (9.4-12.3); Monocytes Percent Auto 0.6 % (2-11); Neutrophils Absolute Auto 1.3 x10*3/uL (2.0-8.3); Neutrophils Percent Auto 77.7 % (45-73); Red Blood Count 2.66 X10*6/uL (4.20-5.50); Red Cell Distribution Width 21.3 % (11.0-16.0); SCAN SMEAR FLAG 1
[2023-06-06 14:45] LABS: White Blood Count 1.7 X10*3/uL (4.8-10.8)
[2023-06-06 14:54] LABS: Lactic Acid 1.3 mmol/L (0.5-2.0)
[2023-06-06 15:03] LABS: B Type Natriuretic Peptide 20 pg/mL (<100)
[2023-06-06 15:04] LABS: Alanine Aminotransferase 27 U/L (0-31); Albumin Level 3.6 g/dL (3.5-5.0); Alkaline Phosphatase 65 U/L (39-117); Anion Gap 15 (12-20); Aspartate Amino Transferase 28 U/L (5-31); Bilirubin Direct 0.6 mg/dL (0.0-0.5); Bilirubin Total 1.1 mg/dL (0.0-1.0); Blood Urea Nitrogen 48 mg/dL (9-16); C Reactive Protein 22.91 mg/dL (< or = 0.50); Calcium 9.8 mg/dL (8.4-10.2); Carbon Dioxide 25 mmol/L (22-29); Chloride 97 mmol/L (96-108); Creatinine Clr Calc Pharmacy 36.9; Estimated Glomerular Filt Rate 41; Glucose Random 123 mg/dL (60-115); Magnesium 2.7 mg/dL (1.6-2.6); Potassium 4.3 mmol/L (3.3-5.1); Sodium 133 mmol/L (135-145); Total Protein 6.2 g/dL (6.5-8.0)
[2023-06-06 15:07] LABS: Platelet Count 50 X10*3/uL (160-400); SLIDE REVIEW VERIFIED
[2023-06-06 15:24] LABS: Erythrocyte Sedimentation Rate 13 MM/HR (0-20)
[2023-06-06] MEDS: methylPREDNISolone Sod Succ 125 MG/2 ML VIAL IVPUSH (15:24)
--- NOTE | 2023-06-06 15:26 | PC.NURSE ---
patient presents with bilat lower leg swelling and redness, patient has large blister on left foot top, right foot top had blister which popped. patient also noted to have raw, open, redness up her rectal area to her cocyxx. patient noted to have raw, open redness to the right inguinal area. patient taken out of her underwear and robe and changed into clean dry hospital attire. new pads placed underneith her.
[2023-06-06 15:28] LABS: Procalcitonin 0.28 ng/mL
--- NOTE | 2023-06-06 16:40 | PHA.MEDREC ---
Pharmacy Consult ? Medication Reconciliation Pharmacy has completed the medication reconciliation. Patient reported medication. She is taking only 1 capsule (250MG) of valproic acid. Directions are to take 2 capsules. Mary Harris CPhT
[2023-06-06 16:43] VITALS: BP 111/57; PULSE 82; RESP 13; O2SAT 100
--- NOTE | 2023-06-06 16:55 | P.HPHOSP_ITS ---
History of Present Illness Date of Service: 06/06/23 Attending physician on admission: Pankaj Monzon Chief Complaint: blistering rash, odynophagia 82 year old female with history of hypothyroidism, bipolar disorder, hld presented to the ED earlier today for evaluation of blistering rash on the ble. Was admitted last month from 04/26- 05/04 for this rash and was seen by multiple specialists with punch biopsy performed with path report showing nonspecific findings including possible eczematous dermatitis, urticaria, or drug rash. ID consutled who did not feel this was infectious and was started on IV steroids with improvement in symptoms. She was also evaluated by hematology due to pancytopenia and underwent bone [place] biopsy with aspirate evaluation showing erythroid hyperplasia but no leukemia or primary bone marrow process. Zyprexa was changed back to zyprexa. She was discharged on prednisone taper and had seemed to be improving. However over last week has had worsening erythema, blisters, and progressive dysphagia/odynophagia for the last few weeks. She was advised to come to the ED by [facility]. In the ED, VSS. She is pancytopenic with WBC 1.7, H/H 9.7/28.2%, PLT 50. Creat 1.26, baseline 0.66, BUN 48. Lytes normal. Lactic acid 1.3. Total bili 1.1, direct bili 0.6. AST/ALT wnl. CRp 22.91, ESR 13. PCT 0.28. Venous duplex negative for DVT. In the ED, given 125mcg IV methylprednisolone. Review of Systems 2 Review of Systems: General: No fevers, malaise, unintentional weight loss HEENT: No blurred vision, diplopia. No nasal congestion, rhinorrhea, sinus pain, ear pain Cardiovascular: No chest pain, palpitations, or leg edema Respiratory: No shortness of breath, wheezing, cough GI: +dysphagia, +odynophagia. No abdominal pain, nausea, vomiting, diarrhea, constipation, melena, hematochezia : No dysuria, hematuria, increased urinary frequency, decreased urinary output MSK: No myalgia, back pain Neuro: No headaches, weakness, paresthesias Skin: +blistering rash ble PMFSH Medical History Macular rash Bipolar disorder in full remission Thrombocytopenia Pancytopenia Bipolar disorder in remission Peripheral neuropathy Hypothyroidism Chronic leukopenia Family History Brother Stomach cancer Mother Stomach cancer Maternal Aunt Brain cancer Maternal Aunt Stomach cancer Esophageal cancer Maternal Grandfather Colon cancer Surgical History History of bilateral knee replacement Social History Household Members: Spouse Housing: Apartment Do you presently have visiting nurse or other home services: No Alcohol intake: former Comment: pt refuses alarms Patient Tobacco Use Status: Never used Tobacco Advance Directives: No Advance Directives Information Provided: Yes Advance Directives Date on File: 04/26/23 service: No Current occupational status: retired [email or web address] Allergies Allergy/AdvReac Type Severity Reaction Status Date / Time olanzapine Allergy Intermediate Blister Verified 05/16/23 09:30 gabapentin Allergy Unknown lumps on Verified 05/16/23 09:26 arms Active Medications: Current Medications Acetaminophen (Acetaminophen 325 Mg Tablet) 650 mg PO Q6H PRN PRN Reason: Pain, Mild (Pain Scale 1-3) Clonazepam (Clonazepam 1 Mg Tablet) 1 mg PO BEDTIME PRN PRN Reason: insomnia Ergocalciferol (Ergocalciferol (Vitamin D2) 1,250 Mcg Capsule) 1,250 mcg PO MO SALLY Heparin Sodium (Porcine) (Heparin Sodium,Porcine 5,000 Unit/Ml Vial) 5,000 unit SUBCUT Q12H SALLY Levothyroxine Sodium (Levothyroxine Sodium 112 Mcg Tablet) 112 mcg PO DAILY@0600 S[facility] Lidocaine/Diphenhydr/Alum/Mg/Simeth (Mag&Al/Sim/Diphenhyd/Lidocaine 10 Ml Oral.Susp) 10 ml PO Q4H PRN; Protocol PRN Reason: Mouth Sore Pain Methylprednisolone Sodium Succinate (Methylprednisolone Sod Succ 125 Mg/2 Ml Vial) 60 mg IVPUSH Q12H SALLY Non-Formulary Medication (Magnesium) 500 mg PO DAILY SALLY Non-Formulary Medication (Methylfolate) 15 mg PO DAILY SALLY Non-Formulary Medication (Pantoprazole) 40 mg PO DAILY SALLY Non-Formulary Medication (Rosuvastatin) 5 mg PO DAILY SALLY Ondansetron HCl (Ondansetron Hcl 4 Mg/2 Ml Vial) 4 mg IVPUSH Q8H PRN PRN Reason: Nausea and Vomiting Senna (Sennosides 8.6 Mg Tablet) 17.2 mg PO BEDTIME PRN PRN Reason: Constipation Sodium Chloride (0.9 % Sodium Chloride Flush 3 Ml Syringe) 3 ml IVFLUSH QSHIFT [facility] Valproic Acid (Valproic Acid 250 Mg Capsule) 250 mg PO DIRECTED [facility] Home Medications Medication Instructions Recorded Confirmed Last Taken Type levothyroxine 112 mcg tablet 112 mcg PO DAILY@0600 06/30/21 06/06/23 06/06/23 History ergocalciferol (vitamin D2) 1,250 1,250 mcg PO MO 02/07/23 06/06/23 06/06/23 History mcg (50,000 unit) capsule pantoprazole 40 mg tablet,delayed 40 mg PO DAILY 02/07/23 06/06/23 06/06/23 History release Methylfolate 15 mg PO DAILY 04/26/23 06/06/23 06/06/23 History clonazepam 1 mg tablet 1 mg PO BEDTIME PRN insomnia 04/26/23 06/06/23 06/06/23 History cephalexin 500 mg capsule 500 mg PO QID 06/06/23 06/06/23 06/06/23 History magnesium 500 mg tablet 500 mg PO DAILY 06/06/23 06/06/23 06/06/23 History rosuvastatin 5 mg tablet 5 mg PO DAILY 06/06/23 06/06/23 06/06/23 History valproic acid 250 mg capsule 250 mg PO DAILY 06/06/23 06/06/23 06/06/23 History Physical Exam 2 Vital Signs and Narrative: Vital Signs: Last Vital Signs Temp 96.8 F 06/06/23 13:58 Pulse 82 06/06/23 16:43 Resp 13 06/06/23 16:43 BP 111/57 L 06/06/23 16:43 Pulse Ox 100 06/06/23 16:43 O2 Del Method Room Air 06/06/23 16:43 BMI result Body Mass Index 31.0 Constitutional - Awake and Alert, No apparent distress Eyes - PERRLA, EOMI Cardiovascular - S1S2, RRR, 2+ ble edema Respiratory - Normal lung expansion, Normal respiratory effort, No respiratory distress, CTA bilaterally Gastrointestinal - NT / ND; +BS; No rebound or guarding Extremities - no calf tenderness bilaterally, no swelling Skin - Warm/Dry. Large bulla dorsal left rash, ruptured bullae dorsal right foot. Erythema/petechiae covering distal third ble. Beefy red moist confluent lesions intertriginous folds groin bilaterally. erythema wtih skin breakdown bilateral buttock Neurological - Alert & oriented x3 Psychological - Appropriate affect Results Labs 06/06/23 14:35 06/06/23 14:35 Labs: Laboratory Results - last 24 hr 06/06/23 06/06/23 14:35 16:09 MCV 106.0 H MCH 36.5 H MCHC 34.4 RDW 21.3 H Plt Count 50 L D MPV 12.7 H Immature Gran % (Auto) 1.2 H Neut % (Auto) 77.7 H Lymph % (Auto) 19.3 L [place] % (Auto) 0.6 L Eos % (Auto) 0.6 Baso % (Auto) 0.6 Lymph # (Auto) 0.3 L [place] # (Auto) 0.0 L Eos # (Auto) 0.0 Baso # (Auto) 0.0 Abs Immat Gran (auto) 0.02 Absolute Neuts (auto) 1.3 L Absolute Nucleated RBC 0.000 Nucleated RBC % (auto) 0.0 Smear Tech's Comments VERIFIED ESR 13 Anion Gap 15 Estim Creat Clear Calc 36.9 Estimated GFR 41 Random Glucose 123 H Lactic Acid 1.3 Calcium 9.8 Magnesium 2.7 H Total Bilirubin 1.1 H Direct Bilirubin 0.6 H AST 28 ALT 27 Alkaline Phosphatase 65 C-Reactive Protein 22.91 H B-Natriuretic Peptide 20 Total Protein 6.2 L Albumin 3.6 Procalcitonin 0.28 Blood Type O Negative Imaging Radiologist's Impressions: Impressions Venous Duplex 06/06/23 14:56 IMPRESSION: No DVT demonstrated in the bilateral lower extremities. Mild subcutaneous edema bilaterally. Assessment and Plan (1) Blistering rash: Status: Acute (2) Pancytopenia: Status: Acute (3) Acute kidney injury: Status: Acute (4) Odynophagia: Status: Acute Plan 82 year old female with history of hypothyroidism, bipolar disorder, hld admitted for further managmenet of blistering rash of unclear etiology with odynophagia/dysphagia. #Recurrent blistering rash -Bx 05/01 nonspecific findings -Iv methylprednisolone 60mg BID -Gen surg consult to consider punch biopsy close of bullae -similar appearance to prior admission. 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
[2023-06-06 17:33] VITALS: PULSE 96; RESP 25; O2SAT 94
[2023-06-06] MEDS: 0.9 % Sodium Chloride 1,000 ML 100 ML IVCONT (18:25)
[2023-06-06] MEDS: Heparin Sodium,Porcine 5,000 UNIT/ML VIAL 5000 UNIT SUBCUT (18:48)
[2023-06-06 20:04] VITALS: BP 121/60; PULSE 86; RESP 18; TEMP 36.5; O2SAT 98
--- NOTE | 2023-06-06 20:10 | MHC.EDTECH ---
Assumed care of this patient at 1900. Patient rang to use bed [place] but due to severity of wounds this conventional underwriter spoke to nurse and pure wick was put in place.
[2023-06-06 21:27] VITALS: BP 102/55; PULSE 80; RESP 14; TEMP 36.7; O2SAT 94
[2023-06-06] MEDS: Nystatin Powder 15 GM BOTTLE 1 APPL TOPICAL (22:53)
--- NOTE | 2023-06-06 22:54 | PC.NURSE ---
pt refusing PO meds; states she has not been able to swallow meds in the past weeks.
[2023-06-07 03:12] VITALS: BMI 31.0
[2023-06-07 03:45] VITALS: BP 113/56; PULSE 74; RESP 18; TEMP 36.8; O2SAT 98
[2023-06-07] MEDS: Omeprazole 20 MG CAPSULE.DR PO (05:48)
[2023-06-07] MEDS: Levothyroxine Sodium 112 MCG TABLET PO (05:48)
[2023-06-07] MEDS: methylPREDNISolone Sod Succ 125 MG/2 ML VIAL 60 MG IVPUSH ×2 (05:50→17:36)
[2023-06-07] MEDS: Heparin Sodium,Porcine 5,000 UNIT/ML VIAL 5000 UNIT SUBCUT ×2 (05:51→16:53)
[2023-06-07] MEDS: 0.9 % Sodium Chloride 1,000 ML 100 ML IVCONT (05:53)
[2023-06-07 07:58] VITALS: BP 135/63; PULSE 82; RESP 18; TEMP 36.6; O2SAT 98
[2023-06-07 08:54] LABS: Hematocrit 26.2 % (37.0-47.0); Imm Gran Abs Auto 0.02 X10*3/uL (0.00-0.03); Imm Gran Pct Auto 1.7 % (0.0-0.4); Lymphocytes Absolute Auto 0.2 X10*3/uL (1.2-4.9); MANUAL DIFF FLAG SCAN; Mean Corpuscular HGB Conc 34.4 g/dl (31.0-35.0); Mean Corpuscular Hemoglobin 36.1 pg (27.0-33.0); Mean Corpuscular Volume 105.2 fL (80.0-98.0); Neutrophils Absolute Auto 0.9 x10*3/uL (2.0-8.3); Neutrophils Percent Auto 78.3 % (45-73); Red Blood Count 2.49 X10*6/uL (4.20-5.50); Red Cell Distribution Width 21.2 % (11.0-16.0); SCAN SMEAR FLAG 1
[2023-06-07 08:55] LABS: White Blood Count 1.2 X10*3/uL (4.8-10.8)
[2023-06-07 09:09] LABS: Anion Gap 14 (12-20); Blood Urea Nitrogen 46 mg/dL (9-16); Calcium 9.2 mg/dL (8.4-10.2); Carbon Dioxide 23 mmol/L (22-29); Chloride 103 mmol/L (96-108); Creatinine Clr Calc Pharmacy 67.3; Estimated Glomerular Filt Rate > 60; Glucose Random 125 mg/dL (60-115); Potassium 4.6 mmol/L (3.3-5.1); Sodium 135 mmol/L (135-145)
[2023-06-07 09:15] LABS: Platelet Count 32 X10*3/uL (160-400)
[2023-06-07 09:16] LABS: SLIDE REVIEW VERIFIED
--- NOTE | 2023-06-07 09:17 | P.PNIM_ITS ---
Subjective Subjective Date of Service: 06/07/23 Interval History: Seen in follow up for pancytopenia, blistering wounds Interval history: pain in throat. pain bl feet Review of Systems Review of Systems: Yes all other systems are reviewed and are negative Physical Exam 2 Vital Signs: Vital Signs: Last Vital Signs Temp 97.8 F 06/07/23 07:58 Pulse 82 06/07/23 07:58 Resp 18 06/07/23 07:58 BP 135/63 06/07/23 07:58 Pulse Ox 98 06/07/23 07:58 O2 Del Method Room Air 06/07/23 07:58 O2 Flow Rate 2 06/06/23 17:33 BMI result Body Mass Index 31.0 Constitutional - Awake and Alert, No apparent distress Eyes - PERRLA, EOMI Cardiovascular - S1S2, RRR, 2+ ble edema Respiratory - Normal lung expansion, Normal respiratory effort, No respiratory distress, CTA bilaterally Gastrointestinal - NT / ND; +BS; No rebound or guarding Extremities - no calf tenderness bilaterally, no swelling Skin - Warm/Dry. Large bulla dorsal left rash, ruptured bullae dorsal right foot. Erythema/petechiae covering distal third ble. Beefy red moist confluent lesions intertriginous folds groin bilaterally. erythema wtih skin breakdown bilateral buttock Neurological - Alert & oriented x3 Psychological - Appropriate affect Objective Data Active Medications Acetaminophen (Acetaminophen 325 Mg Tablet) 650 mg PO Q6H PRN PRN Reason: Pain, Mild (Pain Scale 1-3) Atorvastatin Calcium (Atorvastatin Calcium 20 Mg Tablet) 20 mg PO DAILY SALLY Clonazepam (Clonazepam 1 Mg Tablet) 1 mg PO BEDTIME PRN PRN Reason: insomnia Ergocalciferol (Ergocalciferol (Vitamin D2) 1,250 Mcg Capsule) 1,250 mcg PO MO [facility] Heparin Sodium (Porcine) (Heparin Sodium,Porcine 5,000 Unit/Ml Vial) 5,000 unit SUBCUT Q12H [facility] Last Admin: 06/07/23 05:51 Dose: 5,000 unit Documented By: EVENS Sodium Chloride (Ns) 1,000 mls @ 100 mls/hr IVCONT .Q10H [facility] Last Admin: 06/07/23 05:53 Dose: 100 mls/hr Documented By: EVENS Levothyroxine Sodium (Levothyroxine Sodium 112 Mcg Tablet) 112 mcg PO DAILY@0600 [facility] Last Admin: 06/07/23 05:48 Dose: 112 mcg Documented By: EVENS Lidocaine/Diphenhydr/Alum/Mg/Simeth (Mag&Al/Sim/Diphenhyd/Lidocaine 10 Ml Oral.Susp) 10 ml PO Q4H PRN; Protocol PRN Reason: Mouth Sore Pain Magnesium Oxide (Magnesium Oxide 400 Mg Tablet) 400 mg PO DAILY [facility] Methylprednisolone Sodium Succinate (Methylprednisolone Sod Succ 125 Mg/2 Ml Vial) 60 mg IVPUSH Q12H [facility] Last Admin: 06/07/23 05:50 Dose: 60 mg Documented By: EVENS Nystatin (Nystatin Powder 15 Gm Bottle) 1 appl TOPICAL BID [facility]; Protocol Last Admin: 06/06/23 22:53 Dose: 1 appl Documented By: MEAGHAN Omeprazole (Omeprazole 20 Mg Capsule.Dr) 20 mg PO DAILY@0630 [facility] Last Admin: 06/07/23 05:48 Dose: 20 mg Documented By: EVENS Ondansetron HCl (Ondansetron Hcl 4 Mg/2 Ml Vial) 4 mg IVPUSH Q8H PRN PRN Reason: Nausea and Vomiting Senna (Sennosides 8.6 Mg Tablet) 17.2 mg PO BEDTIME PRN PRN Reason: Constipation Sodium Chloride (0.9 % Sodium Chloride Flush 3 Ml Syringe) 3 ml IVFLUSH QSHIFT [facility] Last Admin: 06/07/23 07:14 Dose: Not Given Documented By: COTEMA Non-Admin Reason: IV Running Valproic Acid (Valproic Acid 250 Mg Capsule) 250 mg PO BEDTIME [facility] Last Admin: 06/06/23 22:54 Dose: Not Given Documented By: MEAGHAN Non-Admin Reason: Patient Refused Labs 06/07/23 08:30 06/07/23 08:30 Labs: Laboratory Results - last 24 hr 06/06/23 06/06/23 06/07/23 14:35 16:09 08:30 MCV 106.0 H 105.2 H MCH 36.5 H 36.1 H MCHC 34.4 34.4 RDW 21.3 H 21.2 H Plt Count 50 L D 32 L D MPV 12.7 H Not Reportable Immature Gran % (Auto) 1.2 H 1.7 H Neut % (Auto) 77.7 H 78.3 H Lymph % (Auto) 19.3 L 20.0 [place] % (Auto) 0.6 L 0.0 L Eos % (Auto) 0.6 0.0 Baso % (Auto) 0.6 0.0 Lymph # (Auto) 0.3 L 0.2 L [place] # (Auto) 0.0 L 0.0 L Eos # (Auto) 0.0 0.0 Baso # (Auto) 0.0 0.0 Abs Immat Gran (auto) 0.02 0.02 Absolute Neuts (auto) 1.3 L 0.9 L Absolute Nucleated RBC 0.000 0.000 Nucleated RBC % (auto) 0.0 0.0 Smear Tech's Comments VERIFIED VERIFIED ESR 13 Anion Gap 15 14 Estim Creat Clear Calc 36.9 67.3 Estimated GFR 41 > 60 Random Glucose 123 H 125 H Lactic Acid 1.3 Calcium 9.8 9.2 D Magnesium 2.7 H Total Bilirubin 1.1 H Direct Bilirubin 0.6 H AST 28 ALT 27 Alkaline Phosphatase 65 C-Reactive Protein 22.91 H B-Natriuretic Peptide 20 Total Protein 6.2 L Albumin 3.6 Procalcitonin 0.28 Blood Type O Negative Antibody Screen NEGATIVE Assessment and Plan (1) Macular rash: Status: Acute (2) Pancytopenia: Status: Acute Assessment and Plan: 82 year old female with history of hypothyroidism, bipolar disorder, hld admitted for further managmenet of blistering rash of unclear etiology with odynophagia/dysphagia. #Recurrent blistering rash -Bx 05/01 nonspecific findings -Iv methylprednisolone 60mg BID -Gen surg consult to consider punch biopsy close of bullae -similar appearance to prior admission. 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
[2023-06-07] MEDS: Acetaminophen 325 MG TABLET 650 MG PO (10:37)
[2023-06-07] MEDS: Mag&Al/Sim/Diphenhyd/Lidocaine 10 ML ORAL.SUSP PO ×3 (10:37→17:39)
--- NOTE | 2023-06-07 10:50 | MHC.CM.PN ---
IMM delivered. Patient is from home w/ . Recently admitted for BLE rash, re-admitted w/ worsening rash. Last went home w/ [facility] for home PT and wound care. Ambulates with a cane/walker PRN and states she is independent w/ ADL's. Also has a stair lift. PCP Gary Brandon, DO HCP Namratajessika Zapien. On file and verified. DP: Per MD rounds plan is to transfer to tertiary care center w/ dermatology via ambulance. Patient aware and agreeable. CM will continue to follow for dc needs.
[2023-06-07 11:40] VITALS: BMI 31.0
--- NOTE | 2023-06-07 11:50 | MHC.CLN ---
RE: CONSULT PT WITH INCREASED NUTRITION RISK R/T PRESSURE INJURIES PT WITH POOR PO GROUP INSURANCE SPECIALIST DIET RX: PUREED -APPROPRIATE RECOMMEND ADDING ENSURE MAX BID TO PROMOTE WOUND HEALING SUPP TO PROVIDE 300KCALS, 60G PROTEIN MONITOR PO INTAKE AND ENCOURAGE SUPPLEMENT SEE ALSO FULL CLINICAL NUTRITION ASSESSMENT
--- NOTE | 2023-06-07 12:39 | P.CONGS_ITS ---
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 She presents here with a recurrent episode. This involves bilateral lower extremities and dorsum of feet. Patient has had extensive treatment for these chronic problems. She was recently admitted and had similar issues. She was seen by Wound care at that time.. Chart was reviewed and patient evaluated PMFSH Past Medical History Medical History Macular rash Bipolar disorder in full remission Thrombocytopenia Pancytopenia Bipolar disorder in remission Peripheral neuropathy Hypothyroidism Chronic leukopenia Family History Family History Brother Stomach cancer Mother Stomach cancer Maternal Aunt Brain cancer Maternal Aunt Stomach cancer Esophageal cancer Maternal Grandfather Colon cancer Surgical History Surgical History History of bilateral knee replacement Social History Social History Household Members: Spouse Housing: Condominium Do you presently have visiting nurse or other home services: Yes ([facility]) Alcohol intake: former Comment: pt refuses alarms Patient Tobacco Use Status: Never used Tobacco Smoked in Last 30 Days: No Use of substances other than those prescribed or required for medical reasons: No Currently Displaying Signs/Symptoms of Drug Intoxication Withdrawal: No Have you been hit, kicked, punched, or otherwise hurt by someone within the past year? If so, by whom?: No Do you feel safe in your current relationship?: Yes Is there a partner from a previous relationship who is making you feel unsafe now?: No Are you made to feel afraid or neglected: No Advance Directives: No Advance Directives Information Provided: Yes Advance Directives Date on File: 04/26/23 Do you have thoughts of harming others: None Do you have a plan to hurt others: No Plan Recently lost weight without trying: No How much weight loss: Not applicable Eating poorly because of decreased appetite: No Nutrition screen score: 0 Nutrition Risks: No Nutritional Risk Patient : No : No Poor oral hygiene: No service: No Current occupational status: retired Meds Allergies Allergy/AdvReac Type Severity Reaction Status Date / Time olanzapine Allergy Intermediate Blister Verified 05/16/23 09:30 gabapentin Allergy Unknown lumps on Verified 05/16/23 09:26 arms Active Medications: Current Medications Acetaminophen (Acetaminophen 325 Mg Tablet) 650 mg PO Q6H PRN PRN Reason: Pain, Mild (Pain Scale 1-3) Last Admin: 06/07/23 10:37 Dose: 650 mg Atorvastatin Calcium (Atorvastatin Calcium 20 Mg Tablet) 20 mg PO DAILY [facility] Last Admin: 06/07/23 09:44 Dose: Not Given Clonazepam (Clonazepam 1 Mg Tablet) 1 mg PO BEDTIME PRN PRN Reason: insomnia Ergocalciferol (Ergocalciferol (Vitamin D2) 1,250 Mcg Capsule) 1,250 mcg PO MO [facility] Heparin Sodium (Porcine) (Heparin Sodium,Porcine 5,000 Unit/Ml Vial) 5,000 unit SUBCUT Q12H [facility] Last Admin: 06/07/23 05:51 Dose: 5,000 unit Sodium Chloride (Ns) 1,000 mls @ 80 mls/hr IVCONT .[id number] [facility] Last Admin: 06/07/23 05:53 Dose: 100 mls/hr Levothyroxine Sodium (Levothyroxine Sodium 112 Mcg Tablet) 112 mcg PO DAILY@0600 [facility] Last Admin: 06/07/23 05:48 Dose: 112 mcg Lidocaine/Diphenhydr/Alum/Mg/Simeth (Mag&Al/Sim/Diphenhyd/Lidocaine 10 Ml Oral.Susp) 10 ml PO Q4H PRN; Protocol PRN Reason: Mouth Sore Pain Last Admin: 06/07/23 10:37 Dose: 10 ml Magnesium Oxide (Magnesium Oxide 400 Mg Tablet) 400 mg PO DAILY [facility] Last Admin: 06/07/23 09:44 Dose: Not Given Methylprednisolone Sodium Succinate (Methylprednisolone Sod Succ 125 Mg/2 Ml Vial) 60 mg IVPUSH Q12H [facility] Last Admin: 06/07/23 05:50 Dose: 60 mg Nystatin (Nystatin Powder 15 Gm Bottle) 1 appl TOPICAL BID [facility]; Protocol Last Admin: 06/07/23 09:44 Dose: Not Given Omeprazole (Omeprazole 20 Mg Capsule.Dr) 20 mg PO DAILY@0630 [facility] Last Admin: 06/07/23 05:48 Dose: 20 mg Ondansetron HCl (Ondansetron Hcl 4 Mg/2 Ml Vial) 4 mg IVPUSH Q8H PRN PRN Reason: Nausea and Vomiting Senna (Sennosides 8.6 Mg Tablet) 17.2 mg PO BEDTIME PRN PRN Reason: Constipation Sodium Chloride (0.9 % Sodium Chloride Flush 3 Ml Syringe) 3 ml IVFLUSH QSHIFT [facility] Last Admin: 06/07/23 07:14 Dose: Not Given Valproic Acid (Valproic Acid 250 Mg Capsule) 250 mg PO BEDTIME [facility] Last Admin: 06/06/23 22:54 Dose: Not Given Home Medications Medication Instructions Recorded Confirmed Last Taken Type levothyroxine 112 mcg tablet 112 mcg PO DAILY@0600 06/30/21 06/06/23 06/06/23 History ergocalciferol (vitamin D2) 1,250 1,250 mcg PO MO 02/07/23 06/06/23 06/06/23 History mcg (50,000 unit) capsule pantoprazole 40 mg tablet,delayed 40 mg PO DAILY 02/07/23 06/06/23 06/06/23 History release Methylfolate 15 mg PO DAILY 04/26/23 06/06/23 06/06/23 History clonazepam 1 mg tablet 1 mg PO BEDTIME PRN insomnia 04/26/23 06/06/23 06/06/23 History cephalexin 500 mg capsule 500 mg PO QID 06/06/23 06/06/23 06/06/23 History magnesium 500 mg tablet 500 mg PO DAILY 06/06/23 06/06/23 06/06/23 History rosuvastatin 5 mg tablet 5 mg PO DAILY 06/06/23 06/06/23 06/06/23 History valproic acid 250 mg capsule 250 mg PO DAILY 06/06/23 06/06/23 06/06/23 History Physical Exam 2 Vital Signs: Vital Signs: Last Vital Signs Temp 97.8 F 06/07/23 07:58 Pulse 82 06/07/23 07:58 Resp 18 06/07/23 07:58 BP 135/63 06/07/23 07:58 Pulse Ox 98 06/07/23 07:58 O2 Del Method Room Air 06/07/23 07:58 O2 Flow Rate 2 06/06/23 17:33 BMI result Body Mass Index 31.0 Extrem: Other: Bilateral lower extremities grossly neurovascularly intact. Patient has erythematous bullous eczematous rash involving bilateral distal lower extremities and feet with associated mild edema. She has local dressings in the form of Adaptic and wraps. The extremities are grossly neurovascularly intact. Results Labs 06/07/23 08:30 06/07/23 08:30 Labs: Abnormal lab results 06/06/23 06/07/23 Range/Units 14:35 08:30 WBC 1.7 L 1.2 L (4.8-10.8) X10*3/uL RBC 2.66 L 2.49 L (4.20-5.50) X10*6/uL Hgb 9.7 L 9.0 L (12.0-16.0) g/dl Hct 28.2 L 26.2 L (37.0-47.0) % MCV 106.0 H 105.2 H (80.0-98.0) fL MCH 36.5 H 36.1 H (27.0-33.0) pg RDW 21.3 H 21.2 H (11.0-16.0) % Plt Count 50 L D 32 L D (160-400) X10*3/uL MPV 12.7 H (9.4-12.3) fL Immature Gran % (Auto) 1.2 H 1.7 H (0.0-0.4) % Neut % (Auto) 77.7 H 78.3 H (45-73) % Lymph % (Auto) 19.3 L (20-40) % [place] % (Auto) 0.6 L 0.0 L (2-11) % Lymph # (Auto) 0.3 L 0.2 L (1.2-4.9) X10*3/uL [place] # (Auto) 0.0 L 0.0 L (0.1-1.2) X10*3/uL Absolute Neuts (auto) 1.3 L 0.9 L (2.0-8.3) x10*3/uL Sodium 133 L (135-145) mmol/L BUN 48 H 46 H (9-16) mg/dL Random Glucose 123 H 125 H (60-115) mg/dL Magnesium 2.7 H (1.6-2.6) mg/dL Total Bilirubin 1.1 H (0.0-1.0) mg/dL Direct Bilirubin 0.6 H (0.0-0.5) mg/dL C-Reactive Protein 22.91 H (< or = 0.50) mg/dL Total Protein 6.2 L (6.5-8.0) g/dL Short CBC 06/06/23 06/07/23 Range/Units 14:35 08:30 WBC 1.7 L 1.2 L (4.8-10.8) X10*3/uL Hgb 9.7 L 9.0 L (12.0-16.0) g/dl Hct 28.2 L 26.2 L (37.0-47.0) % Plt Count 50 L D 32 L D (160-400) X10*3/uL BMP 06/06/23 06/07/23 14:35 08:30 Sodium 133 L 135 Potassium 4.3 4.6 Chloride 97 103 Carbon Dioxide 25 23 BUN 48 H 46 H Creatinine 1.26 0.68 Calcium 9.8 9.2 D Liver Function 06/06/23 Range/Units 14:35 Total Bilirubin 1.1 H (0.0-1.0) mg/dL Direct Bilirubin 0.6 H (0.0-0.5) mg/dL AST 28 (5-31) U/L ALT 27 (0-31) U/L Alkaline Phosphatase 65 (39-117) U/L Albumin 3.6 (3.5-5.0) g/dL All other labs normal. Assessment and Plan (1) Blistering rash: Status: Acute (2) Macular rash: Status: Acute (3) Lymphedema of leg: Status: Acute Plan Current recommendation is continue local care, elevation of the extremities, and wound care consult which I will place forward order. No acute surgical issues at this time. Procedures Date of Service Date of Service: 06/07/23
--- NOTE | 2023-06-07 12:39 | HO.WOUND ---
Wound Consult: Initial 83yr old female admitted to [facility] on 06/06/23? - See progress notes and H&P for detailed history. Recent admission in April 2024 for similar lesions - resolved - etiology remained unknown. Current work up for Etiology and diagnosis by providers - pending potential discharge to [facility] tomorrow for Dermatology consult and differential care available. Chart review reveals significant lab abnormalities including, Platelets of 32 and WBC 1.2 - see chart for details. Wound consult placed for Bilateral Lower legs, Groin and buttocks. Multiple similar lesions in various stages of wound bed. Wounds are not consistent with pressure nor moisture. Given there presentation they are suggestive of systemic problem - I will make topical recommendations for xeroform to the open wounds but etiology workup should continue and or follow up with dermatology to determine topical treatment. Intergluteal Right Groin Left lateral Ankle Left foot intact Bulla Left Medial Ankle Right Heel Left ischium - tissue is intact with light purple pigmentation - blanches throughout although over a bony prominence not consistent with pressure. Mouth sores notes to bilateral mucosa inside of cheeks. Bilateral Lower Legs, Ankles, dorsal feet, Right Groin, and Intergluteal Etiology: Unknown Etiology Wound Bed: various stages or wound appearance - intact bulla and ruptured bulla noted Drainage / Odor: dried and serous Edges: ? irregular Francheska wound: ? red maroon blanchable painful periwound no fluctance no induration Goals of Treatment: ? Defer to providers - topical treatment can consist of single layer xeroform for moist wound healing and Clear barrier cream to right groin and intergluteal area Recommendations: 1. Turn and Reposition every 2 hours and as needed for patient comfort.? Use pillows or wedges to support off loading positions. 2. Off Load all bony prominences with use of pillows and heel boots if needed.? Apply Preventative foams where needed. ? 3. Monitor for incontinence and moisture control, use barrier creams when needed for prevention and treatment. 4. Provide adequate and supplemental nutrition.? 5. Continue low air loss mattress. 6. Bilateral Lower Legs and ankles - Gently cleanse wound beds with NS moist gauze, pat dry. Cover wound bed with single layer xeroform, cover with dry pad and wrap. Change daily. 7. Right Groin and Intergluteal - Cleanse with Ph balanced wipes, pat dry. Apply layer of clear barrier cream to wound bed twice daily and PRN.
[2023-06-07 15:14] VITALS: BP 133/64; PULSE 86; RESP 16; TEMP 36.3; O2SAT 97
--- NOTE | 2023-06-07 16:04 | P.CNHO_ITS ---
Subjective - Subjective Chief complaint: Consult for: Pancytopenia. Patient: new to practice Consult date: 06/07/23 Primary Care Provider: Gary Brandon DO Medical Summary: CONSULT FOR: PANCYTOPENIA, HPI - Consult Narrative Reason for consult: Consult for: Pancytopenia. Narrative: Evie Garces is a 83 year old lady admitted to the hospital with pancytopenia. She presented to the ED yesterday for evaluation of blistering rash on the ble. She was admitted last month from 04/26- 05/04 for this rash. She was seen by multiple specialists with punch biopsy performed with path report showing nonspecific findings including possible eczematous dermatitis, urticaria, or drug rash. ID consutled who did not feel this was infectious and was started on IV steroids with improvement in symptoms. She was also evaluated by hematology due to pancytopenia and underwent bone marrow biopsy with aspirate evaluation showing erythroid hyperplasia but no leukemia or primary bone marrow process. Zyprexa was changed back to zyprexa. She was discharged on prednisone taper and had seemed to be improving. However over last week has had worsening erythema, blisters, and progressive dysphagia/odynophagia for the last few weeks. In the ED, VSS. CBC: WBC 1.7, H/H 9.7/28.2%, PLT 50. Creat 1.26, baseline 0.66, BUN 48. Lytes normal. Lactic acid 1.3. Total bili 1.1, direct bili 0.6. AST/ALT wnl. CRp 22.91, ESR 13. PCT 0.28. Venous duplex negative for DVT. In the ED, given 125mcg IV methylprednisolone. Review of Systems 2 Review of Systems: General: No fevers, malaise, unintentional weight loss HEENT: No blurred vision, diplopia. No nasal congestion, rhinorrhea, sinus pain, ear pain Cardiovascular: No chest pain, palpitations, or leg edema Respiratory: No shortness of breath, wheezing, cough GI: +dysphagia, +odynophagia. No abdominal pain, nausea, vomiting, diarrhea, constipation, melena, hematochezia : No dysuria, hematuria, increased urinary frequency, decreased urinary output MSK: No myalgia, back pain Neuro: No headaches, weakness, paresthesias Skin: +blistering rash ble PMFSH Medical History: History of hypothyroidism, bipolar disorder, hld. Macular rash Bipolar disorder in full remission Thrombocytopenia Pancytopenia Bipolar disorder in remission Peripheral neuropathy Hypothyroidism Chronic leukopenia Family History: Brother Stomach cancer Mother Stomach cancer Maternal Aunt Brain cancer Review of Systems - Constitutional Reports system reviewed and no additional complaints, except as documented, Reports weakness, Reports weight loss, Denies fever(s) - Eyes Reports system reviewed and no additional complaints, except as documented - ENT Reports system reviewed and no additional complaints, except as documented - Cardiovascular Reports system reviewed and no additional complaints, except as documented - Respiratory Reports no additional respiratory complaints - Gastrointestinal Reports system reviewed and no additional complaints, except as documented - Genitourinary Reports no additional female genitourinary complaints - Musculoskeletal Reports system reviewed and no additional complaints, except as documented - Integumentary/Breasts Skin/Breast: Reports no additional skin complaints - Neurologic Reports system reviewed and no additional complaints, except as documented - Psychiatric Reports system reviewed and no additional complaints, except as documented - Endocrine Reports no additional endocrine complaints - Hematologic/Lymphatic Reports system reviewed and no additional complaints, except as documented - Allergic/Immunologic Reports system reviewed and no additional complaints, except as documented Oncology Screenings - ECOG Performance Status ECOG Performance Status: 2 [facility] Medical History: Medical History (Last Reviewed 06/06/23 @ 17:11 by NUBIA Holden) Bipolar disorder in full remission Bipolar disorder in remission Chronic leukopenia Hypothyroidism Macular rash Pancytopenia Peripheral neuropathy Thrombocytopenia Functional capacity: wheelchair bound Patient : No Family History: Family History (Last Reviewed 06/06/23 @ 17:11 by NUBIA Holden) Brother Stomach cancer Mother Stomach cancer Maternal Aunt Brain cancer Maternal Aunt Stomach cancer Esophageal cancer Maternal Grandfather Colon cancer Surgical History: Surgical History (Last Reviewed 06/06/23 @ 17:11 by NUBIA Holden) History of bilateral knee replacement Social History: Social History (Last Reviewed 06/06/23 @ 17:11 by NUBIA Holden) Living Situation History: Household Members: Spouse Housing: Condominium Do you presently have visiting nurse or other home services: Yes Do you presently have visiting nurse or other home services comment: [facility] Tobacco History: Patient Tobacco Use Status: Never used Tobacco Advance Directives: Advance Directives Date on File: 04/26/23 Occupation Assessmet: service: No Current occupational status: retired Home Medications and Allergies Current Medications: Current Medications Acetaminophen (Acetaminophen 325 Mg Tablet) 650 mg PO Q6H PRN PRN Reason: Pain, Mild (Pain Scale 1-3) Last Admin: 06/07/23 10:37 Dose: 650 mg Atorvastatin Calcium (Atorvastatin Calcium 20 Mg Tablet) 20 mg PO DAILY [facility] Last Admin: 06/07/23 09:44 Dose: Not Given Clonazepam (Clonazepam 1 Mg Tablet) 1 mg PO BEDTIME PRN PRN Reason: insomnia Ergocalciferol (Ergocalciferol (Vitamin D2) 1,250 Mcg Capsule) 1,250 mcg PO MO [facility] Heparin Sodium (Porcine) (Heparin Sodium,Porcine 5,000 Unit/Ml Vial) 5,000 unit SUBCUT Q12H [facility] Last Admin: 06/07/23 05:51 Dose: 5,000 unit Sodium Chloride (Ns) 1,000 mls @ 80 mls/hr IVCONT .[id number] [facility] Last Admin: 06/07/23 15:52 Dose: Not Given Levothyroxine Sodium (Levothyroxine Sodium 112 Mcg Tablet) 112 mcg PO DAILY@0600 [facility] Last Admin: 06/07/23 05:48 Dose: 112 mcg Lidocaine/Diphenhydr/Alum/Mg/Simeth (Mag&Al/Sim/Diphenhyd/Lidocaine 10 Ml Oral.Susp) 10 ml PO Q4H PRN; Protocol PRN Reason: Mouth Sore Pain Last Admin: 06/07/23 13:15 Dose: 10 ml Magnesium Oxide (Magnesium Oxide 400 Mg Tablet) 400 mg PO DAILY [facility] Last Admin: 06/07/23 09:44 Dose: Not Given Methylprednisolone Sodium Succinate (Methylprednisolone Sod Succ 125 Mg/2 Ml Vial) 60 mg IVPUSH Q12H [facility] Last Admin: 06/07/23 05:50 Dose: 60 mg Nystatin (Nystatin Powder 15 Gm Bottle) 1 appl TOPICAL BID [facility]; Protocol Last Admin: 06/07/23 09:44 Dose: Not Given Omeprazole (Omeprazole 20 Mg Capsule.Dr) 20 mg PO DAILY@0630 [facility] Last Admin: 06/07/23 05:48 Dose: 20 mg Ondansetron HCl (Ondansetron Hcl 4 Mg/2 Ml Vial) 4 mg IVPUSH Q8H PRN PRN Reason: Nausea and Vomiting Senna (Sennosides 8.6 Mg Tablet) 17.2 mg PO BEDTIME PRN PRN Reason: Constipation Sodium Chloride (0.9 % Sodium Chloride Flush 3 Ml Syringe) 3 ml IVFLUSH QSHIFT [facility] Last Admin: 06/07/23 07:14 Dose: Not Given Valproic Acid (Valproic Acid 250 Mg Capsule) 250 mg PO BEDTIME [facility] Last Admin: 06/06/23 22:54 Dose: Not Given Home Medications Medication Instructions Recorded Confirmed Type levothyroxine 112 mcg tablet 112 mcg PO DAILY@0600 06/30/21 06/06/23 History ergocalciferol (vitamin D2) 1,250 1,250 mcg PO MO 02/07/23 06/06/23 History mcg (50,000 unit) capsule pantoprazole 40 mg tablet,delayed 40 mg PO DAILY 02/07/23 06/06/23 History release Methylfolate 15 mg PO DAILY 04/26/23 06/06/23 History clonazepam 1 mg tablet 1 mg PO BEDTIME PRN insomnia 04/26/23 06/06/23 History magnesium 500 mg tablet 500 mg PO DAILY 06/06/23 06/06/23 History rosuvastatin 5 mg tablet 5 mg PO DAILY 06/06/23 06/06/23 History Allergies Allergy/AdvReac Type Severity Reaction Status Date / Time olanzapine Allergy Intermediate Blister Verified 05/16/23 09:30 gabapentin Allergy Unknown lumps on Verified 05/16/23 09:26 arms Physical Exam Vital signs: Vital Signs Temp 97.3 F 06/07/23 15:14 Pulse 86 06/07/23 15:14 Resp 16 06/07/23 15:14 BP 133/64 06/07/23 15:14 Pulse Ox 97 06/07/23 15:14 O2 Del Method Room Air 06/07/23 15:14 O2 Flow Rate 2 06/06/23 17:33 Intake & Output 06/06/23 06/07/23 06/07/23 18:59 06:59 18:59 Intake Total 1000 / 1000 480 / 480 Output Total 0 / 0 200 / 200 Balance 1000 / 1000 280 / 280 Urine Output (Average ml/kg/hr) 0.00 0.20 Intake: Intake, Oral Amount 0 / 0 480 / 480 Intake, IV Amount 1000 / 1000 0.9 % Sodium Chloride 1,000 ml 1000 / 1000 @ 80 mls/hr IVCONT .[id number] [facility] Rx#:[id number] Output: Output, Urine Amount 0 / 0 200 / 200 Other: Breakfast % Eaten 50% Lunch % Eaten 75% Urine purewick Urine Color Concentrated Last Bowel Movement 06/06/23 Weight 84.5 kg 84.6 kg 84.6 kg Weight in Grams [id number] Weight 84.6 kg - Constitutional Present: mild distress - Routine HEENT Exam Head: Present: normal inspection, normocephalic Eye: Present: normal appearance ENT: Present: mucous membranes moist - Routine Neck Exam Present: supple - Routine Respiratory Exam Present: CTAB - Routine Cardiovascular Exam Cardiovascular: Present: RRR, S1, S2 - Routine Abdominal Exam Present: normal bowel sounds, nontender - Routine Extremities Exam Present: nontender Hem/Onc Consult Result - Labs CBC & Chem 7: 06/10/23 05:28 06/10/23 05:28 Labs: Short CBC 06/07/23 Range/Units 08:30 WBC 1.2 L (4.8-10.8) X10*3/uL Hgb 9.0 L (12.0-16.0) g/dl Hct 26.2 L (37.0-47.0) % Plt Count 32 L D (160-400) X10*3/uL BMP 06/07/23 08:30 Sodium 135 Potassium 4.6 Chloride 103 Carbon Dioxide 23 BUN 46 H Creatinine 0.68 Calcium 9.2 D Assessment and Plan Patient Active problem list reviewed?: Yes (1) Pancytopenia Status: Acute Assessment and plan: This is a 82-year-old woman with H/O pancytopenia/severe thrombocytopenia diagnosed in April 2023. This developed after she presented with erythema of throat for which she was treated with antibiotics for possible strep throat. Hematological workup showed mild reticulocytopenia without hematinic deficiencies. CT scan of the abdomen/pelvis from 04/11: 1. Though suboptimally assessed due to luminal collapse, there is mural prominence of the ascending and much of the transverse colon, concerning for colitis in the proper clinical setting. 2. Prominent veins in the left pelvis, which can be seen with pelvic venous insufficiency. No renal or liver dysfunction, no evidence of hemolysis. Testing for HIV, hepatitis series, tick-borne illnesses, Babesia all came back negative. JAYRO negative. Serum immunofixation showed no monoclonal protein. 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 Increased iron stores. But no infiltrative process identified. Flow cytometry is negative. MDS FISH panel and cytogenetics were negative. She developed skin lesions with elevated CRP: 23, and recurrent pancytopenia after being started on Zyprexa. She was taken off Zyprexa and started on prednisone, her counts initially improved. However she has been readmitted with pancytopenia again. She is complaining of odynophagia which is making it difficult for to eat. She is on a pureed diet, Omeprazole and Magic mouthwash. She had a barium swallow on 05/23 which revealed: 1. Mild cricopharyngeal achalasia 2. Esophageal dysmotility 3. At least 3 small foci of contrast pooling in the superior gastric body, suspicious for superficial small ulcerations. Findings could indicate mild erosive gastritis. Correlating with EGD may be of benefit. PLAN: She has been through multiple rounds of antibiotics as well as antifungal therapy. However, since she has persistent symptoms, she may need an upper endoscopy and biopsy of the abnormality seen on imaging. She will be continued on the Solu-Medrol as ordered. Thank you, CC: Dr. Gary Brandon. Addendum: Patient's blood count was really low. Her WBC dropped to 1.5 She was treated with G-CSF. She was given a platelet transfusion prior to the planned endoscopy however the platelet count did not rise. ( from 23, to 21.) The endoscopy was canceled. She [facility] be [facility], for further care. I wish her the best of luck. - Time Spent With Patient Time Spent with Patient (in minutes): 30
[2023-06-07] MEDS: 0.9 % Sodium Chloride Flush 3 ML SYRINGE IVFLUSH (16:53)
--- NOTE | 2023-06-07 18:34 | P.EN_ITS ---
Event Note Date of Service: 06/07/23 Event Note: GI Consult-Full note dictated. History from the patient, her nephew and HCP Noa, and from the EMR. Imp: 83 yo with a systemic process since 03/2023 involving a significant rash, pancytopenia, and odynophagia with associated weight loss. I suspect whatever process is causing her skin problem is contributing to her odynphagia with probable esophageal mucosal ulcerations. However, I think it would be important to definitively assess this with an upper endoscopy so as to R/O any infectious component in the esophagus such as Yue, CMV, or HSV. Given the skin and apparent GI tract involvement, I wonder about something like Bechet's disease or some other autoimmune/vasculitis process.. I am aware that she might be going to [facility] tomorrow for inpatient Derm and Rheum evaluation. Rec: EGD on 06/08 afternoon. Full consent obtained for this, including risks of bleeding and perforation. She will need Hematology input re: platelet transfusions prior to the endoscopy. However, if a bed is available in [place] on 06/08 I would recommend holding off on the EGD here and transferring her to so as to be sure not to lose the bed in . She could then have the EGD there as well. In the meantime continue supportive care, PPI, and steroids. D/W patient and her nephew in detail. They are comfortable with this plan. Thanks Time Spent With Patient Time: Total time managing care of this patient today ____ minutes.
[2023-06-07 19:35] VITALS: BP 133/64; PULSE 86; RESP 18; TEMP 36.7; O2SAT 96
[2023-06-07] MEDS: Tbo-Filgrastim 300 MCG/0.5 ML SYRINGE SUBCUT (21:57)
[2023-06-07] MEDS: Valproic Acid 250 MG CAPSULE PO (21:57)
[2023-06-07] MEDS: Nystatin Powder 15 GM BOTTLE 1 APPL TOPICAL (21:58)
[2023-06-08] VITALS (9 sets, daily range): BP systolic 104–138; BP diastolic 55–75; PULSE 66–91; RESP 12–20; TEMP 35.9–37; O2SAT 93–97
[2023-06-08] MEDS: 0.9 % Sodium Chloride 1,000 ML 100 ML IVCONT ×2 (03:14→14:00)
--- NOTE | 2023-06-08 04:47 | CONS_ITS ---
DATE OF SERVICE: 06/07/2023 REASON FOR CONSULTATION: Odynophagia and weight loss. HISTORY OF PRESENT ILLNESS: This has been obtained from the patient, her nephew, Rupali, and from the medical record. The patient is an 83-year-old female who I have seen in the past for issues with reflux and history of tubular adenoma of the colon. I last saw her in 2016, at which time she underwent a followup screening colonoscopy which was negative for any sign of inflammatory bowel disease. She apparently was in her usual state of health up until either late February or early March when she began having issues with a sore throat and then progressive issues with significant rashes on her body with a blistering component. Over the past couple of months, she has been treated with both antibiotics and steroids. The exact etiology of her condition is not known, despite having a skin biopsy. In addition, she has had recurrent issues with pancytopenia. Also during this time, she has had progressive issues with odynophagia and difficulty eating with a subsequent 15 to 20-pound weight loss. She has also developed the pancytopenia. She came to the hospital yesterday due to worsening condition, particularly in her rash and her difficulty eating. Since admission here, her, odynophagia has persisted and she can barely eat. She describes subsisting on things like Cream of Wheat. Prior to the onset of her illness in the fall, she reports that she was eating comfortably and was not having any particular GI issues. Aside from her odynophagia and anorexia with associated weight loss, she denies any other particular GI symptoms. She denies any nausea nor vomiting. She denies any abdominal pain or jaundice. She denies any diarrhea nor any signs of GI bleeding. She does not smoke nor use any significant amounts of alcohol. CURRENT MEDICATIONS: Include subcu heparin, valproic acid, Senokot, Zofran, IV methylprednisolone 60 mg IV q.12 hours, nystatin powder, omeprazole, levothyroxine, vitamin D, clonazepam, atorvastatin, acetaminophen. PAST MEDICAL HISTORY: Bilateral knee replacements. Tonsillectomy. Gastroesophageal reflux. Previous upper endoscopy was negative for esophagitis or Roberts esophagus. Tubular adenoma of the colon with the most recent colonoscopy in 2016 being negative for any recurrent polyps nor inflammatory bowel disease. Hypothyroidism. Bipolar disease. Overactive bladder. She denies history of [place], diabetes, stroke, lung disease, nor renal disease. SOCIAL HISTORY: She does not smoke nor use any significant amounts of alcohol. REVIEW OF SYSTEMS: CONSTITUTIONAL: She has been feeling quite poorly in relation to her inability to eat and lose weight. SKIN: She has had the significant rash. CARDIAC: No chest pain. PULMONARY: No coughing or hemoptysis. GI: As above. URINARY: No dysuria, no hematuria. NEUROLOGIC: No headache or seizures. FAMILY HISTORY: Negative for gastrointestinal malignancy nor inflammatory bowel disease. PHYSICAL EXAMINATION: GENERAL: The patient is alert, but chronically ill appearing female in no distress. She is cooperative and answers questions appropriately. HEENT: Anicteric sclerae. Oropharynx revealed moist mucous membranes. I did not see any sign of oral ulcerations nor thrush in her mouth on examination today. NECK: Supple. CARDIAC: Normal S1, S2. ABDOMEN: Soft, nondistended, nontender without mass. LABORATORY DATA: White blood cell count 1.2, hemoglobin 9.0, platelets 32,000. Normal electrolytes. BUN 46, creatinine 0.7. Total bilirubin 1.1, AST 28, ALT 27, alkaline phosphatase 65. C-reactive protein is 22.9, albumin 3.6. Sedimentation rate was 13. Stool has been Hemoccult negative twice in April 12 and May 12. Rheumatoid factor and JAYRO were both negative in April 2023. She did have a barium swallow on May 23 describing no significant esophageal disease other than some dysmotility. They described 3 small possible superficial ulcerations in the gastric body, but without any sign of mass nor significant ulceration. IMPRESSION: Given the patient's clinical history I suspect the process that is causing her significant skin rash and what appears to be a systemic inflammatory response would be the same process that is contributing to her current symptoms of odynophagia, anorexia, and weight loss. This appears to be a probable autoimmune process with possible associated vasculitis. A process such as the Behcet's disease is a possibility. Other things considered would be secondary esophageal infection such as candidiasis, herpes, or CMV. At this point, I would recommend an upper endoscopy for definitive evaluation as I do think the findings would be important to help exclude any type of infectious process as that would obviously alter the course of treatment. If indeed there is no evidence of any infectious process, then we could consider continued treatment with steroids to hopefully treat any underlying systemic autoimmune process. I would continue supportive care and PPI therapy. Given her significant pancytopenia, I would be cautious about her subcu heparin and any other anticoagulants. I have put that on hold for the time being. I am aware that she may be transferred to [facility] tomorrow for inpatient dermatology and rheumatology evaluation. If indeed they have a bed tomorrow and she is going to be transferred there, I would then hold off on the endoscopy tomorrow and have them do that down at that facility such that she can be seen by the other specialists as well. However, if we do proceed with the procedure here, it will be done with monitored anesthesia care. Full consent has been obtained from her and her nephew for the procedure, including risks of bleeding and perforation. She will need Hematology input regarding platelet transfusions given the low platelet count of only 32,000 today. She is leukopenic, and that may need to be addressed as well. This has all been discussed in detail with the patient and her nephew this evening. They are both comfortable with the plan. Thank you for the consultation. MD JODIE Null/CANDIDO / [id number] MTDD
[2023-06-08] MEDS: methylPREDNISolone Sod Succ 125 MG/2 ML VIAL 60 MG IVPUSH ×2 (06:00→17:29)
[2023-06-08] MEDS: Omeprazole 20 MG CAPSULE.DR PO (06:01)
[2023-06-08] MEDS: Levothyroxine Sodium 112 MCG TABLET PO (06:01)
[2023-06-08 06:22] LABS: Hemoglobin 8.5 g/dl (12.0-16.0); Red Cell Distribution Width 21.1 % (11.0-16.0)
[2023-06-08 06:24] LABS: Hematocrit 24.5 % (37.0-47.0); Mean Corpuscular HGB Conc 34.7 g/dl (31.0-35.0); Mean Corpuscular Hemoglobin 35.9 pg (27.0-33.0); Mean Corpuscular Volume 103.4 fL (80.0-98.0); Red Blood Count 2.37 X10*6/uL (4.20-5.50)
[2023-06-08 06:27] LABS: Prothrombin Time 11.9 SEC (11.1-13.3)
[2023-06-08 06:39] LABS: Anion Gap 12 (12-20); Blood Urea Nitrogen 55 mg/dL (9-16); Calcium 9.1 mg/dL (8.4-10.2); Carbon Dioxide 22 mmol/L (22-29); Chloride 106 mmol/L (96-108); Creatinine Clr Calc Pharmacy 72.7; Estimated Glomerular Filt Rate > 60; Glucose Fasting 134 mg/dL (60-99); Potassium 4.4 mmol/L (3.3-5.1); Sodium 136 mmol/L (135-145)
[2023-06-08 07:01] LABS: PLT ABN DIST 1; Platelet Count 23 X10*3/uL (160-400); WBC ABN SCTR FOR CBC 1
[2023-06-08 07:13] LABS: Atypical Lymphs Percent Manual 2 % (0-6); Lymphocytes Percent Manual 12 % (20-40); Neutrophils Percent Manual 86 % (45-73); Nucleated Red Blood Cells 1 /100WBC (0-0)
[2023-06-08 07:21] LABS: Band Neutrophils Percent 0 % (3-5); RBC Morphology NOTED
[2023-06-08 07:23] LABS: Burr Cells 3+ (>5) /OIF; Schistocytes 1+ (0-2) /OIF
[2023-06-08 07:24] LABS: Tear Drop Cells 1+ (0-2) /OIF
[2023-06-08 07:25] LABS: Hypersegmented Neutrophils PRESENT; Platelet Estimate DECREASED (NORMAL)
[2023-06-08 07:26] LABS: Macrocytosis 1+ (5-14) /OIF
[2023-06-08 08:51] LABS: Lymphocytes Absolute Manual 0.1 X10*3/uL (1.2-4.9); Neutrophils Absolute Manual 0.9 X10*3/uL (2.0-8.3)
[2023-06-08 09:35] LABS: Lactate Dehydrogenase 231 U/L (122-220)
[2023-06-08] MEDS: Cyanocobalamin (Vitamin B-12) 1,000 MCG/ML VIAL 1000 MCG IM (10:16)
[2023-06-08] MEDS: Nystatin Powder 15 GM BOTTLE 1 APPL TOPICAL ×2 (10:16→21:16)
--- NOTE | 2023-06-08 10:28 | MHC.CLN ---
F/U NPO TODAY FOR UPPER ENDOSCOPY. CONTINUE PRIOR DIET ABLE: REGULAR, PUREE WITH ENSURE MAX PROTEIN BID. INTAKE 50-75%. SKIN: SEE WOUND NURSE NOTE. MULTIPLE AREAS OF IMPAIRED SKIN. NOT PRESSURE RELATED. CONTINUE ENSURE MAX BID TO PROMOTE SKIN INTEGRITY. SUPPLEMENT PROVIDE 300 KCALS, 60 G PROTEIN. MONITOR PO INTAKE AND ENCOURAGE SUPPLEMENT.
--- NOTE | 2023-06-08 14:48 | HO.PM.IMPN ---
Subjective Subjective Date of Service: 06/08/23 Interval History: No acute changes overnight. Minimal change in presentation Review of Systems Denies chest pain Denies shortness of breath Denies nausea vomiting diarrhea Denies fever chills Physical Exam Vital Signs: Vital Signs: Last Vital Signs Temp 97.5 F 06/08/23 14:26 Pulse 91 06/08/23 14:26 Resp 12 06/08/23 14:26 BP 138/61 06/08/23 14:26 Pulse Ox 95 06/08/23 07:44 O2 Del Method Room Air 06/08/23 07:44 O2 Flow Rate 2 06/06/23 17:33 BMI result Body Mass Index 31.0 Const: Other: Ill-appearing no acute distress Resp: Other: Clear to auscultation bilaterally no rales rhonchi or wheezes Cardio: Other: No S4; positive S1-S2; no S3 murmurs rubs or gallops GI: Other: Soft nontender nondistended normoactive bowel sounds Extrem: Other: See admission photos Objective Data Active Medications Acetaminophen (Acetaminophen 325 Mg Tablet) 650 mg PO Q6H PRN PRN Reason: Pain, Mild (Pain Scale 1-3) Last Admin: 06/07/23 10:37 Dose: 650 mg Documented By: COTEMA Atorvastatin Calcium (Atorvastatin Calcium 20 Mg Tablet) 20 mg PO DAILY [facility] Last Admin: 06/08/23 10:17 Dose: Not Given Documented By: ALVINO Non-Admin Reason: Patient Refused Clonazepam (Clonazepam 1 Mg Tablet) 1 mg PO BEDTIME PRN PRN Reason: insomnia Ergocalciferol (Ergocalciferol (Vitamin D2) 1,250 Mcg Capsule) 1,250 mcg PO MO [facility] Sodium Chloride (Ns) 1,000 mls @ 80 mls/hr IVCONT .[id number] [facility] Last Admin: 06/08/23 14:00 Dose: 100 mls/hr Documented By: ALVINO Levothyroxine Sodium (Levothyroxine Sodium 112 Mcg Tablet) 112 mcg PO DAILY@0600 [facility] Last Admin: 06/08/23 06:01 Dose: 112 mcg Documented By: LYSZ Lidocaine/Diphenhydr/Alum/Mg/Simeth (Mag&Al/Sim/Diphenhyd/Lidocaine 10 Ml Oral.Susp) 10 ml PO Q4H PRN; Protocol PRN Reason: Mouth Sore Pain Last Admin: 06/07/23 17:39 Dose: 10 ml Documented By: ALVINO Magnesium Oxide (Magnesium Oxide 400 Mg Tablet) 400 mg PO DAILY [facility] Last Admin: 06/08/23 10:17 Dose: Not Given Documented By: ALVINO Non-Admin Reason: Patient Refused Methylprednisolone Sodium Succinate (Methylprednisolone Sod Succ 125 Mg/2 Ml Vial) 60 mg IVPUSH Q12H [facility] Last Admin: 06/08/23 06:00 Dose: 60 mg Documented By: YUNIER Nystatin (Nystatin Powder 15 Gm Bottle) 1 appl TOPICAL BID [facility]; Protocol Last Admin: 06/08/23 10:16 Dose: 1 appl Documented By: ALVINO Omeprazole (Omeprazole 20 Mg Capsule.Dr) 20 mg PO DAILY@0630 [facility] Last Admin: 06/08/23 06:01 Dose: 20 mg Documented By: YUNIER Ondansetron HCl (Ondansetron Hcl 4 Mg/2 Ml Vial) 4 mg IVPUSH Q8H PRN PRN Reason: Nausea and Vomiting Senna (Sennosides 8.6 Mg Tablet) 17.2 mg PO BEDTIME PRN PRN Reason: Constipation Sodium Chloride (0.9 % Sodium Chloride Flush 3 Ml Syringe) 3 ml IVFLUSH QSHIFT [facility] Last Admin: 06/08/23 09:08 Dose: Not Given Documented By: ALVINO Non-Admin Reason: IV Running Valproic Acid (Valproic Acid 250 Mg Capsule) 250 mg PO BEDTIME [facility] Last Admin: 06/07/23 21:57 Dose: 250 mg Documented By: YUNIER Labs 06/08/23 06:01 06/08/23 06:01 Labs: Laboratory Results - last 24 hr 06/06/23 06/08/23 16:09 06:01 MCV 103.4 H MCH 35.9 H MCHC 34.7 RDW 21.1 H Plt Count 23 L D MPV Not Reportable Immature Gran % (Auto) Cancelled Neut % (Auto) Cancelled Lymph % (Auto) Cancelled [place] % (Auto) Cancelled Eos % (Auto) Cancelled Baso % (Auto) Cancelled Lymph # (Auto) Cancelled [place] # (Auto) Cancelled Eos # (Auto) Cancelled Baso # (Auto) Cancelled Abs Immat Gran (auto) Cancelled Absolute Neuts (auto) Cancelled Absolute Nucleated RBC 0.000 Nucleated RBC % (auto) 0.0 Neutrophils % (Manual) 86 H Band Neutrophils % 0 L Lymphocytes % (Manual) 12 L Atypical Lymphs % (Man) 2 Abs Neuts (Manual) 0.9 L Lymphocytes # (Manual) 0.1 L Nucleated RBCs 1 H Hypersegmented Neuts PRESENT Platelet Estimate DECREASED Plt Morphology Comment Not Reportable RBC Morphology NOTED Macrocytosis 1+ (5-14) Tear Drop Cells 1+ (0-2) [place] Cells 3+ (>5) Schistocytes 1+ (0-2) PT 11.9 INR 1.0 Anion Gap 12 Estim Creat Clear Calc 72.7 Estimated GFR > 60 Fasting Glucose 134 H Calcium 9.1 Lactate Dehydrogenase 231 H Blood Type O Negative Antibody Screen NEGATIVE Microbiology Microbiology Results: Microbiology 06/06/23 15:11 Blood Culture - Preliminary Blood - Venous No growth after 24 hours. 06/06/23 14:35 Blood Culture - Preliminary Blood - Venous No growth after 24 hours. Assessment and Plan (1) Pancytopenia: Status: Acute Assessment and Plan: 82 year old female with history of hypothyroidism, bipolar disorder, hld admitted for further managmenet of blistering rash of unclear etiology with odynophagia/dysphagia. 1.Recurrent blistering rash -Bx 05/01 nonspecific findings -Iv methylprednisolone 60mg BID -Wound care consult biopsy inconclusive -transfer to [facility] 06/10/2023 for derm evaluation 2.Acute kidney injury- resolved -likely prerenal due to poor po intake 2/2 above -follow renals/divalents 3.Pancytopenia.. For EGD today -transfuse 1 unit of platelets prior to EGD -follow clinically Full code Pt requires ongoing hospitalization to complete workup for dermatological abnormalities; will be transferred to [facility] on Sunday for dermatological evaluation (2) Blistering rash: Status: Acute (3) Acute kidney injury: Status: Acute Quality Stroke Does the patient have a stroke diagnosis?: No VTE Prior VTE?: No VTE Risk Level:: Medical - moderate - high VTE Device Contraindication: Treatment Not Indicated VTE Drug Contraindication: N/A - Med Ordered
[2023-06-08 15:13] LABS: Platelet Count 21 X10*3/uL (160-400)
--- NOTE | 2023-06-08 15:55 | PM.EVENT ---
Event Note Date of Service: 06/08/23 Event Note: GI Follow up: The EGD was canceled due to her significant thrombocytopenia that has been refractory to the platelet transfusion today. Her platelet count went even lower to 21K after the transfusion. I will readvance her diet. Would consider some parenteral nutrition as well. If the UGI symptoms persist I would recommend an EGD in [place] or here once the platelet issue has been resolved. D/W her nephew, Rupali, in detail. D/W Dr. Acosta and Dr. Nuno. Please call me if I can be of any further assistance while she is here. Thanks Time Spent With Patient Time: Total time managing care of this patient today ____ minutes.
[2023-06-08] MEDS: Mag&Al/Sim/Diphenhyd/Lidocaine 10 ML ORAL.SUSP PO ×2 (16:06→19:36)
[2023-06-08] MEDS: Pantoprazole Sodium 40 MG/10 ML VIAL IVPUSH (17:30)
--- NOTE | 2023-06-08 20:51 | PM.EVENT ---
Event Note Date of Service: 06/08/23 Event Note: GI F/U--Given that we were unable to perform the EGD today due to her significant thrombocytopenia, I have opted to treat her empirically for esophageal candidiasis with a course of IV Diflucan given her ongoing odynophagia with risk factors of steroid use and significant systemic illness. Although no oral thrush was seen on her exam, patients can develop esophageal candidiasis without having any oropharyngeal component. I would continue the Diflucan for 14 days. Thanks Time Spent With Patient Time: Total time managing care of this patient today ____ minutes.
[2023-06-08] MEDS: Fluconazole in NaCl,Iso-Osm 200 MG/100 ML PIGGYBACK 100 MG IV (21:13)
[2023-06-08] MEDS: Valproic Acid 250 MG CAPSULE PO (21:21)
[2023-06-09 00:17] VITALS: BP 131/58; PULSE 87; RESP 18; TEMP 36.1
[2023-06-09 03:19] VITALS: BP 117/52; PULSE 94; RESP 17; TEMP 36.1; O2SAT 94
[2023-06-09] MEDS: methylPREDNISolone Sod Succ 125 MG/2 ML VIAL 60 MG IVPUSH ×2 (05:26→17:50)
[2023-06-09] MEDS: Acetaminophen 325 MG TABLET 650 MG PO ×2 (05:26→13:13)
[2023-06-09] MEDS: Levothyroxine Sodium 112 MCG TABLET PO (05:26)
[2023-06-09] MEDS: Pantoprazole Sodium 40 MG/10 ML VIAL IVPUSH ×2 (05:26→17:09)
[2023-06-09] MEDS: Mag&Al/Sim/Diphenhyd/Lidocaine 10 ML ORAL.SUSP PO ×4 (05:34→20:26)
[2023-06-09 06:07] LABS: Hematocrit 23.4 % (37.0-47.0); Mean Corpuscular HGB Conc 34.2 g/dl (31.0-35.0); Mean Corpuscular Hemoglobin 36.2 pg (27.0-33.0); Mean Corpuscular Volume 105.9 fL (80.0-98.0); Mean Platelet Volume 12.3 fL (9.4-12.3); Red Blood Count 2.21 X10*6/uL (4.20-5.50); Red Cell Distribution Width 21.1 % (11.0-16.0)
[2023-06-09 06:08] LABS: Platelet Count 39 X10*3/uL (160-400); WBC ABN SCTR FOR CBC 1
[2023-06-09 06:13] LABS: White Blood Count 0.5 X10*3/uL (4.8-10.8)
[2023-06-09 06:23] LABS: Alanine Aminotransferase 32 U/L (0-31); Albumin Level 2.8 g/dL (3.5-5.0); Alkaline Phosphatase 54 U/L (39-117); Anion Gap 11 (12-20); Aspartate Amino Transferase 37 U/L (5-31); Bilirubin Total 0.8 mg/dL (0.0-1.0); Blood Urea Nitrogen 50 mg/dL (9-16); Calcium 9.3 mg/dL (8.4-10.2); Carbon Dioxide 24 mmol/L (22-29); Chloride 110 mmol/L (96-108); Creatinine Clr Calc Pharmacy 91.5; Estimated Glomerular Filt Rate > 60; Glucose Fasting 132 mg/dL (60-99); Potassium 4.4 mmol/L (3.3-5.1); Sodium 141 mmol/L (135-145)
[2023-06-09 06:56] LABS: Folate < 2.2 ng/mL (> or = 4.0); Vitamin B12 > 2000 pg/mL (200-900)
[2023-06-09 07:39] LABS: Band Neutrophils Percent 2 % (3-5); Lymphocytes Absolute Manual 0.2 X10*3/uL (1.2-4.9); Lymphocytes Percent Manual 40 % (20-40); Macrocytosis 2+ (15-30) /OIF; Monocytes Percent Manual 1 % (2-11); Neutrophils Absolute Manual 0.3 X10*3/uL (2.0-8.3); Neutrophils Percent Manual 57 % (45-73); Platelet Estimate DECREASED (NORMAL); RBC Morphology NOTED
[2023-06-09 07:40] LABS: Large Platelet PRESENT; Platelet Morphology Comment NOTED
[2023-06-09 07:41] LABS: Acanthocytes 1+ (0-2) /OIF; Basophilic Stippling 1+ (0-2) /OIF; Ovalocytes 1+ (5-14) /OIF
[2023-06-09 08:00] VITALS: BP 126/60; PULSE 79; RESP 16; TEMP 36.7; O2SAT 92
[2023-06-09] MEDS: Atorvastatin Calcium 20 MG TABLET PO (08:56)
[2023-06-09] MEDS: 0.9 % Sodium Chloride Flush 3 ML SYRINGE IVFLUSH ×3 (08:56→21:45)
[2023-06-09] MEDS: Magnesium Oxide 400 MG TABLET PO (08:56)
[2023-06-09 09:03] LABS: Magnesium 2.3 mg/dL (1.6-2.6); Phosphorus 2.4 mg/dL (2.7-4.5)
[2023-06-09] MEDS: Nystatin Powder 15 GM BOTTLE 1 APPL TOPICAL ×2 (09:51→20:36)
--- NOTE | 2023-06-09 10:00 | HO.POSTANES ---
Post Anesthesia Evaluation Post Anesthesia Evaluation Date of Service: 06/09/23 Vital Signs: Vital Signs Temp Pulse Resp BP Pulse Ox O2 Del Method 06/09/23 08:00 98.1 F 79 16 126/60 92 Room Air 06/09/23 03:19 97.0 F 94 17 117/52 L 94 Room Air 06/09/23 00:17 96.9 F 87 18 131/58 L 06/08/23 23:20 97.5 F 88 18 128/61 06/08/23 23:03 97.3 F 86 18 136/63 Anesthesia: TIVA Mental Status: Awake Pain Control: Satisfactory Nausea/Vomiting: None Hydration: Adequate Anesthesia-Related Issues: No Anes. Related Issues
--- NOTE | 2023-06-09 10:59 | MHC.CLN ---
CONSULT FOR PPN: HT 5'5 WT 84.6KG BMI 31 ENN: 2020KCALS, 80-100G PROTEIN BASED ON CMW (67KG) LABS BUN 50, PHOS 2.4, ALBUMIN 2.8 DIET RX: PUREED-PO APPROX 50% PT ALSO RECEIVING ENSURE MAX FOR IMPAIRED SKIN PT WITH INCREASED PROTEIN NEEDS R/T WOUND HEALING DISCUSSED WITH PHARMACY RECOMMEND PPN AT 60ML/HR TO PROVIDE 734KCALS (36% EST KCAL NEEDS), 61G PROTEIN (.9G/KG), 144G DEXTROSE REPLETE LYTES NEEDED MONITOR PO INTAKE AND ENCOURAGE SUPPLEMENT
--- NOTE | 2023-06-09 13:48 | P.PNIM_ITS ---
Subjective Subjective Date of Service: 06/09/23 Interval History: No acute issues overnight. PPN to start this morning Review of Systems Denies chest pain Denies shortness of breath Denies nausea vomiting diarrhea Denies fever chills Physical Exam 2 Vital Signs: Vital Signs: Last Vital Signs Temp 98.1 F 06/09/23 08:00 Pulse 79 06/09/23 08:00 Resp 16 06/09/23 08:00 BP 126/60 06/09/23 08:00 Pulse Ox 92 06/09/23 08:00 O2 Del Method Room Air 06/09/23 08:00 O2 Flow Rate 2 06/06/23 17:33 BMI result Body Mass Index 31.0 Const: Other: Ill-appearing no acute distress Resp: Other: Clear to auscultation bilaterally no rales rhonchi or wheezes Cardio: Other: No S4; positive S1-S2; no S3 murmurs rubs or gallops GI: Other: Soft nontender nondistended normoactive bowel sounds Extrem: Other: See admission photos Objective Data Active Medications Acetaminophen (Acetaminophen 325 Mg Tablet) 650 mg PO Q6H PRN PRN Reason: Pain, Mild (Pain Scale 1-3) Last Admin: 06/09/23 13:13 Dose: 650 mg Documented By: SHIRA Atorvastatin Calcium (Atorvastatin Calcium 20 Mg Tablet) 20 mg PO DAILY [facility] Last Admin: 06/09/23 08:56 Dose: 20 mg Documented By: SHIRA Clonazepam (Clonazepam 1 Mg Tablet) 1 mg PO BEDTIME PRN PRN Reason: insomnia Ergocalciferol (Ergocalciferol (Vitamin D2) 1,250 Mcg Capsule) 1,250 mcg PO MO [facility] Fluconazole 100 mg/ IV (Miscellaneous Supplies) 50 mls @ 50 mls/hr IV Q24H [facility] Nutrition (Parenteral) (Parenteral Nutrition) 1,440 mls @ 60 mls/hr IV .Q24H [facility]; Protocol Stop: 06/10/23 20:59 Levothyroxine Sodium (Levothyroxine Sodium 112 Mcg Tablet) 112 mcg PO DAILY@0600 [facility] Last Admin: 06/09/23 05:26 Dose: 112 mcg Documented By: RAYA Lidocaine/Diphenhydr/Alum/Mg/Simeth (Mag&Al/Sim/Diphenhyd/Lidocaine 10 Ml Oral.Susp) 10 ml PO Q4H PRN; Protocol PRN Reason: Mouth Sore Pain Last Admin: 06/09/23 09:46 Dose: 10 ml Documented By: SHIRA Magnesium Oxide (Magnesium Oxide 400 Mg Tablet) 400 mg PO DAILY [facility] Last Admin: 06/09/23 08:56 Dose: 400 mg Documented By: SHIRA Methylprednisolone Sodium Succinate (Methylprednisolone Sod Succ 125 Mg/2 Ml Vial) 60 mg IVPUSH Q12H [facility] Last Admin: 06/09/23 05:26 Dose: 60 mg Documented By: RAYA Nystatin (Nystatin Powder 15 Gm Bottle) 1 appl TOPICAL BID [facility]; Protocol Last Admin: 06/09/23 09:51 Dose: 1 appl Documented By: SHIRA Ondansetron HCl (Ondansetron Hcl 4 Mg/2 Ml Vial) 4 mg IVPUSH Q8H PRN PRN Reason: Nausea and Vomiting Pantoprazole Sodium (Pantoprazole Sodium 40 Mg/10 Ml Vial) 40 mg IVPUSH BID@0630,1630 [facility] Last Admin: 06/09/23 05:26 Dose: 40 mg Documented By: RAYA Pharmacy Consult (Consult Rx Parenteral Nutrition Ordering) 1 each MISCELLANE DAILY PRN PRN Reason: Consult order Senna (Sennosides 8.6 Mg Tablet) 17.2 mg PO BEDTIME PRN PRN Reason: Constipation Sodium Chloride (0.9 % Sodium Chloride Flush 3 Ml Syringe) 3 ml IVFLUSH QSHIFT [facility] Last Admin: 06/09/23 08:56 Dose: 3 ml Documented By: SHIRA Valproic Acid (Valproic Acid 250 Mg Capsule) 250 mg PO BEDTIME [facility] Last Admin: 06/08/23 21:21 Dose: 250 mg Documented By: RAYA Labs 06/09/23 05:42 06/09/23 05:42 Labs: Laboratory Results - last 24 hr 06/06/23 06/08/23 06/09/23 16:09 14:58 05:42 MCV 105.9 H MCH 36.2 H MCHC 34.2 RDW 21.1 H Plt Count 21 L 39 L D MPV 12.3 Immature Gran % (Auto) Cancelled Neut % (Auto) Cancelled Lymph % (Auto) Cancelled [place]are % (Auto) Cancelled Eos % (Auto) Cancelled Baso % (Auto) Cancelled Lymph # (Auto) Cancelled Dare # (Auto) Cancelled Eos # (Auto) Cancelled Baso # (Auto) Cancelled Abs Immat Gran (auto) Cancelled Absolute Neuts (auto) Cancelled Absolute Nucleated RBC 0.000 Nucleated RBC % (auto) 0.0 Neutrophils % (Manual) 57 Band Neutrophils % 2 L Lymphocytes % (Manual) 40 Monocytes % (Manual) 1 L Abs Neuts (Manual) 0.3 L Lymphocytes # (Manual) 0.2 L Platelet Estimate DECREASED Large Platelets PRESENT Plt Morphology Comment NOTED RBC Morphology NOTED Basophilic Stippling 1+ (0-2) Macrocytosis 2+ (15-30) Ovalocytes 1+ (5-14) Acanthocytes (Spur) 1+ (0-2) Anion Gap 11 L Estim Creat Clear Calc 91.5 Estimated GFR > 60 Fasting Glucose 132 H Calcium 9.3 Phosphorus 2.4 L Magnesium 2.3 Total Bilirubin 0.8 AST 37 H ALT 32 H Alkaline Phosphatase 54 Total Protein 5.0 L Albumin 2.8 L Vitamin B12 > 2000 H Folate < 2.2 L Blood Type O Negative Antibody Screen NEGATIVE Microbiology Microbiology Results: Microbiology 06/06/23 15:11 Blood Culture - Preliminary Blood - Venous No growth after 48 hours. 06/06/23 14:35 Blood Culture - Preliminary Blood - Venous No growth after 48 hours. Assessment and Plan (1) Pancytopenia: Status: Acute Assessment and Plan: 82 year old female with history of hypothyroidism, bipolar disorder, hld admitted for further managmenet of blistering rash of unclear etiology with odynophagia/dysphagia. 1.Recurrent blistering rash -Bx 05/01 nonspecific findings -Iv methylprednisolone 60mg BID -Wound care consult biopsy inconclusive -transfer to [facility] 06/10/2023 for derm evaluation 2.Acute kidney injury- resolved -likely prerenal due to poor po intake 2/2 above -follow renals/divalents 3.Pancytopenia.. -platelets stable -WBC 0.5... Will discuss with him -follow clinically Full code Pt requires ongoing hospitalization to complete workup for dermatological abnormalities; will be transferred to on Sunday for dermatological evaluation (2) Blistering rash: Status: Acute (3) Acute kidney injury: Status: Acute Quality Stroke Does the patient have a stroke diagnosis?: No VTE Prior VTE?: No VTE Risk Level:: Medical - moderate - high VTE Device Contraindication: Treatment Not Indicated VTE Drug Contraindication: N/A - Med Ordered
[2023-06-09 15:09] VITALS: BP 130/58; PULSE 86; RESP 18; TEMP 36.9; O2SAT 90
[2023-06-09] MEDS: Morphine Sulfate 4 MG/ML CARTRIDGE IVPUSH (16:02)
[2023-06-09 16:09] VITALS: BP 113/58; PULSE 65; RESP 16; TEMP 36.8; O2SAT 93
[2023-06-09 19:18] VITALS: BP 133/77; PULSE 120; RESP 22; TEMP 37.2; O2SAT 96
[2023-06-09] MEDS: Tbo-Filgrastim 300 MCG/0.5 ML SYRINGE SUBCUT (19:50)
[2023-06-09] MEDS: Fluconazole in NaCl,Iso-Osm 100 MG in Container,Empty 0 ML 50 MG IV (20:27)
[2023-06-09] MEDS: Parenteral Nutrition 1,440 ML 60 ML IV (21:39)
[2023-06-10 00:20] VITALS: PULSE 84
[2023-06-10 02:47] VITALS: BP 135/60; PULSE 115; RESP 20; TEMP 37.3; O2SAT 92
[2023-06-10 05:33] VITALS: BP 136/62; PULSE 110; RESP 18
[2023-06-10] MEDS: Morphine Sulfate 4 MG/ML CARTRIDGE IVPUSH ×4 (05:34→15:43)
[2023-06-10] MEDS: Levothyroxine Sodium 112 MCG TABLET PO (05:41)
[2023-06-10] MEDS: Mag&Al/Sim/Diphenhyd/Lidocaine 10 ML ORAL.SUSP PO ×3 (05:41→15:15)
[2023-06-10] MEDS: Pantoprazole Sodium 40 MG/10 ML VIAL IVPUSH (05:48)
[2023-06-10] MEDS: methylPREDNISolone Sod Succ 125 MG/2 ML VIAL 60 MG IVPUSH (05:48)
[2023-06-10 06:51] LABS: Alanine Aminotransferase 31 U/L (0-31); Albumin Level 2.7 g/dL (3.5-5.0); Alkaline Phosphatase 49 U/L (39-117); Anion Gap 12 (12-20); Aspartate Amino Transferase 27 U/L (5-31); Bilirubin Total 1.4 mg/dL (0.0-1.0); Blood Urea Nitrogen 41 mg/dL (9-16); Calcium 9.6 mg/dL (8.4-10.2); Carbon Dioxide 25 mmol/L (22-29); Chloride 108 mmol/L (96-108); Creatinine Clr Calc Pharmacy 72.7; Estimated Glomerular Filt Rate > 60; Glucose Fasting 207 mg/dL (60-99); Potassium 3.4 mmol/L (3.3-5.1); Sodium 142 mmol/L (135-145); Total Protein 4.9 g/dL (6.5-8.0)
[2023-06-10 07:09] LABS: Hematocrit 22.8 % (37.0-47.0); Hemoglobin 7.6 g/dl (12.0-16.0); Lymphocytes Absolute Auto 0.1 X10*3/uL (1.2-4.9); Lymphocytes Percent Auto 38.5 % (20-40); MANUAL DIFF FLAG SCAN; Mean Corpuscular HGB Conc 33.3 g/dl (31.0-35.0); Mean Corpuscular Volume 105.1 fL (80.0-98.0); Mean Platelet Volume 10.7 fL (9.4-12.3); Neutrophils Absolute Auto 0.1 x10*3/uL (2.0-8.3); Neutrophils Percent Auto 61.5 % (45-73); Red Blood Count 2.17 X10*6/uL (4.20-5.50); Red Cell Distribution Width 21.5 % (11.0-16.0); SCAN SMEAR FLAG 1
[2023-06-10 07:45] LABS: Magnesium 2.2 mg/dL (1.6-2.6); Phosphorus 2.3 mg/dL (2.7-4.5)
[2023-06-10 07:57] VITALS: BP 135/60; PULSE 105; RESP 16; TEMP 36.9; O2SAT 94
[2023-06-10 07:59] LABS: NRBC Pct Auto 15.4 /100WBC (0.0-0.2); Platelet Count 23 X10*3/uL (160-400)
[2023-06-10 08:26] LABS: White Blood Count 0.1 X10*3/uL (4.8-10.8)
[2023-06-10 08:27] LABS: SLIDE REVIEW VERIFIED
[2023-06-10] MEDS: Magnesium Oxide 400 MG TABLET PO (08:53)
[2023-06-10] MEDS: Atorvastatin Calcium 20 MG TABLET PO (08:53)
[2023-06-10] MEDS: Nystatin Powder 15 GM BOTTLE 1 APPL TOPICAL (08:57)
--- NOTE | 2023-06-10 13:17 | P.DS_ITS ---
DS: Providers Provider Date of Service: 06/10/23 Date of admission: 06/06/23 16:42 Date of discharge: 06/10/23 Primary care physician: Gary Brandon DO Consults: 06/06/23 15:45 Consult to Gastroenterology Stat Consulting Provider: Gary Ronquillo Reason for consultation: dysphagia, oral lesions Has provider been notified: No 06/06/23 15:58 Consult to General Surgery Routine Consulting Provider: [facility] Reason for consultation: punch biopsy, sample several different sites 06/06/23 15:59 Consult to Gastroenterology Routine Consulting Provider: Gary Ronquillo Reason for consultation: dysphagia 06/06/23 16:49 Consult to Hematology / Oncology Routine Consulting Provider: Pk Acosta Reason for consultation: pancytopenia 06/06/23 17:16 Consult to Wound Care Routine Reason for consultation: RN - wounds buttock, feet, groin 06/07/23 03:35 Consult to Wound Care Routine Reason for consultation: rash/redness to lower legs, blister to left foot, rash to right groin/kole 06/07/23 12:42 Consult to Wound Care Routine Reason for consultation: Bilateral lower extremity bolus eczematoid rash and blistering. Recent adm DS: Diagnosis Discharge Diagnosis (1) Pancytopenia: Status: Acute (2) Blistering rash: Status: Acute (3) Acute kidney injury: Status: Acute DS: Summary Hospital Course Hospital Course: 82 year old female with history of hypothyroidism, bipolar disorder, hld presented to the ED earlier today for evaluation of blistering rash on the ble. Was admitted last month from 04/26- 05/04 for this rash and was seen by multiple specialists with punch biopsy performed with path report showing nonspecific findings including possible eczematous dermatitis, urticaria, or drug rash. ID consutled who did not feel this was infectious and was started on IV steroids with improvement in symptoms. She was also evaluated by hematology due to pancytopenia and underwent bone lac vieux biopsy with aspirate evaluation showing erythroid hyperplasia but no leukemia or primary bone marrow process. Zyprexa was changed back to zyprexa. She was discharged on prednisone taper and had seemed to be improving. However over last week has had worsening erythema, blisters, and progressive dysphagia/odynophagia for the last few weeks.In the ED, VSS. She is pancytopenic with WBC 1.7, H/H 9.7/28.2%, PLT 50. Creat 1.26, baseline 0.66, BUN 48. Lytes normal. Lactic acid 1.3. Total bili 1.1, direct bili 0.6. AST/ALT wnl. CRp 22.91, ESR 13. PCT 0.28. Venous duplex negative for DVT. In the ED, given 125mcg IV methylprednisolone. Hospital Course Admitted to the general medical floor and continued on IV methylprednisolone. During her hospitalization she continued to be progressively pancytopenic. Most recent W CBC count was 0.5. She was given 1 dose of TB0-filgrastim on 06/09/2023. She was scheduled for endoscopy 06/08/2023 however thrombocytopenia prohibited this study. As per GI, she was started on empiric Diflucan for suspected esophageal candidiasis. She continues to have very little p.o. intake and was maintained on PPN. She was seen in consultation by Infectious Disease to rule out the possibility of Clement Mateusz syndrome; ID did not feel this was the issue. Present time, she continues on steroids and will be transferred to [facility] for urgent dermatological evaluation. Time Attestation Discharge coordination time: Greater than 30 minutes Quality: Safe Use of Opioids Does Pt have an Active Cancer Diagnosis on the Problem List?: No Quality: Stroke Does the patient have a stroke diagnosis?: No Physical Exam Vital Signs: Vital Signs: Last Vital Signs Temp 98.4 F 06/10/23 07:57 Pulse 105 H 06/10/23 07:57 Resp 16 06/10/23 07:57 BP 135/60 06/10/23 07:57 Pulse Ox 94 06/10/23 07:57 O2 Del Method Room Air 06/10/23 07:57 O2 Flow Rate 2 06/06/23 17:33 BMI result Body Mass Index 31.0 Const: Other: Ill-appearing no acute distress Resp: Other: Clear to auscultation bilaterally no rales rhonchi or wheezes Cardio: Other: No S4; positive S1-S2; no S3 murmurs rubs or gallops GI: Other: Soft nontender nondistended normoactive bowel sounds Extrem: Other: See admission photos DS: Data Data Completed and Pending Completed studies during hospitalization [Text1]: Procedures Drainage of Bone Marrow, Percutaneous Approach, Diagnostic (04/27/23) Excision of Left Foot Skin, External Approach, Diagnostic (04/27/23) Extraction of Iliac Bone Marrow, Percutaneous Approach, Diagnostic (04/27/23) Transfusion of Nonautologous Platelets into Peripheral Vein, Percutaneous Approach (04/27/23) Transfusion of Nonautologous Red Blood Cells into Peripheral Vein, Percutaneous Approach (04/27/23) Labs on day of discharge: Laboratory Results - last 24 hr 06/10/23 05:28 WBC 0.1 L* RBC 2.17 L Hgb 7.6 L Hct 22.8 L MCV 105.1 H MCH 35.0 H MCHC 33.3 RDW 21.5 H Plt Count 23 L D MPV 10.7 Immature Gran % (Auto) 0.0 Neut % (Auto) 61.5 Lymph % (Auto) 38.5 [place] % (Auto) 0.0 L Eos % (Auto) 0.0 Baso % (Auto) 0.0 Lymph # (Auto) 0.1 L [place] # (Auto) 0.0 L Eos # (Auto) 0.0 Baso # (Auto) 0.0 Abs Immat Gran (auto) 0.00 Absolute Neuts (auto) 0.1 L Absolute Nucleated RBC 0.020 H Nucleated RBC % (auto) 15.4 H Smear Tech's Comments VERIFIED Sodium 142 Potassium 3.4 D Chloride 108 Carbon Dioxide 25 Anion Gap 12 BUN 41 H Creatinine 0.63 Estim Creat Clear Calc 72.7 Estimated GFR > 60 Fasting Glucose 207 H Calcium 9.6 Phosphorus 2.3 L Magnesium 2.2 Total Bilirubin 1.4 H AST 27 ALT 31 Alkaline Phosphatase 49 Total Protein 4.9 L Albumin 2.7 L Preliminary micro results at discharge 06/06/23 15:11 Blood Culture - Preliminary Blood - Venous No growth after 48 hours. 06/06/23 14:35 Blood Culture - Preliminary Blood - Venous No growth after 48 hours. Discharge Plan Discharge Anticipated Discharge Date/Time: 06/10/23 13:17 Patient Disposition: [facility] Acute [facility] Hospital Discharge Diagnosis: Blistering rash; pancytopenia Referrals: Gary Brandon DO [Primary Care Provider] - 1 Week Discharge Medications: New valproic acid 250 mg Capsule 250 mg PO BEDTIME Qty: 30 0RF Solu-Medrol (PF) 125 mg/2 mL Recon Soln 60 mg IVPUSH Q12H Qty: 25 0RF Mag&Al/Sim/Diphenhyd/Lidocaine [Magic Mouthwash] 10 ml PO Q4H PRN (Reason: Odynophagia) Qty: 180 0RF Continued divalproex [Depakote] 500 mg tablet,delayed release (DR/EC) 500 mg PO BEDTIME Qty: 90 0RF Methylfolate capsule 15 mg PO DAILY clonazepam 1 mg tablet 1 mg PO BEDTIME PRN (Reason: insomnia) Rx Instructions: administer 30 minutes before bedtime rosuvastatin 5 mg tablet 5 mg PO DAILY magnesium 500 mg Tablet 500 mg PO DAILY levothyroxine 112 mcg tablet 112 mcg PO DAILY@0600 ergocalciferol (vitamin D2) 1,250 mcg (50,000 unit) capsule 1,250 mcg PO MO pantoprazole 40 mg tablet,delayed release (DR/EC) 40 mg PO DAILY Discontinued cephalexin 500 mg capsule 500 mg PO QID Discharge Orders: Discharge Order (Routine); Ordered 06/10/23 Ordered By: Sky Nuno Diet: Advance to usual diet Activity on Discharge: As tolerated Stand Alone Forms: Patient Portal Discharge page Care Plan Goals: Continue medicines as ordered Health Concerns: Fall with dermatology at [facility] Plan of Treatment: As per receiving facility Assessment: See discharge summary
--- NOTE | 2023-06-10 13:22 | MHC.CM.PN ---
Patient is being transferred to [facility] via ALS. IMM delivered.
[2023-06-10 15:17] VITALS: BP 128/82; PULSE 92; RESP 16; TEMP 37.5; O2SAT 91
--- NOTE | 2023-06-10 15:53 | PC.NURSE ---
Patient Picke up by [facility]. Report given to ambulance crew. Pt medicated with Morphine sulfate 4mg while ambulance crew was here. Ambulance left with patient at 15:50. Report to receiving nurse was attempted x2. Once before ambulance arrived and once after ambulance left. Second time, was told they would call back because receiving nurse was busy. Awaiting call back at this time.
--- NOTE | 2023-06-10 16:09 | PC.NURSE ---
Report given to receiving nurse at [facility] at 16:05
== END 2023-06-10 16:10 | disposition short-term general hospital (02) | DRG 809 ==
LOC: HO.ED 15:39 → HO.EDOVER 16:58 → HO.S3 23:53
PROVIDERS: Internal Medicine; Internal Medicine Medical Oncology; Admitting Provider Physician Assistant; Emergency Provider Emergency Medicine; PCP Internal Medicine; Visit Provider Hospitalist
DX: D61.818 Other pancytopenia (principal); B37.81 Candidal esophagitis; N17.9 Acute kidney failure, unspecified; E03.9 Hypothyroidism, unspecified; L27.1 Localized skin eruption due to drugs and medicaments taken internally; L30.9 Dermatitis, unspecified; L50.9 Urticaria, unspecified; B37.2 Candidiasis of skin and nail; I89.0 Lymphedema, not elsewhere classified; E78.5 Hyperlipidemia, unspecified; F31.9 Bipolar disorder, unspecified; R13.10 Dysphagia, unspecified; Z79.890 Hormone replacement therapy; Z79.899 Other long term (current) drug therapy
CPT/HCPCS: 36415; 80048; 80053; 80076; 82607; 82746; 83605; 83615; 83735; 83880; 84100; 84145; 85007; 85025; 85027; 85049; 85610; 85652; 86140; 86850; 86900; 86901; 87040; 93970; 99285; C9113; J1447; J1450; J1644; J2270; J2930; J3420; P9073

== ENCOUNTER → 2023-06-06 16:42 | Outpatient (BNV) | payer MEDICARE, OTHER, SELFPAY | PROVIDERS: Admitting Provider Physician Assistant; Emergency Provider Emergency Medicine; PCP Internal Medicine; Visit Provider Internal Medicine Medical Oncology | DX: D61.818 Other pancytopenia (principal) | CPT/HCPCS: 99222 ==

== ENCOUNTER → 2023-06-06 16:42 | Outpatient (BNV) | payer MEDICARE, OTHER, SELFPAY | PROVIDERS: Admitting Provider Physician Assistant; Emergency Provider Emergency Medicine; PCP Internal Medicine; Visit Provider Surgery | DX: R21 Rash and other nonspecific skin eruption (principal); I89.0 Lymphedema, not elsewhere classified | CPT/HCPCS: 99222 ==

== ENCOUNTER → 2023-06-06 16:42 | Outpatient (BNV) | payer MEDICARE, OTHER, SELFPAY | PROVIDERS: Admitting Provider Physician Assistant; Emergency Provider Emergency Medicine; PCP Internal Medicine; Visit Provider Physician Assistant | DX: D61.818 Other pancytopenia (principal); N17.9 Acute kidney failure, unspecified; R21 Rash and other nonspecific skin eruption | CPT/HCPCS: 99223; 99232; 99239 ==